=== PATIENT | male | born 1965 | race American Indian/Alaskan Native ===

== ENCOUNTER 2017-03-06 13:00 | Inpatient (IN) | payer MEDICAID ==
[2017-03-06 13:04] VITALS: BMI 25.8
[2017-03-06 14:33] LABS: BASO % 0.3 % (0.0-2.0); EOS # 0.1 K/uL (0.0-0.7); EOS % 1.5 % (0.0-4.0); HEMATOCRIT 37.7 % (35.0-51.0); LYMPH # 2.3 K/uL (1.0-4.3); LYMPH % 27.1 % (20.0-40.0); MEAN CELL VOLUME 84.5 fl (80.0-94.0); MEAN CORPUSCULAR HEMOGLOBIN 27.1 pg (27.0-31.0); MEAN PLATELET VOLUME 8.9 fl (7.2-11.7); MONO # 0.5 K/uL (0.0-0.8); MONO % 5.5 % (0.0-10.0); NEUT # 5.6 K/uL (1.8-7.0); NEUT % 65.6 % (50.0-75.0); RED CELL DISTRIBUTION WIDTH 19.6 % (11.5-14.5); WHITE BLOOD COUNT 8.6 K/uL (4.8-10.8)
[2017-03-06] MEDS ORDERED: levoFLOXacin 500 mg in D5W 500 MG/100 ML BAG IVPB ONE (14:39)
[2017-03-06] MEDS ORDERED: Vancomycin 1 g Inj ONE (14:39)
[2017-03-06 14:40] LABS: VENOUS BLOOD GAS BASE EXCESS 6.8 mmol/L (0.0-2.0); VENOUS BLOOD GAS PCO2 66 mmHg (40-60); VENOUS BLOOD PH 7.33 (7.32-7.43)
[2017-03-06 14:44] LABS: ALB/GLOB RATIO 1.2 (1.0-2.1); ALKALINE PHOSPHATASE 82 U/L (38-126); ALT/SGPT 20 U/L (21-72); AST/SGOT 39 U/L (17-59); BILIRUBIN,TOTAL 0.3 mg/dl (0.2-1.3); BLOOD UREA NITROGEN 15 mg/dl (9-20); CALCIUM 9.7 mg/dL (8.4-10.2); CARBON DIOXIDE 30 mmol/L (22-30); CHLORIDE 100 mmol/L (98-107); GFR AFRICAN-AMERICAN > 60; GLUCOSE,RANDOM 91 mg/dL (75-110); POTASSIUM 4.4 MMOL/L (3.6-5.0); SODIUM 141 mmol/l (132-148); TOTAL PROTEIN 7.5 G/DL (6.3-8.2)
--- NOTE | 2017-03-06 14:53 | ED PDOC ---
HPI: General Adult Time Seen by Provider: 03/06/17 13:42 Chief Complaint (Nursing): Male Genitourinary History Per: Patient Additional Complaint(s): Pt. states for the past month he's had open sores and swelling to his groin and perineal area. Reports that over the past several days he's had discharge. He went to see Dr. Tiwari today who instructed him to come to the ED. Denies fever , penile discharge, dysuria, trauma. Past Medical History Reviewed: Historical Data, Nursing Documentation, Vital Signs Vital Signs: Last Vital Signs Temp 97 F L 03/06/17 13:02 Pulse 77 03/06/17 13:02 Resp BP 116/84 03/06/17 13:02 Pulse Ox 98 03/06/17 17:20 - Medical History PMH: HIV, HTN - Surgical History Surgical History: No Surg Hx - Family History Family History: States: No Known Family Hx - Immunization History Hx Tetanus Toxoid Vaccination: No Hx Influenza Vaccination: No Hx Pneumococcal Vaccination: No - Home Medications Home Medications: Ambulatory Orders Medication Instructions Recorded Albuterol 0.083% [Albuterol 0.083% 3 ml IH Q6H PRN 03/06/17 Inhal Claire (2.5 mg/3 ml) UD] Albuterol HFA [Ventolin HFA 90 2 puff IH Q4H PRN 03/06/17 mcg/actuation (8 g)] Cetirizine HCl [Allergy] 10 mg PO DAILY PRN 03/06/17 Elviteg/Luna/Emtric/Tenofo Dis 1 tab PO DAILY 03/06/17 [Stribild Tablet] Fluticasone/Salmeterol 500/50 1 puff IH Q12H 03/06/17 [Advair Diskus 500/50] Mometasone Furoate [Nasonex] 2 spray ZAYNAB DAILY PRN 03/06/17 Multivitamin [Multi-Vitamin Daily] 1 tab PO DAILY 03/06/17 Sulfamethoxazole/Trimethoprim 1 tab PO DAILY 03/06/17 [Bactrim DS Tab] - Allergies Allergies/Adverse Reactions: Allergies Allergy/AdvReac Type Severity Reaction Status Date / Time Penicillins Allergy RASH Verified 03/06/17 13:04 Review of Systems ROS Statement: Except As Marked, All Systems Reviewed And Found Negative Physical Exam - Reviewed Nursing Documentation Reviewed: Yes Vital Signs Reviewed: Yes - Physical Exam Appears: Positive for: Well, Non-toxic, No Acute Distress Head Exam: Positive for: ATRAUMATIC, NORMAL INSPECTION, NORMOCEPHALIC Skin: Positive for: Normal Color, Warm. Negative for: Rash Eye Exam: Positive for: EOMI, Normal appearance, PERRL ENT: Positive for: Normal ENT Inspection Neck: Positive for: Normal, Painless ROM Cardiovascular/Chest: Positive for: Regular Rate, Rhythm Respiratory: Positive for: CNT, Normal Breath Sounds Gastrointestinal/Abdominal: Positive for: Normal Exam, Bowel Sounds, Soft. Negative for: Tenderness Male Genital Exam: Positive for: other (diffuse maceration with open wounds and heavy yellow discharge noted; no fluctuance noted; scrotal swelling noted) Back: Positive for: Normal Inspection Extremity: Positive for: Normal ROM Neurologic/Psych: Positive for: Alert, Oriented - Laboratory Results Result Diagrams: 03/06/17 14:28 03/06/17 14:27 - ECG O2 Sat by Pulse Oximetry: 98 - Progress ED Course And Treament: Labs ordered. Levaquin 500mg IV, vancomycin IV ordered. US testes, pelvic CT w/ IV contrast ordered. Pelvic CT: There is a small approximately 11.5 mm x 10 mm low-attenuation focus right perianal region with what appears to represent a thin peripheral rim of enhancement suggesting capsule formation. . Findings most consistent with small perianal fluid collection - abscess. [address] Solares, surgery contracting executive. 1712 Case d/w Dr. Solares who agrees with care and requests that surgical aides teacher be contacted Call placed to surgical aides teacher. Call placed to FP resident. 1715 Case d/w Dr. Kaur, surgical aides teacher, and will see patient in ED and then consult Dr. Solares. Case d/w Dr. Alcala, FP resident, and arrangements made for admission. Disposition - Clinical Impression Clinical Impression: Abscess, Cellulitis - Patient ED Disposition Is Patient to be Admitted: Yes - Disposition Disposition Time: 17:20 Condition: STABLE
[2017-03-06] MEDS ORDERED: Iohexol 300 100 ML IJ ONE (15:40)
[2017-03-06] MEDS ORDERED: Sodium Chloride 0.9% 50 ML IV ONE (15:40)
--- NOTE | 2017-03-06 16:57 | CT ---
PROCEDURE: CT pelvis dated 03/06/2017 HISTORY: Perineal swelling with discharge COMPARISON: None. No prior study available for comparison TECHNIQUE: Contiguous axial images of the pelvis with contrast. Coronal and sagittal reformats generated. Contrast dose: 95 cc Omnipaque 300 Radiation dose: Total exam DLP = 325.12 mGy-cm. This CT exam was performed using one or more of the following dose reduction techniques: Automated exposure control, adjustment of the mA and/or kV according to patient size, and/or use of iterative reconstruction technique. FINDINGS: BLADDER: Urinary bladder is physiologically distended. . No evidence of intraluminal urinary bladder calculi. REPRODUCTIVE ORGANS: Large bilateral hydroceles are present. Prostate gland and seminal vesicles appear unremarkable. VISUALIZED BOWEL: Evaluation of the bowel is limited due to the lack of oral contrast material. PERITONEUM: Unremarkable, as visualized. No free fluid. No free air. LYMPH NODES: Unremarkable. No enlarged lymph nodes. VASCULATURE: Unremarkable. BONES: No fracture or focal lesion. OTHER FINDINGS: There is a small approximately 11.5 mm x 10 mm low-attenuation focus right perianal region with what appears to represent a thin peripheral rim of enhancement suggesting capsule formation. . Findings most consistent with small perianal fluid collection - abscess. Metallic surgical clips left inguinal region likely related to prior inguinal hernia repair. Tiny fat containing right inguinal hernia. . IMPRESSION: Findings consistent with a small fluid collection and/or abscess of the right perianal region.
--- NOTE | 2017-03-06 17:00 | US ---
HISTORY: scrotal swelling and pain TECHNIQUE: Realtime sonography through the scrotum with color and doppler flow. COMPARISON: None Available. FINDINGS: RIGHT TESTICLE: Measures 2.4 x 2.4 x 3.6 cm. Normal echotexture and flow. RIGHT EPIDIDYMIS: Epididymal head measures 0.7 x 0.9 x 1.0 cm. Grossly unremarkable appearance with normal flow.Incidental finding(s): Epididymal cyst 3 x 2 mm. LEFT TESTICLE: Measures 2.2 x 2.3 x 3.9 cm. Normal echotexture and flow. LEFT EPIDIDYMIS: Epididymal head measures 0.9 x 0.9 x 1.5 cm. Grossly unremarkable appearance with normal flow. HYDROCELE: Large and symmetrical bilateral hydroceles. VARICOCELE: None. OTHER FINDINGS: None. IMPRESSION: Negative study for epididymitis, orchitis or torsion. Bilateral hydroceles noted.
[2017-03-06 17:48] LABS: RBC URINE 2 /hpf (0-3); URINE BILIRUBIN NEGATIVE (NEGATIVE); URINE BLOOD NEGATIVE (NEGATIVE); URINE COLOR YELLOW (YELLOW); URINE GLUCOSE (UA) NEG (Normal); URINE KETONE NEGATIVE (NEGATIVE); URINE LEUKOCYTE ESTERASE TRACE Leu/uL (Negative); URINE PROTEIN NEGATIVE (NEGATIVE); URINE UROBILINOGEN 0.2-1.0 mg/dL (0.2-1.0); WBC URINE < 1 /hpf (0-5)
--- NOTE | 2017-03-06 18:17 | CP.PCM.CON ---
Addendum entered and electronically signed by Susan Hicks DO 03/07/17 10: 50: Attending: Dr. Flor patient seen and examined. Recommend IV abx Original Note: History of Present Illness - History of Present Illness History of Present Illness: General Surgery Consult Note- Dr. Tijerina 52M pmh of HIV, squamous cell carcinoma of the penis came to [facility] ED for extreme perianal pain that started one month ago. Intially b/l inguinal region was irritated and itchy which developed into pain migrating to the perinium. Pt saw primary care doctor and recommend to come to the hospital for admission. Pt states minimal drainage and blood only on toilet paper. Pt recent viral load of 90,00 and CD4 less than 200. PMH: HIV, scc of penis, HTN PSH: penile surgery, ex-lap colostomy colostomy reversal from [facility]: PCN Socialhx: former smoker quit 2001, former ETOH use, current heroin user- last use 2days ago. denies marjiuana, cocaine, meth or other illicit drug use Review of Systems - Review of Systems All systems: reviewed and no additional remarkable complaints except - Constitutional Constitutional: As Per HPI Past Patient History - Past Social History Smoking Status: 0 - CARDIAC Hx Hypertension: Yes - HEMATOLOGICAL/ONCOLOGICAL Hx Human Immunodeficiency Virus (HIV): Yes - GENITOURINARY/GYNECOLOGICAL Hx Genitourinary Disorders: Yes Hx Prostate Cancer: Yes Other/Comment: penile cancer - PSYCHIATRIC Hx Substance Use: No - SURGICAL HISTORY Hx Surgeries: Yes Other/Comment: colostomy- reversed - ANESTHESIA Hx Anesthesia: Yes Hx Anesthesia Reactions: No Meds Allergies/Adverse Reactions: Allergies Allergy/AdvReac Type Severity Reaction Status Date / Time Penicillins Allergy RASH Verified 03/06/17 13:04 Physical Exam - Constitutional Appears: Non-toxic, No Acute Distress - Head Exam Additional comments: dry skin across face - Eye Exam Eye Exam: EOMI. absent: Scleral icterus - ENT Exam ENT Exam: Mucous Membranes Moist - Respiratory Exam Respiratory Exam: NORMAL BREATHING PATTERN. absent: Accessory Muscle Use, Respiratory Distress - Cardiovascular Exam Cardiovascular Exam: +S1, +S2. absent: Bradycardia, Tachycardia - GI/Abdominal Exam GI & Abdominal Exam: Normal Bowel Sounds, Soft. absent: Distended, Firm, Guarding, Hernia, Rigid, Tenderness - Rectal Exam Additional comments: severe excoriation of skin at the 12 and 6o'clock position. mild purulet drainage. no palpable abscess. dry white irritated skin b/l inguinal region into the scrotum - Extremities Exam Extremities exam: Negative for: calf tenderness - Neurological Exam Neurological exam: Alert, Oriented x3 - Psychiatric Exam Psychiatric exam: Normal Affect - Skin Skin Exam: Dry, Rash Results - Vital Signs Recent Vital Signs: Last Vital Signs Temp 97 F L 03/06/17 13:02 Pulse 77 03/06/17 13:02 Resp BP 116/84 03/06/17 13:02 Pulse Ox 98 03/06/17 17:20 - Labs Result Diagrams: 03/06/17 14:28 03/06/17 14:27 Labs: Laboratory Results - last 24 hr 03/06/17 03/06/17 03/06/17 13:55 14:27 14:28 WBC 8.6 RBC 4.46 Hgb 12.1 Hct 37.7 MCV 84.5 MCH 27.1 MCHC 32.0 L RDW 19.6 H Plt Count 222 MPV 8.9 Neut % (Auto) 65.6 Lymph % (Auto) 27.1 [place] % (Auto) 5.5 Eos % (Auto) 1.5 Baso % (Auto) 0.3 Neut # 5.6 Lymph # 2.3 [place] # 0.5 Eos # 0.1 Baso # 0.0 pO2 15 L VBG pH 7.33 VBG pCO2 66 H* VBG HCO3 28.2 VBG Total CO2 36.8 H VBG O2 Sat (Calc) 18.4 L VBG Base Excess 6.8 H VBG Potassium 4.2 A-a O2 Difference 52.0 Sodium 138.0 141 Chloride 102.0 100 Glucose 90 Lactate 1.1 FiO2 21.0 Crit Value Called To Yolanda mcclellan Crit Value Called By 15 Crit Value Read Back Y Blood Gas Notified Time 1440 Potassium 4.4 Carbon Dioxide 30 Anion Gap 15 BUN 15 Creatinine 1.1 Est GFR ( Amer) > 60 Est GFR (Non-Af Amer) > 60 Random Glucose 91 Calcium 9.7 Total Bilirubin 0.3 AST 39 ALT 20 L Alkaline Phosphatase 82 Total Protein 7.5 Albumin 4.1 Globulin 3.4 Albumin/Globulin Ratio 1.2 Venous Blood Potassium 4.2 Urine Color Urine Clarity Urine pH Ur Specific [place] Urine Protein Urine Glucose (UA) Urine Ketones Urine Blood Urine Nitrate Urine Bilirubin Urine Urobilinogen Ur Leukocyte Esterase Urine RBC (Auto) Urine Microscopic WBC Ur Squamous Epith Cells 03/06/17 17:15 WBC RBC Hgb Hct MCV MCH MCHC RDW Plt Count MPV Neut % (Auto) Lymph % (Auto) [place] % (Auto) Eos % (Auto) Baso % (Auto) Neut # Lymph # [place] # Eos # Baso # pO2 VBG pH VBG pCO2 VBG HCO3 VBG Total CO2 VBG O2 Sat (Calc) VBG Base Excess VBG Potassium A-a O2 Difference Sodium Chloride Glucose Lactate FiO2 Crit Value Called To Crit Value Called By Crit Value Read Back Blood Gas Notified Time Potassium Carbon Dioxide Anion Gap BUN Creatinine Est GFR ( Amer) Est GFR (Non-Af Amer) Random Glucose Calcium Total Bilirubin AST ALT Alkaline Phosphatase Total Protein Albumin Globulin Albumin/Globulin Ratio Venous Blood Potassium Urine Color Yellow Urine Clarity Clear Urine pH 6.0 Ur Specific [place] 1.031 H Urine Protein Negative Urine Glucose (UA) Neg Urine Ketones Negative Urine Blood Negative Urine Nitrate Negative Urine Bilirubin Negative Urine Urobilinogen 0.2-1.0 Ur Leukocyte Esterase Trace Urine RBC (Auto) 2 Urine Microscopic WBC < 1 Ur Squamous Epith Cells < 1 Assessment & Plan - Assessment and Plan (Free Text) Assessment: 52M excoriated perineal region, possible perianal abscess Plan: - recommend local wound care - pain control - recommend ID consult - ABX per primary - Pt denied any surgical intervention - No acute surgical intervention needed at this time discussed plan with Dr. Lilliana Mcwilliams PGY1
[2017-03-06] MEDS ORDERED: Albuterol 0.083% Inhal Sol (2.5 mg/3 mL) UD IH PRN (18:59)
[2017-03-06] MEDS ORDERED: Fluticasone-Salmeterol 500-50mcg Diskus IH SCH (19:00)
--- NOTE | 2017-03-06 20:43 | CP.PCM.HP ---
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 Patient was sent from [facility] by PMD. Patient c/o pain and swelling with painful lesions in his scrotal and rectal area worsening for one month, the area has been very painful and itchy, he is unclear if there has been any discharge, he has not had similar symptoms in the past, currently not sexually active, no activity in over one year, no fevers, he has not taken any medication for the symptoms. Denies fevers, chills, Cp, SOB, cough, abdominal pain, blood in urine or stools. PMD- Dr. 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 denies marjiuana, cocaine, meth or other illicit drug use Present on Admission - Present on Admission Any Indicators Present on Admission: No Review of Systems - Review of Systems All systems: reviewed and no additional remarkable complaints except Review of Systems: Per HPI Past Patient History - Past Social History Smoking Status: 0 - CARDIAC Hx Hypertension: Yes - HEMATOLOGICAL/ONCOLOGICAL Hx Human Immunodeficiency Virus (HIV): Yes - GENITOURINARY/GYNECOLOGICAL Hx Genitourinary Disorders: Yes Hx Prostate Cancer: Yes Other/Comment: penile cancer - PSYCHIATRIC Hx Substance Use: No - SURGICAL HISTORY Hx Surgeries: Yes Other/Comment: colostomy- reversed - ANESTHESIA Hx Anesthesia: Yes Hx Anesthesia Reactions: No Meds Allergies/Adverse Reactions: Allergies Allergy/AdvReac Type Severity Reaction Status Date / Time Penicillins Allergy RASH Verified 03/06/17 13:04 Physical Exam - Constitutional Appears: Non-toxic, No Acute Distress - Eye Exam Eye Exam: Normal appearance - ENT Exam ENT Exam: Mucous Membranes Moist - Respiratory Exam Respiratory Exam: Clear to Auscultation Bilateral, NORMAL BREATHING PATTERN. absent: Wheezes - Cardiovascular Exam Cardiovascular Exam: REGULAR RHYTHM, +S1, +S2 - GI/Abdominal Exam GI & Abdominal Exam: Normal Bowel Sounds, Soft. absent: Tenderness - Rectal Exam Additional comments: diffuse maceration with open wounds and heavy yellow discharge; no fluctuance; scrotal swelling noted - Exam Exam: Scrotal Swelling, Testicular Tenderness External exam: Erythema, Swelling - Extremities Exam Extremities exam: Negative for: calf tenderness, pedal edema - Neurological Exam Neurological exam: Alert, CN II-XII Intact, Oriented x3 Results - Vital Signs Recent Vital Signs: Last Vital Signs Temp 98.6 F 03/06/17 20:01 Pulse 72 03/06/17 20:01 Resp 18 03/06/17 20:01 BP 103/69 03/06/17 20:01 Pulse Ox 95 03/06/17 20:01 - Labs Result Diagrams: 03/06/17 14:28 03/06/17 14:27 Labs: Laboratory Results - last 24 hr 03/06/17 03/06/17 03/06/17 13:55 14:27 14:28 WBC 8.6 RBC 4.46 Hgb 12.1 Hct 37.7 MCV 84.5 MCH 27.1 MCHC 32.0 L RDW 19.6 H Plt Count 222 MPV 8.9 Neut % (Auto) 65.6 Lymph % (Auto) 27.1 [place] % (Auto) 5.5 Eos % (Auto) 1.5 Baso % (Auto) 0.3 Neut # 5.6 Lymph # 2.3 [place] # 0.5 Eos # 0.1 Baso # 0.0 pO2 15 L VBG pH 7.33 VBG pCO2 66 H* VBG HCO3 28.2 VBG Total CO2 36.8 H VBG O2 Sat (Calc) 18.4 L VBG Base Excess 6.8 H VBG Potassium 4.2 A-a O2 Difference 52.0 Sodium 138.0 141 Chloride 102.0 100 Glucose 90 Lactate 1.1 FiO2 21.0 Crit Value Called To Yolanda mcclellan Crit Value Called By 15 Crit Value Read Back Y Blood Gas Notified Time 1440 Potassium 4.4 Carbon Dioxide 30 Anion Gap 15 BUN 15 Creatinine 1.1 Est GFR ( Amer) > 60 Est GFR (Non-Af Amer) > 60 Random Glucose 91 Calcium 9.7 Total Bilirubin 0.3 AST 39 ALT 20 L Alkaline Phosphatase 82 Total Protein 7.5 Albumin 4.1 Globulin 3.4 Albumin/Globulin Ratio 1.2 Venous Blood Potassium 4.2 Urine Color Urine Clarity Urine pH Ur Specific [place] Urine Protein Urine Glucose (UA) Urine Ketones Urine Blood Urine Nitrate Urine Bilirubin Urine Urobilinogen Ur Leukocyte Esterase Urine RBC (Auto) Urine Microscopic WBC Ur Squamous Epith Cells 03/06/17 17:15 WBC RBC Hgb Hct MCV MCH MCHC RDW Plt Count MPV Neut % (Auto) Lymph % (Auto) [place] % (Auto) Eos % (Auto) Baso % (Auto) Neut # Lymph # [place] # Eos # Baso # pO2 VBG pH VBG pCO2 VBG HCO3 VBG Total CO2 VBG O2 Sat (Calc) VBG Base Excess VBG Potassium A-a O2 Difference Sodium Chloride Glucose Lactate FiO2 Crit Value Called To Crit Value Called By Crit Value Read Back Blood Gas Notified Time Potassium Carbon Dioxide Anion Gap BUN Creatinine Est GFR ( Amer) Est GFR (Non-Af Amer) Random Glucose Calcium Total Bilirubin AST ALT Alkaline Phosphatase Total Protein Albumin Globulin Albumin/Globulin Ratio Venous Blood Potassium Urine Color Yellow Urine Clarity Clear Urine pH 6.0 Ur Specific [place] 1.031 H Urine Protein Negative Urine Glucose (UA) Neg Urine Ketones Negative Urine Blood Negative Urine Nitrate Negative Urine Bilirubin Negative Urine Urobilinogen 0.2-1.0 Ur Leukocyte Esterase Trace Urine RBC (Auto) 2 Urine Microscopic WBC < 1 Ur Squamous Epith Cells < 1 Assessment & Plan - Assessment and Plan (Free Text) Assessment: 52 y/o male with PMH rectal cancer, colon cancer, penile cancer, asthma, 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 Bilateral hydroceles -CT of Pelvis w/ IVcontrast- findings consistent with a small fluid collection and/or abscess of the right perianal region -surgery consulted - states no surgical intervention -Consider Urology consult 2. HIV infection 02/07/17 - CD4 230/13.5% / VL 90 Take Bactrim DS 1 po qday until CD4> / = 200 for 6 months to prevent opportunistic infections. Strovite 1 Tablet as directed Orally daily Stribild [phone] MG Tablet 1 tablet Orally Once a day 3.Asthma Advair Diskus 250-50 MCG 1 puff Inhalation Twice a day Ventolin HFA 90 MCG/ACT Aerosol Solution 2 puffs as needed Inhalation every 4 hrs 4.DVT prophylaxis Lovenox 40 mg SC daily 5.Diet- Regular
[2017-03-06] MEDS ORDERED: Fluconazole IV 400mg/200ml NS 200 ML IVPB SCH (21:00)
[2017-03-06] MEDS: Albuterol HFA 90 mcg/actuation (8 g) IH PRN (23:23)
[2017-03-07 06:07] LABS: HEMATOCRIT 34.4 % (35.0-51.0); MEAN CELL VOLUME 84.7 fl (80.0-94.0); MEAN CORPUSCULAR HEMOGLOBIN 26.7 pg (27.0-31.0); MEAN CORPUSCULAR HGB CONC 31.5 g/dL (33.0-37.0); RED CELL DISTRIBUTION WIDTH 19.3 % (11.5-14.5); WHITE BLOOD COUNT 5.9 K/uL (4.8-10.8)
--- NOTE | 2017-03-07 08:19 | CP.PCM.PN ---
Subjective - Date & Time of Evaluation Date of Evaluation: 03/07/17 Time of Evaluation: 08:16 - Subjective Subjective: Surgery Patient complains of burning pain and discomfort to right groin and perineal area. He states pain medication does not help. he denies f/c/n/v. Objective - Vital Signs/Intake and Output Vital Signs (last 24 hours): Temp Pulse Resp BP Pulse Ox 98.5 F 60 20 114/73 98 03/07/17 00:27 03/07/17 00:27 03/07/17 00:27 03/07/17 00:27 03/07/17 00:27 - Medications Medications: Current Medications Albuterol (Ventolin Hfa 90 Mcg/Actuation (8 G)) 2 puff IH Q4H PRN PRN Reason: Shortness of Breath Last Admin: 03/06/17 23:23 Dose: 2 puff Albuterol Sulfate (Albuterol 0.083% Inhal Claire (2.5 Mg/3 Ml) Ud) 2.5 mg IH Q6H PRN PRN Reason: Shortness of Breath Enoxaparin Sodium (Lovenox) 40 mg SC DAILY DIANDRA PRN Reason: Protocol Fluticasone Propionate (Flonase) 2 spr ZAYNAB DAILY PRN PRN Reason: Allergy symptoms Home Med (Elviteg/Luna/Emtric/Tenofo Dis [Stribild Tablet]) 1 tab PO DAILY [facility] Levofloxacin/Dextrose (Levaquin 750mg) 750 mg in 150 mls @ 100 mls/hr IVPB DAILY [facility] Vancomycin HCl 1 gm/ Sodium (Chloride) 250 mls @ 166.667 mls/hr IVPB Q12@0200, 1400 DIANDRA Last Admin: 03/07/17 02:33 Dose: 166.667 mls/hr Fluconazole (Diflucan Iv 400mg/200ml Ns) 200 mls @ 100 mls/hr IVPB HS@2100 [facility] Loratadine (Claritin) 10 mg PO DAILY PRN PRN Reason: Allergy symptoms Morphine Sulfate (Morphine) 2 mg IVP Q6 PRN PRN Reason: Pain, moderate (4-7) Morphine Sulfate (Morphine) 4 mg IVP Q4 PRN PRN Reason: Pain, severe (8-10) Last Admin: 03/07/17 06:46 Dose: 4 mg Multivitamins/Minerals (Therapeutic-M Tab) 1 tab PO DAILY [facility] Fluticasone/Salmeterol (Advair Diskus 500/50) 1 puff IH Q12H [facility] Last Admin: 03/07/17 06:46 Dose: 1 puff Trimethoprim/Sulfamethoxazole (Bactrim Ds Tab) 1 tab PO DAILY DIANDRA - Labs Labs: 03/07/17 04:00 03/06/17 14:27 - Constitutional Appears: Non-toxic, No Acute Distress - Head Exam Head Exam: ATRAUMATIC, NORMOCEPHALIC - Eye Exam Eye Exam: EOMI, Normal appearance - ENT Exam ENT Exam: Mucous Membranes Moist - Cardiovascular Exam Cardiovascular Exam: REGULAR RHYTHM. absent: Tachycardia - Exam Additional comments: right groin excoriated skin w/ seropurulent drainage noted. Tender to palpation. excoriation extends from groin into perineum. no flucutance palpable although exam limited due to patient pain level. Assessment and Plan - Assessment and Plan (Free Text) Assessment: 52 y/o male w/ excoriated right groin and perineum Plan: -actively draining at this time -f/u ID recs -cont IV abx, recommend addition of antifungal -local wound care, warm vs cold compress for patient comfort -further recs per attending AKWhite PGY3
[2017-03-07] MEDS: Enoxaparin 40 mg Syringe SC SCH ×2 (08:34→08:39)
[2017-03-07] MEDS: Tmp-Smz 800 mg-160 mg DS Tab PO SCH (08:34)
[2017-03-07] MEDS: Multivitamin With Minerals Tab PO SCH (08:35)
[2017-03-07] MEDS ORDERED: levoFLOXacin 750 mg in D5W 750 MG/150 ML BAG IVPB SCH (09:00)
--- NOTE | 2017-03-07 09:43 | CP.PCM.CON ---
History of Present Illness - History of Present Illness History of Present Illness: Infectious Disease Consultation Note- asked to see this patient at the request of family practice team for rectal/ genital lesions. HPI- Patient is a 52 year old male with HIV f/u with [facility] , h/ o rectal cancer s/p radiation and chemo 7 years ago along with recent colon cancer completed his last chemo 09/2016 who was admitted with extensive lesions in both inguinal regions and rectal region. Pt. states it started about a month ago and at first it was not as extensive but it continues to get more severe with yellowish discharge from both b/l groin lesions and the rectal region and he states he tried OTC creams but that did not help and he finally saw his PMD and he was instructed to come to hospital for IV abx and further evaluation. Pt. denies any fever or chills. denies any injury to the region and denies being sexual active. denies any STD . He states once before he had groin lesion but it resolved quickly. He denies any dysurea, denies any n/v, denies any diarrhea, denies any abd. pain , denies any AL, denies any cough, denies any sob, denies any chest pain. PMD- Dr. 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 denies marjiuana, cocaine, meth or other illicit drug use V Review of Systems - Review of Systems Review of Systems: as per HPI Past Patient History - Past Medical History & Family History Past Medical History?: Yes - Past Social History Smoking Status: Former Smoker Alcohol: None Drugs: Denies Home Situation {Lives}: Alone - CARDIAC Hx Cardiac Disorders: Yes Hx Hypertension: Yes - PULMONARY Hx Respiratory Disorders: Yes Hx Asthma: Yes - NEUROLOGICAL Hx Neurological Disorder: No - HEENT Hx HEENT Problems: No - RENAL Hx Chronic Kidney Disease: No - ENDOCRINE/METABOLIC Hx Endocrine Disorders: No - HEMATOLOGICAL/ONCOLOGICAL Hx Blood Disorders: Yes Hx Cancer: Yes (rectal, colon and penile) Hx Human Immunodeficiency Virus (HIV): Yes - INTEGUMENTARY Hx Dermatological Problems: Yes Hx Squamous Cell: Yes - MUSCULOSKELETAL/RHEUMATOLOGICAL Hx Musculoskeletal Disorders: No Hx Falls: No - GASTROINTESTINAL Hx Gastrointestinal Disorders: Yes Hx Colostomy: Yes (reversal) - GENITOURINARY/GYNECOLOGICAL Hx Genitourinary Disorders: Yes Hx Prostate Cancer: Yes Other/Comment: penile cancer - PSYCHIATRIC Hx Psychophysiologic Disorder: Yes Hx Depression: Yes Hx Substance Use: Yes (heroin 2 days ago, patient denies upon admission) - SURGICAL HISTORY Hx Surgeries: Yes Other/Comment: colostomy- reversed - ANESTHESIA Hx Anesthesia: Yes Hx Anesthesia Reactions: No Meds Allergies/Adverse Reactions: Allergies Allergy/AdvReac Type Severity Reaction Status Date / Time Penicillins Allergy RASH Verified 03/06/17 13:04 - Medications Medications: Current Medications Albuterol (Ventolin Hfa 90 Mcg/Actuation (8 G)) 2 puff IH Q4H PRN PRN Reason: Shortness of Breath Last Admin: 03/06/17 23:23 Dose: 2 puff Albuterol Sulfate (Albuterol 0.083% Inhal Claire (2.5 Mg/3 Ml) Ud) 2.5 mg IH Q6H PRN PRN Reason: Shortness of Breath Enoxaparin Sodium (Lovenox) 40 mg SC DAILY DIANDRA PRN Reason: Protocol Last Admin: 03/07/17 08:39 Dose: Not Given Fluticasone Propionate (Flonase) 2 spr ZAYNAB DAILY PRN PRN Reason: Allergy symptoms Home Med (Elviteg/Luna/Emtric/Tenofo Dis [Stribild Tablet]) 1 tab PO DAILY [facility] Levofloxacin/Dextrose (Levaquin 750mg) 750 mg in 150 mls @ 100 mls/hr IVPB DAILY [facility] Vancomycin HCl 1 gm/ Sodium (Chloride) 250 mls @ 166.667 mls/hr IVPB Q12@0200, 1400 DIANDRA Last Admin: 03/07/17 02:33 Dose: 166.667 mls/hr Fluconazole (Diflucan Iv 400mg/200ml Ns) 200 mls @ 100 mls/hr IVPB HS@2100 [facility] Loratadine (Claritin) 10 mg PO DAILY PRN PRN Reason: Allergy symptoms Morphine Sulfate (Morphine) 2 mg IVP Q6 PRN PRN Reason: Pain, moderate (4-7) Morphine Sulfate (Morphine) 4 mg IVP Q4 PRN PRN Reason: Pain, severe (8-10) Last Admin: 03/07/17 06:46 Dose: 4 mg Multivitamins/Minerals (Therapeutic-M Tab) 1 tab PO DAILY [facility] Last Admin: 03/07/17 08:35 Dose: 1 tab Fluticasone/Salmeterol (Advair Diskus 500/50) 1 puff IH Q12@0900,2100 [facility] Trimethoprim/Sulfamethoxazole (Bactrim Ds Tab) 1 tab PO DAILY [facility] Last Admin: 03/07/17 08:34 Dose: 1 tab Physical Exam - Constitutional Appears: No Acute Distress - Head Exam Head Exam: ATRAUMATIC - Eye Exam Eye Exam: EOMI, PERRL - ENT Exam ENT Exam: Normal Oropharynx - Neck Exam Neck exam: Positive for: Full Rom - Respiratory Exam Respiratory Exam: Clear to Auscultation Bilateral, NORMAL BREATHING PATTERN - Cardiovascular Exam Cardiovascular Exam: RRR, +S1, +S2 - GI/Abdominal Exam GI & Abdominal Exam: Normal Bowel Sounds, Soft Additional comments: NT, ND - Exam Additional comments: b/l groin region with areas of macerated skin with yellow discharge and inter gluteal/rectal region also with macerated skin with yellow discharge no vesicles - Extremities Exam Extremities exam: Positive for: normal inspection - Neurological Exam Neurological exam: Alert, Oriented x3 Results - Vital Signs Recent Vital Signs: Last Vital Signs Temp 98.4 F 03/07/17 08:19 Pulse 72 03/07/17 08:19 Resp 20 03/07/17 08:19 BP 105/70 03/07/17 08:19 Pulse Ox 95 03/07/17 08:19 - Labs Result Diagrams: 03/07/17 04:00 03/06/17 14:27 Labs: Laboratory Results - last 24 hr 03/06/17 03/06/17 03/06/17 13:55 14:27 14:28 WBC 8.6 RBC 4.46 Hgb 12.1 Hct 37.7 MCV 84.5 MCH 27.1 MCHC 32.0 L RDW 19.6 H Plt Count 222 MPV 8.9 Neut % (Auto) 65.6 Lymph % (Auto) 27.1 Gooding % (Auto) 5.5 Eos % (Auto) 1.5 Baso % (Auto) 0.3 Neut # 5.6 Lymph # 2.3 Gooding # 0.5 Eos # 0.1 Baso # 0.0 pO2 15 L VBG pH 7.33 VBG pCO2 66 H* VBG HCO3 28.2 VBG Total CO2 36.8 H VBG O2 Sat (Calc) 18.4 L VBG Base Excess 6.8 H VBG Potassium 4.2 A-a O2 Difference 52.0 Sodium 138.0 141 Chloride 102.0 100 Glucose 90 Lactate 1.1 FiO2 21.0 Crit Value Called To Yolanda mcclellan Crit Value Called By 15 Crit Value Read Back Y Blood Gas Notified Time 1440 Potassium 4.4 Carbon Dioxide 30 Anion Gap 15 BUN 15 Creatinine 1.1 Est GFR ( Amer) > 60 Est GFR (Non-Af Amer) > 60 Random Glucose 91 Calcium 9.7 Total Bilirubin 0.3 AST 39 ALT 20 L Alkaline Phosphatase 82 Total Protein 7.5 Albumin 4.1 Globulin 3.4 Albumin/Globulin Ratio 1.2 Venous Blood Potassium 4.2 Urine Color Urine Clarity Urine pH Ur Specific [place] Urine Protein Urine Glucose (UA) Urine Ketones Urine Blood Urine Nitrate Urine Bilirubin Urine Urobilinogen Ur Leukocyte Esterase Urine RBC (Auto) Urine Microscopic WBC Ur Squamous Epith Cells 03/06/17 03/07/17 17:15 04:00 WBC 5.9 RBC 4.06 L Hgb 10.8 L Hct 34.4 L MCV 84.7 MCH 26.7 L MCHC 31.5 L RDW 19.3 H Plt Count 189 MPV Neut % (Auto) Lymph % (Auto) Gooding % (Auto) Eos % (Auto) Baso % (Auto) Neut # Lymph # Gooding # Eos # Baso # pO2 VBG pH VBG pCO2 VBG HCO3 VBG Total CO2 VBG O2 Sat (Calc) VBG Base Excess VBG Potassium A-a O2 Difference Sodium Chloride Glucose Lactate FiO2 Crit Value Called To Crit Value Called By Crit Value Read Back Blood Gas Notified Time Potassium Carbon Dioxide Anion Gap BUN Creatinine Est GFR ( Amer) Est GFR (Non-Af Amer) Random Glucose Calcium Total Bilirubin AST ALT Alkaline Phosphatase Total Protein Albumin Globulin Albumin/Globulin Ratio Venous Blood Potassium Urine Color Yellow Urine Clarity Clear Urine pH 6.0 Ur Specific Sy[place]ore 1.031 H Urine Protein Negative Urine Glucose (UA) Neg Urine Ketones Negative Urine Blood Negative Urine Nitrate Negative Urine Bilirubin Negative Urine Urobilinogen 0.2-1.0 Ur Leukocyte Esterase Trace Urine RBC (Auto) 2 Urine Microscopic WBC < 1 Ur Squamous Epith Cells < 1 Accession No. : [id number] Patient Name / ID : JEANNA Beauchamp / [id number] Exam Date : 03/06/2017 15:27:02 ( Approved ) Study Comment : Sex / Age : M / 52Y Creator : Harshil Hillman MD Dictator : Harshil Hillman MD Associate Software Developer : Credit Collection Specialist : Harshil Hillman MD Approver2 : Report Date : 03/06/2017 16:55:54 My Comment : PROCEDURE: CT pelvis dated 03/06/2017 HISTORY: Perineal swelling with discharge COMPARISON: None. No prior study available for comparison TECHNIQUE: Contiguous axial images of the pelvis with contrast. Coronal and sagittal reformats generated. Contrast dose: 95 cc Omnipaque 300 Radiation dose: Total exam DLP = 325.12 mGy-cm. This CT exam was performed using one or more of the following dose reduction techniques: Automated exposure control, adjustment of the mA and/or kV according to patient size, and/or use of iterative reconstruction technique. FINDINGS: BLADDER: Urinary bladder is physiologically distended. . No evidence of intraluminal urinary bladder calculi. REPRODUCTIVE ORGANS: Large bilateral hydroceles are present. Prostate gland and seminal vesicles appear unremarkable. VISUALIZED BOWEL: Evaluation of the bowel is limited due to the lack of oral contrast material. PERITONEUM: Unremarkable, as visualized. No free fluid. No free air. LYMPH NODES: Unremarkable. No enlarged lymph nodes. VASCULATURE: Unremarkable. BONES: No fracture or focal lesion. OTHER FINDINGS: There is a small approximately 11.5 mm x 10 mm low-attenuation focus right perianal region with what appears to represent a thin peripheral rim of enhancement suggesting capsule formation. . Findings most consistent with small perianal fluid collection - abscess. Metallic surgical clips left inguinal region likely related to prior inguinal hernia repair. Tiny fat containing right inguinal hernia. . IMPRESSION: Findings consistent with a small fluid collection and/or abscess of the right perianal region. Accession No. : [id number] Patient Name / ID : JEANNA Beauchamp / [id number] Exam Date : 03/06/2017 14:35:42 ( Approved ) Study Comment : Sex / Age : M / 52Y Creator : Edgar Hoyt MD Dictator : Edgar Hoyt MD Associate Software Developer : Credit Collection Specialist : Edgar Hoyt MD Approver2 : Report Date : 03/06/2017 16:59:01 My Comment : HISTORY: scrotal swelling and pain TECHNIQUE: Realtime sonography through the scrotum with color and doppler flow. COMPARISON: None Available. FINDINGS: RIGHT TESTICLE: Measures 2.4 x 2.4 x 3.6 cm. Normal echotexture and flow. RIGHT EPIDIDYMIS: Epididymal head measures 0.7 x 0.9 x 1.0 cm. Grossly unremarkable appearance with normal flow.Incidental finding(s): Epididymal cyst 3 x 2 mm. LEFT TESTICLE: Measures 2.2 x 2.3 x 3.9 cm. Normal echotexture and flow. LEFT EPIDIDYMIS: Epididymal head measures 0.9 x 0.9 x 1.5 cm. Grossly unremarkable appearance with normal flow. HYDROCELE: Large and symmetrical bilateral hydroceles. VARICOCELE: None. OTHER FINDINGS: None. IMPRESSION: Negative study for epididymitis, orchitis or torsion. Bilateral hydroceles noted. Assessment & Plan (1) Abscess Status: Acute (2) HIV (human immunodeficiency virus infection) Status: Acute - Assessment and Plan (Free Text) Assessment: A/P-52 year old male with HIV, rectal CA and colon CA in remission admitted with b/l groind and intergluteal and rectal macerationa nd discharge. afebrile and has normal wbc but found to have right perianal abscess on CT report. no epididimytis as per US report. pt. s/p radiation for the rectal CA and hence might have some skin changes secondary to the radiation predisposing to ulceration . plan- advise to keep area clean . check culture of the region. in the meantime advise to cover for skin pathogens namely staph and strep and hence to continue with IV vancomycin. check Urine GC/chlmaydia. check RPR. check HIV VL and CD4. continue with current HAART regimen for now. start doxycycline as well . d/c levaquin. Thank you for allowing me to take aprt in the care of this patient.
[2017-03-07] MEDS: Fluticasone-Salmeterol 500-50mcg Diskus IH SCH ×2 (10:02→21:11)
--- NOTE | 2017-03-07 11:52 | CP.PCM.PN ---
Subjective - Date & Time of Evaluation Date of Evaluation: 03/07/17 Time of Evaluation: 08:00 - Subjective Subjective: Patient seen and examined in MedSurg unit. Patient c//o pain in his genital area, radiating to inter gluteal area. Denies chills, Cp, SOB, cough, urinary symptoms, abdominal pain, diarrheas or other complains. Afebrile, VS stable Objective - Vital Signs/Intake and Output Vital Signs (last 24 hours): Temp Pulse Resp BP Pulse Ox 98.4 F 72 20 105/70 95 03/07/17 08:19 03/07/17 08:19 03/07/17 08:19 03/07/17 08:19 03/07/17 08:19 - Medications Medications: Current Medications Albuterol (Ventolin Hfa 90 Mcg/Actuation (8 G)) 2 puff IH Q4H PRN PRN Reason: Shortness of Breath Last Admin: 03/06/17 23:23 Dose: 2 puff Albuterol Sulfate (Albuterol 0.083% Inhal Claire (2.5 Mg/3 Ml) Ud) 2.5 mg IH Q6H PRN PRN Reason: Shortness of Breath Enoxaparin Sodium (Lovenox) 40 mg SC DAILY DIANDRA PRN Reason: Protocol Last Admin: 03/07/17 08:39 Dose: Not Given Fluticasone Propionate (Flonase) 2 spr ZAYNAB DAILY PRN PRN Reason: Allergy symptoms Home Med (Elviteg/Luna/Emtric/Tenofo Dis [Stribild Tablet]) 1 tab PO DAILY [facility] Levofloxacin/Dextrose (Levaquin 750mg) 750 mg in 150 mls @ 100 mls/hr IVPB DAILY [facility] Last Admin: 03/07/17 10:04 Dose: 100 mls/hr Vancomycin HCl 1 gm/ Sodium (Chloride) 250 mls @ 166.667 mls/hr IVPB Q12@0200, 1400 [facility] Last Admin: 03/07/17 02:33 Dose: 166.667 mls/hr Fluconazole (Diflucan Iv 400mg/200ml Ns) 200 mls @ 100 mls/hr IVPB HS@2100 [facility] Loratadine (Claritin) 10 mg PO DAILY PRN PRN Reason: Allergy symptoms Morphine Sulfate (Morphine) 2 mg IVP Q6 PRN PRN Reason: Pain, moderate (4-7) Morphine Sulfate (Morphine) 4 mg IVP Q4 PRN PRN Reason: Pain, severe (8-10) Last Admin: 03/07/17 11:04 Dose: 4 mg Multivitamins/Minerals (Therapeutic-M Tab) 1 tab PO DAILY [facility] Last Admin: 03/07/17 08:35 Dose: 1 tab Fluticasone/Salmeterol (Advair Diskus 500/50) 1 puff IH Q12@0900,2100 [facility] Last Admin: 03/07/17 10:02 Dose: Not Given Trimethoprim/Sulfamethoxazole (Bactrim Ds Tab) 1 tab PO DAILY [facility] Last Admin: 03/07/17 08:34 Dose: 1 tab - Labs Labs: 03/07/17 04:00 03/06/17 14:27 - Constitutional Appears: No Acute Distress - ENT Exam ENT Exam: Mucous Membranes Moist - Respiratory Exam Respiratory Exam: Clear to Ausculation Bilateral, NORMAL BREATHING PATTERN - Cardiovascular Exam Cardiovascular Exam: REGULAR RHYTHM, +S1, +S2 - GI/Abdominal Exam GI & Abdominal Exam: Soft, Normal Bowel Sounds. absent: Distended, Firm, Guarding, Rigid, Tenderness - Extremities Exam Extremities Exam: Normal Inspection. absent: Calf Tenderness, Pedal Edema - Neurological Exam Neurological Exam: Alert, Awake, Oriented x3 - Skin Skin Exam: Dry, Intact, Normal Color Additional comments: diffuse maceration with open wounds without discharge noted over both inguinal, and inter gluteal area ; no fluctuance; scrotal swelling noted Assessment and Plan - Assessment and Plan (Free Text) Assessment: 52 y/o male with PMH rectal cancer, colon cancer, penile cancer, HIV (dx 1992) , Asthma, Depression being admitted for perineal abscess. Plan: Right Perineal abscess -afebrile, no leukocytosis -c/w pain control with Morphine as per pain scale -c/w Vancomycin 1 gm Q12 -c/w levofloxacin 750 mg IV daily -c/w Fluconazole 400 mg IV daily -f/u Blood Cx -f/u Wound Cx -Testes dupplex US- Negative study for epididymitis, orchitis or torsion. Bilateral hydroceles -CT of Pelvis w/ IVcontrast- findings consistent with a small fluid collection and/or abscess of the right perianal region -surgery consulted - states no surgical intervention -ID consult appreciated, f/u recommendations HIV infection symptomatic 02/07/17 - CD4 230/13.5% / VL 90 c/w Bactrim DS 1 po qday until CD4> / = 200 for 6 months to prevent opportunistic infections. c/w Strovite 1 Tablet as directed Orally daily c/w Stribild [phone] MG Tablet 1 tablet Orally Once a day Asthma controlled, asymptomatic at this time Advair Diskus 250-50 MCG 1 puff Inhalation Twice a day Ventolin HFA 90 MCG/ACT Aerosol Solution 2 puffs as needed Inhalation every 4 hrs DVT prophylaxis Lovenox 40 mg SC daily
[2017-03-07] MEDS: Fluconazole IV 400mg/200ml NS 200 ML IVPB SCH (21:05)
[2017-03-07] MEDS: Silver Sulfadiazine 1% CREAM (50 gm) TOP SCH (21:11)
[2017-03-08] MEDS: Albuterol HFA 90 mcg/actuation (8 g) IH PRN (02:29)
[2017-03-08 06:31] LABS: HEMATOCRIT 33.9 % (35.0-51.0); MEAN CELL VOLUME 84.5 fl (80.0-94.0); MEAN CORPUSCULAR HEMOGLOBIN 26.8 pg (27.0-31.0); MEAN CORPUSCULAR HGB CONC 31.7 g/dL (33.0-37.0); RED CELL DISTRIBUTION WIDTH 18.9 % (11.5-14.5); WHITE BLOOD COUNT 6.3 K/uL (4.8-10.8)
[2017-03-08 06:41] LABS: ALB/GLOB RATIO 1.2 (1.0-2.1); ALKALINE PHOSPHATASE 74 U/L (38-126); ALT/SGPT 24 U/L (21-72); AST/SGOT 20 U/L (17-59); BILIRUBIN,TOTAL 0.2 mg/dl (0.2-1.3); BLOOD UREA NITROGEN 17 mg/dl (9-20); CARBON DIOXIDE 28 mmol/L (22-30); CHLORIDE 104 mmol/L (98-107); GFR AFRICAN-AMERICAN > 60; GLUCOSE,RANDOM 119 mg/dL (75-110); POTASSIUM 4.2 MMOL/L (3.6-5.0); SODIUM 144 mmol/l (132-148); TOTAL PROTEIN 6.4 G/DL (6.3-8.2)
--- NOTE | 2017-03-08 08:33 | CP.PCM.PN ---
Subjective - Date & Time of Evaluation Date of Evaluation: 03/08/17 Time of Evaluation: 06:40 - Subjective Subjective: General Surgery Pt S&E at bedside this AM. NAEO. States pain is getting better, however still difficult to walk. tolerating diet. Denies current F/C CP/SOB N/V/D Objective - Vital Signs/Intake and Output Vital Signs (last 24 hours): Temp Pulse Resp BP Pulse Ox 98.4 F 79 18 120/86 97 03/08/17 07:49 03/08/17 07:49 03/08/17 07:49 03/08/17 07:49 03/08/17 07:49 - Medications Medications: Current Medications Albuterol (Ventolin Hfa 90 Mcg/Actuation (8 G)) 2 puff IH Q4H PRN PRN Reason: Shortness of Breath Last Admin: 03/08/17 02:29 Dose: 2 puff Albuterol Sulfate (Albuterol 0.083% Inhal Claire (2.5 Mg/3 Ml) Ud) 2.5 mg IH Q6H PRN PRN Reason: Shortness of Breath Enoxaparin Sodium (Lovenox) 40 mg SC DAILY DIANDRA PRN Reason: Protocol Last Admin: 03/07/17 08:39 Dose: Not Given Fluticasone Propionate (Flonase) 2 spr ZAYNAB DAILY PRN PRN Reason: Allergy symptoms Home Med (Elviteg/Luna/Emtric/Tenofo Dis [Stribild Tablet]) 1 tab PO DAILY [facility] Vancomycin HCl 1 gm/ Sodium (Chloride) 250 mls @ 166.667 mls/hr IVPB Q12@0200, 1400 [facility] Last Admin: 03/08/17 02:27 Dose: 166.667 mls/hr Fluconazole (Diflucan Iv 400mg/200ml Ns) 200 mls @ 100 mls/hr IVPB HS@2100 [facility] Last Admin: 03/07/17 21:05 Dose: 100 mls/hr Doxycycline Hyclate 100 mg/ (Sodium Chloride) 100 mls @ 100 mls/hr IVPB Q12 [facility] Last Admin: 03/07/17 21:00 Dose: 100 mls/hr Loratadine (Claritin) 10 mg PO DAILY PRN PRN Reason: Allergy symptoms Last Admin: 03/07/17 21:45 Dose: 10 mg Morphine Sulfate (Morphine) 2 mg IVP Q6 PRN PRN Reason: Pain, moderate (4-7) Last Admin: 03/07/17 14:07 Dose: 2 mg Morphine Sulfate (Morphine) 4 mg IVP Q4 PRN PRN Reason: Pain, severe (8-10) Last Admin: 03/08/17 06:02 Dose: 4 mg Multivitamins/Minerals (Therapeutic-M Tab) 1 tab PO DAILY [facility] Last Admin: 03/07/17 08:35 Dose: 1 tab Fluticasone/Salmeterol (Advair Diskus 500/50) 1 puff IH Q12@0900,2100 [facility] Last Admin: 03/07/17 21:11 Dose: 1 puff Silver Sulfadiazine (Silvadene 1% 50 Gm) 1 applic TOP BID [facility] Last Admin: 03/07/17 21:11 Dose: 1 applic Trimethoprim/Sulfamethoxazole (Bactrim Ds Tab) 1 tab PO DAILY [facility] Last Admin: 03/07/17 08:34 Dose: 1 tab - Labs Labs: 03/08/17 05:30 03/08/17 05:30 - Constitutional Appears: Non-toxic, No Acute Distress - Head Exam Head Exam: ATRAUMATIC - Eye Exam Eye Exam: EOMI. absent: Scleral icterus - ENT Exam ENT Exam: Mucous Membranes Moist - Respiratory Exam Respiratory Exam: NORMAL BREATHING PATTERN. absent: Accessory Muscle Use, Respiratory Distress - Cardiovascular Exam Cardiovascular Exam: +S1, +S2. absent: Bradycardia, Tachycardia - GI/Abdominal Exam GI & Abdominal Exam: Soft. absent: Distended, Guarding, Rigid, Tenderness - Neurological Exam Neurological Exam: Alert, Awake, Oriented x3 - Skin Skin Exam: Dry, Rash Assessment and Plan - Assessment and Plan (Free Text) Assessment: 52M w/ excoriated right groin and perineum Plan: -Encourage ambulation -actively draining at this time -f/u ID recs -cont IV abx -local wound care, warm vs cold compress for patient comfort -further recs per attending Petar Mcwilliams PGY1
--- NOTE | 2017-03-08 09:09 | CP.PCM.PN ---
Subjective - Date & Time of Evaluation Date of Evaluation: 03/08/17 Time of Evaluation: 09:00 - Subjective Subjective: Patient seen and examined at bedside this AM. Pt reports moderate pain in the perianal area. Pt is on pain medications. Denies fever, chills, nausea, vomiting , chest pain, dyspnea or calf pain. Pt is tolerating PO food and liquid. Has normal BM and urination. Objective - Vital Signs/Intake and Output Vital Signs (last 24 hours): Temp Pulse Resp BP Pulse Ox 98.4 F 79 18 120/86 97 03/08/17 07:49 03/08/17 07:49 03/08/17 07:49 03/08/17 07:49 03/08/17 07:49 - Medications Medications: Current Medications Albuterol (Ventolin Hfa 90 Mcg/Actuation (8 G)) 2 puff IH Q4H PRN PRN Reason: Shortness of Breath Last Admin: 03/08/17 02:29 Dose: 2 puff Albuterol Sulfate (Albuterol 0.083% Inhal Claire (2.5 Mg/3 Ml) Ud) 2.5 mg IH Q6H PRN PRN Reason: Shortness of Breath Enoxaparin Sodium (Lovenox) 40 mg SC DAILY [facility] PRN Reason: Protocol Last Admin: 03/07/17 08:39 Dose: Not Given Fluticasone Propionate (Flonase) 2 spr ZAYNAB DAILY PRN PRN Reason: Allergy symptoms Home Med (Elviteg/Luna/Emtric/Tenofo Dis [Stribild Tablet]) 1 tab PO DAILY [facility] Vancomycin HCl 1 gm/ Sodium (Chloride) 250 mls @ 166.667 mls/hr IVPB Q12@0200, 1400 [facility] Last Admin: 03/08/17 02:27 Dose: 166.667 mls/hr Fluconazole (Diflucan Iv 400mg/200ml Ns) 200 mls @ 100 mls/hr IVPB HS@2100 [facility] Last Admin: 03/07/17 21:05 Dose: 100 mls/hr Doxycycline Hyclate 100 mg/ (Sodium Chloride) 100 mls @ 100 mls/hr IVPB Q12 [facility] Last Admin: 03/07/17 21:00 Dose: 100 mls/hr Loratadine (Claritin) 10 mg PO DAILY PRN PRN Reason: Allergy symptoms Last Admin: 03/07/17 21:45 Dose: 10 mg Morphine Sulfate (Morphine) 2 mg IVP Q6 PRN PRN Reason: Pain, moderate (4-7) Last Admin: 03/07/17 14:07 Dose: 2 mg Morphine Sulfate (Morphine) 4 mg IVP Q4 PRN PRN Reason: Pain, severe (8-10) Last Admin: 03/08/17 06:02 Dose: 4 mg Multivitamins/Minerals (Therapeutic-M Tab) 1 tab PO DAILY [facility] Last Admin: 03/07/17 08:35 Dose: 1 tab Fluticasone/Salmeterol (Advair Diskus 500/50) 1 puff IH Q12@0900,2100 [facility] Last Admin: 03/07/17 21:11 Dose: 1 puff Silver Sulfadiazine (Silvadene 1% 50 Gm) 1 applic TOP BID [facility] Last Admin: 03/07/17 21:11 Dose: 1 applic Trimethoprim/Sulfamethoxazole (Bactrim Ds Tab) 1 tab PO DAILY [facility] Last Admin: 03/07/17 08:34 Dose: 1 tab - Labs Labs: 03/08/17 05:30 03/08/17 05:30 - Constitutional Appears: Non-toxic, No Acute Distress - Head Exam Head Exam: ATRAUMATIC, NORMAL INSPECTION - Eye Exam Eye Exam: Normal appearance - ENT Exam ENT Exam: Mucous Membranes Moist - Neck Exam Neck Exam: Normal Inspection - Respiratory Exam Respiratory Exam: Clear to Ausculation Bilateral - Cardiovascular Exam Cardiovascular Exam: REGULAR RHYTHM, +S1, +S2 - GI/Abdominal Exam GI & Abdominal Exam: Soft, Normal Bowel Sounds. absent: Tenderness - Extremities Exam Extremities Exam: Normal Capillary Refill, Normal Inspection. absent: Calf Tenderness, Pedal Edema - Neurological Exam Neurological Exam: Alert, Awake, Oriented x3 - Psychiatric Exam Psychiatric exam: Normal Affect, Normal Mood Assessment and Plan - Assessment and Plan (Free Text) Assessment: Assessment and plan: 52 year old male with PMH rectal cancer, colon cancer, penile cancer, HIV (dx 1992) , asthma, depression being admitted for perineal abscess. 1. Right Perineal abscess -Afebrile, no leukocytosis, wbc 6.3( 03/08/17) -Continue with pain control with Morphine as per pain scale -Continue with Vancomycin 1 gm Q12 -D/C levofloxacin 750 mg IV -Continue with doxycycline 100 mg BID -Continue with Fluconazole 400 mg IV daily -Blood Cx: no growth after 24 hrs -Wound Cx: Beta hemolytic group B strep, sensitive to Vancomycin, -Testes dupplex US- Negative study for epididymitis, orchitis or torsion. Bilateral hydroceles -CT of Pelvis w/ IVcontrast- findings consistent with a small fluid collection and/or abscess of the right perianal region -surgery consulted - states no surgical intervention -ID consult appreciated, f/u recommendations -Vanco trough 9.0( 03/08/17). 2. HIV infection symptomatic -03/07/17: CD4 278/16% -02/07/17 : CD4 230/13.5% / VL 90 -Continue with Bactrim DS 1 po qday until CD4> / = 200 for 6 months to prevent opportunistic infections. -Continue with Strovite 1 Tablet as directed Orally daily -Continue with Stribild [phone] MG Tablet 1 tablet Orally Once a day 3. Asthma controlled, asymptomatic at this time Advair Diskus 250-50 MCG 1 puff Inhalation Twice a day Ventolin HFA 90 MCG/ACT Aerosol Solution 2 puffs as needed Inhalation every 4 hrs 4. DVT prophylaxis -Lovenox 40 mg SC daily 5. Diet: -regular
[2017-03-08] MEDS: Tmp-Smz 800 mg-160 mg DS Tab PO SCH (09:32)
[2017-03-08] MEDS: Fluticasone-Salmeterol 500-50mcg Diskus IH SCH ×2 (09:32→21:03)
[2017-03-08] MEDS: Enoxaparin 40 mg Syringe SC SCH (09:32)
[2017-03-08] MEDS: Multivitamin With Minerals Tab PO SCH (09:32)
[2017-03-08] MEDS: Silver Sulfadiazine 1% CREAM (50 gm) TOP SCH ×2 (09:33→18:16)
[2017-03-08] MEDS ORDERED: Vitamin A/D oint 60G TP ONE (09:43)
[2017-03-08] MEDS: White Petroleum Jar TP PRN ×2 (09:52→18:19)
[2017-03-08] MEDS: Fluconazole IV 400mg/200ml NS 200 ML IVPB SCH (21:03)
[2017-03-09] MEDS: Albuterol HFA 90 mcg/actuation (8 g) IH PRN (01:19)
[2017-03-09 08:23] LABS: BLOOD UREA NITROGEN 15 mg/dl (9-20); CALCIUM 9.4 mg/dL (8.4-10.2); CHLORIDE 103 mmol/L (98-107); GFR AFRICAN-AMERICAN > 60; SODIUM 144 mmol/l (132-148)
[2017-03-09 08:47] LABS: CARBON DIOXIDE 28 mmol/L (22-30); GLUCOSE,RANDOM 103 mg/dL (75-110); POTASSIUM 4.2 MMOL/L (3.6-5.0)
[2017-03-09] MEDS ORDERED: Albuterol-Ipratrop 3 mg / 0.5 (3 ml) UD INH PRN (09:12)
[2017-03-09] MEDS: Fluticasone-Salmeterol 500-50mcg Diskus IH SCH ×2 (09:22→21:18)
[2017-03-09] MEDS: Tmp-Smz 800 mg-160 mg DS Tab PO SCH (09:22)
[2017-03-09] MEDS: Multivitamin With Minerals Tab PO SCH (09:23)
[2017-03-09] MEDS: Silver Sulfadiazine 1% CREAM (50 gm) TOP SCH ×2 (09:23→16:47)
[2017-03-09] MEDS: Enoxaparin 40 mg Syringe SC SCH (09:23)
--- NOTE | 2017-03-09 10:10 | CP.PCM.PN ---
<Susan Hicks - Last Filed: 03/09/17 10:10> Subjective - Date & Time of Evaluation Date of Evaluation: 03/09/17 Time of Evaluation: 10:08 - Subjective Subjective: Surgery: Dr. Tijerina Patient reports pain decreasing in the groin area. He continues to reports drainage from the groins bilaterally. He denies f/c/n/v. Objective - Vital Signs/Intake and Output Vital Signs (last 24 hours): Temp Pulse Resp BP Pulse Ox 97.8 F 82 20 113/72 97 03/09/17 08:46 03/09/17 08:46 03/09/17 08:46 03/09/17 08:46 03/09/17 08:46 - Medications Medications: Current Medications Albuterol (Ventolin Hfa 90 Mcg/Actuation (8 G)) 2 puff IH Q4H PRN PRN Reason: Shortness of Breath Last Admin: 03/09/17 01:19 Dose: 2 puff Albuterol Sulfate (Albuterol 0.083% Inhal Claire (2.5 Mg/3 Ml) Ud) 2.5 mg IH Q6H PRN PRN Reason: Shortness of Breath Albuterol/Ipratropium (Duoneb 3 Mg/0.5 Mg (3 Ml) Ud) 3 ml INH RQ6 PRN PRN Reason: Shortness of Breath Emollient Ointment (White Petroleum) 1 applic TP Q8 PRN PRN Reason: Other Last Admin: 03/08/17 18:19 Dose: 1 applic Enoxaparin Sodium (Lovenox) 40 mg SC DAILY [facility] PRN Reason: Protocol Last Admin: 03/09/17 09:23 Dose: Not Given Fluticasone Propionate (Flonase) 2 spr ZAYNAB DAILY PRN PRN Reason: Allergy symptoms Home Med (Elviteg/Luna/Emtric/Tenofo Dis [Stribild Tablet]) 1 tab PO DAILY [facility] Vancomycin HCl 1 gm/ Sodium (Chloride) 250 mls @ 166.667 mls/hr IVPB Q12@0200, 1400 [facility] Last Admin: 03/09/17 01:16 Dose: 166.667 mls/hr Fluconazole (Diflucan Iv 400mg/200ml Ns) 200 mls @ 100 mls/hr IVPB HS@2100 [facility] Last Admin: 03/08/17 21:03 Dose: 100 mls/hr Doxycycline Hyclate 100 mg/ (Sodium Chloride) 100 mls @ 100 mls/hr IVPB Q12 [facility] Last Admin: 03/09/17 09:23 Dose: 100 mls/hr Loratadine (Claritin) 10 mg PO DAILY PRN PRN Reason: Allergy symptoms Last Admin: 03/07/17 21:45 Dose: 10 mg Morphine Sulfate (Morphine) 2 mg IVP Q6 PRN PRN Reason: Pain, moderate (4-7) Last Admin: 03/08/17 09:43 Dose: 2 mg Morphine Sulfate (Morphine) 4 mg IVP Q4 PRN PRN Reason: Pain, severe (8-10) Last Admin: 03/09/17 06:58 Dose: 4 mg Multivitamins/Minerals (Therapeutic-M Tab) 1 tab PO DAILY [facility] Last Admin: 03/09/17 09:23 Dose: 1 tab Fluticasone/Salmeterol (Advair Diskus 500/50) 1 puff IH Q12@0900,2099 [facility] Last Admin: 03/09/17 09:22 Dose: 1 puff Silver Sulfadiazine (Silvadene 1% 50 Gm) 1 applic TOP BID [facility] Last Admin: 03/09/17 09:23 Dose: 1 applic Trimethoprim/Sulfamethoxazole (Bactrim Ds Tab) 1 tab PO DAILY [facility] Last Admin: 03/09/17 09:22 Dose: 1 tab - Labs Labs: 03/08/17 05:30 03/09/17 06:30 - Constitutional Appears: Non-toxic, No Acute Distress - Head Exam Head Exam: ATRAUMATIC, NORMOCEPHALIC - Eye Exam Eye Exam: EOMI, Normal appearance - ENT Exam ENT Exam: Mucous Membranes Moist - Respiratory Exam Respiratory Exam: NORMAL BREATHING PATTERN. absent: Respiratory Distress - Cardiovascular Exam Cardiovascular Exam: REGULAR RHYTHM. absent: Tachycardia - Exam Additional comments: bilateral groins w/ excoriated raw skin and multiple sinuses drainage sero- purulent fluid - Neurological Exam Neurological Exam: Alert, Awake - Psychiatric Exam Psychiatric exam: Normal Affect - Skin Skin Exam: Dry, Warm Assessment and Plan - Assessment and Plan (Free Text) Assessment: 52M w/ excoriated bilateral groin and perineum with actively draining sinus tracts Plan: -overall pain imprving with abx -sinuses cont to drain -keep groins dry with gauze prn -encourage OOB -discuss surgical options once acute infection resolves, no surgical intervention required at this time -d/w DR. Lilliana GALLEGOSjorden PGY3 <Armando Tijerina - Last Filed: 03/09/17 13:55> Subjective - Date & Time of Evaluation Time of Evaluation: 13:30 - Subjective Subjective: Patient was seen and examined at the bedside. Agree with resident's note above Objective - Vital Signs/Intake and Output Vital Signs (last 24 hours): Temp Pulse Resp BP Pulse Ox 97.8 F 82 20 113/72 97 03/09/17 08:46 03/09/17 08:46 03/09/17 08:46 03/09/17 08:46 03/09/17 08:46 - Medications Medications: Current Medications Albuterol (Ventolin Hfa 90 Mcg/Actuation (8 G)) 2 puff IH Q4H PRN PRN Reason: Shortness of Breath Last Admin: 03/09/17 01:19 Dose: 2 puff Albuterol Sulfate (Albuterol 0.083% Inhal Claire (2.5 Mg/3 Ml) Ud) 2.5 mg IH Q6H PRN PRN Reason: Shortness of Breath Albuterol/Ipratropium (Duoneb 3 Mg/0.5 Mg (3 Ml) Ud) 3 ml INH RQ6 PRN PRN Reason: Shortness of Breath Emollient Ointment (White Petroleum) 1 applic TP Q8 PRN PRN Reason: Other Last Admin: 03/08/17 18:19 Dose: 1 applic Enoxaparin Sodium (Lovenox) 40 mg SC DAILY [facility] PRN Reason: Protocol Last Admin: 03/09/17 09:23 Dose: Not Given Fluticasone Propionate (Flonase) 2 spr ZAYNAB DAILY PRN PRN Reason: Allergy symptoms Home Med (Elviteg/Luna/Emtric/Tenofo Dis [Stribild Tablet]) 1 tab PO DAILY [facility] Vancomycin HCl 1 gm/ Sodium (Chloride) 250 mls @ 166.667 mls/hr IVPB Q12@0200, 1400 [facility] Last Admin: 03/09/17 01:16 Dose: 166.667 mls/hr Fluconazole (Diflucan Iv 400mg/200ml Ns) 200 mls @ 100 mls/hr IVPB HS@2100 [facility] Last Admin: 03/08/17 21:03 Dose: 100 mls/hr Doxycycline Hyclate 100 mg/ (Sodium Chloride) 100 mls @ 100 mls/hr IVPB Q12 [facility] Last Admin: 03/09/17 09:23 Dose: 100 mls/hr Loratadine (Claritin) 10 mg PO DAILY PRN PRN Reason: Allergy symptoms Last Admin: 03/07/17 21:45 Dose: 10 mg Morphine Sulfate (Morphine) 2 mg IVP Q6 PRN PRN Reason: Pain, moderate (4-7) Last Admin: 03/08/17 09:43 Dose: 2 mg Morphine Sulfate (Morphine) 4 mg IVP Q4 PRN PRN Reason: Pain, severe (8-10) Last Admin: 03/09/17 06:58 Dose: 4 mg Multivitamins/Minerals (Therapeutic-M Tab) 1 tab PO DAILY [facility] Last Admin: 03/09/17 09:23 Dose: 1 tab Fluticasone/Salmeterol (Advair Diskus 500/50) 1 puff IH Q12@0900,2100 [facility] Last Admin: 03/09/17 09:22 Dose: 1 puff Silver Sulfadiazine (Silvadene 1% 50 Gm) 1 applic TOP BID [facility] Last Admin: 03/09/17 09:23 Dose: 1 applic Trimethoprim/Sulfamethoxazole (Bactrim Ds Tab) 1 tab PO DAILY [facility] Last Admin: 03/09/17 09:22 Dose: 1 tab - Labs Labs: 03/08/17 05:30 03/09/17 06:30
--- NOTE | 2017-03-09 11:54 | CP.PCM.DIS ---
Provider - Provider Date of Admission: 03/07/17 15:09 Attending physician: Christine Bettencourt MD Time Spent in preparation of Discharge (in minutes): 30 Hospital Course - Lab Results Lab Results: Micro Results 03/07/17 19:00 Genital - Groin GC Culture - Preliminary No growth. 03/06/17 14:25 Blood-Venous Blood Culture - Preliminary NO GROWTH AFTER 48 HOURS 03/06/17 14:10 Blood-Venous Blood Culture - Preliminary NO GROWTH AFTER 48 HOURS 03/06/17 14:28 Groin Gram Stain - Final 03/06/17 14:28 Groin Wound Culture - Final Beta Hemolytic Strep Group B Most Recent Lab Values WBC 6.3 K/uL (4.8-10.8) 03/08/17 05:30 RBC 4.01 Mil/uL (4.40-5.90) L 03/08/17 05:30 Hgb 10.8 g/dL (12.0-18.0) L 03/08/17 05:30 Hct 33.9 % (35.0-51.0) L 03/08/17 05:30 MCV 84.5 fl (80.0-94.0) 03/08/17 05:30 MCH 26.8 pg (27.0-31.0) L 03/08/17 05:30 MCHC 31.7 g/dL (33.0-37.0) L 03/08/17 05:30 RDW 18.9 % (11.5-14.5) H 03/08/17 05:30 Plt Count 167 K/uL (130-400) 03/08/17 05:30 MPV 8.9 fl (7.2-11.7) 03/06/17 14:28 Neut % (Auto) 65.6 % (50.0-75.0) 03/06/17 14:28 Lymph % (Auto) 27.1 % (20.0-40.0) 03/06/17 14:28 [place] % (Auto) 5.5 % (0.0-10.0) 03/06/17 14:28 Eos % (Auto) 1.5 % (0.0-4.0) 03/06/17 14:28 Baso % (Auto) 0.3 % (0.0-2.0) 03/06/17 14:28 Neut # 5.6 K/uL (1.8-7.0) 03/06/17 14:28 Lymph # 2.3 K/uL (1.0-4.3) 03/06/17 14:28 [place] # 0.5 K/uL (0.0-0.8) 03/06/17 14:28 Eos # 0.1 K/uL (0.0-0.7) 03/06/17 14:28 Baso # 0.0 K/uL (0.0-0.2) 03/06/17 14:28 pO2 15 mm/Hg (30-55) L 03/06/17 13:55 VBG pH 7.33 (7.32-7.43) 03/06/17 13:55 VBG pCO2 66 mmHg (40-60) H* 03/06/17 13:55 VBG HCO3 28.2 mmol/L 03/06/17 13:55 VBG Total CO2 36.8 mmol/L (22-28) H 03/06/17 13:55 VBG O2 Sat (Calc) 18.4 % (40-65) L 03/06/17 13:55 VBG Base Excess 6.8 mmol/L (0.0-2.0) H 03/06/17 13:55 VBG Potassium 4.2 mmol/L (3.6-5.2) 03/06/17 13:55 A-a O2 Difference 52.0 mm/Hg 03/06/17 13:55 Sodium 138.0 mmol/L (132-148) 03/06/17 13:55 Chloride 102.0 mmol/L (98-107) 03/06/17 13:55 Glucose 90 mg/dL (75-110) 03/06/17 13:55 Lactate 1.1 mmol/L (0.7-2.1) 03/06/17 13:55 FiO2 21.0 % 03/06/17 13:55 Crit Value Called To Yolanda [email or web address] 03/06/17 13:55 Crit Value Called By 03/06/17 13:55 Crit Value Read Back Y 03/06/17 13:55 Blood Gas Notified Time 1440 03/06/17 13:55 Sodium 144 mmol/l (132-148) 03/09/17 06:30 Potassium 4.2 MMOL/L (3.6-5.0) 03/09/17 06:30 Chloride 103 mmol/L (98-107) 03/09/17 06:30 Carbon Dioxide 28 mmol/L (22-30) 03/09/17 06:30 Anion Gap 18 (10-20) 03/09/17 06:30 BUN 15 mg/dl (9-20) 03/09/17 06:30 Creatinine 1.1 mg/dL (0.8-1.5) 03/09/17 06:30 Est GFR ( Amer) > 60 03/09/17 06:30 Est GFR (Non-Af Amer) > 60 03/09/17 06:30 Random Glucose 103 mg/dL (75-110) 03/09/17 06:30 Calcium 9.4 mg/dL (8.4-10.2) 03/09/17 06:30 Total Bilirubin 0.2 mg/dl (0.2-1.3) 03/08/17 05:30 AST 20 U/L (17-59) 03/08/17 05:30 ALT 24 U/L (21-72) 03/08/17 05:30 Alkaline Phosphatase 74 U/L (38-126) 03/08/17 05:30 Total Protein 6.4 G/DL (6.3-8.2) 03/08/17 05:30 Albumin 3.4 g/dL (3.5-5.0) L 03/08/17 05:30 Globulin 2.9 gm/dL (2.2-3.9) 03/08/17 05:30 Albumin/Globulin Ratio 1.2 (1.0-2.1) 03/08/17 05:30 Venous Blood Potassium 4.2 mmol/L (3.6-5.2) 03/06/17 13:55 Urine Color Yellow (YELLOW) 03/06/17 17:15 Urine Clarity Clear (Clear) 03/06/17 17:15 Urine pH 6.0 (5.0-8.0) 03/06/17 17:15 Ur Specific [place] 1.031 (1.003-1.030) H 03/06/17 17:15 Urine Protein Negative mg/dL (NEGATIVE) 03/06/17 17:15 Urine Glucose (UA) Neg mg/dL (Normal) 03/06/17 17:15 Urine Ketones Negative mg/dL (NEGATIVE) 03/06/17 17:15 Urine Blood Negative (NEGATIVE) 03/06/17 17:15 Urine Nitrate Negative (NEGATIVE) 03/06/17 17:15 Urine Bilirubin Negative (NEGATIVE) 03/06/17 17:15 Urine Urobilinogen 0.2-1.0 mg/dL (0.2-1.0) 03/06/17 17:15 Ur Leukocyte Esterase Trace Nevaeh/uL (Negative) 03/06/17 17:15 Urine RBC (Auto) 2 /hpf (0-3) 03/06/17 17:15 Urine Microscopic WBC < 1 /hpf (0-5) 03/06/17 17:15 Ur Squamous Epith Cells < 1 /hpf (0-5) 03/06/17 17:15 Vancomycin Trough 9.0 ug/mL (5.0-10.0) 03/08/17 13:15 Absolute Lymphs (Flow) 1786 Cells/mcL (850-3900) 03/07/17 16:45 % CD4 Cells 16 Percent (30-61) L 03/07/17 16:45 Absolute CD4 Count 278 Cells/mcL (490-1740) L 03/07/17 16:45 T-Help/Suppress Ratio 0.19 Ratio (0.86-5.00) L 03/07/17 16:45 % CD8 Cells 83 Percent (12-42) H 03/07/17 16:45 Absolute CD8 Count 1477 Cells/mcL (180-1170) H 03/07/17 16:45 RPR Nonreactive (NONREACTIVE) 03/07/17 16:45 Discharge Exam - Head Exam Head Exam: ATRAUMATIC, NORMOCEPHALIC Discharge Plan - Follow Up Plan Condition: STABLE Disposition: HOME/ ROUTINE Instructions: Cellulitis (DC) Referrals: [facility] [place] [Outside]
--- NOTE | 2017-03-09 12:13 | CP.PCM.PN ---
Subjective - Date & Time of Evaluation Date of Evaluation: 03/09/17 Time of Evaluation: 12:13 - Subjective Subjective: ID Note- Pt. seen and examined today. denies any fever or chills. states he continues to have groin d/c. as per surgical team no surgical intervention for the small perianal abscess at this time. . Objective - Vital Signs/Intake and Output Vital Signs (last 24 hours): Temp Pulse Resp BP Pulse Ox 97.8 F 82 20 113/72 97 03/09/17 08:46 03/09/17 08:46 03/09/17 08:46 03/09/17 08:46 03/09/17 08:46 - Medications Medications: Current Medications Albuterol (Ventolin Hfa 90 Mcg/Actuation (8 G)) 2 puff IH Q4H PRN PRN Reason: Shortness of Breath Last Admin: 03/09/17 01:19 Dose: 2 puff Albuterol Sulfate (Albuterol 0.083% Inhal Claire (2.5 Mg/3 Ml) Ud) 2.5 mg IH Q6H PRN PRN Reason: Shortness of Breath Albuterol/Ipratropium (Duoneb 3 Mg/0.5 Mg (3 Ml) Ud) 3 ml INH RQ6 PRN PRN Reason: Shortness of Breath Emollient Ointment (White Petroleum) 1 applic TP Q8 PRN PRN Reason: Other Last Admin: 03/08/17 18:19 Dose: 1 applic Enoxaparin Sodium (Lovenox) 40 mg SC DAILY DIANDRA PRN Reason: Protocol Last Admin: 03/09/17 09:23 Dose: Not Given Fluticasone Propionate (Flonase) 2 spr ZAYNAB DAILY PRN PRN Reason: Allergy symptoms Home Med (Elviteg/Luna/Emtric/Tenofo Dis [Stribild Tablet]) 1 tab PO DAILY [facility] Vancomycin HCl 1 gm/ Sodium (Chloride) 250 mls @ 166.667 mls/hr IVPB Q12@0200, 1400 [facility] [place] Last Admin: 03/09/17 01:16 Dose: 166.667 mls/hr Fluconazole (Diflucan Iv 400mg/200ml Ns) 200 mls @ 100 mls/hr IVPB HS@2100 [facility] [place] Last Admin: 03/08/17 21:03 Dose: 100 mls/hr Doxycycline Hyclate 100 mg/ (Sodium Chloride) 100 mls @ 100 mls/hr IVPB Q12 [facility] [place] Last Admin: 03/09/17 09:23 Dose: 100 mls/hr Loratadine (Claritin) 10 mg PO DAILY PRN PRN Reason: Allergy symptoms Last Admin: 03/07/17 21:45 Dose: 10 mg Morphine Sulfate (Morphine) 2 mg IVP Q6 PRN PRN Reason: Pain, moderate (4-7) Last Admin: 03/08/17 09:43 Dose: 2 mg Morphine Sulfate (Morphine) 4 mg IVP Q4 PRN PRN Reason: Pain, severe (8-10) Last Admin: 03/09/17 06:58 Dose: 4 mg Multivitamins/Minerals (Therapeutic-M Tab) 1 tab PO DAILY [facility] [place] Last Admin: 03/09/17 09:23 Dose: 1 tab Fluticasone/Salmeterol (Advair Diskus 500/50) 1 puff IH Q12@0900,2100 [facility] [place] Last Admin: 03/09/17 09:22 Dose: 1 puff Silver Sulfadiazine (Silvadene 1% 50 Gm) 1 applic TOP BID [facility] [place] Last Admin: 03/09/17 09:23 Dose: 1 applic Trimethoprim/Sulfamethoxazole (Bactrim Ds Tab) 1 tab PO DAILY [facility] [place] Last Admin: 03/09/17 09:22 Dose: 1 tab - Labs Labs: - Additional Findings Additional findings: - Constitutional Appears: No Acute Distress - Head Exam Head Exam: ATRAUMATIC - Eye Exam Eye Exam: EOMI, PERRL - ENT Exam ENT Exam: Normal Oropharynx - Neck Exam Neck exam: Positive for: Full Rom - Respiratory Exam Respiratory Exam: Clear to Auscultation Bilateral, NORMAL BREATHING PATTERN - Cardiovascular Exam Cardiovascular Exam: RRR, +S1, +S2 - GI/Abdominal Exam GI & Abdominal Exam: Normal Bowel Sounds, Soft Additional comments: NT, ND - Exam Additional comments: b/l groin region with areas of macerated skin with yellow discharge and inter gluteal/rectal region also with macerated skin with yellow discharge no vesicles - Extremities Exam Extremities exam: Positive for: normal inspection - Neurological Exam Neurological exam: Alert, Oriented x 3 Laboratory Results - last 72 hr 03/06/17 03/06/17 03/06/17 13:55 14:27 14:28 WBC 8.6 RBC 4.46 Hgb 12.1 Hct 37.7 MCV 84.5 MCH 27.1 MCHC 32.0 L RDW 19.6 H Plt Count 222 MPV 8.9 Neut % (Auto) 65.6 Lymph % (Auto) 27.1 [place] % (Auto) 5.5 Eos % (Auto) 1.5 Baso % (Auto) 0.3 Neut # 5.6 Lymph # 2.3 [place] # 0.5 Eos # 0.1 Baso # 0.0 pO2 15 L VBG pH 7.33 VBG pCO2 66 H* VBG HCO3 28.2 VBG Total CO2 36.8 H VBG O2 Sat (Calc) 18.4 L VBG Base Excess 6.8 H VBG Potassium 4.2 A-a O2 Difference 52.0 Sodium 138.0 141 Chloride 102.0 100 Glucose 90 Lactate 1.1 FiO2 21.0 Crit Value Called To Yolanda mcclellan Crit Value Called By Ruslan Crit Value Read Back Y Blood Gas Notified Time 1440 Potassium 4.4 Carbon Dioxide 30 Anion Gap 15 BUN 15 Creatinine 1.1 Est GFR ( Amer) > 60 Est GFR (Non-Af Amer) > 60 Random Glucose 91 Calcium 9.7 Total Bilirubin 0.3 AST 39 ALT 20 L Alkaline Phosphatase 82 Total Protein 7.5 Albumin 4.1 Globulin 3.4 Albumin/Globulin Ratio 1.2 Venous Blood Potassium 4.2 Urine Color Urine Clarity Urine pH Ur Specific [place] Urine Protein Urine Glucose (UA) Urine Ketones Urine Blood Urine Nitrate Urine Bilirubin Urine Urobilinogen Ur Leukocyte Esterase Urine RBC (Auto) Urine Microscopic WBC Ur Squamous Epith Cells Vancomycin Trough Absolute Lymphs (Flow) % CD4 Cells Absolute CD4 Count T-Help/Suppress Ratio % CD8 Cells Absolute CD8 Count RPR 03/06/17 03/07/17 03/07/17 17:15 04:00 16:45 WBC 5.9 RBC 4.06 L Hgb 10.8 L Hct 34.4 L MCV 84.7 MCH 26.7 L MCHC 31.5 L RDW 19.3 H Plt Count 189 MPV Neut % (Auto) Lymph % (Auto) [place] % (Auto) Eos % (Auto) Baso % (Auto) Neut # Lymph # [place] # Eos # Baso # pO2 VBG pH VBG pCO2 VBG HCO3 VBG Total CO2 VBG O2 Sat (Calc) VBG Base Excess VBG Potassium A-a O2 Difference Sodium Chloride Glucose Lactate FiO2 Crit Value Called To Crit Value Called By Crit Value Read Back Blood Gas Notified Time Potassium Carbon Dioxide Anion Gap BUN Creatinine Est GFR ( Amer) Est GFR (Non-Af Amer) Random Glucose Calcium Total Bilirubin AST ALT Alkaline Phosphatase Total Protein Albumin Globulin Albumin/Globulin Ratio Venous Blood Potassium Urine Color Yellow Urine Clarity Clear Urine pH 6.0 Ur Specific [place] 1.031 H Urine Protein Negative Urine Glucose (UA) Neg Urine Ketones Negative Urine Blood Negative Urine Nitrate Negative Urine Bilirubin Negative Urine Urobilinogen 0.2-1.0 Ur Leukocyte Esterase Trace Urine RBC (Auto) 2 Urine Microscopic WBC < 1 Ur Squamous Epith Cells < 1 Vancomycin Trough Absolute Lymphs (Flow) % CD4 Cells Absolute CD4 Count T-Help/Suppress Ratio % CD8 Cells Absolute CD8 Count RPR Nonreactive 03/07/17 03/08/17 03/08/17 16:45 05:30 05:30 WBC 6.3 RBC 4.01 L Hgb 10.8 L Hct 33.9 L MCV 84.5 MCH 26.8 L MCHC 31.7 L RDW 18.9 H Plt Count 167 MPV Neut % (Auto) Lymph % (Auto) [place] % (Auto) Eos % (Auto) Baso % (Auto) Neut # Lymph # [place] # Eos # Baso # pO2 VBG pH VBG pCO2 VBG HCO3 VBG Total CO2 VBG O2 Sat (Calc) VBG Base Excess VBG Potassium A-a O2 Difference Sodium 144 Chloride 104 Glucose Lactate FiO2 Crit Value Called To Crit Value Called By Crit Value Read Back Blood Gas Notified Time Potassium 4.2 Carbon Dioxide 28 Anion Gap 15 BUN 17 Creatinine 1.2 Est GFR ( Amer) > 60 Est GFR (Non-Af Amer) > 60 Random Glucose 119 H Calcium 9.0 Total Bilirubin 0.2 AST 20 ALT 24 Alkaline Phosphatase 74 Total Protein 6.4 Albumin 3.4 L Globulin 2.9 Albumin/Globulin Ratio 1.2 Venous Blood Potassium Urine Color Urine Clarity Urine pH Ur Specific [place] Urine Protein Urine Glucose (UA) Urine Ketones Urine Blood Urine Nitrate Urine Bilirubin Urine Urobilinogen Ur Leukocyte Esterase Urine RBC (Auto) Urine Microscopic WBC Ur Squamous Epith Cells Vancomycin Trough Absolute Lymphs (Flow) 1786 % CD4 Cells 16 L Absolute CD4 Count 278 L T-Help/Suppress Ratio 0.19 L % CD8 Cells 83 H Absolute CD8 Count 1477 H RPR 03/08/17 03/09/17 13:15 06:30 WBC RBC Hgb Hct MCV MCH MCHC RDW Plt Count MPV Neut % (Auto) Lymph % (Auto) [place] % (Auto) Eos % (Auto) Baso % (Auto) Neut # Lymph # [place] # Eos # Baso # pO2 VBG pH VBG pCO2 VBG HCO3 VBG Total CO2 VBG O2 Sat (Calc) VBG Base Excess VBG Potassium A-a O2 Difference Sodium 144 Chloride 103 Glucose Lactate FiO2 Crit Value Called To Crit Value Called By Crit Value Read Back Blood Gas Notified Time Potassium 4.2 Carbon Dioxide 28 Anion Gap 18 BUN 15 Creatinine 1.1 Est GFR ( Amer) > 60 Est GFR (Non-Af Amer) > 60 Random Glucose 103 Calcium 9.4 Total Bilirubin AST ALT Alkaline Phosphatase Total Protein Albumin Globulin Albumin/Globulin Ratio Venous Blood Potassium Urine Color Urine Clarity Urine pH Ur Specific [place] Urine Protein Urine Glucose (UA) Urine Ketones Urine Blood Urine Nitrate Urine Bilirubin Urine Urobilinogen Ur Leukocyte Esterase Urine RBC (Auto) Urine Microscopic WBC Ur Squamous Epith Cells Vancomycin Trough 9.0 Absolute Lymphs (Flow) % CD4 Cells Absolute CD4 Count T-Help/Suppress Ratio % CD8 Cells Absolute CD8 Count RPR Microbiology 03/07/17 19:00 Genital - Groin GC Culture - Preliminary No growth. 03/06/17 14:25 Blood-Venous Blood Culture - Preliminary NO GROWTH AFTER 48 HOURS 03/06/17 14:10 Blood-Venous Blood Culture - Preliminary NO GROWTH AFTER 48 HOURS 03/06/17 14:28 Groin Gram Stain - Final 03/06/17 14:28 Groin Wound Culture - Final Beta Hemolytic Strep Group B Assessment and Plan (1) Abscess Status: Acute (2) HIV (human immunodeficiency virus infection) Status: Acute - Assessment and Plan (Free Text) Assessment: A/P-52 year old male with HIV, rectal CA and colon CA in remission admitted with b/l groind and intergluteal and rectal macerationa nd discharge. afebrile and has normal wbc but found to have small right perianal abscess on CT report. no epididimytis as per US report. has remained afebrile blood cx- neg x 2 groin cx- group B strep GC cx- neg RPR-nonreactive CD4-278 plan- advise to continue with IV vancomycin day #3. keep trough <15. advise 2 more days of the IV vanco as pt's groin cx grew group B strep and he is PCN allergic. continue with doxycycline as well. can be given orally. f/u with surgical input . d/w family practice team.
--- NOTE | 2017-03-09 14:39 | CP.PCM.PN ---
Subjective - Date & Time of Evaluation Date of Evaluation: 03/09/17 Time of Evaluation: 08:30 - Subjective Subjective: Patient seen and examined in [facility] this morning. Feeling well this morning, still c/o groin pain, however well controlled with pain meds. Denies Cp, SOB, chills, urinary symptoms or other complains. Afebrile, VS stable WNL Objective - Vital Signs/Intake and Output Vital Signs (last 24 hours): Temp Pulse Resp BP Pulse Ox 97.8 F 82 20 113/72 97 03/09/17 08:46 03/09/17 08:46 03/09/17 08:46 03/09/17 08:46 03/09/17 08:46 - Medications Medications: Current Medications Albuterol (Ventolin Hfa 90 Mcg/Actuation (8 G)) 2 puff IH Q4H PRN PRN Reason: Shortness of Breath Last Admin: 03/09/17 01:19 Dose: 2 puff Albuterol Sulfate (Albuterol 0.083% Inhal Claire (2.5 Mg/3 Ml) Ud) 2.5 mg IH Q6H PRN PRN Reason: Shortness of Breath Albuterol/Ipratropium (Duoneb 3 Mg/0.5 Mg (3 Ml) Ud) 3 ml INH RQ6 PRN PRN Reason: Shortness of Breath Emollient Ointment (White Petroleum) 1 applic TP Q8 PRN PRN Reason: Other Last Admin: 03/08/17 18:19 Dose: 1 applic Enoxaparin Sodium (Lovenox) 40 mg SC DAILY [facility] PRN Reason: Protocol Last Admin: 03/09/17 09:23 Dose: Not Given Fluticasone Propionate (Flonase) 2 spr ZAYNAB DAILY PRN PRN Reason: Allergy symptoms Home Med (Elviteg/Luna/Emtric/Tenofo Dis [Stribild Tablet]) 1 tab PO DAILY [facility] Vancomycin HCl 1 gm/ Sodium (Chloride) 250 mls @ 166.667 mls/hr IVPB Q12@0200, 1400 [facility] Last Admin: 03/09/17 01:16 Dose: 166.667 mls/hr Fluconazole (Diflucan Iv 400mg/200ml Ns) 200 mls @ 100 mls/hr IVPB HS@2100 [facility] Last Admin: 03/08/17 21:03 Dose: 100 mls/hr Doxycycline Hyclate 100 mg/ (Sodium Chloride) 100 mls @ 100 mls/hr IVPB Q12 [facility] Last Admin: 03/09/17 09:23 Dose: 100 mls/hr Loratadine (Claritin) 10 mg PO DAILY PRN PRN Reason: Allergy symptoms Last Admin: 03/07/17 21:45 Dose: 10 mg Morphine Sulfate (Morphine) 2 mg IVP Q6 PRN PRN Reason: Pain, moderate (4-7) Last Admin: 03/08/17 09:43 Dose: 2 mg Morphine Sulfate (Morphine) 4 mg IVP Q4 PRN PRN Reason: Pain, severe (8-10) Last Admin: 03/09/17 06:58 Dose: 4 mg Multivitamins/Minerals (Therapeutic-M Tab) 1 tab PO DAILY [facility] Last Admin: 03/09/17 09:23 Dose: 1 tab Fluticasone/Salmeterol (Advair Diskus 500/50) 1 puff IH Q12@0900,2100 [facility] Last Admin: 03/09/17 09:22 Dose: 1 puff Silver Sulfadiazine (Silvadene 1% 50 Gm) 1 applic TOP BID [facility] Last Admin: 03/09/17 09:23 Dose: 1 applic Trimethoprim/Sulfamethoxazole (Bactrim Ds Tab) 1 tab PO DAILY [facility] Last Admin: 03/09/17 09:22 Dose: 1 tab - Labs Labs: 03/08/17 05:30 03/09/17 06:30 - Additional Findings Additional findings: Constitutional Appears: Non-toxic, No Acute Distress - Head Exam Head Exam: ATRAUMATIC, NORMAL INSPECTION - Eye Exam Eye Exam: Normal appearance - ENT Exam ENT Exam: Mucous Membranes Moist - Neck Exam Neck Exam: Normal Inspection - Respiratory Exam Respiratory Exam: Clear to Ausculation Bilateral - Cardiovascular Exam Cardiovascular Exam: REGULAR RHYTHM, +S1, +S2 - GI/Abdominal Exam GI & Abdominal Exam: Soft, Normal Bowel Sounds. absent: Tenderness - Extremities Exam Extremities Exam: Normal Capillary Refill, Normal Inspection. absent: Calf Tenderness, Pedal Edema - Neurological Exam Neurological Exam: Alert, Awake, Oriented x3 - Psychiatric Exam Psychiatric exam: Normal Affect, Normal Mood Assessment and Plan - Assessment and Plan (Free Text) Assessment: 52 year old male with PMH rectal cancer, colon cancer, penile cancer, HIV (dx 1992) , asthma, depression being admitted for perineal abscess. Plan: Right Perineal abscess -Afebrile, no leukocytosis, wbc 6.3( 03/08/17) -Continue with pain control with Morphine as per pain scale -Continue with Vancomycin 1 gm Q12 for 2 more days , today Day #3 -Continue with doxycycline 100 mg BID -Continue with Fluconazole 400 mg IV daily -Blood Cx: no growth after 24 hrs -keep trough <15 as per ID recommendations -Wound Cx: Beta hemolytic group B strep, sensitive to Vancomycin, -Testes dupplex US- Negative study for epididymitis, orchitis or torsion. Bilateral hydroceles -CT of Pelvis w/ IVcontrast- findings consistent with a small fluid collection and/or abscess of the right perianal region -surgery consulted - states no surgical intervention -ID consult appreciated, f/u recommendations -Vanco trough 9.0( 03/08/17). HIV infection symptomatic -03/07/17: CD4 278/16% -02/07/17 : CD4 230/13.5% / VL 90 -Continue with Bactrim DS 1 po qday until CD4> / = 200 for 6 months to prevent opportunistic infections. -Continue with Strovite 1 Tablet as directed Orally daily -Continue with Stribild [phone] MG Tablet 1 tablet Orally Once a day Asthma controlled, asymptomatic at this time Advair Diskus 250-50 MCG 1 puff Inhalation Twice a day Ventolin HFA 90 MCG/ACT Aerosol Solution 2 puffs as needed Inhalation every 4 hrs DVT prophylaxis -Lovenox 40 mg SC daily Diet: -regular
[2017-03-09] MEDS: Fluconazole IV 400mg/200ml NS 200 ML IVPB SCH (22:25)
[2017-03-10] MEDS: Fluticasone-Salmeterol 500-50mcg Diskus IH SCH ×2 (08:57→21:35)
[2017-03-10] MEDS: Multivitamin With Minerals Tab PO SCH (08:58)
[2017-03-10] MEDS: Silver Sulfadiazine 1% CREAM (50 gm) TOP SCH ×2 (08:58→16:55)
[2017-03-10] MEDS: Enoxaparin 40 mg Syringe SC SCH (08:58)
[2017-03-10] MEDS: Tmp-Smz 800 mg-160 mg DS Tab PO SCH (08:58)
--- NOTE | 2017-03-10 10:02 | CP.PCM.PN ---
Subjective - Date & Time of Evaluation Date of Evaluation: 03/10/17 Time of Evaluation: 09:10 - Subjective Subjective: Patient seen and examined at bedside this morning. Reports feeling well this morning. Still c/o groin pain but controlled with medications. Reports discharge from the groin area. Denies fever, chills, chest pain, dyspnea, nausea , vomiting. Afebrile, VS stable WNL Objective - Vital Signs/Intake and Output Vital Signs (last 24 hours): Temp Pulse Resp BP Pulse Ox 98.1 F 74 20 106/65 96 03/10/17 08:11 03/10/17 08:11 03/10/17 08:11 03/10/17 08:11 03/10/17 08:11 - Medications Medications: Current Medications Albuterol (Ventolin Hfa 90 Mcg/Actuation (8 G)) 2 puff IH Q4H PRN PRN Reason: Shortness of Breath Last Admin: 03/09/17 01:19 Dose: 2 puff Albuterol Sulfate (Albuterol 0.083% Inhal Claire (2.5 Mg/3 Ml) Ud) 2.5 mg IH Q6H PRN PRN Reason: Shortness of Breath Albuterol/Ipratropium (Duoneb 3 Mg/0.5 Mg (3 Ml) Ud) 3 ml INH RQ6 PRN PRN Reason: Shortness of Breath Emollient Ointment (White Petroleum) 1 applic TP Q8 PRN PRN Reason: Other Last Admin: 03/08/17 18:19 Dose: 1 applic Fluticasone Propionate (Flonase) 2 spr ZAYNAB DAILY PRN PRN Reason: Allergy symptoms Home Med (Elviteg/Luna/Emtric/Tenofo Dis [Stribild Tablet]) 1 tab PO DAILY [facility] Vancomycin HCl 1 gm/ Sodium (Chloride) 250 mls @ 166.667 mls/hr IVPB Q12@0200, 1400 [facility] Last Admin: 03/10/17 01:16 Dose: 166.667 mls/hr Fluconazole (Diflucan Iv 400mg/200ml Ns) 200 mls @ 100 mls/hr IVPB HS@2100 [facility] Last Admin: 03/09/17 22:25 Dose: 100 mls/hr Doxycycline Hyclate 100 mg/ (Sodium Chloride) 100 mls @ 100 mls/hr IVPB Q12 [facility] Last Admin: 03/10/17 08:57 Dose: 100 mls/hr Loratadine (Claritin) 10 mg PO DAILY PRN PRN Reason: Allergy symptoms Last Admin: 03/07/17 21:45 Dose: 10 mg Morphine Sulfate (Morphine) 2 mg IVP Q6 PRN PRN Reason: Pain, moderate (4-7) Last Admin: 03/08/17 09:43 Dose: 2 mg Morphine Sulfate (Morphine) 4 mg IVP Q4 PRN PRN Reason: Pain, severe (8-10) Last Admin: 03/10/17 07:33 Dose: 4 mg Multivitamins/Minerals (Therapeutic-M Tab) 1 tab PO DAILY [facility] Last Admin: 03/10/17 08:58 Dose: 1 tab Fluticasone/Salmeterol (Advair Diskus 500/50) 1 puff IH Q12@0900,2100 [facility] Last Admin: 03/10/17 08:57 Dose: 1 puff Silver Sulfadiazine (Silvadene 1% 50 Gm) 1 applic TOP BID [facility] Last Admin: 03/10/17 08:58 Dose: 1 applic Trimethoprim/Sulfamethoxazole (Bactrim Ds Tab) 1 tab PO DAILY [facility] Last Admin: 03/10/17 08:58 Dose: 1 tab - Labs Labs: 03/08/17 05:30 03/09/17 06:30 - Constitutional Appears: Well, No Acute Distress - Head Exam Head Exam: NORMAL INSPECTION - Eye Exam Eye Exam: Normal appearance - ENT Exam ENT Exam: Mucous Membranes Moist - Respiratory Exam Respiratory Exam: Clear to Ausculation Bilateral, Rales, Rhonchi, Wheezes Additional comments: mild wheezing on LUQ. - Exam Additional comments: B/L groin region (R<L) with areas of macerated skin with yellow discharge,no vesicles - Extremities Exam Extremities Exam: Normal Capillary Refill. absent: Calf Tenderness, Pedal Edema - Neurological Exam Neurological Exam: Alert, Awake, Oriented x3 - Psychiatric Exam Psychiatric exam: Normal Affect, Normal Mood Assessment and Plan - Assessment and Plan (Free Text) Assessment: Assessment and plan: 52 year old male with PMH rectal cancer, colon cancer, penile cancer, HIV (dx 1992) , asthma, depression being admitted for perineal abscess. 1. Right Perineal abscess -Afebrile, no leukocytosis, wbc 6.3( 03/08/17) -Continue with pain control with Morphine as per pain scale -Continue with Vancomycin 1 gm Q12 for 2 more days , today Day #3 -Continue with doxycycline 100 mg BID -Continue with Fluconazole 400 mg IV daily -Blood Cx: neg x 2. -keep trough <15 as per ID recommendations -Wound Cx: Beta hemolytic group B strep, sensitive to Vancomycin, -Testes dupplex US- Negative study for epididymitis, orchitis or torsion. Bilateral hydroceles -CT of Pelvis w/ IVcontrast- findings consistent with a small fluid collection and/or abscess of the right perianal region -surgery consulted - states no surgical intervention -ID consult appreciated, f/u recommendations -Vanco trough 9.0( 03/08/17). HIV infection symptomatic -03/07/17: CD4 278/16% -02/07/17 : CD4 230/13.5% / VL 90 -Continue with Bactrim DS 1 po qday until CD4> / = 200 for 6 months to prevent opportunistic infections. -Continue with Strovite 1 Tablet as directed Orally daily -Continue with Stribild [phone] MG Tablet 1 tablet Orally Once a day Asthma controlled, asymptomatic at this time Advair Diskus 250-50 MCG 1 puff Inhalation Twice a day Ventolin HFA 90 MCG/ACT Aerosol Solution 2 puffs as needed Inhalation every 4 hrs DVT prophylaxis -Lovenox 40 mg SC daily Diet: -regular
--- NOTE | 2017-03-10 11:49 | CP.PCM.PN ---
<Astrid Diaz - Last Filed: 03/10/17 11:45> Subjective - Date & Time of Evaluation Date of Evaluation: 03/10/17 Time of Evaluation: 08:00 - Subjective Subjective: GENERAL SURGERY PROGRESS NOTE FOR DR. TIJERINA Patient seen and examined at bedside. He reports that his pain is the same as yesterday but he feels good overall. The area is still draining. Patient refused physical exam stating that it "just looks the same". Objective - Vital Signs/Intake and Output Vital Signs (last 24 hours): Temp Pulse Resp BP Pulse Ox 98.1 F 74 20 106/65 96 03/10/17 08:11 03/10/17 08:11 03/10/17 08:11 03/10/17 08:11 03/10/17 08:11 - Medications Medications: Current Medications Albuterol (Ventolin Hfa 90 Mcg/Actuation (8 G)) 2 puff IH Q4H PRN PRN Reason: Shortness of Breath Last Admin: 03/09/17 01:19 Dose: 2 puff Albuterol Sulfate (Albuterol 0.083% Inhal Claire (2.5 Mg/3 Ml) Ud) 2.5 mg IH Q6H PRN PRN Reason: Shortness of Breath Albuterol/Ipratropium (Duoneb 3 Mg/0.5 Mg (3 Ml) Ud) 3 ml INH RQ6 PRN PRN Reason: Shortness of Breath Emollient Ointment (White Petroleum) 1 applic TP Q8 PRN PRN Reason: Other Last Admin: 03/08/17 18:19 Dose: 1 applic Fluticasone Propionate (Flonase) 2 spr ZAYNAB DAILY PRN PRN Reason: Allergy symptoms Home Med (Elviteg/Luna/Emtric/Tenofo Dis [Stribild Tablet]) 1 tab PO DAILY DIANDRA Vancomycin HCl 1 gm/ Sodium (Chloride) 250 mls @ 166.667 mls/hr IVPB Q12@0200, 1400 [facility] Last Admin: 03/10/17 01:16 Dose: 166.667 mls/hr Fluconazole (Diflucan Iv 400mg/200ml Ns) 200 mls @ 100 mls/hr IVPB HS@2100 [facility] Last Admin: 03/09/17 22:25 Dose: 100 mls/hr Doxycycline Hyclate 100 mg/ (Sodium Chloride) 100 mls @ 100 mls/hr IVPB Q12 [facility] Last Admin: 03/10/17 08:57 Dose: 100 mls/hr Loratadine (Claritin) 10 mg PO DAILY PRN PRN Reason: Allergy symptoms Last Admin: 03/07/17 21:45 Dose: 10 mg Morphine Sulfate (Morphine) 2 mg IVP Q6 PRN PRN Reason: Pain, moderate (4-7) Last Admin: 03/10/17 11:33 Dose: 2 mg Morphine Sulfate (Morphine) 4 mg IVP Q4 PRN PRN Reason: Pain, severe (8-10) Last Admin: 03/10/17 07:33 Dose: 4 mg Multivitamins/Minerals (Therapeutic-M Tab) 1 tab PO DAILY [facility] Last Admin: 03/10/17 08:58 Dose: 1 tab Fluticasone/Salmeterol (Advair Diskus 500/50) 1 puff IH Q12@0900,2100 [facility] Last Admin: 03/10/17 08:57 Dose: 1 puff Silver Sulfadiazine (Silvadene 1% 50 Gm) 1 applic TOP BID [facility] Last Admin: 03/10/17 08:58 Dose: 1 applic Trimethoprim/Sulfamethoxazole (Bactrim Ds Tab) 1 tab PO DAILY [facility] Last Admin: 03/10/17 08:58 Dose: 1 tab - Labs Labs: 03/08/17 05:30 03/09/17 06:30 - Constitutional Appears: Non-toxic, No Acute Distress, Other (pt refused physical exam) Assessment and Plan - Assessment and Plan (Free Text) Assessment: 52yo M with HIV, 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 Lilliana Diaz PGY-3 <Armando Tijerina - Last Filed: 03/10/17 13:58> Subjective - Date & Time of Evaluation Time of Evaluation: 13:20 - Subjective Subjective: Patient was seen and examined at the bedside. Agree with the resident's note above Objective - Vital Signs/Intake and Output Vital Signs (last 24 hours): Temp Pulse Resp BP Pulse Ox 98.1 F 74 20 106/65 96 03/10/17 08:11 03/10/17 08:11 03/10/17 08:11 03/10/17 08:11 03/10/17 08:11 - Medications Medications: Current Medications Albuterol (Ventolin Hfa 90 Mcg/Actuation (8 G)) 2 puff IH Q4H PRN PRN Reason: Shortness of Breath Last Admin: 03/09/17 01:19 Dose: 2 puff Albuterol Sulfate (Albuterol 0.083% Inhal Claire (2.5 Mg/3 Ml) Ud) 2.5 mg IH Q6H PRN PRN Reason: Shortness of Breath Albuterol/Ipratropium (Duoneb 3 Mg/0.5 Mg (3 Ml) Ud) 3 ml INH RQ6 PRN PRN Reason: Shortness of Breath Emollient Ointment (White Petroleum) 1 applic TP Q8 PRN PRN Reason: Other Last Admin: 03/08/17 18:19 Dose: 1 applic Fluticasone Propionate (Flonase) 2 spr ZAYNAB DAILY PRN PRN Reason: Allergy symptoms Home Med (Elviteg/Luna/Emtric/Tenofo Dis [Stribild Tablet]) 1 tab PO DAILY [facility] Vancomycin HCl 1 gm/ Sodium (Chloride) 250 mls @ 166.667 mls/hr IVPB Q12@0200, 1400 [facility] Last Admin: 03/10/17 13:39 Dose: 166.667 mls/hr Fluconazole (Diflucan Iv 400mg/200ml Ns) 200 mls @ 100 mls/hr IVPB HS@2100 [facility] Last Admin: 03/09/17 22:25 Dose: 100 mls/hr Doxycycline Hyclate 100 mg/ (Sodium Chloride) 100 mls @ 100 mls/hr IVPB Q12 [facility] Last Admin: 03/10/17 08:57 Dose: 100 mls/hr Loratadine (Claritin) 10 mg PO DAILY PRN PRN Reason: Allergy symptoms Last Admin: 03/07/17 21:45 Dose: 10 mg Morphine Sulfate (Morphine) 2 mg IVP Q6 PRN PRN Reason: Pain, moderate (4-7) Last Admin: 03/10/17 11:33 Dose: 2 mg Morphine Sulfate (Morphine) 4 mg IVP Q4 PRN PRN Reason: Pain, severe (8-10) Last Admin: 03/10/17 07:33 Dose: 4 mg Multivitamins/Minerals (Therapeutic-M Tab) 1 tab PO DAILY [facility] Last Admin: 03/10/17 08:58 Dose: 1 tab Fluticasone/Salmeterol (Advair Diskus 500/50) 1 puff IH Q12@0900,2100 [facility] Last Admin: 03/10/17 08:57 Dose: 1 puff Silver Sulfadiazine (Silvadene 1% 50 Gm) 1 applic TOP BID [facility] Last Admin: 03/10/17 08:58 Dose: 1 applic Trimethoprim/Sulfamethoxazole (Bactrim Ds Tab) 1 tab PO DAILY [facility] Last Admin: 03/10/17 08:58 Dose: 1 tab - Labs Labs: 03/08/17 05:30 03/09/17 06:30
[2017-03-10] MEDS: Fluconazole IV 400mg/200ml NS 200 ML IVPB SCH (23:18)
[2017-03-10] MEDS ORDERED: Petrolatum UD PAK TOP PRN (23:30)
[2017-03-11 07:02] LABS: BLOOD UREA NITROGEN 13 mg/dl (9-20); CALCIUM 9.3 mg/dL (8.4-10.2); CARBON DIOXIDE 26 mmol/L (22-30); CHLORIDE 104 mmol/L (98-107); GFR AFRICAN-AMERICAN > 60; GLUCOSE,RANDOM 105 mg/dL (75-110); POTASSIUM 4.6 MMOL/L (3.6-5.0); SODIUM 141 mmol/l (132-148)
--- NOTE | 2017-03-11 08:16 | CP.PCM.PN ---
<Deedee Horn - Last Filed: 03/11/17 09:53> Subjective - Date & Time of Evaluation Date of Evaluation: 03/11/17 Time of Evaluation: 06:50 - Subjective Subjective: Patient seen and examined at bedside this AM. NAEO. Patient reports persistent but improved pain, denies fevers, chills, or any other symptoms. States significant drainage has not changed in volume. Patient requested we not examine the area this AM. Objective - Vital Signs/Intake and Output Vital Signs (last 24 hours): Temp Pulse Resp BP Pulse Ox 97.2 F L 88 20 130/87 99 03/11/17 00:15 03/11/17 00:15 03/11/17 00:15 03/11/17 00:15 03/11/17 00:15 - Medications Medications: Current Medications Albuterol (Ventolin Hfa 90 Mcg/Actuation (8 G)) 2 puff IH Q4H PRN PRN Reason: Shortness of Breath Last Admin: 03/09/17 01:19 Dose: 2 puff Albuterol Sulfate (Albuterol 0.083% Inhal Claire (2.5 Mg/3 Ml) Ud) 2.5 mg IH Q6H PRN PRN Reason: Shortness of Breath Albuterol/Ipratropium (Duoneb 3 Mg/0.5 Mg (3 Ml) Ud) 3 ml INH RQ6 PRN PRN Reason: Shortness of Breath Emollient Ointment (Vaseline Oint) 1 pkt TOP Q8 PRN PRN Reason: Other Last Admin: 03/11/17 04:21 Dose: 1 pkt Fluticasone Propionate (Flonase) 2 spr ZAYNAB DAILY PRN PRN Reason: Allergy symptoms Home Med (Elviteg/Luna/Emtric/Tenofo Dis [Stribild Tablet]) 1 tab PO DAILY DIANDRA Vancomycin HCl 1 gm/ Sodium (Chloride) 250 mls @ 166.667 mls/hr IVPB Q12@0200, 1400 [facility] Last Admin: 03/11/17 01:27 Dose: 166.667 mls/hr Fluconazole (Diflucan Iv 400mg/200ml Ns) 200 mls @ 100 mls/hr IVPB HS@2100 [facility] Last Admin: 03/10/17 23:18 Dose: 100 mls/hr Doxycycline Hyclate 100 mg/ (Sodium Chloride) 100 mls @ 100 mls/hr IVPB Q12 [facility] Last Admin: 03/10/17 21:35 Dose: 100 mls/hr Loratadine (Claritin) 10 mg PO DAILY PRN PRN Reason: Allergy symptoms Last Admin: 03/07/17 21:45 Dose: 10 mg Morphine Sulfate (Morphine) 2 mg IVP Q6 PRN PRN Reason: Pain, moderate (4-7) Last Admin: 03/10/17 11:33 Dose: 2 mg Morphine Sulfate (Morphine) 4 mg IVP Q4 PRN PRN Reason: Pain, severe (8-10) Last Admin: 03/11/17 04:17 Dose: 4 mg Multivitamins/Minerals (Therapeutic-M Tab) 1 tab PO DAILY [facility] Last Admin: 03/10/17 08:58 Dose: 1 tab Fluticasone/Salmeterol (Advair Diskus 500/50) 1 puff IH Q12@0900,2100 [facility] Last Admin: 03/10/17 21:35 Dose: 1 puff Silver Sulfadiazine (Silvadene 1% 50 Gm) 1 applic TOP BID [facility] Last Admin: 03/10/17 16:55 Dose: 1 applic Trimethoprim/Sulfamethoxazole (Bactrim Ds Tab) 1 tab PO DAILY [facility] Last Admin: 03/10/17 08:58 Dose: 1 tab - Labs Labs: 03/08/17 05:30 03/11/17 06:10 - Constitutional Appears: Non-toxic, No Acute Distress - Head Exam Head Exam: ATRAUMATIC, NORMOCEPHALIC - Eye Exam Eye Exam: Normal appearance. absent: Conjunctival injection, Scleral icterus - ENT Exam ENT Exam: Mucous Membranes Moist, Normal Oropharynx - Respiratory Exam Respiratory Exam: NORMAL BREATHING PATTERN. 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 Manage acute infection with antibiotics and possible elective operation as outpatient Discussed plan with Dr. Lilliana Horn, PGY2 <Armando Tijerina - Last Filed: 03/11/17 10:32> Subjective - Date & Time of Evaluation Time of Evaluation: 09:40 - Subjective Subjective: Patient was seen and examined at the bedside. Agree with resident's note above. Objective - Vital Signs/Intake and Output Vital Signs (last 24 hours): Temp Pulse Resp BP Pulse Ox 97.6 F 72 18 110/76 96 03/11/17 08:38 03/11/17 08:38 03/11/17 08:38 03/11/17 08:38 03/11/17 08:38 - Medications Medications: Current Medications Acetaminophen (Tylenol 325mg Tab) 650 mg PO Q4 PRN PRN Reason: Pain, Mild (1-3) Albuterol (Ventolin Hfa 90 Mcg/Actuation (8 G)) 2 puff IH Q4H PRN PRN Reason: Shortness of Breath Last Admin: 03/09/17 01:19 Dose: 2 puff Albuterol Sulfate (Albuterol 0.083% Inhal Claire (2.5 Mg/3 Ml) Ud) 2.5 mg IH Q6H PRN PRN Reason: Shortness of Breath Albuterol/Ipratropium (Duoneb 3 Mg/0.5 Mg (3 Ml) Ud) 3 ml INH RQ6 PRN PRN Reason: Shortness of Breath Emollient Ointment (Vaseline Oint) 1 pkt TOP Q8 PRN PRN Reason: Other Last Admin: 03/11/17 04:21 Dose: 1 pkt Enoxaparin Sodium (Lovenox) 40 mg SC DAILY DIANDRA PRN Reason: Protocol Last Admin: 03/11/17 10:16 Dose: Not Given Fluticasone Propionate (Flonase) 2 spr ZAYNAB DAILY PRN PRN Reason: Allergy symptoms Home Med (Elviteg/Luna/Emtric/Tenofo Dis [Stribild Tablet]) 1 tab PO DAILY [facility] Vancomycin HCl 1 gm/ Sodium (Chloride) 250 mls @ 166.667 mls/hr IVPB Q12@0200, 1400 [facility] Last Admin: 03/11/17 01:27 Dose: 166.667 mls/hr Fluconazole (Diflucan Iv 400mg/200ml Ns) 200 mls @ 100 mls/hr IVPB HS@2100 [facility] Last Admin: 03/10/17 23:18 Dose: 100 mls/hr Doxycycline Hyclate 100 mg/ (Sodium Chloride) 100 mls @ 100 mls/hr IVPB Q12 [facility] Last Admin: 03/11/17 08:35 Dose: 100 mls/hr Ketorolac Tromethamine (Toradol) 15 mg IVP Q6 PRN PRN Reason: Pain, moderate (4-7) Ketorolac Tromethamine (Toradol) 30 mg IVP Q6 PRN PRN Reason: Pain, severe (8-10) Loratadine (Claritin) 10 mg PO DAILY PRN PRN Reason: Allergy symptoms Last Admin: 03/07/17 21:45 Dose: 10 mg Multivitamins/Minerals (Therapeutic-M Tab) 1 tab PO DAILY [facility] Last Admin: 03/11/17 08:38 Dose: 1 tab Fluticasone/Salmeterol (Advair Diskus 500/50) 1 puff IH Q12@0900,2100 [facility] Last Admin: 03/11/17 08:37 Dose: 1 puff Silver Sulfadiazine (Silvadene 1% 50 Gm) 1 applic TOP BID [facility] Last Admin: 03/11/17 08:38 Dose: 1 applic Trimethoprim/Sulfamethoxazole (Bactrim Ds Tab) 1 tab PO DAILY [facility] Last Admin: 03/11/17 08:38 Dose: 1 tab - Labs Labs: 03/08/17 05:30 03/11/17 06:10 Assessment and Plan - Assessment and Plan (Free Text) Plan: - Pain control - Continue antibiotics as per medical team - No general surgery intervention at present time - General surgery will sign off - Please re-consult as needed
[2017-03-11] MEDS: Fluticasone-Salmeterol 500-50mcg Diskus IH SCH (08:37)
[2017-03-11 08:38] VITALS: BP 110/76; PULSE 72; RESP 18; TEMP 97.6; O2SAT 96
[2017-03-11] MEDS: Tmp-Smz 800 mg-160 mg DS Tab PO SCH (08:38)
[2017-03-11] MEDS: Silver Sulfadiazine 1% CREAM (50 gm) TOP SCH (08:38)
[2017-03-11] MEDS: Multivitamin With Minerals Tab PO SCH (08:38)
[2017-03-11] MEDS ORDERED: Enoxaparin 40 mg Syringe SC SCH (09:00)
--- NOTE | 2017-03-11 15:04 | CP.PCM.DIS ---
Provider - Provider Date of Admission: 03/07/17 15:09 Attending physician: Christine Bettencourt MD Primary care physician: Dr. Mitali Galeano Consults: ID: Dr. [place] General Surgery: Dr. Tijerina Time Spent in preparation of Discharge (in minutes): 45 Diagnosis - Discharge Diagnosis (1) Abscess of anal or rectal region Status: Acute (2) Cellulitis Status: Acute (3) HIV (human immunodeficiency virus infection) Status: Chronic Hospital Course - Lab Results Lab Results: Micro Results 03/06/17 14:10 Blood-Venous Blood Culture - Final NO GROWTH AFTER 5 DAYS 03/06/17 14:10 Blood-Venous Gram Stain - Final TEST NOT PERFORMED 03/07/17 19:00 Genital - Groin GC Culture - Final NO GC ISOLATED 03/06/17 14:25 Blood-Venous Blood Culture - Preliminary NO GROWTH AFTER 4 DAYS 03/06/17 14:28 Groin Gram Stain - Final 03/06/17 14:28 Groin Wound Culture - Final Beta Hemolytic Strep Group B Most Recent Lab Values WBC 6.3 K/uL (4.8-10.8) 03/08/17 05:30 RBC 4.01 Mil/uL (4.40-5.90) L 03/08/17 05:30 Hgb 10.8 g/dL (12.0-18.0) L 03/08/17 05:30 Hct 33.9 % (35.0-51.0) L 03/08/17 05:30 MCV 84.5 fl (80.0-94.0) 03/08/17 05:30 MCH 26.8 pg (27.0-31.0) L 03/08/17 05:30 MCHC 31.7 g/dL (33.0-37.0) L 03/08/17 05:30 RDW 18.9 % (11.5-14.5) H 03/08/17 05:30 Plt Count 167 K/uL (130-400) 03/08/17 05:30 MPV 8.9 fl (7.2-11.7) 03/06/17 14:28 Neut % (Auto) 65.6 % (50.0-75.0) 03/06/17 14:28 Lymph % (Auto) 27.1 % (20.0-40.0) 03/06/17 14:28 [place] % (Auto) 5.5 % (0.0-10.0) 03/06/17 14:28 Eos % (Auto) 1.5 % (0.0-4.0) 03/06/17 14:28 Baso % (Auto) 0.3 % (0.0-2.0) 03/06/17 14: Neut # 5.6 K/uL (1.8-7.0) 03/06/17 14: Lymph # 2.3 K/uL (1.0-4.3) 03/06/17 14:28 [place] # 0.5 K/uL (0.0-0.8) 03/06/17 14: Eos # 0.1 K/uL (0.0-0.7) 03/06/17 14: Baso # 0.0 K/uL (0.0-0.2) 03/06/17 14:28 pO2 15 mm/Hg (30-55) L 03/06/17 13:55 VBG pH 7.33 (7.32-7.43) 03/06/17 13:55 VBG pCO2 66 mmHg (40-60) H* 03/06/17 13:55 VBG HCO3 28.2 mmol/L 03/06/17 13:55 VBG Total CO2 36.8 mmol/L (22-28) H 03/06/17 13:55 VBG O2 Sat (Calc) 18.4 % (40-65) L 03/06/17 13:55 VBG Base Excess 6.8 mmol/L (0.0-2.0) H 03/06/17 13:55 VBG Potassium 4.2 mmol/L (3.6-5.2) 03/06/17 13:55 A-a O2 Difference 52.0 mm/Hg 03/06/17 13:55 Sodium 138.0 mmol/L (132-148) 03/06/17 13:55 Chloride 102.0 mmol/L (98-107) 03/06/17 13:55 Glucose 90 mg/dL (75-110) 03/06/17 13:55 Lactate 1.1 mmol/L (0.7-2.1) 03/06/17 13:55 FiO2 21.0 % 03/06/17 13:55 Crit Value Called To Yolanda eleuterio 03/06/17 13:55 Crit Value Called By 15 03/06/17 13:55 Crit Value Read Back Y 03/06/17 13:55 Blood Gas Notified Time 1440 03/06/17 13:55 Sodium 141 mmol/l (132-148) 03/11/17 06:10 Potassium 4.6 MMOL/L (3.6-5.0) 03/11/17 06:10 Chloride 104 mmol/L (98-107) 03/11/17 06:10 Carbon Dioxide 26 mmol/L (22-30) 03/11/17 06:10 Anion Gap 16 (10-20) 03/11/17 06:10 BUN 13 mg/dl (9-20) 03/11/17 06:10 Creatinine 1.1 mg/dL (0.8-1.5) 03/11/17 06:10 Est GFR ( Amer) > 60 03/11/17 06:10 Est GFR (Non-Af Amer) > 60 03/11/17 06:10 Random Glucose 105 mg/dL (75-110) 03/11/17 06:10 Calcium 9.3 mg/dL (8.4-10.2) 03/11/17 06:10 Total Bilirubin 0.2 mg/dl (0.2-1.3) 03/08/17 05:30 AST 20 U/L (17-59) 03/08/17 05:30 ALT 24 U/L (21-72) 03/08/17 05:30 Alkaline Phosphatase 74 U/L (38-126) 03/08/17 05:30 Total Protein 6.4 G/DL (6.3-8.2) 03/08/17 05:30 Albumin 3.4 g/dL (3.5-5.0) L 03/08/17 05:30 Globulin 2.9 gm/dL (2.2-3.9) 03/08/17 05:30 Albumin/Globulin Ratio 1.2 (1.0-2.1) 03/08/17 05:30 Venous Blood Potassium 4.2 mmol/L (3.6-5.2) 03/06/17 13:55 Urine Color Yellow (YELLOW) 03/06/17 17:15 Urine Clarity Clear (Clear) 03/06/17 17:15 Urine pH 6.0 (5.0-8.0) 03/06/17 17:15 Ur Specific [place] 1.031 (1.003-1.030) H 03/06/17 17:15 Urine Protein Negative mg/dL (NEGATIVE) 03/06/17 17:15 Urine Glucose (UA) Neg mg/dL (Normal) 03/06/17 17:15 Urine Ketones Negative mg/dL (NEGATIVE) 03/06/17 17:15 Urine Blood Negative (NEGATIVE) 03/06/17 17:15 Urine Nitrate Negative (NEGATIVE) 03/06/17 17:15 Urine Bilirubin Negative (NEGATIVE) 03/06/17 17:15 Urine Urobilinogen 0.2-1.0 mg/dL (0.2-1.0) 03/06/17 17:15 Ur Leukocyte Esterase Trace Nevaeh/uL (Negative) 03/06/17 17:15 Urine RBC (Auto) 2 /hpf (0-3) 03/06/17 17:15 Urine Microscopic WBC < 1 /hpf (0-5) 03/06/17 17:15 Ur Squamous Epith Cells < 1 /hpf (0-5) 03/06/17 17:15 Vancomycin Trough 9.0 ug/mL (5.0-10.0) 03/08/17 13:15 Absolute Lymphs (Flow) 1786 Cells/mcL (850-3900) 03/07/17 16:45 % CD4 Cells 16 Percent (30-61) L 03/07/17 16:45 Absolute CD4 Count 278 Cells/mcL (490-1740) L 03/07/17 16:45 T-Help/Suppress Ratio 0.19 Ratio (0.86-5.00) L 03/07/17 16:45 % CD8 Cells 83 Percent (12-42) H 03/07/17 16:45 Absolute CD8 Count 1477 Cells/mcL (180-1170) H 03/07/17 16:45 RPR Nonreactive (NONREACTIVE) 03/07/17 16:45 C.trachomatis RNA (TMA) Not detected (Not Detected) 03/08/17 08:00 N.gonorrhoeae RNA (TMA) Not detected (Not Detected) 03/08/17 08:00 - Hospital Course Hospital Course: 52 yo male with PMH rectal cancer, colon cancer, penile cancer, asthma, 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 Blood cx and wound cx were sent. Blood cx were negative and wound cx showed beta hemolytic group strep group B. Testes duplex US on 03/06/17 was negative for epididymitis, orchitis or torsion. It showed bilateral hydroceles. CT of Pelvis w/ IVcontrast showed a small fluid collection and/or abscess of the right perianal region. Pt were treated with vancomycin 1 g BID and doxycline 100 mg BID while in the hospital. Pt also received diflucan 400 mg for 4 days. Pt is discharged home, in addition to his regular home medicine, with doxycline 100 mg PO BID x 10 days and percocet 5mg/325 mg PO q6h prn #10. Advised to f/u with Dr. Galeano within a week. Per surgery consult, pt might possibly need surgical resection of abscess if symptoms do not resolve. Pt given Dr. Tijerina's information and will need referral. Discharge Exam - Head Exam Head Exam: ATRAUMATIC, NORMOCEPHALIC - Eye Exam Eye Exam: Normal appearance - ENT Exam ENT Exam: Mucous Membranes Moist - Respiratory Exam Respiratory Exam: Clear to PA & Lateral. absent: Rales, Rhonchi, Wheezes - Cardiovascular Exam Cardiovascular Exam: REGULAR RHYTHM, RRR, +S1, +S2 - GI/Abdominal Exam GI & Abdominal Exam: Normal Bowel Sounds, Soft. absent: Tenderness - Exam Additional comments: B/L groin region (R<L) with areas of macerated skin with mild yellow discharge, no vesicles. - Extremities Exam Extremities exam: normal capillary refill, pedal pulses present - Neurological Exam Neurological exam: Alert, Oriented x3 - Psychiatric Exam Psychiatric exam: Normal Affect, Normal Mood Discharge Plan - Discharge Medications Prescriptions: Doxycycline Monohydrate 100 mg PO BID 10 Days #20 tablet oxyCODONE/Acetaminophen [Percocet 5/325 mg Tab] 1 tab PO Q6 PRN #10 tab PRN Reason: Pain, Moderate (4-7) - Follow Up Plan Condition: STABLE Disposition: HOME/ ROUTINE Instructions: Cellulitis (DC), Abscess (GEN) Referrals: [facility] [place] [Outside] Mitali Galeano MD [Medical Doctor] -
== END 2017-03-11 14:23 | disposition home or self-care (01) | DRG 714 ==
LOC: H.ER 13:00 → H.ERHOLD 17:25 → H.MEDSURG1 22:31 → OBSVTOIN 03-07 15:09
PROVIDERS: ADMIT Family Medicine Geriatric Medicine; ATTEND Family Medicine Geriatric Medicine
DX: L02.215 Cutaneous abscess of perineum (principal); B20 Human immunodeficiency virus [HIV] disease; I10 Essential (primary) hypertension; K61.0 Anal abscess; J45.909 Unspecified asthma, uncomplicated; N43.3 Hydrocele, unspecified; F32.9 Major depressive disorder, single episode, unspecified; N50.89 Other specified disorders of the male genital organs; Z85.048 Personal history of other malignant neoplasm of rectum, rectosigmoid junction, and anus; Z85.46 Personal history of malignant neoplasm of prostate; Z87.891 Personal history of nicotine dependence; Z92.21 Personal history of antineoplastic chemotherapy; Z92.3 Personal history of irradiation; Z88.0 Allergy status to penicillin

== ENCOUNTER 2017-05-14 00:27 | Inpatient (IN) | payer MEDICAID ==
[2017-05-14 00:28] VITALS: BMI 25.8
[2017-05-14] MEDS ORDERED: Albuterol-Ipratrop 3 mg / 0.5 (3 ml) UD INH STA ×2 (00:46)
[2017-05-14] MEDS ORDERED: Sodium Chloride 0.9% 1,000 ML IV STA (00:46)
[2017-05-14] MEDS ORDERED: Albuterol-Ipratrop 3 mg / 0.5 (3 ml) UD ONE (00:58)
--- NOTE | 2017-05-14 01:14 | ED PDOC ---
HPI: SOB/CHF/COPD Time Seen by Provider: 05/14/17 00:30 Chief Complaint (Nursing): Chest Pain Chief Complaint (Provider): Shortness of breath and cough History Per: Patient History/Exam Limitations: no limitations Onset/Duration Of Symptoms: Days (x4) Additional Complaint(s): Andrey Hampton is a 52 year old male with a past medical history of HIV ( noncompliant with HAART), and PCP Pneumonia presenting to the ED for an evaluation of shortness of breath associated with a cough occurring for 4 days prior to arrival. The patient also states he has a history of small cell carcinoma of the skin and believes it is active again because he notes skin breakdown in his groin. The patient denies fever, chills or sweats. PMD: Dong Tiwari Past Medical History Reviewed: Historical Data, Nursing Documentation, Vital Signs Vital Signs: Last Vital Signs Temp 99.6 F 05/14/17 02:26 Pulse 106 H 05/14/17 02:26 Resp 20 05/14/17 02:26 BP 110/66 05/14/17 02:26 Pulse Ox 95 05/14/17 02:26 - Medical History PMH: Asthma, Depression, HIV, HTN, Pneumonia (PCP) Denies: Chronic Kidney Disease - Family History Family History: States: No Known Family Hx - Social History Current smoker - smoking cessation education provided: No Ex-Smoker (has not smoked in the last 12 months): Yes Alcohol: Other (former EtOH use) Drugs: Other (Heroin) - Immunization History Hx Tetanus Toxoid Vaccination: No Hx Influenza Vaccination: No Hx Pneumococcal Vaccination: No - Home Medications Home Medications: Ambulatory Orders Medication Instructions Recorded Albuterol 0.083% [Albuterol 0.083% 3 ml IH Q6H PRN 03/06/17 Inhal Claire (2.5 mg/3 ml) UD] Albuterol HFA [Ventolin HFA 90 2 puff IH Q4H PRN 03/06/17 mcg/actuation (8 g)] Cetirizine HCl [Allergy] 10 mg PO DAILY PRN 03/06/17 Elviteg/Luna/Emtric/Tenofo Dis 1 tab PO DAILY 03/06/17 [Stribild Tablet] Fluticasone/Salmeterol 500/50 1 puff IH Q12H 03/06/17 [Advair Diskus 500/50] Mometasone Furoate [Nasonex] 2 spray ZAYNAB DAILY PRN 03/06/17 Multivitamin [Multi-Vitamin Daily] 1 tab PO DAILY 03/06/17 Sulfamethoxazole/Trimethoprim 1 tab PO DAILY 03/06/17 [Bactrim DS Tab] Doxycycline Monohydrate 100 mg PO BID 10 Days #20 tablet 03/11/17 oxyCODONE/Acetaminophen [Percocet 1 tab PO Q6 PRN #10 tab 03/11/17 5/325 mg Tab] - Allergies Allergies/Adverse Reactions: Allergies Allergy/AdvReac Type Severity Reaction Status Date / Time Penicillins Allergy RASH Verified 05/14/17 00:34 Review of Systems ROS Statement: Except As Marked, All Systems Reviewed And Found Negative Constitutional: Negative for: Fever, Chills, Sweats Respiratory: Positive for: Cough, Shortness of Breath Physical Exam - Reviewed Nursing Documentation Reviewed: Yes Vital Signs Reviewed: Yes - Physical Exam Appears: Positive for: Non-toxic Head Exam: Positive for: ATRAUMATIC, NORMOCEPHALIC Skin: Negative for: Normal Color (groin: breakdown of bilateral groin - periscrotum area with oozing of green/white purulent fluid ) Eye Exam: Positive for: Normal appearance, EOMI ENT: Positive for: Normal ENT Inspection Neck: Positive for: Normal, Painless ROM Cardiovascular/Chest: Positive for: Regular Rate, Rhythm, Chest Non Tender. Negative for: Murmur Respiratory: Positive for: Rhonchi (present: right worse than left ), Wheezing ( bilaterally ), Respiratory Distress (moderate respiratory distress with intercostal retractions and tachypnea ) Gastrointestinal/Abdominal: Positive for: Normal Exam, Soft. Negative for: Tenderness Back: Positive for: Normal Inspection Extremity: Positive for: Normal ROM. Negative for: Deformity Neurologic/Psych: Positive for: Alert, Oriented (x3). Negative for: Motor/ Sensory Deficits - Laboratory Results Result Diagrams: 05/14/17 01:15 05/14/17 02:20 - ECG O2 Sat by Pulse Oximetry: 94 (RA) Pulse Ox Interpretation: Normal Medical Decision Making Medical Decision Making: Time: 00:30 Impression: Pneumonia vs COPD exacerbation vs Asthma exacerbation vs Carcinoma Plan: * VBG * BMP * LDH * CBC (with differential) * Blood Culture * Urine Culture * Urinalysis * Influenza A B * Duoneb 3 mg/0.5 mg (3 ml) UD 3 ml INH * NS 0.9% 1,000 ml IV 1,000 mls/hr * SOLU-Merol 125 mg IVP * [RAD] Chest Two Views (PA/LAT) * Reevaluation 145AM Pt. w/ questionable PCP PNA, will cover with ABx. Dr. Hdez aware. Scribe Attestation: Documented by Janae Bello, acting as a scribe for Dipesh Sosa MD. Provider Scribe Attestation: All medical record entries made by the Scribe were at my direction and personally dictated by me. I have reviewed the chart and agree that the record accurately reflects my personal performance of the history, physical exam, medical decision making, and the department course for this patient. I have also personally directed, reviewed, and agree with the discharge instructions and disposition. Disposition - Clinical Impression Clinical Impression: Pneumonia, Cellulitis - Disposition Disposition Time: 01:45 Condition: STABLE
[2017-05-14] MEDS ORDERED: Tmp-Smz 800 mg-160 mg DS Tab PO STA (01:20)
[2017-05-14] MEDS ORDERED: levoFLOXacin 750 mg in D5W 750 MG/150 ML BAG IVPB STA (01:20)
[2017-05-14] MEDS ORDERED: Aztreonam 2 GM in Sodium Chloride 0.9% 100 ML IVPB STA (01:24)
[2017-05-14 01:35] LABS: VENOUS BLOOD GAS BASE EXCESS 3.7 mmol/L (0.0-2.0); VENOUS BLOOD GAS PCO2 43 mmHg (40-60); VENOUS BLOOD PH 7.43 (7.32-7.43)
[2017-05-14 01:35] LABS: BASO % 0.2 % (0.0-2.0); EOS % 0.9 % (0.0-4.0); HEMATOCRIT 35.9 % (35.0-51.0); LYMPH # 1.4 K/uL (1.0-4.3); LYMPH % 26.1 % (20.0-40.0); MEAN CELL VOLUME 81.4 fl (80.0-94.0); MEAN CORPUSCULAR HEMOGLOBIN 25.8 pg (27.0-31.0); MEAN CORPUSCULAR HGB CONC 31.6 g/dL (33.0-37.0); MEAN PLATELET VOLUME 9.1 fl (7.2-11.7); MONO # 0.4 K/uL (0.0-0.8); MONO % 8.2 % (0.0-10.0); NEUT # 3.4 K/uL (1.8-7.0); NEUT % 64.6 % (50.0-75.0); NRBC % 0.1 % (0.0-0.0); RED CELL DISTRIBUTION WIDTH 15.8 % (11.5-14.5); WHITE BLOOD COUNT 5.3 K/uL (4.8-10.8)
[2017-05-14] MEDS ORDERED: levoFLOXacin 750 mg in D5W 750 MG/150 ML BAG IVPB ONE (01:43)
[2017-05-14] MEDS ORDERED: Tmp-Smz 800 mg-160 mg DS Tab ONE (01:43)
[2017-05-14 02:07] LABS: BLOOD UREA NITROGEN 14 mg/dl (9-20); CALCIUM 8.2 mg/dL (8.4-10.2); CARBON DIOXIDE 25 mmol/L (22-30); CHLORIDE 102 mmol/L (98-107); GFR AFRICAN-AMERICAN > 60; GLUCOSE,RANDOM 118 mg/dL (75-110); POTASSIUM 5.7 MMOL/L (3.6-5.0); SODIUM 136 mmol/l (132-148)
[2017-05-14] MEDS ORDERED: Patient's Own Med (Mometasone Furoate [Nasonex] 2 SPRAY) NAS PRN (02:42)
[2017-05-14] MEDS ORDERED: Fluticasone-Salmeterol 500-50mcg Diskus IH SCH (02:45)
--- NOTE | 2017-05-14 02:59 | CP.PCM.HP ---
History of Present Illness - History of Present Illness History of Present Illness: 52 y/o male with a PMHx of HIV, HTN, rectal/penile cancer, colon cancer, and asthma presented to [facility] ED with a 4 day history of worsening cough and SOB. Pt reports up till he was in his usual state of health but the day of he started to feel "under the weather". He reports a lack of appetite on day that worsened the next day. On Saturday he developed a cough with associated SOB. He reports he felt feverish and ill with weakness and exhaustion. He started taking his Albuterol inhaler w/o improvement. He laid in bed the next two days as the cough and SOB worsened. He reports episodic chest tightness. Cough is associated with clear and episodic yellowish phlegm production as well as several episodes of NBNB post-tussive emetic episodes. He has RICHEY and decreased exertional tolerance. He reports his condition got so bad to the point that he forced himself to go to the hospital today. He also reports that he was in the process of undergoing treatment for his b/l groin abcesses and at his last clinic visit, he lied to his PMD about the improvement. The abbesses are approx 6 months old but have acutely worsened in the past month. Pain is 8/10, localized around his scrotum, with associated yellow discharge and foul smell. No other complaints/concerns. Denies any recent sick contacts, palpitations, diarrhea, constipation, numbness/tingling. ROS: as per HPI PMD: Dr. Galeano, last visit 04/29/2017 PMHx: HIV, essential HTN, penile/rectal cancer, colon cancer, unspecified severity of asthma Meds: as per eCW/med rec, NONCOMPLIANT with any medications ALL: penicillins (angioedema) PsurgHx: colectomy/colostomy reversal in FamilyHx: father decreased 2/2 lung cancer, mother 2/2 CHF. Multiple siblings, alive, one has sickle cell anemia SocialHx: former tobacco abuser. Social ETOH. Heroin abuser, recent usage mid April 2017 -next of kin: daughter Mimi [phone] -FULL CODE ED course: vitals: 99.3 F but spiked to 101.8, HR 104, BP 125/68, RR 18, POX 93% RA Labs: CBC/VBG/Lactate/BMP/repeat K+, influenza Imaging: EKG/CXR Present on Admission - Present on Admission Any Indicators Present on Admission: No History of DVT/PE: No History of Uncontrolled Diabetes: No Past Patient History - Past Medical History & Family History Past Medical History?: Yes - Past Social History Alcohol: Other (former EtOH use) Drugs: Other (Heroin) - CARDIAC Hx Hypertension: Yes - PULMONARY Hx Asthma: Yes Hx Pneumonia: Yes (PCP) - NEUROLOGICAL Hx Neurological Disorder: No - HEENT Hx HEENT Problems: No - RENAL Hx Chronic Kidney Disease: No - ENDOCRINE/METABOLIC Hx Endocrine Disorders: No - HEMATOLOGICAL/ONCOLOGICAL Hx Human Immunodeficiency Virus (HIV): Yes - INTEGUMENTARY Hx Dermatological Problems: Yes Hx Squamous Cell: Yes - MUSCULOSKELETAL/RHEUMATOLOGICAL Hx Musculoskeletal Disorders: No Hx Falls: No - GASTROINTESTINAL Hx Gastrointestinal Disorders: Yes Hx Colostomy: Yes (reversal) - GENITOURINARY/GYNECOLOGICAL Hx Genitourinary Disorders: Yes Hx Prostate Cancer: Yes Other/Comment: penile cancer - PSYCHIATRIC Hx Depression: Yes - SURGICAL HISTORY Hx Surgeries: Yes Other/Comment: colostomy- reversed - ANESTHESIA Hx Anesthesia: Yes Hx Anesthesia Reactions: No Meds Allergies/Adverse Reactions: Allergies Allergy/AdvReac Type Severity Reaction Status Date / Time Penicillins Allergy RASH Verified 05/14/17 00:34 Physical Exam - Constitutional Appears: Non-toxic, No Acute Distress, Chronically Ill - Head Exam Head Exam: ATRAUMATIC, NORMOCEPHALIC - Eye Exam Eye Exam: EOMI. absent: Conjunctival injection, Scleral icterus Pupil Exam: PERRL - ENT Exam ENT Exam: Mucous Membranes Moist Additional comments: no thrush/lesions - Neck Exam Neck exam: Positive for: Full Rom. Negative for: Lymphadenopathy, Meningismus, Tenderness - Respiratory Exam Respiratory Exam: Wheezes (scattered inspiratory/expiratory wheezes globally ), NORMAL BREATHING PATTERN. absent: Accessory Muscle Use, Chest Wall Tenderness, Decreased Breath Sounds, Clear to Auscultation Bilateral, Rales, Rhonchi, Respiratory Distress - Cardiovascular Exam Cardiovascular Exam: REGULAR RHYTHM, RRR, +S1, +S2. absent: Tachycardia, JVD, Rubs, Systolic Murmur - GI/Abdominal Exam GI & Abdominal Exam: Normal Bowel Sounds, Soft. absent: Tenderness - Expanded Exam Expanded Male exam: Positive for: erythema (bilateral draining lesions surrounding scrotum within the groin area, yellow dishcarge. Foul smelling. Extremely tender to touch. Reprucible purulent drainage. ), lesions - Extremities Exam Extremities exam: Positive for: normal capillary refill, normal inspection, pedal pulses present. Negative for: calf tenderness, pedal edema, tenderness - Neurological Exam Neurological exam: Alert, CN II-XII Intact, Oriented x3, Reflexes Normal - Psychiatric Exam Psychiatric exam: Normal Affect, Normal Mood - Skin Skin Exam: Dry, Intact (multiple scars ), Normal Color, Warm Results - Vital Signs Recent Vital Signs: Last Vital Signs Temp 99.6 F 05/14/17 02:26 Pulse 106 H 05/14/17 02:26 Resp 20 05/14/17 02:26 BP 110/66 05/14/17 02:26 Pulse Ox 95 05/14/17 02:26 - Labs Result Diagrams: 05/14/17 01:15 05/14/17 02:20 Labs: Laboratory Results - last 24 hr 05/14/17 05/14/17 05/14/17 00:49 01:15 01:15 WBC 5.3 RBC 4.41 Hgb 11.4 L Hct 35.9 MCV 81.4 D MCH 25.8 L MCHC 31.6 L RDW 15.8 H Plt Count 117 L D MPV 9.1 Neut % (Auto) 64.6 Lymph % (Auto) 26.1 [place] % (Auto) 8.2 Eos % (Auto) 0.9 Baso % (Auto) 0.2 Neut # 3.4 Lymph # 1.4 Ceiba # 0.4 Eos # 0.0 Baso # 0.0 pO2 55 VBG pH 7.43 VBG pCO2 43 VBG HCO3 27.7 VBG Total CO2 29.8 H VBG O2 Sat (Calc) 94.3 H VBG Base Excess 3.7 H VBG Potassium 6.2 H* Sodium 133.0 136 Chloride 101.0 102 Glucose 119 H Lactate 0.9 FiO2 21.0 Crit Value Called To Dr rochelle rodriguez Crit Value Called By Armando Crit Value Read Back Y Blood Gas Notified Time 135 Potassium 5.7 H Carbon Dioxide 25 Anion Gap 15 BUN 14 Creatinine 0.9 Est GFR ( Amer) > 60 Est GFR (Non-Af Amer) > 60 Random Glucose 118 H Calcium 8.2 L Lactate Dehydrogenase 962 H Venous Blood Potassium 6.2 H* Influenza Typ A,B (EIA) 05/14/17 05/14/17 01:15 02:20 WBC RBC Hgb Hct MCV MCH MCHC RDW Plt Count MPV Neut % (Auto) Lymph % (Auto) [place] % (Auto) Eos % (Auto) Baso % (Auto) Neut # Lymph # [place] # Eos # Baso # pO2 VBG pH VBG pCO2 VBG HCO3 VBG Total CO2 VBG O2 Sat (Calc) VBG Base Excess VBG Potassium Sodium Chloride Glucose Lactate FiO2 Crit Value Called To Crit Value Called By Crit Value Read Back Blood Gas Notified Time Potassium 3.9 Carbon Dioxide Anion Gap BUN Creatinine Est GFR ( Amer) Est GFR (Non-Af Amer) Random Glucose Calcium Lactate Dehydrogenase Venous Blood Potassium Influenza Typ A,B (EIA) Negative for flu a/b Assessment & Plan - Assessment and Plan (Free Text) Assessment: 52 y/o male with an extensive PMHx admitted for suspected PCP and worsening b/l groin abscesses. Plan 1) PCP vs Asthma Exacerbation vs CAP -as per most recent clinic note, pt was prescribed ppx but has not started it as he is medicine non-complaint -s/p Bactrim DS 2 tabs in ED -s/p methylprednisolone 125mg in ED -started on Bactrim DS PO BID -started on Prednisone 40mg BID x 5days -Duo-nebs RTC -Duo-nebs PRN -Tylenol 650mg PO PRN fever -zofran 4mg IVP PRN nausea -monitor vitals -blood/urine/sputum cultures: pending -ID consult, will follow up recommendations 2) Bilateral draining groin abcesses -as per prior clinic notes pt was on vancomycin and levaquin and doxy and diflucan- wound culture beta hemolytic staph group B. D/c'd on bid doxy and percocet #10. Testes US showed only bilateral hydrocele 02/2017. CT of pelivis with IV contrast showed small fluid collection and / or abscess of the right perianal region. Pt given Dr. Tijerina's information as per surgery consult pt might need surgical resection of abscess if sx do not resolve. -CT abd/pelvis with IV contrast ordered -General surgery consult, will follow up recommendations -ID consult, follow up recommendations -s/p IV Aztreonam 2gm in ED 3) HIV Infection -noncompliant with HAART -resume home meds -last CD4 count in 02/2017: 273 -repeat CD4 count and viral load ordered 4) Diet -Regular 5) Hx of Penile cancer -rule out cause of b/l draining abscesses 6) Essential HTN -stable -not currently on medications -monitor BPs 7) DVT prophylaxis -platelet count: 117 -CrCl: 95mL/min -SCDs PRN -Lovenox 40mg SC QD
[2017-05-14] MEDS ORDERED: Sodium Chloride 3% for Inhalation 4 ML VIAL.NEB IH PRN ×2 (03:05→12:08)
[2017-05-14] MEDS: Sodium Chloride 0.9% 1,000 ML IV SCH ×3 (05:17→22:21)
[2017-05-14] MEDS ORDERED: Pneumococcal 23-Valent Vaccine IM ONE (07:10)
[2017-05-14] MEDS: Albuterol-Ipratrop 3 mg / 0.5 (3 ml) UD INH SCH ×4 (07:44→19:23)
--- NOTE | 2017-05-14 08:32 | CP.PCM.CON ---
History of Present Illness - History of Present Illness History of Present Illness: General Surgery- Dr. Cervantes 52M pmhx of HIV, penile & rectal Ca, colon ca, presented to [facility] w/ cough and shortness of breath that started 5 days ago. Surgery was consulted for bilateral inguinal wounds and possible abscess. bilateral abscesses have been attempted to be treated w/ local wound care over jonathan last 6mo. Pain is present and radiated to the scrotum, w/ associated foul smelling discharge. pt reports being non-compliant w/ medications Denies: Chills, nausea, vomiting, diarrhea, changes in vision, numbness/ tingling in extremities PMH: HTN, Asthma, HIV penile/rectal ca, colon ca PSH: colectomy/colostomy reversal in ALL: PCN SocialHx: former tobacco, Social ETOH, Heroin use, last does this month April 2017 Review of Systems - Review of Systems All systems: reviewed and no additional remarkable complaints except - Constitutional Constitutional: As Per HPI Past Patient History - Past Medical History & Family History Past Medical History?: Yes - Past Social History Smoking Status: Former Smoker - CARDIAC Hx Hypertension: Yes - PULMONARY Hx Asthma: Yes Hx Pneumonia: Yes (PCP) - NEUROLOGICAL Hx Neurological Disorder: No - HEENT Hx HEENT Problems: No - RENAL Hx Chronic Kidney Disease: No - ENDOCRINE/METABOLIC Hx Endocrine Disorders: No - HEMATOLOGICAL/ONCOLOGICAL Hx Human Immunodeficiency Virus (HIV): Yes - INTEGUMENTARY Hx Dermatological Problems: Yes Hx Squamous Cell: Yes - MUSCULOSKELETAL/RHEUMATOLOGICAL Hx Musculoskeletal Disorders: No Hx Falls: No - GASTROINTESTINAL Hx Gastrointestinal Disorders: Yes Hx Colostomy: Yes (reversal) - GENITOURINARY/GYNECOLOGICAL Hx Genitourinary Disorders: Yes Hx Prostate Cancer: Yes Other/Comment: penile cancer - PSYCHIATRIC Hx Depression: Yes Hx Substance Use: No - SURGICAL HISTORY Hx Surgeries: Yes Other/Comment: colostomy- reversed - ANESTHESIA Hx Anesthesia: Yes Hx Anesthesia Reactions: No Meds Allergies/Adverse Reactions: Allergies Allergy/AdvReac Type Severity Reaction Status Date / Time Penicillins Allergy RASH Verified 05/14/17 00:34 - Medications Medications: Current Medications Acetaminophen (Tylenol 325mg Tab) 650 mg PO Q6 PRN PRN Reason: Fever >100.4 F Albuterol/Ipratropium (Duoneb 3 Mg/0.5 Mg (3 Ml) Ud) 3 ml INH RQID DIANDRA Last Admin: 05/14/17 07:44 Dose: 3 ml Enoxaparin Sodium (Lovenox) 40 mg SC DAILY DIANDRA PRN Reason: Protocol Home Med (Elviteg/Luna/Emtric/Tenofo Dis [Stribild Tablet]) 1 tab PO DAILY [facility] Hydromorphone HCl (Dilaudid) 0.5 mg IVP Q6 PRN PRN Reason: Pain, severe (8-10) Last Admin: 05/14/17 05:23 Dose: 0.5 mg Sodium Chloride (Sodium Chloride 0.9%) 1,000 mls @ 1,000 mls/hr IV .Q1H [facility] Stop: 05/15/17 00:54 Last Admin: 05/14/17 05:17 Dose: 1,000 mls/hr Metronidazole (Flagyl 500mg/100ml Ns) 100 mls @ 100 mls/hr IVPB Q8 DIANDRA PRN Reason: Protocol Vancomycin HCl 1 gm/ Sodium (Chloride) 250 mls @ 166.667 mls/hr IVPB DAILY DIANDRA PRN Reason: Protocol Ketorolac Tromethamine (Toradol) 30 mg IVP Q6 PRN PRN Reason: Pain, moderate (4-7) Multivitamins/Minerals (Therapeutic-M Tab) 1 tab PO DAILY [facility] Ondansetron HCl (Zofran Inj) 4 mg IVP Q6 PRN PRN Reason: Nausea/Vomiting Prednisone (Prednisone Tab) 40 mg PO BID [facility] Stop: 05/18/17 17:01 Trimethoprim/Sulfamethoxazole (Bactrim Ds Tab) 2 tab PO Q12 DIANDRA PRN Reason: Protocol Physical Exam - Constitutional Appears: Non-toxic, No Acute Distress - Head Exam Head Exam: ATRAUMATIC - Eye Exam Eye Exam: EOMI. absent: Scleral icterus - ENT Exam ENT Exam: Mucous Membranes Moist - Respiratory Exam Respiratory Exam: absent: Accessory Muscle Use, Chest Wall Tenderness, Respiratory Distress - Cardiovascular Exam Cardiovascular Exam: +S1, +S2. absent: Bradycardia, Tachycardia - GI/Abdominal Exam GI & Abdominal Exam: Soft. absent: Bruit, Diminished Bowel Sounds, Distended, Firm - Exam Additional comments: bilateral inguinal skin excoriation w/ purulent drainage. no areas of fluctuance - Extremities Exam Extremities exam: Positive for: normal inspection. Negative for: calf tenderness - Neurological Exam Neurological exam: Alert, Oriented x3 - Psychiatric Exam Psychiatric exam: Normal Affect - Skin Skin Exam: Mottled, Rash, Warm Results - Vital Signs Recent Vital Signs: Last Vital Signs Temp 97.6 F 05/14/17 08:20 Pulse 78 05/14/17 08:20 Resp 18 05/14/17 08:20 BP 109/71 05/14/17 08:20 Pulse Ox 100 05/14/17 08:20 - Labs Result Diagrams: 05/14/17 01:15 05/14/17 02:20 Labs: Laboratory Results - last 24 hr 05/14/17 05/14/17 05/14/17 00:49 01:15 01:15 WBC 5.3 RBC 4.41 Hgb 11.4 L Hct 35.9 MCV 81.4 D MCH 25.8 L MCHC 31.6 L RDW 15.8 H Plt Count 117 L D MPV 9.1 Neut % (Auto) 64.6 Lymph % (Auto) 26.1 [place] % (Auto) 8.2 Eos % (Auto) 0.9 Baso % (Auto) 0.2 Neut # 3.4 Lymph # 1.4 [place] # 0.4 Eos # 0.0 Baso # 0.0 pO2 55 VBG pH 7.43 VBG pCO2 43 VBG HCO3 27.7 VBG Total CO2 29.8 H VBG O2 Sat (Calc) 94.3 H VBG Base Excess 3.7 H VBG Potassium 6.2 H* Sodium 133.0 136 Chloride 101.0 102 Glucose 119 H Lactate 0.9 FiO2 21.0 Crit Value Called To Dr rochelle rodriguez Crit Value Called By Armando Crit Value Read Back Y Blood Gas Notified Time 135 Potassium 5.7 H Carbon Dioxide 25 Anion Gap 15 BUN 14 Creatinine 0.9 Est GFR ( Amer) > 60 Est GFR (Non-Af Amer) > 60 Random Glucose 118 H Calcium 8.2 L Lactate Dehydrogenase 962 H Venous Blood Potassium 6.2 H* Influenza Typ A,B (EIA) 05/14/17 05/14/17 01:15 02:20 WBC RBC Hgb Hct MCV MCH MCHC RDW Plt Count MPV Neut % (Auto) Lymph % (Auto) [place] % (Auto) Eos % (Auto) Baso % (Auto) Neut # Lymph # [place] # Eos # Baso # pO2 VBG pH VBG pCO2 VBG HCO3 VBG Total CO2 VBG O2 Sat (Calc) VBG Base Excess VBG Potassium Sodium Chloride Glucose Lactate FiO2 Crit Value Called To Crit Value Called By Crit Value Read Back Blood Gas Notified Time Potassium 3.9 Carbon Dioxide Anion Gap BUN Creatinine Est GFR ( Amer) Est GFR (Non-Af Amer) Random Glucose Calcium Lactate Dehydrogenase Venous Blood Potassium Influenza Typ A,B (EIA) Negative for flu a/b Assessment & Plan - Assessment and Plan (Free Text) Assessment: 52M hx of HIV and Ca, w/ bilateral inguinal abscesses Plan: - CT scan to determine if there is underlying or deeper abscess - local wound care w/ alginate - IV abx - medial management - further recs per Dr. Billy Mcwilliams PGY1
[2017-05-14 08:54] LABS: RBC URINE 2 /hpf (0-3); URINE BACTERIA RARE (<OCC); URINE BILIRUBIN NEGATIVE (NEGATIVE); URINE BLOOD NEGATIVE (NEGATIVE); URINE COLOR YELLOW (YELLOW); URINE GLUCOSE (UA) NEG (Normal); URINE KETONE TRACE mg/dL (NEGATIVE); URINE LEUKOCYTE ESTERASE SMALL Leu/uL (Negative); URINE PROTEIN 30 mg/dL (NEGATIVE); WBC URINE 9 /hpf (0-5)
[2017-05-14] MEDS ORDERED: metroNIDAZOLE 500mg/100ml NS 100 ML IVPB SCH (09:00)
[2017-05-14] MEDS ORDERED: Patient's Own Med (Multivitamin [Multi-Vitamin Daily] 1 TAB) PO SCH (09:00)
[2017-05-14] MEDS: Tmp-Smz 800 mg-160 mg DS Tab PO SCH ×2 (09:45→22:20)
[2017-05-14] MEDS: Elviteg/Cobi/Emtric/Tenofo Dis [Stribild Tablet] PO SCH (09:46)
[2017-05-14] MEDS: Enoxaparin 40 mg Syringe SC SCH (09:46)
[2017-05-14] MEDS: Multivitamin With Minerals Tab PO SCH (09:47)
--- NOTE | 2017-05-14 09:58 | RAD ---
HISTORY: HIV/AIDS, fever, cough COMPARISON: Chest radiographs 12/04/2016. TECHNIQUE: Chest PA and lateral FINDINGS: LUNGS: No definite acute pulmonary disease. However, reticular markings are increased in the periphery once again which may indicate chronic underlying interstitial pulmonary disease particularly at the mid to inferior right lung zone. PLEURA: No significant pleural effusion identified. No pneumothorax apparent. CARDIOVASCULAR: Normal. OSSEOUS STRUCTURES: No significant abnormalities. VISUALIZED UPPER ABDOMEN: Normal. OTHER FINDINGS: None. IMPRESSION: Questionable chronic underlying interstitial pulmonary disease bilaterally. No acute infiltrate pleural effusion or pneumothorax bilaterally. If clinically warranted, CT the chest may be utilized for additional detailed evaluation.
--- NOTE | 2017-05-14 10:37 | CP.PCM.CON ---
History of Present Illness - History of Present Illness History of Present Illness: Infectious Disease Consultation Note- asked to see this patient at the request of Family practice team for groin ? abscess. HPI- Patietn known to me from his last hospitalization here in 02/2017 for b/l groin ? ? abscess. Patient is a 52 year old male with HIV psoitive f/u at [facility] and apparently not very compliant with his meds and his care, rectal/penile cancer, colon cancer s/p colectomy with colostomy reversal in who was admitted with c /o sob and cough with yellow phlegm for past week. he denies any hemoptysis and denies any night sweats. He states his last VL was 90 and Cd4 was 215. He also mentions that he has had b/l groin abscess since past 6 months and it got better few months ago when he was inpatient here and was on IV antibiotics but again about a month ago it started to get inflamed and has had some discahrge from aorund the site. He denies any penile discharge. Denies any dysurea ROS: as per HPI PMD: Dr. Galeano, last visit 04/29/2017 PMHx: HIV, essential HTN, penile/rectal cancer, colon cancer, unspecified severity of asthma Meds: as per eCW/med rec, NONCOMPLIANT with any medications ALL: penicillins (angioedema) PsurgHx: colectomy/colostomy reversal in FamilyHx: father decreased 2/2 lung cancer, mother 2/2 CHF. Multiple siblings, alive, one has sickle cell anemia SocialHx: former tobacco abuser. Social ETOH. Heroin abuser, recent usage mid April 2017 -next of kin: daughter Mimi [phone] -FULL CODE Review of Systems - Review of Systems Review of Systems: as per HPI Past Patient History - Past Medical History & Family History Past Medical History?: Yes - Past Social History Smoking Status: Former Smoker Home Situation {Lives}: Homeless - CARDIAC Hx Hypertension: Yes - PULMONARY Hx Asthma: Yes Hx Pneumonia: Yes (PCP) - NEUROLOGICAL Hx Neurological Disorder: No - HEENT Hx HEENT Problems: No - RENAL Hx Chronic Kidney Disease: No - ENDOCRINE/METABOLIC Hx Endocrine Disorders: No - HEMATOLOGICAL/ONCOLOGICAL Hx Human Immunodeficiency Virus (HIV): Yes - INTEGUMENTARY Hx Dermatological Problems: Yes Hx Squamous Cell: Yes - MUSCULOSKELETAL/RHEUMATOLOGICAL Hx Musculoskeletal Disorders: No Hx Falls: No - GASTROINTESTINAL Hx Gastrointestinal Disorders: Yes Hx Colostomy: Yes (reversal) - GENITOURINARY/GYNECOLOGICAL Hx Genitourinary Disorders: Yes Hx Prostate Cancer: Yes Other/Comment: penile cancer - PSYCHIATRIC Hx Depression: Yes Hx Substance Use: No - SURGICAL HISTORY Hx Surgeries: Yes Other/Comment: colostomy- reversed - ANESTHESIA Hx Anesthesia: Yes Hx Anesthesia Reactions: No Meds Allergies/Adverse Reactions: Allergies Allergy/AdvReac Type Severity Reaction Status Date / Time Penicillins Allergy RASH Verified 05/14/17 00:34 - Medications Medications: Current Medications Acetaminophen (Tylenol 325mg Tab) 650 mg PO Q6 PRN PRN Reason: Fever >100.4 F Albuterol/Ipratropium (Duoneb 3 Mg/0.5 Mg (3 Ml) Ud) 3 ml INH RQID [facility] Last Admin: 05/14/17 07:44 Dose: 3 ml Enoxaparin Sodium (Lovenox) 40 mg SC DAILY [facility] PRN Reason: Protocol Last Admin: 05/14/17 09:46 Dose: 40 mg Home Med (Elviteg/Luna/Emtric/Tenofo Dis [Stribild Tablet]) 1 tab PO DAILY [facility] Last Admin: 05/14/17 09:46 Dose: 1 tab Hydromorphone HCl (Dilaudid) 1 mg IVP Q6 PRN PRN Reason: Pain, severe (8-10) Last Admin: 05/14/17 09:37 Dose: 1 mg Sodium Chloride (Sodium Chloride 0.9%) 1,000 mls @ 1,000 mls/hr IV .Q1H DIANDRA Stop: 05/15/17 00:54 Last Admin: 05/14/17 09:06 Dose: 1,000 mls/hr Metronidazole (Flagyl 500mg/100ml Ns) 100 mls @ 100 mls/hr IVPB Q8 DIANDRA PRN Reason: Protocol Vancomycin HCl 1 gm/ Sodium (Chloride) 250 mls @ 166.667 mls/hr IVPB DAILY DIANDR[facility] PRN Reason: Protocol Ketorolac Tromethamine (Toradol) 30 mg IVP Q6 PRN PRN Reason: Pain, moderate (4-7) Multivitamins/Minerals (Therapeutic-M Tab) 1 tab PO DAILY [facility] Last Admin: 05/14/17 09:47 Dose: 1 tab Ondansetron HCl (Zofran Inj) 4 mg IVP Q6 PRN PRN Reason: Nausea/Vomiting Prednisone (Prednisone Tab) 40 mg PO BID [facility] Stop: 05/18/17 17:01 Last Admin: 05/14/17 09:47 Dose: 40 mg Trimethoprim/Sulfamethoxazole (Bactrim Ds Tab) 2 tab PO Q12 DIANDRA PRN Reason: Protocol Last Admin: 05/14/17 09:45 Dose: 2 tab Physical Exam - Constitutional Appears: No Acute Distress - Head Exam Head Exam: ATRAUMATIC - Eye Exam Eye Exam: EOMI - ENT Exam ENT Exam: Normal Oropharynx - Neck Exam Neck exam: Positive for: Full Rom - Respiratory Exam Respiratory Exam: NORMAL BREATHING PATTERN Additional comments: no wheezing slightly decreased breath sounds at bases - Cardiovascular Exam Cardiovascular Exam: RRR, +S1, +S2 - GI/Abdominal Exam GI & Abdominal Exam: Normal Bowel Sounds, Soft Additional comments: NT, ND - Exam Additional comments: b/l groin region with escoriated /sloughed off dskin with exposed underlying tissue, no active discharge seen no pus seen no lesions seen tinea like skin changes in the surroundng b/l groin 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) - Extremities Exam Extremities exam: Positive for: normal inspection - Neurological Exam Neurological exam: Alert, Oriented x3 Results - Vital Signs Recent Vital Signs: Last Vital Signs Temp 97.6 F 05/14/17 08:20 Pulse 78 05/14/17 08:20 Resp 18 05/14/17 08:20 BP 109/71 05/14/17 08:20 Pulse Ox 100 05/14/17 08:20 - Labs Result Diagrams: 05/14/17 01:15 05/14/17 02:20 Labs: Laboratory Results - last 24 hr 05/14/17 05/14/17 05/14/17 00:49 01:15 01:15 WBC 5.3 RBC 4.41 Hgb 11.4 L Hct 35.9 MCV 81.4 D MCH 25.8 L MCHC 31.6 L RDW 15.8 H Plt Count 117 L D MPV 9.1 Neut % (Auto) 64.6 Lymph % (Auto) 26.1 [place] % (Auto) 8.2 Eos % (Auto) 0.9 Baso % (Auto) 0.2 Neut # 3.4 Lymph # 1.4 [place] # 0.4 Eos # 0.0 Baso # 0.0 pO2 55 VBG pH 7.43 VBG pCO2 43 VBG HCO3 27.7 VBG Total CO2 29.8 H VBG O2 Sat (Calc) 94.3 H VBG Base Excess 3.7 H VBG Potassium 6.2 H* Sodium 133.0 136 Chloride 101.0 102 Glucose 119 H Lactate 0.9 FiO2 21.0 Crit Value Called To Dr rochelle rodriguez Crit Value Called By Armando Crit Value Read Back Y Blood Gas Notified Time 135 Potassium 5.7 H Carbon Dioxide 25 Anion Gap 15 BUN 14 Creatinine 0.9 Est GFR ( Amer) > 60 Est GFR (Non-Af Amer) > 60 Random Glucose 118 H Calcium 8.2 L Lactate Dehydrogenase 962 H Venous Blood Potassium 6.2 H* Urine Color Urine Clarity Urine pH Ur Specific [place] Urine Protein Urine Glucose (UA) Urine Ketones Urine Blood Urine Nitrate Urine Bilirubin Urine Urobilinogen Ur Leukocyte Esterase Urine RBC (Auto) Urine Microscopic WBC Urine Bacteria Urine Opiates Screen Urine Methadone Screen Ur Barbiturates Screen Ur Phencyclidine Scrn Ur Amphetamines Screen U Benzodiazepines Scrn U Oth Cocaine Metabols U Cannabinoids Screen Influenza Typ A,B (EIA) 05/14/17 05/14/17 05/14/17 01:15 02:20 05:00 WBC RBC Hgb Hct MCV MCH MCHC RDW Plt Count MPV Neut % (Auto) Lymph % (Auto) [place] % (Auto) Eos % (Auto) Baso % (Auto) Neut # Lymph # [place] # Eos # Baso # pO2 VBG pH VBG pCO2 VBG HCO3 VBG Total CO2 VBG O2 Sat (Calc) VBG Base Excess VBG Potassium Sodium Chloride Glucose Lactate FiO2 Crit Value Called To Crit Value Called By Crit Value Read Back Blood Gas Notified Time Potassium 3.9 Carbon Dioxide Anion Gap BUN Creatinine Est GFR ( Amer) Est GFR (Non-Af Amer) Random Glucose Calcium Lactate Dehydrogenase Venous Blood Potassium Urine Color Urine Clarity Urine pH Ur Specific [place] Urine Protein Urine Glucose (UA) Urine Ketones Urine Blood Urine Nitrate Urine Bilirubin Urine Urobilinogen Ur Leukocyte Esterase Urine RBC (Auto) Urine Microscopic WBC Urine Bacteria Urine Opiates Screen Positive H Urine Methadone Screen Negative Ur Barbiturates Screen Negative Ur Phencyclidine Scrn Negative Ur Amphetamines Screen Negative U Benzodiazepines Scrn Negative U Oth Cocaine Metabols Negative U Cannabinoids Screen Negative Influenza Typ A,B (EIA) Negative for flu a/b 05/14/17 05:00 WBC RBC Hgb Hct MCV MCH MCHC RDW Plt Count MPV Neut % (Auto) Lymph % (Auto) [place] % (Auto) Eos % (Auto) Baso % (Auto) Neut # Lymph # [place] # Eos # Baso # pO2 VBG pH VBG pCO2 VBG HCO3 VBG Total CO2 VBG O2 Sat (Calc) VBG Base Excess VBG Potassium Sodium Chloride Glucose Lactate FiO2 Crit Value Called To Crit Value Called By Crit Value Read Back Blood Gas Notified Time Potassium Carbon Dioxide Anion Gap BUN Creatinine Est GFR ( Amer) Est GFR (Non-Af Amer) Random Glucose Calcium Lactate Dehydrogenase Venous Blood Potassium Urine Color Yellow Urine Clarity Clear Urine pH 6.0 Ur Specific [place] 1.015 Urine Protein 30 Urine Glucose (UA) Neg Urine Ketones Trace Urine Blood Negative Urine Nitrate Negative Urine Bilirubin Negative Urine Urobilinogen 2.0 Ur Leukocyte Esterase Small Urine RBC (Auto) 2 Urine Microscopic WBC 9 H Urine Bacteria Rare Urine Opiates Screen Urine Methadone Screen Ur Barbiturates Screen Ur Phencyclidine Scrn Ur Amphetamines Screen U Benzodiazepines Scrn U Oth Cocaine Metabols U Cannabinoids Screen Influenza Typ A,B (EIA) Laboratory Results - last 72 hr 05/14/17 05/14/17 05/14/17 00:49 01:15 01:15 WBC 5.3 RBC 4.41 Hgb 11.4 L Hct 35.9 MCV 81.4 D MCH 25.8 L MCHC 31.6 L RDW 15.8 H Plt Count 117 L D MPV 9.1 Neut % (Auto) 64.6 Lymph % (Auto) 26.1 [place] % (Auto) 8.2 Eos % (Auto) 0.9 Baso % (Auto) 0.2 Neut # 3.4 Lymph # 1.4 [place] # 0.4 Eos # 0.0 Baso # 0.0 pCO2 pO2 55 HCO3 ABG pH ABG Total CO2 ABG O2 Saturation ABG O2 Content ABG Base Excess ABG Hemoglobin ABG Carboxyhemoglobin POC ABG HHb (Measured) ABG Methemoglobin ABG O2 Capacity [place] Test VBG pH 7.43 VBG pCO2 43 VBG HCO3 27.7 VBG Total CO2 29.8 H VBG O2 Sat (Calc) 94.3 H VBG Base Excess 3.7 H VBG Potassium 6.2 H* A-a O2 Difference Hgb O2 Saturation Sodium 133.0 136 Chloride 101.0 102 Glucose 119 H Lactate 0.9 FiO2 21.0 Crit Value Called To Dr rochelle rodriguez Crit Value Called By Armando Crit Value Read Back Y Blood Gas Notified Time 135 Potassium 5.7 H Carbon Dioxide 25 Anion Gap 15 BUN 14 Creatinine 0.9 Est GFR ( Amer) > 60 Est GFR (Non-Af Amer) > 60 Random Glucose 118 H Calcium 8.2 L Lactate Dehydrogenase 962 H Venous Blood Potassium 6.2 H* Urine Color Urine Clarity Urine pH Ur Specific [place] Urine Protein Urine Glucose (UA) Urine Ketones Urine Blood Urine Nitrate Urine Bilirubin Urine Urobilinogen Ur Leukocyte Esterase Urine RBC (Auto) Urine Microscopic WBC Urine Bacteria Urine Opiates Screen Urine Methadone Screen Ur Barbiturates Screen Ur Phencyclidine Scrn Ur Amphetamines Screen U Benzodiazepines Scrn U Oth Cocaine Metabols U Cannabinoids Screen Influenza Typ A,B (EIA) 05/14/17 05/14/17 05/14/17 01:15 02:20 05:00 WBC RBC Hgb Hct MCV MCH MCHC RDW Plt Count MPV Neut % (Auto) Lymph % (Auto) [place] % (Auto) Eos % (Auto) Baso % (Auto) Neut # Lymph # [place] # Eos # Baso # pCO2 pO2 HCO3 ABG pH ABG Total CO2 ABG O2 Saturation ABG O2 Content ABG Base Excess ABG Hemoglobin ABG Carboxyhemoglobin POC ABG HHb (Measured) ABG Methemoglobin ABG O2 Capacity [place] Test VBG pH VBG pCO2 VBG HCO3 VBG Total CO2 VBG O2 Sat (Calc) VBG Base Excess VBG Potassium A-a O2 Difference Hgb O2 Saturation Sodium Chloride Glucose Lactate FiO2 Crit Value Called To Crit Value Called By Crit Value Read Back Blood Gas Notified Time Potassium 3.9 Carbon Dioxide Anion Gap BUN Creatinine Est GFR ( Amer) Est GFR (Non-Af Amer) Random Glucose Calcium Lactate Dehydrogenase Venous Blood Potassium Urine Color Urine Clarity Urine pH Ur Specific [place] Urine Protein Urine Glucose (UA) Urine Ketones Urine Blood Urine Nitrate Urine Bilirubin Urine Urobilinogen Ur Leukocyte Esterase Urine RBC (Auto) Urine Microscopic WBC Urine Bacteria Urine Opiates Screen Positive H Urine Methadone Screen Negative Ur Barbiturates Screen Negative Ur Phencyclidine Scrn Negative Ur Amphetamines Screen Negative U Benzodiazepines Scrn Negative U Oth Cocaine Metabols Negative U Cannabinoids Screen Negative Influenza Typ A,B (EIA) Negative for flu a/b 05/14/17 05/14/17 05:00 13:00 WBC RBC Hgb Hct MCV MCH MCHC RDW Plt Count MPV Neut % (Auto) Lymph % (Auto) [place] % (Auto) Eos % (Auto) Baso % (Auto) Neut # Lymph # [place] # Eos # Baso # pCO2 42 pO2 54 L HCO3 26.0 ABG pH 7.41 ABG Total CO2 27.9 ABG O2 Saturation 89.8 L ABG O2 Content 13.8 L ABG Base Excess 1.7 ABG Hemoglobin 11.3 L ABG Carboxyhemoglobin 2.0 H POC ABG HHb (Measured) 9.9 H ABG Methemoglobin 1.0 ABG O2 Capacity 15.4 L [place] Test Yes VBG pH VBG pCO2 VBG HCO3 VBG Total CO2 VBG O2 Sat (Calc) VBG Base Excess VBG Potassium A-a O2 Difference 43.0 Hgb O2 Saturation 87.0 L Sodium Chloride Glucose Lactate FiO2 21.0 Crit Value Called To Crit Value Called By Crit Value Read Back Blood Gas Notified Time Potassium Carbon Dioxide Anion Gap BUN Creatinine Est GFR ( Amer) Est GFR (Non-Af Amer) Random Glucose Calcium Lactate Dehydrogenase Venous Blood Potassium Urine Color Yellow Urine Clarity Clear Urine pH 6.0 Ur Specific [place] 1.015 Urine Protein 30 Urine Glucose (UA) Neg Urine Ketones Trace Urine Blood Negative Urine Nitrate Negative Urine Bilirubin Negative Urine Urobilinogen 2.0 Ur Leukocyte Esterase Small Urine RBC (Auto) 2 Urine Microscopic WBC 9 H Urine Bacteria Rare Urine Opiates Screen Urine Methadone Screen Ur Barbiturates Screen Ur Phencyclidine Scrn Ur Amphetamines Screen U Benzodiazepines Scrn U Oth Cocaine Metabols U Cannabinoids Screen Influenza Typ A,B (EIA) Microbiology 03/07/17 19:00 Genital - Groin GC Culture - Final NO GC ISOLATED 03/06/17 14:28 Groin Gram Stain - Final 03/06/17 14:28 Groin Wound Culture - Final Beta Hemolytic Strep Group B 03/06/17 14:25 Blood-Venous Blood Culture - Final 03/06/17 14:25 Blood-Venous Gram Stain - Final NO GROWTH AFTER 5 DAYS TEST NOT PERFORMED 03/06/17 14:10 Blood-Venous Blood Culture - Final 03/06/17 14:10 Blood-Venous Gram Stain - Final NO GROWTH AFTER 5 DAYS TEST NOT PERFORMED Accession No. : [id number] Patient Name / ID : JEANNA MACKEY / [id number] Exam Date : 05/14/2017 00:55:23 ( Approved ) Study Comment : Sex / Age : M / 52Y Creator : Ravi Moise MD Dictator : Ravi Moise MD Quantitative Researcher : Bagger Meat : Ravi Moise MD Approver2 : Report Date : 05/14/2017 09:56:42 My Comment : HISTORY: HIV/AIDS, fever, cough COMPARISON: Chest radiographs 12/04/2016. TECHNIQUE: Chest PA and lateral FINDINGS: LUNGS: No definite acute pulmonary disease. However, reticular markings are increased in the periphery once again which may indicate chronic underlying interstitial pulmonary disease particularly at the mid to inferior right lung zone. PLEURA: No significant pleural effusion identified. No pneumothorax apparent. CARDIOVASCULAR: Normal. OSSEOUS STRUCTURES: No significant abnormalities. VISUALIZED UPPER ABDOMEN: Normal. OTHER FINDINGS: None. IMPRESSION: Questionable chronic underlying interstitial pulmonary disease bilaterally. No acute infiltrate pleural effusion or pneumothorax bilaterally. If clinically warranted, CT the chest may be utilized for additional detailed evaluation. Assessment & Plan (1) HIV (human immunodeficiency virus infection) Status: Chronic (2) Bronchitis Status: Acute (3) Abscess Status: Acute - Assessment and Plan (Free Text) Assessment: A/p- 52 year old amle with multiple medical conditions including HIV , colon cancer s /p colectomy and reversal of colostomy, rectal/penile ca s/p radiation and chemo admitted with sob and cough and recurrent chronic B/L groin ?? abscess. pt. is not septic. afebrile and has normal wbc count. based on cx from last admission groin cx grew group B streo and pt. received both IV vancomycin and doxycycline. Urine GC/chlmydia was negative last admission (02/2017). based on clinical exam the b/l groin area seems to be more dermatologic issue ratger than abscess however no objection to continuing with IV vancomycin to cover for skin hannah. f/u with wound nurse and sugical team recommendations. await pelvic Ct to rule out deeper lesion. perhaps may need Bx of the skin of the groin region to r/o any type of malignancy especially since pt. has had radiation in past and h/o multiple cancers in past. HIV meds as per his outpatient HIV doc. can continue with oral bactrim ( that as per pt. he takes daily) for PCP prophyalxis. would advise to also check check chest Ct for better evaluation. advise either zithromax or levaquin to cover for CAP vs bronchitis in immune suppressed pt. All above d/w patient and also with Dr.Pierre Pantoja at length. Thank you for allowing me to take part in the care of this patient.
--- NOTE | 2017-05-14 10:57 | CARD ---
APPROVED REPORT EKG Measurement Heart [id number] <Conclusion> Normal sinus rhythm Normal ECG
[2017-05-14] MEDS ORDERED: Iohexol 300 100 ML IJ ONE (12:56)
[2017-05-14] MEDS ORDERED: Sodium Chloride 0.9% 50 ML IV ONE (12:57)
[2017-05-14 13:06] LABS: ABG ALLEN TEST YES; ARTERIAL BLOOD GAS O2 CAPACITY 15.4 mL/dL (16-24); ARTERIAL BLOOD GAS O2 CONTENT 13.8 ML/dL (15-23); ARTERIAL BLOOD GAS PH 7.41 (7.35-7.45); ARTERIAL BLOOD GAS PO2 54 mm/Hg (80-100); HHB 9.9 % (0.0-5.0)
--- NOTE | 2017-05-14 14:08 | CP.PCM.PCO ---
Additional Comments - Additional Comments Additional Comments: Patient revaluated this morning with morning team. Patient becomes SOB with min exertion and desats to low 90s without O2. ABG ordered. Pulm consulted. Possible PCP since patient stopped HAART. Will F/U CT pelvic for better eval of groin/suprapubic infection. Will start Vanco and Flagyl for Gram+, anaerobic coverage pending ID eval. Patient received already Dose of Aztreonam and Levaquin at ED. C/W Bactrim for PCP. Last Wound Cx previous admission + for GBS. Will continue monitor. 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
--- NOTE | 2017-05-14 16:06 | CT ---
PROCEDURE: CT Abdomen and Pelvis with contrast HISTORY: bilateral draining groin abcesses x6 months COMPARISON: CT pelvis 03/06/2017 TECHNIQUE: Contrast dose: 95 mL Omnipaque 300 Radiation dose: Total exam DLP = 389.53 mGy-cm. This CT exam was performed using one or more of the following dose reduction techniques: Automated exposure control, adjustment of the mA and/or kV according to patient size, and/or use of iterative reconstruction technique. FINDINGS: LOWER THORAX: Very small nodular opacities posterior right and left lower lobes, right greater than left. Likely infectious/inflammatory. Evaluation of lung bases is limited by respiratory motion artifact. There is a 5 mm pleural-based nodule along the major fissure in the posterior right middle lobe. There is a 4 mm subpleural nodule in the lateral right middle lobe. LIVER: Unremarkable. No gross lesion or ductal dilatation. GALLBLADDER AND BILE DUCTS: Unremarkable. PANCREAS: Unremarkable. No gross lesion or ductal dilatation. SPLEEN: Unremarkable. ADRENALS: Unremarkable. No mass. KIDNEYS AND URETERS: Unremarkable. No hydronephrosis. No solid mass. VASCULATURE: Unremarkable. No aortic aneurysm. BOWEL: Unremarkable. No obstruction. No gross mural thickening. APPENDIX: Not identified. No secondary findings to suggest acute appendicitis. PERITONEUM: Unremarkable. No free fluid. No free air. LYMPH NODES: Unremarkable. No enlarged lymph nodes. BLADDER: Unremarkable. REPRODUCTIVE: Unremarkable prostate. Small bilateral hydroceles. BONES: No acute fracture. OTHER FINDINGS: No definable perianal collection. Previously identified small perianal collection on examination of 03/06/2017 is no longer evident. Surgical clips noted left inguinal region. IMPRESSION: No perianal collection identifiable. Small bilateral hydroceles.
[2017-05-14] MEDS: levoFLOXacin 500 mg in D5W 500 MG/100 ML BAG IVPB SCH (16:28)
--- NOTE | 2017-05-14 17:06 | CT ---
PROCEDURE: CT Chest without contrast HISTORY: pneumonia COMPARISON: None. TECHNIQUE: Contiguous axial images were obtained through the chest without intravenous contrast enhancement. Sagittal and coronal reconstructions were performed. Radiation dose (DLP): mGy-cm. This CT exam was performed using one or more of the following dose reduction techniques: Automated exposure control, adjustment of the mA and/or kV according to patient size, and/or use of iterative reconstruction technique. FINDINGS: LUNGS: Interstitial pneumonitis is appreciated minute intermixed with mild alveolitis in the left upper lobe with bronchial thickening appreciated. Sorry motion artifacts degrade the majority of the bases including the lingula. Added involvement is not suspected but is not excluded either. The central airways appear clear. A small bulla is seen in the right upper lobe medially and minimal involvement is appreciated in alveolitis/ interstitial changes at the right upper lobe medially as well. No pneumothorax. MEDIASTINUM: Unremarkable thoracic aorta. No aneurysm. Normal sized heart. Main pulmonary artery unremarkable. No vascular congestion. No gross lymphadenopathy. PLEURA: No pleural fluid. No pneumothorax. BONES: No fracture. No destructive lesion. UPPER ABDOMEN: Incidental note is made of cholelithiasis within a partially contracted gallbladder. OTHER FINDINGS: None. 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 No additional potential acute findings in the chest.
[2017-05-15 05:57] LABS: BASO % 0.2 % (0.0-2.0); HEMATOCRIT 34.2 % (35.0-51.0); LYMPH # 0.9 K/uL (1.0-4.3); MEAN CORPUSCULAR HEMOGLOBIN 25.4 pg (27.0-31.0); MEAN PLATELET VOLUME 8.5 fl (7.2-11.7); MONO # 0.2 K/uL (0.0-0.8); MONO % 4.3 % (0.0-10.0); NEUT # 4.6 K/uL (1.8-7.0); NEUT % 80.5 % (50.0-75.0); NRBC % 0.1 % (0.0-0.0); RED CELL DISTRIBUTION WIDTH 15.7 % (11.5-14.5); WHITE BLOOD COUNT 5.7 K/uL (4.8-10.8)
--- NOTE | 2017-05-15 06:50 | CP.PCM.PN ---
Subjective - Date & Time of Evaluation Date of Evaluation: 05/15/17 Time of Evaluation: 08:00 - Subjective Subjective: Patient seen at bedside this morning. Tolerating flat decubitus. Feels "better" . Still c/o wet cough, afebrile, SOB has improved but still present with min exertion. Denies CP, palpitations, diarrhea, vomiting. Pain in groin area has also improved since Yesterday. Objective - Vital Signs/Intake and Output Vital Signs (last 24 hours): Temp Pulse Resp BP Pulse Ox 97.3 F L 65 18 118/69 94 L 05/15/17 05:02 05/15/17 05:02 05/15/17 05:02 05/15/17 05:02 05/15/17 05:02 Intake and Output: 05/14/17 05/15/17 18:59 06:59 Intake Total 2200 Output Total 900 Balance 1300 - Medications Medications: Current Medications Acetaminophen (Tylenol 325mg Tab) 650 mg PO Q6 PRN PRN Reason: Fever >100.4 F Albuterol/Ipratropium (Duoneb 3 Mg/0.5 Mg (3 Ml) Ud) 3 ml INH RQID [facility] Last Admin: 05/14/17 19:23 Dose: 3 ml Enoxaparin Sodium (Lovenox) 40 mg SC DAILY [facility] PRN Reason: Protocol Last Admin: 05/14/17 09:46 Dose: 40 mg Home Med (Elviteg/Luna/Emtric/Tenofo Dis [Stribild Tablet]) 1 tab PO DAILY [facility] Last Admin: 05/14/17 09:46 Dose: 1 tab Hydromorphone HCl (Dilaudid) 1 mg IVP Q6 PRN PRN Reason: Pain, severe (8-10) Last Admin: 05/15/17 04:18 Dose: 1 mg Vancomycin HCl 1 gm/ Sodium (Chloride) 250 mls @ 166.667 mls/hr IVPB DAILY [facility] PRN Reason: Protocol Last Admin: 05/14/17 12:27 Dose: 166.667 mls/hr Levofloxacin/Dextrose (Levaquin 500mg) 500 mg in 100 mls @ 100 mls/hr IVPB DAILY [facility] PRN Reason: Protocol Last Admin: 05/14/17 16:28 Dose: 100 mls/hr Ketorolac Tromethamine (Toradol) 30 mg IVP Q6 PRN PRN Reason: Pain, moderate (4-7) Multivitamins/Minerals (Therapeutic-M Tab) 1 tab PO DAILY [facility] Last Admin: 05/14/17 09:47 Dose: 1 tab Ondansetron HCl (Zofran Inj) 4 mg IVP Q6 PRN PRN Reason: Nausea/Vomiting Prednisone (Prednisone Tab) 40 mg PO BID [facility] Stop: 05/18/17 17:01 Last Admin: 05/14/17 16:27 Dose: 40 mg Trimethoprim/Sulfamethoxazole (Bactrim Ds Tab) 2 tab PO Q12 [facility] PRN Reason: Protocol Last Admin: 05/14/17 22:20 Dose: 2 tab - Labs Labs: 05/14/17 01:15 05/14/17 02:20 - Constitutional Appears: Non-toxic, Chronically Ill - Eye Exam Eye Exam: EOMI, PERRL - ENT Exam ENT Exam: Mucous Membranes Moist - Respiratory Exam Respiratory Exam: Rales, Rhonchi, Wheezes. absent: Prolonged Expiratory Phase - Cardiovascular Exam Cardiovascular Exam: REGULAR RHYTHM, +S1, +S2. absent: Gallop - GI/Abdominal Exam GI & Abdominal Exam: Soft. absent: Distended, Tenderness, Rebound - Exam Exam: Scrotal Swelling (mild), Testicular Tenderness (mild) External exam: Lesions (B/L groin area redness, fistula, no discharge today on PE. ) - Extremities Exam Extremities Exam: Normal Capillary Refill. absent: Calf Tenderness, Joint Swelling, Pedal Edema, Tenderness - Neurological Exam Neurological Exam: Alert, Awake, Oriented x3 - Psychiatric Exam Psychiatric exam: Normal Affect, Normal Mood - Skin Skin Exam: Warm Assessment and Plan - Assessment and Plan (Free Text) Assessment: 52 y/o male with an extensive PMHx admitted for suspected PCP and worsening b/l groin skin infection Worsening SOB possible PCP vs CAP -SOB, Elevated LDH, HIV(Noncompliant) -ABG Low PO2 -Chest CT: Interstitial pneumonitis(See full report) -C/W Bactrim BID PO -C/W Prednisone 40mg BID x 5days(day 2) -C/W Levaquin 750 mg daily -C/W Duonebs for SOB -blood/urine/sputum cultures: pending -ID and Pulmonology consult appreciated -Monitor Bilateral groin complicated skin infection -CT of the abd and pelvis w/o contrast no evident fluid collection identified( please see full report) -General surgery consult appreciated -ID consult appreciated -C/W Vanco 1g daily -C/W local wound care with calcium alginate as per Sx team HIV Infection likely with AIDS -noncompliant with HAART. Last CD4 count in 02/2017: 273 -F/U repeat CD4 count and viral load ordered Hx of Penile/Rectal cancer -S/P radiation and chemotherapy -rule out cause of b/l chronic skin lesion Prophylaxis -SCDs PRN -Lovenox 40mg SC QD -No probiotics prescribed because of immunosupression
--- NOTE | 2017-05-15 06:51 | PQF GENQUE ---
This form is a permanent part of the medical record 05/14/17 Dr. Elver Pantoja, After workup please clarify the diagnosis of HIV utilizing the following coding terminology :"Asymptomatic HIV Infection /HIV positive only" : used when no HIV infection symptoms or conditions are present..... versus "Symptomatic HIV Disease /AIDS": this code is used for pts. who have had a prior diagnosis of an HIV- related illness or CD4 count <200 in the past; HAART. Awaiting CD4 count and viral load. ER: History of HIV noncompliant with HAART and PCP Pneumonia. H&P: History of HIV. Under the [facility] template : HX Pneumonia : Yes (PCP) , HIV Infection, last CD4 count 02/2017: 273 and repeat ordered with viral load. Clarification of your documentation is requested to better reflect the severity of illness and intensity of treatment of your patient. Indicators present [] Specify: [] [] Specify: [] [] Specify: [] [] Specify: [] Location in the medical record that reflects the above clinical findings: [] Treatment Provided: [] PHYSICIAN'S RESPONSE asymptomativ hiv Based on your medical judgment of the clinical indicators outlined above please clarify the following: [] Practitioner response [] If unable to determine, please check the box, sign and date. Present On Admission (POA) Indicator: [] Present at the time of admission [] Not present at the time of admission [] Clinically Undetermined In responding to this query, please exercise your independent professional judgment. The fact that a question is asked does not imply that any particular answer is desired or expected. Thank you for your clarification on this documentation. If you have any questions please call:extension [phone] * Thank you, Abida Keane RN CDMP MTDD
[2017-05-15 06:56] LABS: BLOOD UREA NITROGEN 19 mg/dl (9-20); CALCIUM 8.6 mg/dL (8.4-10.2); CARBON DIOXIDE 28 mmol/L (22-30); CHLORIDE 108 mmol/L (98-107); GFR AFRICAN-AMERICAN > 60; GLUCOSE,RANDOM 135 mg/dL (75-110); POTASSIUM 4.8 MMOL/L (3.6-5.0); SODIUM 143 mmol/l (132-148)
[2017-05-15] MEDS: Albuterol-Ipratrop 3 mg / 0.5 (3 ml) UD INH SCH ×4 (07:54→19:25)
[2017-05-15] MEDS: levoFLOXacin 500 mg in D5W 500 MG/100 ML BAG IVPB SCH (08:39)
[2017-05-15] MEDS: Elviteg/Cobi/Emtric/Tenofo Dis [Stribild Tablet] PO SCH (08:40)
[2017-05-15] MEDS: Enoxaparin 40 mg Syringe SC SCH ×2 (08:41→08:49)
[2017-05-15] MEDS: Tmp-Smz 800 mg-160 mg DS Tab PO SCH ×2 (08:41→21:30)
[2017-05-15] MEDS: Multivitamin With Minerals Tab PO SCH (08:41)
[2017-05-15] MEDS ORDERED: Oxycodone/Acetaminophen 5/325 mg Tab PO PRN ×2 (09:50→09:51)
--- NOTE | 2017-05-15 14:34 | CP.PCM.PN ---
Subjective - Date & Time of Evaluation Date of Evaluation: 05/15/17 Time of Evaluation: 10:00 - Subjective Subjective: General Surgery- Dr. Cervantes Pt S&E at bedside this AM. No acute events overnight. Tolerating regular diet. Having non-productive cough. continued bilateral inguinal pain. Actively draining Denies fevers, chills, nausea, vomiting, diarrhea. Objective - Vital Signs/Intake and Output Vital Signs (last 24 hours): Temp Pulse Resp BP Pulse Ox 97.6 F 91 H 18 116/73 96 05/15/17 11:57 05/15/17 11:57 05/15/17 11:57 05/15/17 11:57 05/15/17 11:57 - Medications Medications: Current Medications Acetaminophen (Tylenol 325mg Tab) 650 mg PO Q6 PRN PRN Reason: Fever >100.4 F Albuterol/Ipratropium (Duoneb 3 Mg/0.5 Mg (3 Ml) Ud) 3 ml INH RQID [facility] Last Admin: 05/15/17 11:08 Dose: 3 ml Enoxaparin Sodium (Lovenox) 40 mg SC DAILY [facility] PRN Reason: Protocol Last Admin: 05/15/17 08:49 Dose: Not Given Home Med (Elviteg/Luna/Emtric/Tenofo Dis [Stribild Tablet]) 1 tab PO DAILY [facility] Last Admin: 05/15/17 08:40 Dose: 1 tab Vancomycin HCl 1 gm/ Sodium (Chloride) 250 mls @ 166.667 mls/hr IVPB DAILY [facility] PRN Reason: Protocol Last Admin: 05/15/17 10:31 Dose: 166.667 mls/hr Levofloxacin/Dextrose (Levaquin 500mg) 500 mg in 100 mls @ 100 mls/hr IVPB DAILY [facility] PRN Reason: Protocol Last Admin: 05/15/17 08:39 Dose: 100 mls/hr Ketorolac Tromethamine (Toradol) 30 mg IVP Q6 PRN PRN Reason: Pain, severe (8-10) Multivitamins/Minerals (Therapeutic-M Tab) 1 tab PO DAILY [facility] Last Admin: 05/15/17 08:41 Dose: 1 tab Ondansetron HCl (Zofran Inj) 4 mg IVP Q6 PRN PRN Reason: Nausea/Vomiting Oxycodone/Acetaminophen (Percocet 5/325 Mg Tab) 1 tab PO Q6 PRN PRN Reason: Pain, moderate (4-7) Stop: 05/18/17 09:51 Oxycodone/Acetaminophen (Percocet 5/325 Mg Tab) 2 tab PO Q6 PRN PRN Reason: Pain, severe (8-10) Stop: 05/18/17 09:52 Last Admin: 05/15/17 10:28 Dose: 2 tab Prednisone (Prednisone Tab) 40 mg PO BID [facility] Stop: 05/18/17 17:01 Last Admin: 05/15/17 08:40 Dose: 40 mg Trimethoprim/Sulfamethoxazole (Bactrim Ds Tab) 2 tab PO Q12 [facility] PRN Reason: Protocol Last Admin: 05/15/17 08:41 Dose: 2 tab - Labs Labs: 05/15/17 05:05 05/15/17 05:05 - Constitutional Appears: Non-toxic, No Acute Distress - Head Exam Head Exam: ATRAUMATIC - Eye Exam Eye Exam: EOMI. absent: Scleral icterus - Respiratory Exam Respiratory Exam: absent: Accessory Muscle Use, Respiratory Distress - Cardiovascular Exam Cardiovascular Exam: +S1, +S2. absent: Bradycardia, Tachycardia - GI/Abdominal Exam GI & Abdominal Exam: Soft, Normal Bowel Sounds. absent: Firm, Guarding, Rigid, Tenderness, Rebound - Extremities Exam Extremities Exam: Calf Tenderness Additional comments: Bilateral inguinal wound actively draining. no areas of fluctuance. local wound care with alginate applied - Neurological Exam Neurological Exam: Alert, Awake, Oriented x3 - Skin Skin Exam: Mottled, Rash Assessment and Plan - Assessment and Plan (Free Text) Assessment: 52M hx HIV w/ bilateral inguinal wounds Plan: - local wound care w/ alginate - no areas of fluctuance or abscess, no I&D at this time - c/w abx - further recs per Dr. Billy Mcwilliams PGY1
--- NOTE | 2017-05-15 21:36 | CP.PCM.CON ---
History of Present Illness - History of Present Illness History of Present Illness: Patient seen, chart and films reviewed, full consult to follow. Cont Abx as per ID, If no improvement, gregory do bronch for dx. will see again. Past Patient History - Past Medical History & Family History Past Medical History?: Yes - Past Social History Smoking Status: Former Smoker Home Situation {Lives}: Homeless - CARDIAC Hx Hypertension: Yes - PULMONARY Hx Asthma: Yes Hx Pneumonia: Yes (PCP) - NEUROLOGICAL Hx Neurological Disorder: No - HEENT Hx HEENT Problems: No - RENAL Hx Chronic Kidney Disease: No - ENDOCRINE/METABOLIC Hx Endocrine Disorders: No - HEMATOLOGICAL/ONCOLOGICAL Hx Human Immunodeficiency Virus (HIV): Yes - INTEGUMENTARY Hx Dermatological Problems: Yes Hx Squamous Cell: Yes - MUSCULOSKELETAL/RHEUMATOLOGICAL Hx Musculoskeletal Disorders: No Hx Falls: No - GASTROINTESTINAL Hx Gastrointestinal Disorders: Yes Hx Colostomy: Yes (reversal) - GENITOURINARY/GYNECOLOGICAL Hx Genitourinary Disorders: Yes Hx Prostate Cancer: Yes Other/Comment: penile cancer - PSYCHIATRIC Hx Depression: Yes Hx Substance Use: No - SURGICAL HISTORY Hx Surgeries: Yes Other/Comment: colostomy- reversed - ANESTHESIA Hx Anesthesia: Yes Hx Anesthesia Reactions: No Meds Allergies/Adverse Reactions: Allergies Allergy/AdvReac Type Severity Reaction Status Date / Time Penicillins Allergy RASH Verified 05/14/17 00:34 - Medications Medications: Current Medications Acetaminophen (Tylenol 325mg Tab) 650 mg PO Q6 PRN PRN Reason: Fever >100.4 F Albuterol/Ipratropium (Duoneb 3 Mg/0.5 Mg (3 Ml) Ud) 3 ml INH RQID [facility] Last Admin: 05/15/17 19:25 Dose: 3 ml Enoxaparin Sodium (Lovenox) 40 mg SC DAILY [facility] PRN Reason: Protocol Last Admin: 05/15/17 08:49 Dose: Not Given Home Med (Elviteg/Luna/Emtric/Tenofo Dis [Stribild Tablet]) 1 tab PO DAILY [facility] Last Admin: 05/15/17 08:40 Dose: 1 tab Vancomycin HCl 1 gm/ Sodium (Chloride) 250 mls @ 166.667 mls/hr IVPB DAILY [facility] PRN Reason: Protocol Last Admin: 05/15/17 10:31 Dose: 166.667 mls/hr Levofloxacin/Dextrose (Levaquin 500mg) 500 mg in 100 mls @ 100 mls/hr IVPB DAILY [facility] PRN Reason: Protocol Last Admin: 05/15/17 08:39 Dose: 100 mls/hr Ketorolac Tromethamine (Toradol) 30 mg IVP Q6 PRN PRN Reason: Pain, severe (8-10) Last Admin: 05/15/17 16:51 Dose: 30 mg Multivitamins/Minerals (Therapeutic-M Tab) 1 tab PO DAILY [facility] Last Admin: 05/15/17 08:41 Dose: 1 tab Ondansetron HCl (Zofran Inj) 4 mg IVP Q6 PRN PRN Reason: Nausea/Vomiting Oxycodone/Acetaminophen (Percocet 5/325 Mg Tab) 1 tab PO Q6 PRN PRN Reason: Pain, moderate (4-7) Stop: 05/18/17 09:51 Oxycodone/Acetaminophen (Percocet 5/325 Mg Tab) 2 tab PO Q6 PRN PRN Reason: Pain, severe (8-10) Stop: 05/18/17 09:52 Last Admin: 05/15/17 10:28 Dose: 2 tab Prednisone (Prednisone Tab) 40 mg PO BID [facility] Stop: 05/18/17 17:01 Last Admin: 05/15/17 16:56 Dose: 40 mg Trimethoprim/Sulfamethoxazole (Bactrim Ds Tab) 2 tab PO Q12 [facility] PRN Reason: Protocol Last Admin: 05/15/17 08:41 Dose: 2 tab Results - Vital Signs Recent Vital Signs: Last Vital Signs Temp 98.1 F 05/15/17 20:13 Pulse 85 05/15/17 20:13 Resp 16 05/15/17 20:13 BP 111/59 L 05/15/17 20:13 Pulse Ox 95 05/15/17 20:13 - Labs Result Diagrams: 05/15/17 05:05 05/15/17 05:05 Labs: Laboratory Results - last 24 hr 05/15/17 05/15/17 05:05 05:05 WBC 5.7 RBC 4.17 L Hgb 10.6 L Hct 34.2 L MCV 82.0 MCH 25.4 L MCHC 31.0 L RDW 15.7 H Plt Count 105 L MPV 8.5 Neut % (Auto) 80.5 H Lymph % (Auto) 15.0 L Bea[place] % (Auto) 4.3 Eos % (Auto) 0.0 Baso % (Auto) 0.2 Neut # 4.6 Lymph # 0.9 L [place] # 0.2 Eos # 0.0 Baso # 0.0 Sodium 143 Potassium 4.8 Chloride 108 H Carbon Dioxide 28 Anion Gap 12 BUN 19 Creatinine 0.9 Est GFR ( Amer) > 60 Est GFR (Non-Af Amer) > 60 Random Glucose 135 H Calcium 8.6
[2017-05-16 06:31] LABS: BASO % 0.3 % (0.0-2.0); EOS % 0.1 % (0.0-4.0); HEMATOCRIT 34.2 % (35.0-51.0); MEAN CELL VOLUME 81.7 fl (80.0-94.0); MEAN CORPUSCULAR HEMOGLOBIN 26.7 pg (27.0-31.0); MEAN CORPUSCULAR HGB CONC 32.7 g/dL (33.0-37.0); MONO # 0.1 K/uL (0.0-0.8); MONO % 1.1 % (0.0-10.0); NEUT # 11.1 K/uL (1.8-7.0); NEUT % 90.5 % (50.0-75.0); NRBC % 0.1 % (0.0-0.0); PLATELET COUNT 125 K/uL (130-400); RED CELL DISTRIBUTION WIDTH 15.4 % (11.5-14.5); WHITE BLOOD COUNT 12.3 K/uL (4.8-10.8)
[2017-05-16 06:32] LABS: BLOOD UREA NITROGEN 22 mg/dl (9-20); CALCIUM 8.5 mg/dL (8.4-10.2); CARBON DIOXIDE 21 mmol/L (22-30); CHLORIDE 108 mmol/L (98-107); GFR AFRICAN-AMERICAN > 60; GLUCOSE,RANDOM 144 mg/dL (75-110); POTASSIUM 4.9 MMOL/L (3.6-5.0); SODIUM 140 mmol/l (132-148)
[2017-05-16] MEDS: Albuterol-Ipratrop 3 mg / 0.5 (3 ml) UD INH SCH ×3 (07:38→15:34)
[2017-05-16 09:21] LABS: NEUTROPHIL 86 % (42-75); TOTAL CELLS COUNTED 100
--- NOTE | 2017-05-16 09:24 | CP.PCM.PN ---
Subjective - Date & Time of Evaluation Date of Evaluation: 05/16/17 Time of Evaluation: 07:20 - Subjective Subjective: 52 y/o M seen at bedside. He feels "better". Still c/o SOB with min exertion. Cough has improved. B/L groin pain also slightly improved as well as foul smell. Denies CP, palpitations, dizziness. Afebrile. No changes in urination or stools. Objective - Vital Signs/Intake and Output Vital Signs (last 24 hours): Temp Pulse Resp BP Pulse Ox 97.3 F L 66 20 127/73 100 05/16/17 08:00 05/16/17 08:00 05/16/17 08:00 05/16/17 08:00 05/16/17 08:00 - Medications Medications: Current Medications Acetaminophen (Tylenol 325mg Tab) 650 mg PO Q6 PRN PRN Reason: Fever >100.4 F Albuterol/Ipratropium (Duoneb 3 Mg/0.5 Mg (3 Ml) Ud) 3 ml INH RQID [facility] Last Admin: 05/16/17 07:38 Dose: 3 ml Enoxaparin Sodium (Lovenox) 40 mg SC DAILY [facility] PRN Reason: Protocol Last Admin: 05/15/17 08:49 Dose: Not Given Home Med (Elviteg/Luna/Emtric/Tenofo Dis [Stribild Tablet]) 1 tab PO DAILY [facility] Last Admin: 05/15/17 08:40 Dose: 1 tab Vancomycin HCl 1 gm/ Sodium (Chloride) 250 mls @ 166.667 mls/hr IVPB DAILY [facility] PRN Reason: Protocol Last Admin: 05/15/17 10:31 Dose: 166.667 mls/hr Levofloxacin/Dextrose (Levaquin 500mg) 500 mg in 100 mls @ 100 mls/hr IVPB DAILY [facility] PRN Reason: Protocol Last Admin: 05/15/17 08:39 Dose: 100 mls/hr Ketorolac Tromethamine (Toradol) 30 mg IVP Q6 PRN PRN Reason: Pain, severe (8-10) Last Admin: 05/16/17 06:37 Dose: 30 mg Multivitamins/Minerals (Therapeutic-M Tab) 1 tab PO DAILY [facility] Last Admin: 05/15/17 08:41 Dose: 1 tab Ondansetron HCl (Zofran Inj) 4 mg IVP Q6 PRN PRN Reason: Nausea/Vomiting Oxycodone/Acetaminophen (Percocet 5/325 Mg Tab) 1 tab PO Q6 PRN PRN Reason: Pain, moderate (4-7) Stop: 05/18/17 09:51 Oxycodone/Acetaminophen (Percocet 5/325 Mg Tab) 2 tab PO Q6 PRN PRN Reason: Pain, severe (8-10) Stop: 05/18/17 09:52 Last Admin: 05/15/17 10:28 Dose: 2 tab Prednisone (Prednisone Tab) 40 mg PO BID [facility] Stop: 05/18/17 17:01 Last Admin: 05/15/17 16:56 Dose: 40 mg Trimethoprim/Sulfamethoxazole (Bactrim Ds Tab) 2 tab PO Q12 [facility] PRN Reason: Protocol Last Admin: 05/15/17 21:30 Dose: 2 tab - Labs Labs: 05/16/17 05:00 05/16/17 05:00 - Constitutional Appears: Non-toxic, Chronically Ill - Eye Exam Eye Exam: EOMI - ENT Exam ENT Exam: Mucous Membranes Moist - Respiratory Exam Respiratory Exam: Rales (BB), Rhonchi, Wheezes (scattered), NORMAL BREATHING PATTERN - Cardiovascular Exam Cardiovascular Exam: REGULAR RHYTHM, +S1. absent: Gallop - GI/Abdominal Exam GI & Abdominal Exam: Soft, Normal Bowel Sounds. absent: Distended, Tenderness, Rebound - Extremities Exam Extremities Exam: Normal Capillary Refill. absent: Calf Tenderness, Joint Swelling, Tenderness - Neurological Exam Neurological Exam: Alert, Awake, Oriented x3 - Psychiatric Exam Psychiatric exam: Normal Affect, Normal Mood - Skin Skin Exam: Normal Color, Warm Assessment and Plan - Assessment and Plan (Free Text) Assessment: 52 y/o male with an extensive PMHx admitted for suspected PCP and worsening b/l groin skin infection Pneumonitis possible due to PCP vs CAP -Slighty improved -Elevated LDH, HIV(Noncompliant) -Chest CT: Interstitial pneumonitis(See full report) -C/W Bactrim BID PO -C/W Prednisone 40mg BID x 5days(day 3) -C/W Levaquin 750 mg daily(day 3) -C/W Duonebs for SOB -blood/urine/sputum culture: No growth -ID and Pulmonology consult appreciated -WBC increased today: Likely due to Steroids. VS stable, Afbrile -Safe to be transferred out of Telemetry unit Bilateral groin complicated skin infection -CT of the abd and pelvis w/o contrast no evident fluid collection identified( please see full report) -General surgery consult appreciated -ID consult appreciated -C/W Vanco 1g daily(day 3). -F/U Vanco through 05/17/17 AM -C/W local wound care with calcium alginate as per Sx team HIV Infection likely with AIDS -noncompliant with HAART. Last CD4 count in 02/2017: 273 -Possible PCP -F/U repeat CD4 count and viral load Hx of Penile/Rectal cancer -S/P radiation and chemotherapy -rule out cause of b/l chronic skin lesion. Consider work up as outpatient/ Dermatology referral Prophylaxis -SCDs PRN -Lovenox 40mg SC QD
[2017-05-16] MEDS: Tmp-Smz 800 mg-160 mg DS Tab PO SCH ×2 (09:58→20:59)
[2017-05-16] MEDS: Elviteg/Cobi/Emtric/Tenofo Dis [Stribild Tablet] PO SCH (10:00)
[2017-05-16] MEDS: levoFLOXacin 500 mg in D5W 500 MG/100 ML BAG IVPB SCH (10:01)
[2017-05-16] MEDS: Enoxaparin 40 mg Syringe SC SCH (10:02)
[2017-05-16] MEDS: Multivitamin With Minerals Tab PO SCH (10:03)
[2017-05-17] MEDS: Albuterol-Ipratrop 3 mg / 0.5 (3 ml) UD INH SCH ×4 (07:34→19:52)
[2017-05-17 08:45] LABS: HEMATOCRIT 35.1 % (35.0-51.0); MEAN CELL VOLUME 81.9 fl (80.0-94.0); MEAN CORPUSCULAR HEMOGLOBIN 26.2 pg (27.0-31.0); RED CELL DISTRIBUTION WIDTH 15.9 % (11.5-14.5); WHITE BLOOD COUNT 8.6 K/uL (4.8-10.8)
[2017-05-17] MEDS: Tmp-Smz 800 mg-160 mg DS Tab PO SCH ×2 (08:51→21:26)
[2017-05-17] MEDS: levoFLOXacin 500 mg in D5W 500 MG/100 ML BAG IVPB SCH (08:52)
[2017-05-17] MEDS: Multivitamin With Minerals Tab PO SCH (08:54)
[2017-05-17] MEDS: Enoxaparin 40 mg Syringe SC SCH (09:46)
--- NOTE | 2017-05-17 09:52 | CP.PCM.PN ---
Subjective - Date & Time of Evaluation Date of Evaluation: 05/17/17 Time of Evaluation: 09:35 - Subjective Subjective: 52 YO M seen resting comfortably in bed. Denies any nausea, vomiting, diarrea. Patient denies any overnight events, however he does admit to not having a bowl movement in the last week. States he is usually regular when he is home. Denies CP, palpitations, dizziness. Afebrile. - Patient has been refusing lovenox, even after being explained the importance of it. Patient has agreed to using the SCD. Objective - Vital Signs/Intake and Output Vital Signs (last 24 hours): Temp Pulse Resp BP Pulse Ox 97.5 F L 83 19 119/69 94 L 05/17/17 08:50 05/17/17 08:50 05/17/17 08:50 05/17/17 08:50 05/17/17 08:50 - Medications Medications: Current Medications Acetaminophen (Tylenol 325mg Tab) 650 mg PO Q6 PRN PRN Reason: Fever >100.4 F Albuterol/Ipratropium (Duoneb 3 Mg/0.5 Mg (3 Ml) Ud) 3 ml INH RQID [facility] Last Admin: 05/17/17 07:34 Dose: 3 ml Enoxaparin Sodium (Lovenox) 40 mg SC DAILY [facility] PRN Reason: Protocol Last Admin: 05/16/17 10:02 Dose: Not Given Home Med (Elviteg/Luna/Emtric/Tenofo Dis [Stribild Tablet]) 1 tab PO DAILY [facility] Last Admin: 05/16/17 10:00 Dose: 1 tab Levofloxacin/Dextrose (Levaquin 500mg) 500 mg in 100 mls @ 100 mls/hr IVPB DAILY [facility] PRN Reason: Protocol Last Admin: 05/17/17 08:52 Dose: 100 mls/hr Vancomycin HCl 1 gm/ Sodium (Chloride) 250 mls @ 166.667 mls/hr IVPB BID [facility] PRN Reason: Protocol Ketorolac Tromethamine (Toradol) 30 mg IVP Q6 PRN PRN Reason: Pain, severe (8-10) Last Admin: 05/17/17 03:16 Dose: 30 mg Multivitamins/Minerals (Therapeutic-M Tab) 1 tab PO DAILY [facility] Last Admin: 05/17/17 08:54 Dose: 1 tab Ondansetron HCl (Zofran Inj) 4 mg IVP Q6 PRN PRN Reason: Nausea/Vomiting Oxycodone/Acetaminophen (Percocet 5/325 Mg Tab) 1 tab PO Q6 PRN PRN Reason: Pain, moderate (4-7) Stop: 05/18/17 09:51 Oxycodone/Acetaminophen (Percocet 5/325 Mg Tab) 2 tab PO Q6 PRN PRN Reason: Pain, severe (8-10) Stop: 05/18/17 09:52 Last Admin: 05/15/17 10:28 Dose: 2 tab Prednisone (Prednisone Tab) 40 mg PO BID [facility] Stop: 05/18/17 17:01 Last Admin: 05/17/17 08:54 Dose: 40 mg Trimethoprim/Sulfamethoxazole (Bactrim Ds Tab) 2 tab PO Q12 [facility] PRN Reason: Protocol Last Admin: 05/17/17 08:51 Dose: 2 tab - Labs Labs: 05/17/17 06:56 05/16/17 05:00 - Constitutional Appears: No Acute Distress - Head Exam Head Exam: NORMAL INSPECTION - Eye Exam Eye Exam: Normal appearance - Neck Exam Neck Exam: Full ROM, Normal Inspection - Respiratory Exam Respiratory Exam: Rhonchi (Right sided rhonchi), Wheezes (Right sided wheeze), NORMAL BREATHING PATTERN - Cardiovascular Exam Cardiovascular Exam: REGULAR RHYTHM, +S1, +S2 - GI/Abdominal Exam GI & Abdominal Exam: Soft, Normal Bowel Sounds. absent: Tenderness - Exam Additional comments: - - Extremities Exam Extremities Exam: Normal Inspection - Neurological Exam Neurological Exam: Alert, Awake, CN II-XII Intact, Oriented x3 - Skin Additional comments: B/L inguinal wound : Seems to be healing well. Dressing remains C/D/I. - No discharge noted. Assessment and Plan - Assessment and Plan (Free Text) Assessment: 52 y/o male with an extensive PMHx admitted for suspected PCP and worsening b/l groin skin infection Pneumonitis possible due to PCP vs CAP -Slighty improved -Elevated LDH, HIV(Noncompliant) -Chest CT: Interstitial pneumonitis(See full report) -C/W Bactrim BID PO -C/W Prednisone 40mg BID x 5days(day 4) -C/W Levaquin 750 mg daily(day 4) -C/W Duonebs for SOB -blood/urine/sputum culture: No growth -ID and Pulmonology consult appreciated -WBC trending down - ID consulted - 6 min walk test ordered Bilateral groin complicated skin infection -CT of the abd and pelvis w/o contrast no evident fluid collection identified( please see full report) -General surgery consult appreciated -ID consult appreciated -C/W Vanco 1g (day 4). Vanco through< 5, will increase vanco to 1 gram BID. Repeat Vanco trough tomorrow before evening dose -C/W local wound care with calcium alginate as per Sx team HIV Infection likely with AIDS -noncompliant with HAART. Last CD4 count in 02/2017: 273 -Possible PCP -CD4: 40 (05/14/17). HIV PCR Viral load: [id number] - TB: Quantiferon: result indeterminate possibly secondary to to immunocompramised state. - Spoke w/ Dr. Galeano: Patients PCP: PAtient had Genosure done on 12/04/16, and was advised importance of compliance with medication. - Azithromycin 1200mg Q weekly: Next donse on 05/22/17 - Hold HIV meds ( Prevent immune reconstitution inflammatory syndrome). Patient has been non compliant with home meds. Hx of Penile/Rectal cancer -S/P radiation and chemotherapy -rule out cause of b/l chronic skin lesion. Consider work up as outpatient/ Dermatology referral Prophylaxis -SCDs -Lovenox 40mg SC QD ( Refusing)
[2017-05-17] MEDS ORDERED: Oxycodone/Acetaminophen 5/325 mg Tab PO PRN (13:15)
[2017-05-17] MEDS ORDERED: Magnesium Hydroxide Susp 30 ml UD PO STA (15:30)
[2017-05-17 18:40] LABS: (1-3)-B-D GLUCAN 75 pg/mL
[2017-05-17] MEDS: Docusate-Senna 50 mg-8.6 mg Tab PO SCH (21:27)
[2017-05-18] MEDS: Oxycodone/Acetaminophen 5/325 mg Tab PO PRN ×2 (03:42→13:09)
[2017-05-18 07:15] LABS: BASO % 0.2 % (0.0-2.0); HEMATOCRIT 34.6 % (35.0-51.0); LYMPH # 0.7 K/uL (1.0-4.3); LYMPH % 11.1 % (20.0-40.0); MEAN CELL VOLUME 83.3 fl (80.0-94.0); MEAN CORPUSCULAR HEMOGLOBIN 26.8 pg (27.0-31.0); MEAN CORPUSCULAR HGB CONC 32.2 g/dL (33.0-37.0); MEAN PLATELET VOLUME 8.7 fl (7.2-11.7); MONO # 0.2 K/uL (0.0-0.8); MONO % 3.6 % (0.0-10.0); NEUT # 5.5 K/uL (1.8-7.0); NEUT % 85.1 % (50.0-75.0); NRBC % 0.1 % (0.0-0.0); RED CELL DISTRIBUTION WIDTH 15.9 % (11.5-14.5); WHITE BLOOD COUNT 6.5 K/uL (4.8-10.8)
[2017-05-18] MEDS: Albuterol-Ipratrop 3 mg / 0.5 (3 ml) UD INH SCH ×4 (07:32→19:01)
--- NOTE | 2017-05-18 07:40 | CP.PCM.PN ---
Subjective - Date & Time of Evaluation Date of Evaluation: 05/18/17 Time of Evaluation: 07:40 - Subjective Subjective: 52 YO M was seen resting comfortably in bed. He had just finished eating his breakfast. Patient states his appetite has much improved since his admission. States his breathing is better. He had some irritation in the groin region, where the b/l lesions are. Denies any chest pain, SOB, nausea, vomiting. - Had the 6 min walk test done yesterday. States he tolerated it well, but was slightly lightheaded by the end of it, which resolved after sitting down. - Patient had a bowl movement yesterday after receiving Lactulose. - Patient has improved appetite since admission. States he is hungry and has been eating. - Has been refusing Lovenox, pt was seen at bedside with attending, and has now agreed to receiving the Lovenox. Objective - Vital Signs/Intake and Output Vital Signs (last 24 hours): Temp Pulse Resp BP Pulse Ox 97.2 F L 70 18 105/72 95 05/18/17 00:21 05/18/17 00:21 05/18/17 00:21 05/18/17 00:21 05/18/17 00:21 - Medications Medications: Current Medications Acetaminophen (Tylenol 325mg Tab) 650 mg PO Q6 PRN PRN Reason: Fever >100.4 F Albuterol/Ipratropium (Duoneb 3 Mg/0.5 Mg (3 Ml) Ud) 3 ml INH RQID [facility] Last Admin: 05/18/17 07:32 Dose: 3 ml Azithromycin (Zithromax) 1,200 mg PO QWK [facility] PRN Reason: Protocol Docusate Sodium (Colace) 100 mg PO BID [facility] Last Admin: 05/17/17 16:34 Dose: 100 mg Enoxaparin Sodium (Lovenox) 40 mg SC DAILY [facility] PRN Reason: Protocol Last Admin: 05/17/17 09:46 Dose: Not Given Home Med (Elviteg/Luna/Emtric/Tenofo Dis [Stribild Tablet]) 1 tab PO DAILY [facility] Last Admin: 05/16/17 10:00 Dose: 1 tab Levofloxacin/Dextrose (Levaquin 500mg) 500 mg in 100 mls @ 100 mls/hr IVPB DAILY [facility] PRN Reason: Protocol Last Admin: 05/17/17 08:52 Dose: 100 mls/hr Vancomycin HCl 1 gm/ Sodium (Chloride) 250 mls @ 166.667 mls/hr IVPB BID [facility] PRN Reason: Protocol Last Admin: 05/17/17 16:34 Dose: 166.667 mls/hr Ketorolac Tromethamine (Toradol) 30 mg IVP Q6 PRN PRN Reason: Pain, severe (8-10) Last Admin: 05/17/17 22:10 Dose: 30 mg Multivitamins/Minerals (Therapeutic-M Tab) 1 tab PO DAILY [facility] Last Admin: 05/17/17 08:54 Dose: 1 tab Ondansetron HCl (Zofran Inj) 4 mg IVP Q6 PRN PRN Reason: Nausea/Vomiting Oxycodone/Acetaminophen (Percocet 5/325 Mg Tab) 1 tab PO Q6 PRN PRN Reason: Pain, moderate (4-7) Stop: 05/20/17 13:16 Oxycodone/Acetaminophen (Percocet 5/325 Mg Tab) 2 tab PO Q6 PRN PRN Reason: Pain, severe (8-10) Stop: 05/20/17 13:18 Last Admin: 05/18/17 03:42 Dose: 2 tab Prednisone (Prednisone Tab) 40 mg PO BID [facility] Stop: 05/18/17 17:01 Last Admin: 05/17/17 16:34 Dose: 40 mg Senna/Docusate Sodium (Senokot S 50 Mg-8.6 Mg) 1 tab PO HS [facility] Last Admin: 05/17/17 21:27 Dose: 1 tab Trimethoprim/Sulfamethoxazole (Bactrim Ds Tab) 2 tab PO Q12 [facility] PRN Reason: Protocol Last Admin: 05/17/17 21:26 Dose: 2 tab - Labs Labs: 05/18/17 05:25 05/16/17 05:00 - Constitutional Appears: No Acute Distress - Head Exam Head Exam: NORMAL INSPECTION - Respiratory Exam Respiratory Exam: Rhonchi (Slight rhonci heard on right side), Wheezes ( Scattered wheezes heard), NORMAL BREATHING PATTERN - Cardiovascular Exam Cardiovascular Exam: REGULAR RHYTHM, +S1, +S2 - GI/Abdominal Exam GI & Abdominal Exam: Soft, Normal Bowel Sounds. absent: Tenderness - Exam Exam: Circumcision (truncated penis s/p surgery), Scrotal Swelling - Neurological Exam Neurological Exam: Alert, Awake, Oriented x3 - Skin Additional comments: B/L inguinal skin lesions/ Slight white discharge noted. Erythematous base. Assessment and Plan - Assessment and Plan (Free Text) Assessment: 52 y/o male with an extensive PMHx admitted for suspected PCP and worsening b/l groin skin infection Pneumonitis possible due to PCP vs CAP -Slighty improved -Elevated LDH, HIV(Noncompliant) -Chest CT: Interstitial pneumonitis(See full report) -C/W Bactrim BID PO -C/W Prednisone 40mg BID (day 5). -C/W Levaquin 750 mg daily(day 4) -C/W Duonebs for SOB -blood/urine/sputum culture: No growth -ID and Pulmonology consult appreciated -WBC trending down - ID consulted - 6 min walk test showed 96% saturation pre walk, 88% during walking and 96% post walk. Tolerated procedure well. - Repeat chest X ray was read by me: appears similar to previous x ray, F/U with official report. Bilateral groin complicated skin infection -CT of the abd and pelvis w/o contrast no evident fluid collection identified( please see full report) -General surgery consult appreciated -ID consult appreciated -Patient recieved 3 days of Vanco 1g OD - Vanco dose was increased to 1gm BID since Vanco through< 5 on 05/17/17. - Repeat Vanco trough today before evening dose -C/W local wound care with calcium alginate as per Sx team AIDS -noncompliant with HAART. Last CD4 count in 02/2017: 273 -Possible PCP -CD4: 40 (05/14/17). HIV PCR Viral load: [id number] - TB: Quantiferon: result indeterminate possibly secondary to to immunocompramised state. - Spoke w/ Dr. Galeano: Patients PCP: Patient had Genosure done on 12/04/16, and was advised importance of compliance with medication. - Azithromycin 1200mg Q weekly: Next dose on 05/22/17 - Hold HIV meds ( Prevent immune reconstitution inflammatory syndrome). Patient has been non compliant with home meds. Hx of Penile/Rectal cancer -S/P radiation and chemotherapy -rule out cause of b/l chronic skin lesion. Consider work up as outpatient/ Dermatology referral Prophylaxis -SCDs -Lovenox 40mg SC QD ( Refusing)
[2017-05-18] MEDS: Tmp-Smz 800 mg-160 mg DS Tab PO SCH ×2 (09:38→21:27)
[2017-05-18] MEDS: levoFLOXacin 500 mg in D5W 500 MG/100 ML BAG IVPB SCH (09:39)
[2017-05-18] MEDS: Enoxaparin 40 mg Syringe SC SCH ×2 (09:39→13:01)
[2017-05-18] MEDS: Multivitamin With Minerals Tab PO SCH (09:40)
--- NOTE | 2017-05-18 15:25 | RAD ---
PROCEDURE: CHEST RADIOGRAPH, 1 VIEW HISTORY: Pneumonia. COMPARISON: Comparison chest radiograph and CT scan chest both dated 05/14/2017. FINDINGS: LUNGS: Current study re- demonstrates hazy opacity throughout the left upper lobe consistent with interstitial and alveolar pneumonitis better appreciated on prior high-resolution CT scan. . PLEURA: No pneumothorax or pleural fluid seen. CARDIOVASCULAR: Normal. OSSEOUS STRUCTURES: No significant abnormalities. VISUALIZED UPPER ABDOMEN: Normal. OTHER FINDINGS: None. IMPRESSION: Interstitial and alveolar infiltrates again seen scattered throughout the left upper lobe.
[2017-05-18] MEDS: Vancomycin 1 GM in Dextrose 5% In Water 250 ML IVPB SCH (17:26)
[2017-05-18] MEDS: Docusate-Senna 50 mg-8.6 mg Tab PO SCH (21:27)
[2017-05-19] MEDS: Albuterol-Ipratrop 3 mg / 0.5 (3 ml) UD INH SCH ×4 (07:16→19:09)
[2017-05-19] MEDS: Tmp-Smz 800 mg-160 mg DS Tab PO SCH ×2 (09:25→21:06)
[2017-05-19] MEDS: Multivitamin With Minerals Tab PO SCH (09:26)
[2017-05-19] MEDS: Enoxaparin 40 mg Syringe SC SCH (09:26)
[2017-05-19] MEDS: Vancomycin 1 GM in Dextrose 5% In Water 250 ML IVPB SCH ×2 (09:27→16:57)
--- NOTE | 2017-05-19 10:45 | CP.PCM.PN ---
Subjective - Date & Time of Evaluation Date of Evaluation: 05/19/17 Time of Evaluation: 09:43 - Subjective Subjective: 52 yo M was seen resting comfortably in bed. No acute events overnight. States his breathing is the same from yesterday. Denies any chest pain, nausea, vomiting, abdominal pain. Normal BMs. Objective - Vital Signs/Intake and Output Vital Signs (last 24 hours): Temp Pulse Resp BP Pulse Ox 97.3 F L 81 20 124/74 94 L 05/19/17 08:28 05/19/17 08:28 05/19/17 08:28 05/19/17 08:28 05/19/17 08:28 - Medications Medications: Current Medications Acetaminophen (Tylenol 325mg Tab) 650 mg PO Q6 PRN PRN Reason: Fever >100.4 F Albuterol/Ipratropium (Duoneb 3 Mg/0.5 Mg (3 Ml) Ud) 3 ml INH RQID [facility] Last Admin: 05/19/17 07:16 Dose: 3 ml Azithromycin (Zithromax) 1,200 mg PO QWK [facility] PRN Reason: Protocol Docusate Sodium (Colace) 100 mg PO BID [facility] Last Admin: 05/19/17 09:26 Dose: 100 mg Enoxaparin Sodium (Lovenox) 40 mg SC DAILY [facility] PRN Reason: Protocol Last Admin: 05/19/17 09:26 Dose: 40 mg Home Med (Elviteg/Luna/Emtric/Tenofo Dis [Stribild Tablet]) 1 tab PO DAILY [facility] Last Admin: 05/16/17 10:00 Dose: 1 tab Vancomycin HCl 1 gm/ Dextrose 250 mls @ 166.667 mls/hr IVPB BID [facility] PRN Reason: Protocol Last Admin: 05/19/17 09:27 Dose: 166.667 mls/hr Ketorolac Tromethamine (Toradol) 30 mg IVP Q6 PRN PRN Reason: Pain, severe (8-10) Last Admin: 05/19/17 01:54 Dose: 30 mg Multivitamins/Minerals (Therapeutic-M Tab) 1 tab PO DAILY [facility] Last Admin: 05/19/17 09:26 Dose: 1 tab Ondansetron HCl (Zofran Inj) 4 mg IVP Q6 PRN PRN Reason: Nausea/Vomiting Oxycodone/Acetaminophen (Percocet 5/325 Mg Tab) 1 tab PO Q6 PRN PRN Reason: Pain, moderate (4-7) Stop: 05/20/17 13:16 Oxycodone/Acetaminophen (Percocet 5/325 Mg Tab) 2 tab PO Q6 PRN PRN Reason: Pain, severe (8-10) Stop: 05/20/17 13:18 Last Admin: 05/18/17 13:09 Dose: 2 tab Prednisone (Prednisone Tab) 40 mg PO BID [facility] Last Admin: 05/19/17 09:26 Dose: 40 mg Senna/Docusate Sodium (Senokot S 50 Mg-8.6 Mg) 1 tab PO HS [facility] Last Admin: 05/18/17 21:27 Dose: 1 tab Trimethoprim/Sulfamethoxazole (Bactrim Ds Tab) 2 tab PO Q12 [facility] PRN Reason: Protocol Last Admin: 05/19/17 09:25 Dose: 2 tab - Labs Labs: 05/18/17 05:25 05/16/17 05:00 - Constitutional Appears: Well, Non-toxic, No Acute Distress - Head Exam Head Exam: ATRAUMATIC, NORMAL INSPECTION, NORMOCEPHALIC - Eye Exam Eye Exam: Normal appearance - Respiratory Exam Respiratory Exam: Wheezes (end expiratory bilaterally), NORMAL BREATHING PATTERN - Cardiovascular Exam Cardiovascular Exam: REGULAR RHYTHM, +S1, +S2. absent: Murmur - GI/Abdominal Exam GI & Abdominal Exam: Soft, Normal Bowel Sounds. absent: Tenderness - Extremities Exam Extremities Exam: Normal Inspection - Back Exam Back Exam: NORMAL INSPECTION - Neurological Exam Neurological Exam: Alert, Awake, Oriented x3 - Psychiatric Exam Psychiatric exam: Normal Affect, Normal Mood - Skin Skin Exam: Dry, Intact, Normal Color, Warm Assessment and Plan - Assessment and Plan (Free Text) Assessment: 52 y/o male with an extensive PMHx admitted for suspected PCP and worsening b/l groin skin infection Pneumonitis possible due to PCP vs CAP -Slighty improved -Elevated LDH, HIV(Noncompliant) -Chest CT: Interstitial pneumonitis(See full report) -C/W Bactrim BID PO -C/W Prednisone 40mg BID (day 6). -C/W Levaquin 750 mg daily(day 5) -C/W Duonebs for SOB -blood/urine/sputum culture: No growth -ID and Pulmonology consult appreciated -WBC normal, afebrile -6 min walk test showed 96% saturation pre walk, 88% during walking and 96% post walk. Tolerated well. -Repeat chest X ray read was reviewed Bilateral groin complicated skin infection -CT of the abd and pelvis w/o contrast no evident fluid collection identified( please see full report) -General surgery consult appreciated -ID consult appreciated -Patient recieved 4 days of Vanco, initially adjusted due to low trough, trough normal now, c/w current dosage 1g BID -C/W local wound care with calcium alginate as per Sx team AIDS -noncompliant with HAART. Last CD4: 40 (05/14/17). HIV PCR Viral load: 06807 -Possible PCP -TB: Quantiferon: result indeterminate possibly secondary to to immunocompramised state. -Spoke w/ Dr. Galeano: Patients PCP: Patient had Genosure done on 12/04/16, and was advised importance of compliance with medication. -Azithromycin 1200mg Q weekly: Next dose on 05/22/17 -Hold HIV meds ( Prevent immune reconstitution inflammatory syndrome). Patient has been non compliant with home meds. Hx of Penile/Rectal cancer -S/P radiation and chemotherapy -rule out cause of b/l chronic skin lesion. Consider work up as outpatient/ Dermatology referral Prophylaxis -Lovenox 40mg SC QD
[2017-05-19] MEDS: Docusate-Senna 50 mg-8.6 mg Tab PO SCH (21:06)
[2017-05-19] MEDS: Fluticasone-Salmeterol 250-50mcg Diskus IH SCH (21:07)
[2017-05-20] MEDS: Albuterol-Ipratrop 3 mg / 0.5 (3 ml) UD INH SCH ×4 (07:31→19:46)
--- NOTE | 2017-05-20 09:19 | CP.PCM.PN ---
Subjective - Date & Time of Evaluation Date of Evaluation: 05/20/17 Time of Evaluation: 08:00 - Subjective Subjective: 52 YO M was seen at bedside this morning. He slept better then his baseline last night. He has a good appetite and is feeling well. - 6 min walk test was repeated today, his O2 dropped to 88% while walking and was 88% post walking. he becomes light headed while walking. Will require O2 at home. - Denies chest pain, SOB, nausea, vomiting diarrhea. Objective - Vital Signs/Intake and Output Vital Signs (last 24 hours): Temp Pulse Resp BP Pulse Ox 98.1 F 66 20 132/77 96 05/20/17 08:19 05/20/17 08:19 05/20/17 08:19 05/20/17 08:19 05/20/17 08:19 - Medications Medications: Current Medications Acetaminophen (Tylenol 325mg Tab) 650 mg PO Q6 PRN PRN Reason: Fever >100.4 F Albuterol/Ipratropium (Duoneb 3 Mg/0.5 Mg (3 Ml) Ud) 3 ml INH RQID [facility] Last Admin: 05/20/17 07:31 Dose: 3 ml Azithromycin (Zithromax) 1,200 mg PO QWK [facility] PRN Reason: Protocol Docusate Sodium (Colace) 100 mg PO BID [facility] Last Admin: 05/19/17 16:59 Dose: 100 mg Enoxaparin Sodium (Lovenox) 40 mg SC DAILY [facility] PRN Reason: Protocol Last Admin: 05/19/17 09:26 Dose: 40 mg Home Med (Elviteg/Luna/Emtric/Tenofo Dis [Stribild Tablet]) 1 tab PO DAILY [facility] Last Admin: 05/16/17 10:00 Dose: 1 tab Vancomycin HCl 1 gm/ Dextrose 250 mls @ 166.667 mls/hr IVPB BID [facility] PRN Reason: Protocol Last Admin: 05/19/17 16:57 Dose: 166.667 mls/hr Ketorolac Tromethamine (Toradol) 30 mg IVP Q6 PRN PRN Reason: Pain, severe (8-10) Last Admin: 05/20/17 06:25 Dose: 30 mg Multivitamins/Minerals (Therapeutic-M Tab) 1 tab PO DAILY [facility] Last Admin: 05/19/17 09:26 Dose: 1 tab Ondansetron HCl (Zofran Inj) 4 mg IVP Q6 PRN PRN Reason: Nausea/Vomiting Oxycodone/Acetaminophen (Percocet 5/325 Mg Tab) 1 tab PO Q6 PRN PRN Reason: Pain, moderate (4-7) Stop: 05/20/17 13:16 Oxycodone/Acetaminophen (Percocet 5/325 Mg Tab) 2 tab PO Q6 PRN PRN Reason: Pain, severe (8-10) Stop: 05/20/17 13:18 Last Admin: 05/18/17 13:09 Dose: 2 tab Prednisone (Prednisone Tab) 40 mg PO BID [facility] Last Admin: 05/19/17 16:58 Dose: 40 mg Fluticasone/Salmeterol (Advair Diskus 250/50) 1 puff IH Q12 [facility] Last Admin: 05/19/17 21:07 Dose: 1 puff Senna/Docusate Sodium (Senokot S 50 Mg-8.6 Mg) 1 tab PO HS [facility] Last Admin: 05/19/17 21:06 Dose: 1 tab Trimethoprim/Sulfamethoxazole (Bactrim Ds Tab) 2 tab PO Q12 [facility] PRN Reason: Protocol Last Admin: 05/19/17 21:06 Dose: 2 tab - Labs Labs: 05/18/17 05:25 05/16/17 05:00 - Constitutional Appears: No Acute Distress - Head Exam Head Exam: NORMAL INSPECTION - Eye Exam Eye Exam: Normal appearance - Respiratory Exam Respiratory Exam: Clear to Ausculation Bilateral - Cardiovascular Exam Cardiovascular Exam: REGULAR RHYTHM, +S1, +S2 - GI/Abdominal Exam GI & Abdominal Exam: Soft, Normal Bowel Sounds. absent: Tenderness - Extremities Exam Extremities Exam: Normal Inspection. absent: Calf Tenderness - Neurological Exam Neurological Exam: Alert, Awake, CN II-XII Intact, Oriented x3 - Skin Skin Exam: Normal Color, Warm Assessment and Plan - Assessment and Plan (Free Text) Assessment: Assessment: 52 y/o male with an extensive PMHx admitted for suspected PCP and worsening b/l groin skin infection Pneumonitis possible due to PCP vs CAP -Slighty improved -Elevated LDH, HIV(Noncompliant) -Chest CT: Interstitial pneumonitis(See full report) -C/W Bactrim BID PO (Day 7) - Prednisone 40mg BIDx 6 days. Today Prednisone 40 mg x 1 day -C/W Duonebs for SOB -blood/urine/sputum culture: No growth -ID and Pulmonology consult appreciated -WBC normal, afebrile - Repeat 6 min walk test showed 95% saturation pre walk, 88% during walking and 88% post walk. Patient becomes slightly lightheaded, was put on nasal canula and symptoms resolved. Will require O2 when he goes home -Repeat chest X ray read was reviewed Bilateral groin complicated skin infection -CT of the abd and pelvis w/o contrast no evident fluid collection identified( please see full report) -General surgery consult appreciated -ID consult appreciated -Patient received 7 days of Vanco, will d/c today as per ID -C/W local wound care with calcium alginate as per Sx team AIDS -noncompliant with HAART. Last CD4: 40 (05/14/17). HIV PCR Viral load: [id number] -Possible PCP -TB: Quantiferon: result indeterminate possibly secondary to to immunocompramised state. -Spoke w/ Dr. Galeano: Patients PCP: Patient had Genosure done on 12/04/16, and was advised importance of compliance with medication. -Azithromycin 1200mg Q weekly: Next dose on 05/22/17 -Hold HIV meds ( Prevent immune reconstitution inflammatory syndrome). Patient has been non compliant with home meds. Hx of Penile/Rectal cancer -S/P radiation and chemotherapy -rule out cause of b/l chronic skin lesion. Consider work up as outpatient/ Dermatology referral Prophylaxis -Lovenox 40mg SC QD
[2017-05-20] MEDS: Vancomycin 1 GM in Dextrose 5% In Water 250 ML IVPB SCH ×2 (09:55→16:23)
[2017-05-20] MEDS: Tmp-Smz 800 mg-160 mg DS Tab PO SCH ×2 (09:58→22:08)
[2017-05-20] MEDS: Enoxaparin 40 mg Syringe SC SCH (09:59)
[2017-05-20] MEDS: Fluticasone-Salmeterol 250-50mcg Diskus IH SCH ×2 (10:11→22:01)
[2017-05-20] MEDS: Multivitamin With Minerals Tab PO SCH (10:12)
[2017-05-20 15:07] LABS: ABG ALLEN TEST YES; ARTERIAL BLOOD GAS O2 CAPACITY 15.8 mL/dL (16-24); ARTERIAL BLOOD GAS O2 CONTENT 14.4 ML/dL (15-23); ARTERIAL BLOOD GAS PH 7.39 (7.35-7.45); ARTERIAL BLOOD GAS PO2 54 mm/Hg (80-100); ARTERIAL BLOOD HGB O2 SAT 88.2 % (95.0-98.0); CARBOXYHEMOGLOBIN 1.5 % (0.5-1.5); HHB 8.7 % (0.0-5.0); METHEMOGLOBIN 1.6 % (0.0-3.0)
[2017-05-20] MEDS: Docusate-Senna 50 mg-8.6 mg Tab PO SCH (22:01)
[2017-05-21 01:33] VITALS: TEMP 97.8
[2017-05-21] MEDS: Albuterol-Ipratrop 3 mg / 0.5 (3 ml) UD INH SCH ×2 (08:05→11:21)
[2017-05-21 08:18] VITALS: BP 111/75; PULSE 64; RESP 19; O2SAT 96
[2017-05-21] MEDS: Fluticasone-Salmeterol 250-50mcg Diskus IH SCH (09:20)
[2017-05-21] MEDS: Tmp-Smz 800 mg-160 mg DS Tab PO SCH (09:20)
[2017-05-21] MEDS: Enoxaparin 40 mg Syringe SC SCH ×2 (09:21→09:26)
[2017-05-21] MEDS: Multivitamin With Minerals Tab PO SCH (09:22)
[2017-05-21] MEDS ORDERED: Povidone Iodine Topical 10% Sol ONE (12:05)
[2017-05-21] MEDS ORDERED: Povidone Iodine Topical 10% Sol TOP ONE (12:24)
--- NOTE | 2017-05-21 13:06 | CP.PCM.DIS ---
Provider - Provider Date of Admission: 05/14/17 01:43 Attending physician: Christine Bettencourt MD Primary care physician: Dr. Galeano Time Spent in preparation of Discharge (in minutes): 30 Diagnosis - Discharge Diagnosis (1) PCP (pneumocystis carinii pneumonia) Status: Acute (2) Skin lesions Status: Acute Hospital Course - Lab Results Lab Results: Micro Results 05/14/17 01:15 Blood-Venous Blood Culture - Final NO GROWTH AFTER 5 DAYS 05/14/17 01:15 Blood-Venous Gram Stain - Final TEST NOT PERFORMED 05/15/17 11:24 Groin Gram Stain - Final 05/15/17 11:24 Groin Wound Culture - Final Escherichia Coli Beta Hemolytic Strep Group B 05/15/17 11:24 Sputum Gram Stain - Final 05/15/17 11:24 Sputum Sputum Culture - Final NORMAL ORAL ASHISH 05/14/17 05:00 Urine,Clean Catch Urine Culture - Final No Growth (<1,000 CFU/ML) Most Recent Lab Values WBC 6.5 K/uL (4.8-10.8) 05/18/17 05:25 RBC 4.16 Mil/uL (4.40-5.90) L 05/18/17 05:25 Hgb 11.1 g/dL (12.0-18.0) L 05/18/17 05:25 Hct 34.6 % (35.0-51.0) L 05/18/17 05:25 MCV 83.3 fl (80.0-94.0) 05/18/17 05:25 MCH 26.8 pg (27.0-31.0) L 05/18/17 05:25 MCHC 32.2 g/dL (33.0-37.0) L 05/18/17 05:25 RDW 15.9 % (11.5-14.5) H 05/18/17 05:25 Plt Count 132 K/uL (130-400) 05/18/17 05:25 MPV 8.7 fl (7.2-11.7) 05/18/17 05:25 Neut % (Auto) 85.1 % (50.0-75.0) H 05/18/17 05:25 Lymph % (Auto) 11.1 % (20.0-40.0) L 05/18/17 05:25 [place] % (Auto) 3.6 % (0.0-10.0) 05/18/17 05:25 Eos % (Auto) 0.0 % (0.0-4.0) 05/18/17 05:25 Baso % (Auto) 0.2 % (0.0-2.0) 05/18/17 05:25 Neut # 5.5 K/uL (1.8-7.0) 05/18/17 05:25 Lymph # 0.7 K/uL (1.0-4.3) L 05/18/17 05:25 [place] # 0.2 K/uL (0.0-0.8) 05/18/17 05:25 Eos # 0.0 K/uL (0.0-0.7) 05/18/17 05:25 Baso # 0.0 K/uL (0.0-0.2) 05/18/17 05:25 Neutrophils % (Manual) 86 % (42-75) H 05/16/17 05:00 Band Neutrophils % 1 % (0-2) 05/16/17 05:00 Lymphocytes % (Manual) 12 % (20-50) L 05/16/17 05:00 Monocytes % (Manual) 1 % (0-10) 05/16/17 05:00 Toxic Granulation Present 05/16/17 05:00 Platelet Estimate Slightly decreased (NORMAL) L 05/16/17 05:00 Hypochromasia (manual) Slight 05/16/17 05:00 Anisocytosis (manual) Slight 05/16/17 05:00 [place] Cells Slight 05/16/17 05:00 pCO2 42 mm/Hg (35-45) 05/20/17 13:58 pO2 54 mm/Hg (80-100) L 05/20/17 13:58 HCO3 25.0 mmol/L (21-28) 05/20/17 13:58 ABG pH 7.39 (7.35-7.45) 05/20/17 13:58 ABG Total CO2 26.7 mmol/L (22-28) 05/20/17 13:58 ABG O2 Saturation 91.0 % (95-98) L 05/20/17 13:58 ABG O2 Content 14.4 ML/dL (15-23) L 05/20/17 13:58 ABG Base Excess 0.3 mmol/L (-2.0-3.0) 05/20/17 13:58 ABG Hemoglobin 11.6 g/dL (11.7-17.4) L 05/20/17 13:58 ABG Carboxyhemoglobin 1.5 % (0.5-1.5) 05/20/17 13:58 POC ABG HHb (Measured) 8.7 % (0.0-5.0) H 05/20/17 13:58 ABG Methemoglobin 1.6 % (0.0-3.0) 05/20/17 13:58 ABG O2 Capacity 15.8 mL/dL (16-24) L 05/20/17 13:58 Dale Test Yes 05/20/17 13:58 VBG pH 7.43 (7.32-7.43) 05/14/17 00:49 VBG pCO2 43 mmHg (40-60) 05/14/17 00:49 VBG HCO3 27.7 mmol/L 05/14/17 00:49 VBG Total CO2 29.8 mmol/L (22-28) H 05/14/17 00:49 VBG O2 Sat (Calc) 94.3 % (40-65) H 05/14/17 00:49 VBG Base Excess 3.7 mmol/L (0.0-2.0) H 05/14/17 00:49 VBG Potassium 6.2 mmol/L (3.6-5.2) H* 05/14/17 00:49 A-a O2 Difference 43.0 mm/Hg 05/20/17 13:58 Hgb O2 Saturation 88.2 % (95.0-98.0) L 05/20/17 13:58 Sodium 133.0 mmol/L (132-148) 05/14/17 00:49 Chloride 101.0 mmol/L (98-107) 05/14/17 00:49 Glucose 119 mg/dL (75-110) H 05/14/17 00:49 Lactate 0.9 mmol/L (0.7-2.1) 05/14/17 00:49 FiO2 21.0 % 05/20/17 13:58 Crit Value Called To Dr rochelle rodriguez 05/14/17 00:49 Crit Value Called By Armando 05/14/17 00:49 Crit Value Read Back Y 05/14/17 00:49 Blood Gas Notified Time 135 05/14/17 00:49 Sodium 140 mmol/l (132-148) 05/16/17 05:00 Potassium 4.9 MMOL/L (3.6-5.0) 05/16/17 05:00 Chloride 108 mmol/L (98-107) H 05/16/17 05:00 Carbon Dioxide 21 mmol/L (22-30) L 05/16/17 05:00 Anion Gap 16 (10-20) 05/16/17 05:00 BUN 22 mg/dl (9-20) H 05/16/17 05:00 Creatinine 1.0 mg/dl (0.8-1.5) 05/16/17 05:00 Est GFR ( Amer) > 60 05/16/17 05:00 Est GFR (Non-Af Amer) > 60 05/16/17 05:00 Random Glucose 144 mg/dL (75-110) H 05/16/17 05:00 Calcium 8.5 mg/dL (8.4-10.2) 05/16/17 05:00 Lactate Dehydrogenase 962 U/L (313-618) H 05/14/17 01:15 Venous Blood Potassium 6.2 mmol/L (3.6-5.2) H* 05/14/17 00:49 Urine Color Yellow (YELLOW) 05/14/17 05:00 Urine Clarity Clear (Clear) 05/14/17 05:00 Urine pH 6.0 (5.0-8.0) 05/14/17 05:00 Ur Specific [place] 1.015 (1.003-1.030) 05/14/17 05:00 Urine Protein 30 mg/dL (NEGATIVE) 05/14/17 05:00 Urine Glucose (UA) Neg mg/dL (Normal) 05/14/17 05:00 Urine Ketones Trace mg/dL (NEGATIVE) 05/14/17 05:00 Urine Blood Negative (NEGATIVE) 05/14/17 05:00 Urine Nitrate Negative (NEGATIVE) 05/14/17 05:00 Urine Bilirubin Negative (NEGATIVE) 05/14/17 05:00 Urine Urobilinogen 2.0 mg/dL (0.2-1.0) 05/14/17 05:00 Ur Leukocyte Esterase Small Nevaeh/uL (Negative) 05/14/17 05:00 Urine RBC (Auto) 2 /hpf (0-3) 05/14/17 05:00 Urine Microscopic WBC 9 /hpf (0-5) H 05/14/17 05:00 Urine Bacteria Rare (<OCC) 05/14/17 05:00 Vancomycin Trough 13.6 ug/mL (5.0-10.0) H 05/18/17 16:30 Urine Opiates Screen Positive (NEGATIVE) H 05/14/17 05:00 Urine Methadone Screen Negative (NEGATIVE) 05/14/17 05:00 Ur Barbiturates Screen Negative (NEGATIVE) 05/14/17 05:00 Ur Phencyclidine Scrn Negative (NEGATIVE) 05/14/17 05:00 Ur Amphetamines Screen Negative (NEGATIVE) 05/14/17 05:00 U Benzodiazepines Scrn Negative (NEGATIVE) 05/14/17 05:00 U Oth Cocaine Metabols Negative (NEGATIVE) 05/14/17 05:00 U Cannabinoids Screen Negative (NEGATIVE) 05/14/17 05:00 Absolute Lymphs (Flow) 539 Cells/mcL (850-3900) L 05/14/17 13:03 % CD4 Cells 7 Percent (30-61) L 05/14/17 13:03 Absolute CD4 Count 40 Cells/mcL (490-1740) L 05/14/17 13:03 T-Help/Suppress Ratio 0.08 Ratio (0.86-5.00) L 05/14/17 13:03 % CD8 Cells 90 Percent (12-42) H 05/14/17 13:03 Absolute CD8 Count 486 Cells/mcL (180-1170) 05/14/17 13:03 T-Lymph Analys Comment See note 05/14/17 13:03 HIV-1 RNA Qnt (RT-PCR) 4.85 (<1.30) H 05/14/17 13:03 Influenza Typ A,B (EIA) Negative for flu a/b (NEGATIVE) 05/14/17 01:15 TB Test (QFT) Nil 0.08 IU/mL 05/15/17 11:46 TB Test Mitogen - Nil 0.22 IU/mL 05/15/17 11:46 TB Test TB - Nil <0.00 IU/mL 05/15/17 11:46 TB Test (QFT) Indeterminate (Negative) H 05/15/17 11:46 Beta-(1,3)-D-Glucan 75 pg/mL H 05/14/17 13:03 B-(1,3)-D-Glucan Intrp See note 05/14/17 13:03 - Hospital Course Hospital Course: 52 YO M w/ a PMH of HIV, HTN, rectal/penile cancer, colon cancer and asthma was admitted to [facility] for cough and SOB. She was found to have interstitial pneumonitis on chest CT, Elevated LDH, has been recieving Duonebs. Blood/urine/ culture showed no growth. WBC is normal and patient has remained afebrile. - Walk test showed 95% saturation pre walk, 88% during walking and 88% post walk. Patient becomes slightly lightheaded, was put on nasal canula and symptoms resolved. Will require O2 when he goes home. - PAtient has been noncompliant with HAART. Last CD4: 40 (05/14/17). HIV PCR Viral load: 51633. Currently medication is being held since patient is being treated for PCP to prevent (IRIS). PAtients Quantiferon test was indeterminent. However patient is not having any symptoms of TB, chest X ray or CT did not show cavitary lesions. - Patient was also noted to have B/L groin lesion, showed some growth of gram positive and gram negative bacteria, was treated with IV antibiotics. Was seen by wound care and was given calcium alginate. Was seen by surgery and ID. Patient is advised to follow up with dermatology for possible biopsy and further evaluation. Follow up with Dr. Galeano on May 27 @ 1 PM Follow up with Dermatology: Call for appointment. ER precausions have been given Discharge medication: - Bactrim DS take 2 tabs PO Q12 x 13 days - Prednisone 40mg PO x 4 days, followed by 20mg Prednisone x 5 days - Take 1200mg of Azithromycin weekly - Tramadol 50 mg Q6 PRN for pain. Discharge Exam - Head Exam Head Exam: NORMAL INSPECTION - Eye Exam Eye Exam: Normal appearance - Respiratory Exam Respiratory Exam: Clear to PA & Lateral, NORMAL BREATHING PATTERN. absent: Rales - Cardiovascular Exam Cardiovascular Exam: REGULAR RHYTHM, +S1, +S2 - GI/Abdominal Exam GI & Abdominal Exam: Normal Bowel Sounds, Soft. absent: Tenderness - Exam Additional comments: Truncated penis - Erythematous B/L groin lesions - Neurological Exam Neurological exam: Alert, CN II-XII Intact, Oriented x3 - Skin Skin Exam: Normal Color, Warm Discharge Plan - Discharge Medications Prescriptions: Azithromycin [Zithromax] 1,200 mg PO QWK #4 tab predniSONE [predniSONE Tab] 40 mg PO DAILY 4 Days tab predniSONE [Prednisone] 20 mg PO DAILY 5 Days tab Sulfamethoxazole/Trimethoprim [Bactrim DS Tab] 2 tab PO Q12 13 Days #52 tab traMADol [Ultram] 50 mg PO Q6 PRN #20 tab PRN Reason: Pain, Moderate (4-7) - Follow Up Plan Condition: STABLE Disposition: HOME/ ROUTINE Instructions: Using Oxygen at Home (DC), Pneumocystis Jiroveci Pneumonia (DC) Additional Instructions: follow up appointment with Dr. Galeano [phone] saturday05/27/17 at 1:00pm - Patient has been explained the risks of having flames around his oxygen tank. Have discussed with the patient, details of how to take the medication. - Hold HIV medication untill patient sees Dr. Galeano, since patient is currently being treated for PCP pneumonia. - If symptoms worsen please return to the ER. - Referred to CARLEN[facility] Puente. Referrals: Dong Tiwari MD [Family Provider] - Mitali Galeano MD [Medical Doctor] - Jose Florez MD [Staff Provider] -
== END 2017-05-21 14:47 | disposition home health service (06) | DRG 710 ==
LOC: H.ER 00:27 → H.ERHOLD 01:43 → H.TEL 04:20 → H.MEDSURG1 05-16 18:30
PROVIDERS: ADMIT Family Medicine Geriatric Medicine; ATTEND Family Medicine Geriatric Medicine
DX: B59 Pneumocystosis (principal); B20 Human immunodeficiency virus [HIV] disease; L02.214 Cutaneous abscess of groin; L03.90 Cellulitis, unspecified; F11.10 Opioid abuse, uncomplicated; J44.9 Chronic obstructive pulmonary disease, unspecified; I10 Essential (primary) hypertension; Z85.49 Personal history of malignant neoplasm of other male genital organs; T38.0X5A Adverse effect of glucocorticoids and synthetic analogues, initial encounter; Z80.1 Family history of malignant neoplasm of trachea, bronchus and lung; Z82.49 Family history of ischemic heart disease and other diseases of the circulatory system; Z85.048 Personal history of other malignant neoplasm of rectum, rectosigmoid junction, and anus; Z85.46 Personal history of malignant neoplasm of prostate; Z87.01 Personal history of pneumonia (recurrent); Z87.891 Personal history of nicotine dependence; Z91.14 Patient's other noncompliance with medication regimen; Z91.19 Patient's noncompliance with other medical treatment and regimen; Z92.21 Personal history of antineoplastic chemotherapy; Z92.3 Personal history of irradiation; Z93.3 Colostomy status; F32.9 Major depressive disorder, single episode, unspecified; Z59.0 Homelessness; R07.89 Other chest pain; R10.30 Lower abdominal pain, unspecified; R42 Dizziness and giddiness; R74.0 Nonspecific elevation of levels of transaminase and lactic acid dehydrogenase [LDH]

== ENCOUNTER 2017-10-21 09:43 | Inpatient (IN) | payer MEDICAID ==
[2017-10-21 09:45] VITALS: BMI 21.7
[2017-10-21] MEDS ORDERED: Albuterol-Ipratrop 3 mg / 0.5 (3 ml) UD INH STA (10:37)
[2017-10-21] MEDS ORDERED: Sodium Chloride 0.9% 1,000 ML IV STA (10:38)
[2017-10-21] MEDS ORDERED: Sodium Chloride 3% for Inhalation 4 ML VIAL.NEB IH PRN (10:38)
[2017-10-21 10:48] LABS: VENOUS BLOOD GAS PCO2 61 mmHg (40-60); VENOUS BLOOD GAS PO2 17 mm/Hg (30-55); VENOUS BLOOD PH 7.36 (7.32-7.43)
--- NOTE | 2017-10-21 10:48 | ED PDOC ---
HPI: SOB/CHF/COPD Time Seen by Provider: 10/21/17 10:20 Chief Complaint (Nursing): Shortness Of Breath Chief Complaint (Provider): Shortness of breath History Per: Patient History/Exam Limitations: no limitations Onset/Duration Of Symptoms: Days (x1 week ) Current Symptoms Are (Timing): Still Present Exacerbating Factor(s): Exertion, Laying Flat Associated Symptoms: Chest Pain (with coughs), Productive Cough (yellow sputum) . denies: Fever, Chills Additional Complaint(s): Andrey Hampton is a 52 year old male, with a past medical history of asthma and HIV, who presents to the emergency department via EMS complaining of difficulty breathing, and productive cough onset for x1 week. Patient reports a significant amount of yellow sputum, shortness of breath at rest and at exertion , and also a chest pain with coughs. Patient states he has been compliant with HIV medications and has been using his nebulizer for the asthma. Patient also reports a low CD4 count but is unsure of the exact number. He denies any fever, chills, headache, vomiting or diarrhea. No further medical complaints. PMD: [facility] Past Medical History Reviewed: Historical Data, Nursing Documentation, Vital Signs Vital Signs: Last Vital Signs Temp 98.2 F 10/21/17 15:45 Pulse 112 H 10/21/17 15:50 Resp 22 10/21/17 15:52 BP 94/56 L 10/21/17 15:45 Pulse Ox 98 10/21/17 15:45 - Medical History PMH: Asthma, Depression, HIV, HTN, Pneumonia (PCP) Denies: Chronic Kidney Disease - Surgical History Surgical History: No Surg Hx - Family History Family History: States: No Known Family Hx - Social History Ex-Smoker (has not smoked in the last 12 months): Yes Alcohol: None Drugs: Other (heroin) - Immunization History Hx Tetanus Toxoid Vaccination: No Hx Influenza Vaccination: No Hx Pneumococcal Vaccination: No - Home Medications Home Medications: Ambulatory Orders Medication Instructions Recorded Albuterol Sulfate [Ventolin Hfa] 2 puff IH Q4 PRN 10/21/17 Elviteg/Luna/Emtric/Tenofo Dis 1 tab PO DAILY 10/21/17 [Stribild Tablet] Fluticasone/Salmeterol 500/50 1 puff IH BID 10/21/17 [Advair Diskus 500/50] Methadone [Methadone] 80 mg PO DAILY 10/21/17 Mv,Min10/Folic Acid/D3/Ala/Lut 1 tab PO DAILY 10/21/17 [Strovite One Caplet] Sulfamethoxazole/Trimethoprim 1 tab PO DAILY 10/21/17 [Bactrim DS Tab] - Allergies Allergies/Adverse Reactions: Allergies Allergy/AdvReac Type Severity Reaction Status Date / Time Penicillins Allergy Intermediate ANGIOEDEMA Verified 10/21/17 14:59 Review of Systems ROS Statement: Except As Marked, All Systems Reviewed And Found Negative Constitutional: Negative for: Fever, Chills Cardiovascular: Positive for: Chest Pain (w/ coughs) Respiratory: Positive for: Cough (productive), Shortness of Breath, Sputum ( yellow) Gastrointestinal: Negative for: Vomiting, Diarrhea Neurological: Negative for: Headache Physical Exam - Reviewed Nursing Documentation Reviewed: Yes Vital Signs Reviewed: Yes - Physical Exam Appears: Positive for: No Acute Distress. Negative for: Well (frail, cachectic) Head Exam: Positive for: ATRAUMATIC, NORMOCEPHALIC Skin: Positive for: Normal Color, Warm, Dry Eye Exam: Positive for: Normal appearance, EOMI, PERRL ENT: Positive for: Normal ENT Inspection Neck: Positive for: Painless ROM, Supple Cardiovascular/Chest: Positive for: Tachycardia. Negative for: Edema Respiratory: Positive for: Rales (coarse breath sounds), Wheezing (occasional b/ l ), Other (tachypnea noticed). Negative for: Accessory Muscle Use, Respiratory Distress Gastrointestinal/Abdominal: Positive for: Normal Exam, Soft. Negative for: Tenderness Back: Positive for: Normal Inspection. Negative for: L CVA Tenderness, R CVA Tenderness, Vertebral Tenderness Extremity: Positive for: Normal ROM (upper and lower extremities). Negative for : Deformity, Swelling Neurologic/Psych: Positive for: Alert, Oriented. Negative for: Motor/Sensory Deficits - Laboratory Results Result Diagrams: 10/21/17 10:37 10/21/17 10:37 - ECG O2 Sat by Pulse Oximetry: 95 (RA) Pulse Ox Interpretation: Normal - Critical Care Total Time (In Min): 60 Documented Critical Care: Time excludes all time spent performint seperately billable procedures Medical Decision Making Medical Decision Making: Initial Impression: shortness of breath and cough. Differential includes: PNA, pneumocystis pneumonia(PCP). Rule out sepsis. Compounded with asthma Initial Plan: --ABG --VBG --EKG --B-Type Natriuretic Peptide --CMP --Troponin I --CBC w/ differential --Chest one view [RAD] --Duoneb 3 ml INH --Sodium Chloride 1,000 ml IV 1,000 mls/hr --SOLU-medrol 125 mg IVP --Sodium Chloride 3% for Inhalation 4 ml IH --Blood culture --Sputum culture --Reevaluation --Albuterol 0.083% Inhal Claire 2.5 mg INH --Zithromax 500 mg NS 250 ml IVPB --Dextrose 50% Inj --HumuLIN R 4 units IV --Rocephin 1gm IV --Sodium Chloride 3% for inhalation 4 ml IH --Bactrim DS tab 2 tab PO Q12 11:20 CXR FINDINGS: LUNGS: Interval infiltrate identified in the right base with none on the left chest. PLEURA: [id number] right pleural effusion is not completely excluded. None is seen the left. No pneumothorax bilaterally. CARDIOVASCULAR: Normal. OSSEOUS STRUCTURES: No significant abnormalities. VISUALIZED UPPER ABDOMEN: Normal. OTHER FINDINGS: None. IMPRESSION: Interval right basilar infiltrate affecting the right lower lobe with none otherwise evident. Right pleural effusion not excluded. None at the left. -Reviewed CXR, ordered CT chest. -During reassessment patient reports not much improvement. Added antibiotics and albuterol. -Labs reviewed showed hyperkalemia. Will admit patient to [facility]. 12:10 -Patient will be admitted to [facility]. 14:[address] FINDINGS: LUNGS: New, extensive multi segment infiltrate right lower lobe. Alveolar consolidative changes primarily affecting the lateral segment of the right middle lobe. Resolution of previously identified left upper lobe infiltrate. Tree-in-bud opacities identified in the lingula and left lower lobe. To a lesser extent these are seen in the upper lobes. Findings likely represent mucous impaction with adjacent peribronchial inflammation. MEDIASTINUM: Unremarkable thoracic aorta. No aneurysm. Normal sized heart. Main pulmonary artery unremarkable. No vascular congestion. No lymphadenopathy. PLEURA: New large right pleural effusion. Hounsfield unit values approaching 40 suggest a complicated right pleural effusion. There flocculus of air air within the pleural space as well. BONES: No fracture. No destructive lesion. UPPER ABDOMEN: Grossly unremarkable. OTHER FINDINGS: None. IMPRESSION: New Extensive infiltrate, multiple segments right lower lobe. Right middle lobe infiltrate. New Large complex right pleural effusion suggesting debris. Tiny loculations air identified as well. Underlying lower airway disease described in greater detail above. 13:51 -On reassessment patient remains unchanged. Patient was placed on BiPAP. 14:11 -Spoke with Dr. Mendez, [employer], who will remain as consult. Agrees with plan and requests thoracentesis if possible and IR 14:20 -Spoke with Dr. Rutledge, interventional radiologists, who will perform the US and decide per US if thoracentesis will be performed. 15:00 -Patient is being transported upstairs to IR. 15:32 -Spoke with Dr. Stone who states there is no pleural effusion in US. Scribe Attestation: Documented by Hung Buenrostro, acting as a scribe for Vidya Washington MD Provider Scribe Attestation: All medical record entries made by the Scribe were at my direction and personally dictated by me. I have reviewed the chart and agree that the record accurately reflects my personal performance of the history, physical exam, medical decision making, and the department course for this patient. I have also personally directed, reviewed, and agree with the discharge instructions and disposition. Disposition - Clinical Impression Clinical Impression: Pneumonia, Pleural effusion, Sepsis - Patient ED Disposition Is Patient to be Admitted: Yes Discussed With DrSummer: Christine Bettencourt Counseled Patient/Family Regarding: Studies Performed, Diagnosis - Disposition Disposition Time: 12:10 Condition: FAIR - Pt Status Changed To: Hospital Disposition Of: Inpatient - Admit Certification Admit to Inpatient:: After my assessment, the patient will require hospitalization for at least two midnights. This is because of the severity of symptoms shown, intensity of services needed, and/or the medical risk in this patient being treated as an outpatient. - POA Present On Arrival: None Core Measure Indicators: Pneumonia
[2017-10-21] MEDS ORDERED: Azithromycin 500 MG in Sodium Chloride 0.9% 250 ML IVPB STA (10:50)
[2017-10-21 10:58] LABS: ABG ALLEN TEST YES; ARTERIAL BLOOD GAS HEMOGLOBIN 10.8 g/dL (11.7-17.4); ARTERIAL BLOOD GAS O2 CAPACITY 14.5 mL/dL (16-24); ARTERIAL BLOOD GAS O2 SAT 96.3 % (95-98); ARTERIAL BLOOD GAS PCO2 45 mm/Hg (35-45); ARTERIAL BLOOD GAS PH 7.42 (7.35-7.45); ARTERIAL BLOOD GAS PO2 72 mm/Hg (80-100); ARTERIAL BLOOD GAS TCO2 30.6 mmol/L (22-28)
[2017-10-21 11:13] LABS: BASO % 0.1 % (0.0-2.0); HEMOGLOBIN 10.8 g/dL (12.0-18.0); LYMPH # 0.2 K/uL (1.0-4.3); LYMPH % 2.4 % (20.0-40.0); MEAN CELL VOLUME 83.8 fl (80.0-94.0); MEAN CORPUSCULAR HEMOGLOBIN 26.7 pg (27.0-31.0); MEAN CORPUSCULAR HGB CONC 31.8 g/dL (33.0-37.0); MEAN PLATELET VOLUME 9.8 fl (7.2-11.7); MONO # 0.1 K/uL (0.0-0.8); MONO % 0.5 % (0.0-10.0); NEUT # 9.7 K/uL (1.8-7.0); PLATELET COUNT 145 K/uL (130-400); RBC 4.06 Mil/uL (4.40-5.90); RED CELL DISTRIBUTION WIDTH 16.4 % (11.5-14.5)
[2017-10-21] MEDS ORDERED: Albuterol-Ipratrop 3 mg / 0.5 (3 ml) UD ONE (11:21)
--- NOTE | 2017-10-21 11:22 | RAD ---
PROCEDURE: CHEST RADIOGRAPH, 1 VIEW HISTORY: dyspnea COMPARISON: Portable chest 05/18/2017. FINDINGS: LUNGS: Interval infiltrate identified in the right base with none on the left chest. PLEURA: [id number] right pleural effusion is not completely excluded. None is seen the left. No pneumothorax bilaterally. CARDIOVASCULAR: Normal. OSSEOUS STRUCTURES: No significant abnormalities. VISUALIZED UPPER ABDOMEN: Normal. OTHER FINDINGS: None. IMPRESSION: Interval right basilar infiltrate affecting the right lower lobe with none otherwise evident. Right pleural effusion not excluded. None at the left.
[2017-10-21 11:23] LABS: ALB/GLOB RATIO 0.9 (1.0-2.1); ALBUMIN 3.4 g/dL (3.5-5.0); ALT/SGPT 41 U/L (21-72); AST/SGOT 80 U/L (17-59); BLOOD UREA NITROGEN 71 mg/dl (9-20); CALCIUM 9.2 mg/dL (8.4-10.2); GFR AFRICAN-AMERICAN 45; GFR NON-AFRICAN AMERICAN 37
[2017-10-21] MEDS ORDERED: cefTRIAXone (Rocephin) 1 gm Inj ONE (11:32)
[2017-10-21 11:34] LABS: B-TYPE NATRIURETIC PEPTIDE 492 pg/ml (0-900)
[2017-10-21] MEDS ORDERED: Albuterol 0.083% Inhal Sol (2.5 mg/3 mL) UD INH STA (11:49)
[2017-10-21] MEDS ORDERED: Insulin Regular 100 units/ml IV STA (11:50)
[2017-10-21] MEDS ORDERED: Dextrose 50% SYRINGE Inj (50 ml) IVP ONE (11:51)
[2017-10-21] MEDS ORDERED: Tmp-Smz 800 mg-160 mg DS Tab PO SCH (12:00)
[2017-10-21] MEDS ORDERED: Tmp-Smz 800 mg-160 mg DS Tab ONE (12:05)
[2017-10-21] MEDS ORDERED: Dextrose 50% SYRINGE Inj (50 ml) ONE (12:06)
[2017-10-21] MEDS ORDERED: Insulin Regular 100 units/ml ONE (12:06)
[2017-10-21] MEDS ORDERED: Albuterol 0.083% Inhal Sol (2.5 mg/3 mL) UD ONE (12:06)
[2017-10-21 12:51] LABS: ANISOCYTOSIS SLIGHT; BANDS 2 % (0-2); LYMPHOCYTE 3 % (20-50); MONOCYTE 3 % (0-10); NEUTROPHIL 92 % (42-75); PLATELET ESTIMATE NORMAL (NORMAL); TOTAL CELLS COUNTED 100
[2017-10-21 12:52] LABS: HYPOCHROMIC SLIGHT; LARGE PLATELETS PRESENT
[2017-10-21] MEDS ORDERED: Albuterol-Ipratrop 3 mg / 0.5 (3 ml) UD INH PRN (13:01)
[2017-10-21] MEDS ORDERED: Sod Polystyrene Sulf 15 gm/60 ml Susp PO ONE (13:04)
[2017-10-21] MEDS ORDERED: Sod Polystyrene Sulf 15 gm/60 ml Susp ONE (13:12)
--- NOTE | 2017-10-21 14:02 | CT ---
PROCEDURE: CT Chest without contrast HISTORY: left sided infiltrate effusion SOB COMPARISON: 05/14/2017 CT thorax. 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 Sagittal and coronal reconstructions were performed. Radiation dose (DLP): 174.89 mGy-cm. This CT exam was performed using one or more of the following dose reduction techniques: Automated exposure control, adjustment of the mA and/or kV according to patient size, and/or use of iterative reconstruction technique. FINDINGS: LUNGS: New, extensive multi segment infiltrate right lower lobe. Alveolar consolidative changes primarily affecting the lateral segment of the right middle lobe. Resolution of previously identified left upper lobe infiltrate. Tree-in-bud opacities identified in the lingula and left lower lobe. To a lesser extent these are seen in the upper lobes. Findings likely represent mucous impaction with adjacent peribronchial inflammation. MEDIASTINUM: Unremarkable thoracic aorta. No aneurysm. Normal sized heart. Main pulmonary artery unremarkable. No vascular congestion. No lymphadenopathy. PLEURA: New large right pleural effusion. Hounsfield unit values approaching 40 suggest a complicated right pleural effusion. There flocculus of air air within the pleural space as well. BONES: No fracture. No destructive lesion. UPPER ABDOMEN: Grossly unremarkable. OTHER FINDINGS: None. IMPRESSION: New Extensive infiltrate, multiple segments right lower lobe. Right middle lobe infiltrate. New Large complex right pleural effusion suggesting debris. Tiny loculations air identified as well. Underlying lower airway disease described in greater detail above.
[2017-10-21 14:42] LABS: VENOUS BLOOD GAS BASE EXCESS 1.9 mmol/L (0.0-2.0); VENOUS BLOOD GAS PCO2 50 mmHg (40-60); VENOUS BLOOD GAS PO2 44 mm/Hg (30-55); VENOUS BLOOD PH 7.36 (7.32-7.43)
--- NOTE | 2017-10-21 14:44 | CP.PCM.CON ---
History of Present Illness - History of Present Illness History of Present Illness: Infectious Disease Consultation Note- [facility] and [facility] in AIDS senait. HPI- Senait known to me from his last hospitalization here in 04/2017 for b/l groin ?? abscess Patient is a 52 year old male with HIV psoitive f/u at [facility] and apparently not very compliant with his meds and his care, rectal/penile cancer, colon cancer s/p colectomy with colostomy reversal in who was admitted with c /o sob and cough with yellow phlegm for past week. he denies any hemoptysis and denies any night sweats. pt. satets he has been loking for apt and had over exerted himself for the past week adn developed worsening sob and cough and weakness. He also states in his lst residence he was around other people that were sick and coughing a lot. his only recent travel is to [place]. He states he saw his HIV doc on 10/14/2017 adn he was told his CD4 is low but he does not know the exact number. He states he has been taking his HAARt meds for the past month . last CD4 from 04/2017 in [facility] pt. denies any GI or symptoms except sattes he has been urinating more frequently, denies any fever or night sweats. denies any abd. pain or diarrhea, no n/v. states he does take bactrim for PCP prophylaxis. ROS: as per HPI PMD: Dr. Galeano, last visit 04/29/2017 PMHx: HIV, essential HTN, penile/rectal cancer, colon cancer, unspecified severity of asthma Meds: as per eCW/med rec, NONCOMPLIANT with any medications ALL: penicillins (angioedema) PsurgHx: colectomy/colostomy reversal in FamilyHx: father decreased 2/2 lung cancer, mother 2/2 CHF. Multiple siblings, alive, one has sickle cell anemia SocialHx: former tobacco abuser. Social ETOH. Heroin abuser, recent usage mid April 2017 -next of kin: daughter Mimi [phone] -FULL CODE Past Patient History - Past Medical History & Family History Past Medical History?: Yes - Past Social History Alcohol: None Drugs: Other (heroin) - CARDIAC Hx Hypertension: Yes - PULMONARY Hx Asthma: Yes Hx Pneumonia: Yes (PCP) - NEUROLOGICAL Hx Neurological Disorder: No - HEENT Hx HEENT Problems: No - RENAL Hx Chronic Kidney Disease: No - ENDOCRINE/METABOLIC Hx Endocrine Disorders: No - HEMATOLOGICAL/ONCOLOGICAL Hx AIDS: Yes Hx Human Immunodeficiency Virus (HIV): Yes - INTEGUMENTARY Hx Dermatological Problems: Yes Hx Squamous Cell: Yes - MUSCULOSKELETAL/RHEUMATOLOGICAL Hx Musculoskeletal Disorders: No Hx Falls: No - GASTROINTESTINAL Hx Gastrointestinal Disorders: Yes Hx Colostomy: Yes (reversal) - GENITOURINARY/GYNECOLOGICAL Hx Genitourinary Disorders: Yes Hx Prostate Cancer: Yes Other/Comment: penile cancer - PSYCHIATRIC Hx Depression: Yes - SURGICAL HISTORY Hx Surgeries: Yes Other/Comment: colostomy- reversed - ANESTHESIA Hx Anesthesia: Yes Hx Anesthesia Reactions: No Meds Allergies/Adverse Reactions: Allergies Allergy/AdvReac Type Severity Reaction Status Date / Time Penicillins Allergy Intermediate ANGIOEDEMA Verified 10/21/17 14:59 - Medications Medications: Current Medications Albuterol/Ipratropium (Duoneb 3 Mg/0.5 Mg (3 Ml) Ud) 3 ml INH RTID DIANDRA Albuterol/Ipratropium (Duoneb 3 Mg/0.5 Mg (3 Ml) Ud) 3 ml INH RQ4 PRN PRN Reason: Shortness of Breath Home Med (Elviteg/Luna/Emtric/Tenofo Dis [Stribild Tablet]) 1 tab PO DAILY DIANDRA Azithromycin 500 mg/ Sodium (Chloride) 250 mls @ 250 mls/hr IVPB DAILY DIANDRA PRN Reason: Protocol Ciprofloxacin (Cipro 200mg/100ml D5w) 100 mls @ 100 mls/hr IVPB Q12 DIANDRA PRN Reason: Protocol Multivitamins/Minerals (Therapeutic-M Tab) 1 tab PO DAILY DIANDRA Fluticasone/Salmeterol (Advair Diskus 500/50) 1 puff IH Q12 DIANDRA Trimethoprim/Sulfamethoxazole (Bactrim Ds Tab) 2 tab PO Q12 DIANDRA PRN Reason: Protocol Last Admin: 10/21/17 12:07 Dose: 2 tab Physical Exam - Constitutional Appears: No Acute Distress, Cachectic, Chronically Ill - Head Exam Head Exam: ATRAUMATIC - Eye Exam Eye Exam: EOMI, PERRL - ENT Exam Additional comments: dry oropharynx - Neck Exam Neck exam: Positive for: Full Rom - Respiratory Exam Additional comments: somewhat tachypneic has rhonchi in right lower lung field no wheezing - Cardiovascular Exam Cardiovascular Exam: RRR, +S1, +S2 - GI/Abdominal Exam GI & Abdominal Exam: Normal Bowel Sounds, Soft Additional comments: NT, ND - Extremities Exam Extremities exam: Positive for: normal inspection - Neurological Exam Neurological exam: Alert, Oriented x3 Results - Vital Signs Recent Vital Signs: Last Vital Signs Temp 97.7 F 10/21/17 09:45 Pulse 112 H 10/21/17 14:18 Resp 22 10/21/17 13:13 BP 104/67 10/21/17 13:13 Pulse Ox 95 10/21/17 14:36 - Labs Result Diagrams: 10/21/17 10:37 10/21/17 10:37 Labs: Laboratory Results - last 24 hr 10/21/17 10/21/17 10/21/17 10:37 10:37 10:41 WBC 10.0 D RBC 4.06 L Hgb 10.8 L Hct 34.0 L MCV 83.8 MCH 26.7 L MCHC 31.8 L RDW 16.4 H Plt Count 145 MPV 9.8 Neut % (Auto) 97.0 H Lymph % (Auto) 2.4 L [place] % (Auto) 0.5 Eos % (Auto) 0.0 Baso % (Auto) 0.1 Neut # (Auto) 9.7 H Lymph # (Auto) 0.2 L [place] # (Auto) 0.1 Eos # (Auto) 0.0 Baso # (Auto) 0.0 Neutrophils % (Manual) 92 H Band Neutrophils % 2 Lymphocytes % (Manual) 3 L Monocytes % (Manual) 3 Platelet Estimate Normal Large Platelets Present Hypochromasia (manual) Slight Anisocytosis (manual) Slight pCO2 pO2 17 L HCO3 ABG pH ABG Total CO2 ABG O2 Saturation ABG O2 Content ABG Base Excess ABG Hemoglobin ABG Carboxyhemoglobin POC ABG HHb (Measured) ABG Methemoglobin ABG O2 Capacity Dale Test VBG pH 7.36 VBG pCO2 61 H VBG HCO3 28.3 VBG Total CO2 36.4 H VBG O2 Sat (Calc) 16.6 L VBG Base Excess 7.0 H VBG Potassium 5.5 H A-a O2 Difference Hgb O2 Saturation Glucose 133 H Lactate 2.3 H FiO2 28.0 Blood Gas Comments Lac=2.3 Crit Value Called To mayi Toth Crit Value Called By 22 Crit Value Read Back Y Blood Gas Notified Time 1047 Sodium 137 133.0 Potassium 5.9 H Chloride 93 L 98.0 Carbon Dioxide 28 Anion Gap 22 H BUN 71 H Creatinine 1.9 H Est GFR ( Amer) 45 Est GFR (Non-Af Amer) 37 Random Glucose 127 H Calcium 9.2 Total Bilirubin 1.6 H AST 80 H D ALT 41 Alkaline Phosphatase 106 Troponin I < 0.0120 NT-Pro-B Natriuret Pep 492 Total Protein 7.3 Albumin 3.4 L Globulin 3.9 Albumin/Globulin Ratio 0.9 L Venous Blood Potassium 5.5 H 10/21/17 10/21/17 10:42 14:35 WBC RBC Hgb Hct MCV MCH MCHC RDW Plt Count MPV Neut % (Auto) Lymph % (Auto) [place] % (Auto) Eos % (Auto) Baso % (Auto) Neut # (Auto) Lymph # (Auto) [place] # (Auto) Eos # (Auto) Baso # (Auto) Neutrophils % (Manual) Band Neutrophils % Lymphocytes % (Manual) Monocytes % (Manual) Platelet Estimate Large Platelets Hypochromasia (manual) Anisocytosis (manual) pCO2 45 pO2 72 L 44 HCO3 28.0 ABG pH 7.42 ABG Total CO2 30.6 H ABG O2 Saturation 96.3 ABG O2 Content 14.0 L ABG Base Excess 4.1 H ABG Hemoglobin 10.8 L ABG Carboxyhemoglobin 2.7 H POC ABG HHb (Measured) 3.5 ABG Methemoglobin 2.4 ABG O2 Capacity 14.5 L Dale Test Yes VBG pH 7.36 VBG pCO2 50 VBG HCO3 25.9 VBG Total CO2 29.7 H VBG O2 Sat (Calc) 75.9 H VBG Base Excess 1.9 VBG Potassium 4.1 A-a O2 Difference 71.0 Hgb O2 Saturation 91.5 L Glucose 180 H Lactate 2.3 H FiO2 28.0 40.0 Blood Gas Comments Lac=2.3 Crit Value Called To mayi Toth Crit Value Called By 22 Crit Value Read Back Y Blood Gas Notified Time 1441 Sodium 134.0 Potassium Chloride 100.0 Carbon Dioxide Anion Gap BUN Creatinine Est GFR ( Amer) Est GFR (Non-Af Amer) Random Glucose Calcium Total Bilirubin AST ALT Alkaline Phosphatase Troponin I NT-Pro-B Natriuret Pep Total Protein Albumin Globulin Albumin/Globulin Ratio Venous Blood Potassium 4.1 Laboratory Results - last 72 hr 10/21/17 10/21/17 10/21/17 10:37 10:37 10:41 WBC 10.0 D RBC 4.06 L Hgb 10.8 L Hct 34.0 L MCV 83.8 MCH 26.7 L MCHC 31.8 L RDW 16.4 H Plt Count 145 MPV 9.8 Neut % (Auto) 97.0 H Lymph % (Auto) 2.4 L [place] % (Auto) 0.5 Eos % (Auto) 0.0 Baso % (Auto) 0.1 Neut # (Auto) 9.7 H Lymph # (Auto) 0.2 L [place] # (Auto) 0.1 Eos # (Auto) 0.0 Baso # (Auto) 0.0 Neutrophils % (Manual) 92 H Band Neutrophils % 2 Lymphocytes % (Manual) 3 L Monocytes % (Manual) 3 Platelet Estimate Normal Large Platelets Present Hypochromasia (manual) Slight Anisocytosis (manual) Slight PT INR APTT pCO2 pO2 17 L HCO3 ABG pH ABG Total CO2 ABG O2 Saturation ABG O2 Content ABG Base Excess ABG Hemoglobin ABG Carboxyhemoglobin POC ABG HHb (Measured) ABG Methemoglobin ABG O2 Capacity Dale Test VBG pH 7.36 VBG pCO2 61 H VBG HCO3 28.3 VBG Total CO2 36.4 H VBG O2 Sat (Calc) 16.6 L VBG Base Excess 7.0 H VBG Potassium 5.5 H A-a O2 Difference Hgb O2 Saturation Glucose 133 H Lactate 2.3 H FiO2 28.0 Blood Gas Comments Lac=2.3 Crit Value Called To mayi Toth Crit Value Called By 22 Crit Value Read Back Y Blood Gas Notified Time 1047 Sodium 137 133.0 Potassium 5.9 H Chloride 93 L 98.0 Carbon Dioxide 28 Anion Gap 22 H BUN 71 H Creatinine 1.9 H Est GFR ( Amer) 45 Est GFR (Non-Af Amer) 37 Random Glucose 127 H Calcium 9.2 Total Bilirubin 1.6 H AST 80 H D ALT 41 Alkaline Phosphatase 106 Troponin I < 0.0120 NT-Pro-B Natriuret Pep 492 Total Protein 7.3 Albumin 3.4 L Globulin 3.9 Albumin/Globulin Ratio 0.9 L Venous Blood Potassium 5.5 H 10/21/17 10/21/17 10/21/17 10:42 13:54 14:34 WBC RBC Hgb Hct MCV MCH MCHC RDW Plt Count MPV Neut % (Auto) Lymph % (Auto) [place] % (Auto) Eos % (Auto) Baso % (Auto) Neut # (Auto) Lymph # (Auto) [place] # (Auto) Eos # (Auto) Baso # (Auto) Neutrophils % (Manual) Band Neutrophils % Lymphocytes % (Manual) Monocytes % (Manual) Platelet Estimate Large Platelets Hypochromasia (manual) Anisocytosis (manual) PT 15.8 H INR 1.4 H APTT 39.1 H pCO2 45 45 pO2 72 L 67 L HCO3 28.0 26.9 ABG pH 7.42 7.40 ABG Total CO2 30.6 H 29.3 H ABG O2 Saturation 96.3 96.3 ABG O2 Content 14.0 L 12.9 L ABG Base Excess 4.1 H 2.7 ABG Hemoglobin 10.8 L 10.0 L ABG Carboxyhemoglobin 2.7 H 2.7 H POC ABG HHb (Measured) 3.5 3.5 ABG Methemoglobin 2.4 2.3 ABG O2 Capacity 14.5 L 13.4 L Dale Test Yes Yes VBG pH VBG pCO2 VBG HCO3 VBG Total CO2 VBG O2 Sat (Calc) VBG Base Excess VBG Potassium A-a O2 Difference 71.0 105.0 Hgb O2 Saturation 91.5 L 91.5 L Glucose Lactate FiO2 28.0 32.0 Blood Gas Comments Crit Value Called To Crit Value Called By Crit Value Read Back Blood Gas Notified Time Sodium Potassium Chloride Carbon Dioxide Anion Gap BUN Creatinine Est GFR ( Amer) Est GFR (Non-Af Amer) Random Glucose Calcium Total Bilirubin AST ALT Alkaline Phosphatase Troponin I NT-Pro-B Natriuret Pep Total Protein Albumin Globulin Albumin/Globulin Ratio Venous Blood Potassium 10/21/17 14:35 WBC RBC Hgb Hct MCV MCH MCHC RDW Plt Count MPV Neut % (Auto) Lymph % (Auto) [place] % (Auto) Eos % (Auto) Baso % (Auto) Neut # (Auto) Lymph # (Auto) [place] # (Auto) Eos # (Auto) Baso # (Auto) Neutrophils % (Manual) Band Neutrophils % Lymphocytes % (Manual) Monocytes % (Manual) Platelet Estimate Large Platelets Hypochromasia (manual) Anisocytosis (manual) PT INR APTT pCO2 pO2 44 HCO3 ABG pH ABG Total CO2 ABG O2 Saturation ABG O2 Content ABG Base Excess ABG Hemoglobin ABG Carboxyhemoglobin POC ABG HHb (Measured) ABG Methemoglobin ABG O2 Capacity Dale Test VBG pH 7.36 VBG pCO2 50 VBG HCO3 25.9 VBG Total CO2 29.7 H VBG O2 Sat (Calc) 75.9 H VBG Base Excess 1.9 VBG Potassium 4.1 A-a O2 Difference Hgb O2 Saturation Glucose 180 H Lactate 2.3 H FiO2 40.0 Blood Gas Comments Lac=2.3 Crit Value Called To mayi Toth Crit Value Called By 22 Crit Value Read Back Y Blood Gas Notified Time 1441 Sodium 134.0 Potassium Chloride 100.0 Carbon Dioxide Anion Gap BUN Creatinine Est GFR ( Amer) Est GFR (Non-Af Amer) Random Glucose Calcium Total Bilirubin AST ALT Alkaline Phosphatase Troponin I NT-Pro-B Natriuret Pep Total Protein Albumin Globulin Albumin/Globulin Ratio Venous Blood Potassium 4.1 Accession No. : [id number] Patient Name / ID : JEANNA Beauchamp / [id number] Exam Date : 10/21/2017 12:58:19 ( Approved ) Study Comment : Sex / Age : M / 52Y Creator : Edgar Gregorio MD Dictator : Edgar Gregorio MD National Account Executive : Apron Trimmer : Edgar Gregorio MD Approver2 : Report Date : 10/21/2017 14:00:42 My Comment : PROCEDURE: CT Chest without contrast HISTORY: left sided infiltrate effusion SOB COMPARISON: 05/14/2017 CT thorax. 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 Sagittal and coronal reconstructions were performed. Radiation dose (DLP): 174.89 mGy-cm. This CT exam was performed using one or more of the following dose reduction techniques: Automated exposure control, adjustment of the mA and/or kV according to patient size, and/or use of iterative reconstruction technique. FINDINGS: LUNGS: New, extensive multi segment infiltrate right lower lobe. Alveolar consolidative changes primarily affecting the lateral segment of the right middle lobe. Resolution of previously identified left upper lobe infiltrate. Tree-in-bud opacities identified in the lingula and left lower lobe. To a lesser extent these are seen in the upper lobes. Findings likely represent mucous impaction with adjacent peribronchial inflammation. MEDIASTINUM: Unremarkable thoracic aorta. No aneurysm. Normal sized heart. Main pulmonary artery unremarkable. No vascular congestion. No lymphadenopathy. PLEURA: New large right pleural effusion. Hounsfield unit values approaching 40 suggest a complicated right pleural effusion. There flocculus of air air within the pleural space as well. BONES: No fracture. No destructive lesion. UPPER ABDOMEN: Grossly unremarkable. OTHER FINDINGS: None. IMPRESSION: New Extensive infiltrate, multiple segments right lower lobe. Right middle lobe infiltrate. New Large complex right pleural effusion suggesting debris. Tiny loculations air identified as well. Underlying lower airway disease described in greater detail above. Assessment & Plan (1) Pneumonia Status: Acute (2) Pleural effusion Status: Acute (3) AIDS (acquired immunodeficiency syndrome), CD4 <=200/<=14% Status: Acute - Assessment and Plan (Free Text) Assessment: A/P- 52 year old amle with AIDS 9 last Cd4 -40), penile . rectal ca s/p radiation admitted with cough, phlegm sob and found to have large right midlle and lower lobe pneumonia and right pleural effusion. hypoxic on ABG. hypoxia in setting of AIDS patietn with pneumonia should be rpresumed PCP pneumonia pending further results. also in light of the fact that pt. has been exposed to other sick contacts adn has low immune status should be ruled out for TB . also in light of the h/o previous recent hospitalizations should be covered for nosocomial pathogens. plan- check CD4 and VL now. check sputum cx. check sputum AFBx 3. place on AIrborne isolation. check blood cx and UA and urine cx . start pt. on IV bactrim for presumed PCP treatment . in light of his PCN allergy advise to start him on IV vancomycin and start meropnem ( low risk of cross reactivity with PCN) . advised to watch for any allergic signs while giving meropnem. (pt already received ceftriaxone in ED w/o any problems). would also advise to start pt. on IV prednisone since his O2 sat is <70 on ABG for pcp treatment. keep vanco trough <15. may need thoracenthesis both therapeutica and diagnostic. send pleural fluid for cell count, gram stain and cx, AFB, fungal cx, send sputum PCP PCR and beta D-Glucan. zithormax 1200 mg once a week for MAC prophylaxis since CD4 was 40. all above d/w patient at length and he verbalizes full understanding of all above and agrees with above plan of care. All above also d/w family practice team. Thank you for allowing me to take part in the care of this patient.
[2017-10-21 14:50] LABS: ABG ALLEN TEST YES; ARTERIAL BLOOD GAS HCO3 26.9 mmol/L (21-28); ARTERIAL BLOOD GAS O2 CAPACITY 13.4 mL/dL (16-24); ARTERIAL BLOOD GAS O2 CONTENT 12.9 ML/dL (15-23); ARTERIAL BLOOD GAS O2 SAT 96.3 % (95-98); ARTERIAL BLOOD GAS PCO2 45 mm/Hg (35-45); ARTERIAL BLOOD GAS PO2 67 mm/Hg (80-100); ARTERIAL BLOOD GAS TCO2 29.3 mmol/L (22-28)
[2017-10-21 15:07] LABS: INR 1.4 (0.9-1.2); PARTIAL THROMBOPLASTIN TIME 39.1 Seconds (25.6-37.1); PROTHROMBIN TIME 15.8 Seconds (9.8-13.1)
--- NOTE | 2017-10-21 15:34 | PCM.IRP ---
Chief Complaint: IR consulted for right thoracentesis. CT reviewed, no fluid seen; extensive right lower lobe consolidation. Due to ambiguous imaging appearance, patient brought to IR. Focused ultrasound of right hemithorax confirmed RLL consolidation without evidence of pleural fluid. Findings conveyed to Dr. Padilla in the ER. Objective - Vital Signs/Intake and Output Vital Signs (last 24 hours): Vital Signs - 24 hr 10/21/17 10/21/17 10/21/17 09:45 11:00 12:19 Temperature 97.7 F Pulse Rate 113 H 109 H Respiratory 20 20 22 Rate Blood Pressure 98/70 L 108/61 O2 Sat by Pulse 95 94 L 97 Oximetry 10/21/17 10/21/17 10/21/17 13:13 14:18 15:05 Temperature Pulse Rate 112 H 112 H Respiratory 22 Rate Blood Pressure 104/67 O2 Sat by Pulse 95 95 Oximetry Intake and Output (last 12 hours): Intake & Output 10/20/17 10/21/17 10/21/17 18:59 06:59 18:59 Weight 135 lb - Medications Medications: Current Medications Albuterol/Ipratropium (Duoneb 3 Mg/0.5 Mg (3 Ml) Ud) 3 ml INH RTID DIANDRA Albuterol/Ipratropium (Duoneb 3 Mg/0.5 Mg (3 Ml) Ud) 3 ml INH RQ4 PRN PRN Reason: Shortness of Breath Home Med (Elviteg/Luna/Emtric/Tenofo Dis [Stribild Tablet]) 1 tab PO DAILY DIANDRA Azithromycin 500 mg/ Sodium (Chloride) 250 mls @ 250 mls/hr IVPB DAILY DIANDRA PRN Reason: Protocol Ciprofloxacin (Cipro 200mg/100ml D5w) 100 mls @ 100 mls/hr IVPB Q12 DIANDRA PRN Reason: Protocol Multivitamins/Minerals (Therapeutic-M Tab) 1 tab PO DAILY DIANDRA Fluticasone/Salmeterol (Advair Diskus 500/50) 1 puff IH Q12 DIANDRA Trimethoprim/Sulfamethoxazole (Bactrim Ds Tab) 2 tab PO Q12 DIANDRA PRN Reason: Protocol Last Admin: 10/21/17 12:07 Dose: 2 tab - Labs Labs (last 24 hours): Laboratory Results - last 24 hr 10/21/17 10/21/17 10/21/17 10:37 10:37 10:41 WBC 10.0 D RBC 4.06 L Hgb 10.8 L Hct 34.0 L MCV 83.8 MCH 26.7 L MCHC 31.8 L RDW 16.4 H Plt Count 145 MPV 9.8 Neut % (Auto) 97.0 H Lymph % (Auto) 2.4 L [place] % (Auto) 0.5 Eos % (Auto) 0.0 Baso % (Auto) 0.1 Neut # (Auto) 9.7 H Lymph # (Auto) 0.2 L [place] # (Auto) 0.1 Eos # (Auto) 0.0 Baso # (Auto) 0.0 Neutrophils % (Manual) 92 H Band Neutrophils % 2 Lymphocytes % (Manual) 3 L Monocytes % (Manual) 3 Platelet Estimate Normal Large Platelets Present Hypochromasia (manual) Slight Anisocytosis (manual) Slight PT INR APTT pCO2 pO2 17 L HCO3 ABG pH ABG Total CO2 ABG O2 Saturation ABG O2 Content ABG Base Excess ABG Hemoglobin ABG Carboxyhemoglobin POC ABG HHb (Measured) ABG Methemoglobin ABG O2 Capacity Dale Test VBG pH 7.36 VBG pCO2 61 H VBG HCO3 28.3 VBG Total CO2 36.4 H VBG O2 Sat (Calc) 16.6 L VBG Base Excess 7.0 H VBG Potassium 5.5 H A-a O2 Difference Hgb O2 Saturation Glucose 133 H Lactate 2.3 H FiO2 28.0 Blood Gas Comments Lac=2.3 Crit Value Called To mayi Toth Crit Value Called By 22 Crit Value Read Back Y Blood Gas Notified Time 1047 Sodium 137 133.0 Potassium 5.9 H Chloride 93 L 98.0 Carbon Dioxide 28 Anion Gap 22 H BUN 71 H Creatinine 1.9 H Est GFR ( Amer) 45 Est GFR (Non-Af Amer) 37 Random Glucose 127 H Calcium 9.2 Total Bilirubin 1.6 H AST 80 H D ALT 41 Alkaline Phosphatase 106 Troponin I < 0.0120 NT-Pro-B Natriuret Pep 492 Total Protein 7.3 Albumin 3.4 L Globulin 3.9 Albumin/Globulin Ratio 0.9 L Venous Blood Potassium 5.5 H 10/21/17 10/21/17 10/21/17 10:42 13:54 14:34 WBC RBC Hgb Hct MCV MCH MCHC RDW Plt Count MPV Neut % (Auto) Lymph % (Auto) [place] % (Auto) Eos % (Auto) Baso % (Auto) Neut # (Auto) Lymph # (Auto) [place] # (Auto) Eos # (Auto) Baso # (Auto) Neutrophils % (Manual) Band Neutrophils % Lymphocytes % (Manual) Monocytes % (Manual) Platelet Estimate Large Platelets Hypochromasia (manual) Anisocytosis (manual) PT 15.8 H INR 1.4 H APTT 39.1 H pCO2 45 45 pO2 72 L 67 L HCO3 28.0 26.9 ABG pH 7.42 7.40 ABG Total CO2 30.6 H 29.3 H ABG O2 Saturation 96.3 96.3 ABG O2 Content 14.0 L 12.9 L ABG Base Excess 4.1 H 2.7 ABG Hemoglobin 10.8 L 10.0 L ABG Carboxyhemoglobin 2.7 H 2.7 H POC ABG HHb (Measured) 3.5 3.5 ABG Methemoglobin 2.4 2.3 ABG O2 Capacity 14.5 L 13.4 L Dael Test Yes Yes VBG pH VBG pCO2 VBG HCO3 VBG Total CO2 VBG O2 Sat (Calc) VBG Base Excess VBG Potassium A-a O2 Difference 71.0 105.0 Hgb O2 Saturation 91.5 L 91.5 L Glucose Lactate FiO2 28.0 32.0 Blood Gas Comments Crit Value Called To Crit Value Called By Crit Value Read Back Blood Gas Notified Time Sodium Potassium Chloride Carbon Dioxide Anion Gap BUN Creatinine Est GFR ( Amer) Est GFR (Non-Af Amer) Random Glucose Calcium Total Bilirubin AST ALT Alkaline Phosphatase Troponin I NT-Pro-B Natriuret Pep Total Protein Albumin Globulin Albumin/Globulin Ratio Venous Blood Potassium 10/21/17 14:35 WBC RBC Hgb Hct MCV MCH MCHC RDW Plt Count MPV Neut % (Auto) Lymph % (Auto) [place] % (Auto) Eos % (Auto) Baso % (Auto) Neut # (Auto) Lymph # (Auto) [place] # (Auto) Eos # (Auto) Baso # (Auto) Neutrophils % (Manual) Band Neutrophils % Lymphocytes % (Manual) Monocytes % (Manual) Platelet Estimate Large Platelets Hypochromasia (manual) Anisocytosis (manual) PT INR APTT pCO2 pO2 44 HCO3 ABG pH ABG Total CO2 ABG O2 Saturation ABG O2 Content ABG Base Excess ABG Hemoglobin ABG Carboxyhemoglobin POC ABG HHb (Measured) ABG Methemoglobin ABG O2 Capacity Dale Test VBG pH 7.36 VBG pCO2 50 VBG HCO3 25.9 VBG Total CO2 29.7 H VBG O2 Sat (Calc) 75.9 H VBG Base Excess 1.9 VBG Potassium 4.1 A-a O2 Difference Hgb O2 Saturation Glucose 180 H Lactate 2.3 H FiO2 40.0 Blood Gas Comments Lac=2.3 Crit Value Called To mayi Toth Crit Value Called By 22 Crit Value Read Back Y Blood Gas Notified Time 1441 Sodium 134.0 Potassium Chloride 100.0 Carbon Dioxide Anion Gap BUN Creatinine Est GFR ( Amer) Est GFR (Non-Af Amer) Random Glucose Calcium Total Bilirubin AST ALT Alkaline Phosphatase Troponin I NT-Pro-B Natriuret Pep Total Protein Albumin Globulin Albumin/Globulin Ratio Venous Blood Potassium 4.1
--- NOTE | 2017-10-21 16:01 | CP.PCM.HP ---
History of Present Illness - History of Present Illness History of Present Illness: 52 y/o male with a PMHx of HIV (CD4 is 120 on 10/01/17), HTN, rectal/penile cancer, colon cancer, and asthma presented to [facility] ED with 1 week hx of productive cough producing yellow sputum, worsening dyspnea, dyspnea on exertion for 1 week associated with pleuritc chest pain for 2 days. Pt reports he has been looking for an apartment for the past week and exerted himself too much. Reports sick contact with cough recently. Denies any travel out of the country. Pt was seen by his PMD Dr. Galeano on 10/07/17 , ordered CXR , CT of chest and CT abd and pelvis for worsening cough and dyspnea. Pt missed the appointment for all 3 radiographic test on 10/16/17. Pt had quantiferon TB gold on 05/15/17. Pt reports urinary frequency for few months but denies hematuria or dysuria. Pt has not been taking his HIV medications regularly and misses 5 out 7 days in a week. Denies fever, chills, headache, dizziness, blurry vision, abdominal pain, nausea, vomiting, melena or hematochezia. ROS: as per HPI PMD: Dr. Galeano, last visit 10/07/17 PMHx: HIV, essential HTN, penile/rectal cancer, colon cancer, unspecified severity of asthma Meds: as per eCW/med rec, NONCOMPLIANT with many medications ALL: penicillins (angioedema) PsurgHx: colectomy/colostomy reversal in FamilyHx: father decreased 2/2 lung cancer, mother decreased 2/2 CHF. Multiple siblings, alive, one has sickle cell anemia SocialHx: former tobacco abuser. Social ETOH. Heroin abuser, recent usage mid April 2017 -next of kin: daughter Mimi [phone] -FULL CODE ED course: vitals: BP 104/67, HR 112, RR 22, Temp 97.7 F, pulse ox 95% Labs: CBC/VBG/Lactate/CMP/PT/INR/blood cx/sputum cx/proBNP/ EKG: sinus tachycardia @110 Imaging: CXR: Interval right basilar infiltrate affection the right lower lobe with none otherwise evident. Right plural effusion not excluded. None at the left. Chest CT: Pending Medications: received 1 L NS bolus, duoneb, solumedrol 125 mg ivp, zithromax 500 mg, humulin 4 units, rocephin 1 mg iv and bactrim DS po one dose. Present on Admission - Present on Admission Any Indicators Present on Admission: Yes Review of Systems - Constitutional Constitutional: absent: Chills, Fever - EENT Eyes: absent: Blurred Vision Ears: absent: Ear Pain - Cardiovascular Cardiovascular: Dyspnea, Dyspnea on Exertion. absent: Diaphoresis, Lightheadedness - Respiratory Respiratory: Cough, Dyspnea. absent: Hemoptysis - Gastrointestinal Gastrointestinal: absent: Abdominal Pain, Nausea, Vomiting - Genitourinary Genitourinary: Urinary Frequency. absent: Dysuria, Hematuria - Integumentary Integumentary: absent: Rash - Neurological Neurological: absent: Dizziness, Headaches - Hematologic/Lymphatic Hematologic: absent: Easy Bruising Past Patient History - Past Medical History & Family History Past Medical History?: Yes - Past Social History Alcohol: None Drugs: Other (heroin) - CARDIAC Hx Hypertension: Yes - PULMONARY Hx Asthma: Yes Hx Pneumonia: Yes (PCP) - NEUROLOGICAL Hx Neurological Disorder: No - HEENT Hx HEENT Problems: No - RENAL Hx Chronic Kidney Disease: No - ENDOCRINE/METABOLIC Hx Endocrine Disorders: No - HEMATOLOGICAL/ONCOLOGICAL Hx Blood Disorders: Yes (HIV) - INTEGUMENTARY Hx Dermatological Problems: Yes - MUSCULOSKELETAL/RHEUMATOLOGICAL Hx Musculoskeletal Disorders: No - GASTROINTESTINAL Hx Gastrointestinal Disorders: Yes Hx Colostomy: Yes (reversal) - GENITOURINARY/GYNECOLOGICAL Hx Genitourinary Disorders: Yes - PSYCHIATRIC Hx Depression: Yes - SURGICAL HISTORY Hx Surgeries: Yes Other/Comment: colostomy- reversed - ANESTHESIA Hx Anesthesia: Yes Hx Anesthesia Reactions: No Meds Allergies/Adverse Reactions: Allergies Allergy/AdvReac Type Severity Reaction Status Date / Time Penicillins Allergy Intermediate ANGIOEDEMA Verified 10/21/17 14:59 Physical Exam - Constitutional Appears: In Acute Distress (tachypnea and use of accessory muscles), Cachectic, Chronically Ill - Head Exam Additional comments: temporal muscle wasting - Eye Exam Eye Exam: EOMI, Normal appearance. absent: Scleral icterus - ENT Exam ENT Exam: Mucous Membranes Dry - Neck Exam Neck exam: Positive for: Normal Inspection. Negative for: Meningismus - Respiratory Exam Respiratory Exam: Accessory Muscle Use (scalene muscle usage) Additional comments: crackles B/L lower lung field ( R>L) - Cardiovascular Exam Cardiovascular Exam: Tachycardia, +S1, +S2 - GI/Abdominal Exam GI & Abdominal Exam: Normal Bowel Sounds, Soft. absent: Rebound, Rigid, Tenderness - Extremities Exam Extremities exam: Positive for: normal inspection. Negative for: calf tenderness, pedal edema - Neurological Exam Neurological exam: Alert, Oriented x3 - Psychiatric Exam Psychiatric exam: Anxious - Skin Skin Exam: Normal Color, Warm Results - Vital Signs Recent Vital Signs: Last Vital Signs Temp 98.2 F 10/21/17 15:45 Pulse 112 H 10/21/17 15:50 Resp 22 10/21/17 15:52 BP 94/56 L 10/21/17 15:45 Pulse Ox 98 10/21/17 15:45 - Labs Result Diagrams: 10/21/17 10:37 10/21/17 10:37 Labs: Laboratory Results - last 24 hr 10/21/17 10/21/17 10/21/17 10:37 10:37 10:41 WBC 10.0 D RBC 4.06 L Hgb 10.8 L Hct 34.0 L MCV 83.8 MCH 26.7 L MCHC 31.8 L RDW 16.4 H Plt Count 145 MPV 9.8 Neut % (Auto) 97.0 H Lymph % (Auto) 2.4 L [place] % (Auto) 0.5 Eos % (Auto) 0.0 Baso % (Auto) 0.1 Neut # (Auto) 9.7 H Lymph # (Auto) 0.2 L [place] # (Auto) 0.1 Eos # (Auto) 0.0 Baso # (Auto) 0.0 Neutrophils % (Manual) 92 H Band Neutrophils % 2 Lymphocytes % (Manual) 3 L Monocytes % (Manual) 3 Platelet Estimate Normal Large Platelets Present Hypochromasia (manual) Slight Anisocytosis (manual) Slight PT INR APTT pCO2 pO2 17 L HCO3 ABG pH ABG Total CO2 ABG O2 Saturation ABG O2 Content ABG Base Excess ABG Hemoglobin ABG Carboxyhemoglobin POC ABG HHb (Measured) ABG Methemoglobin ABG O2 Capacity Dale Test VBG pH 7.36 VBG pCO2 61 H VBG HCO3 28.3 VBG Total CO2 36.4 H VBG O2 Sat (Calc) 16.6 L VBG Base Excess 7.0 H VBG Potassium 5.5 H A-a O2 Difference Hgb O2 Saturation Glucose 133 H Lactate 2.3 H FiO2 28.0 Blood Gas Comments Lac=2.3 Crit Value Called To mayi Toth Crit Value Called By 22 Crit Value Read Back Y Blood Gas Notified Time 1047 Sodium 137 133.0 Potassium 5.9 H Chloride 93 L 98.0 Carbon Dioxide 28 Anion Gap 22 H BUN 71 H Creatinine 1.9 H Est GFR ( Amer) 45 Est GFR (Non-Af Amer) 37 Random Glucose 127 H Calcium 9.2 Total Bilirubin 1.6 H AST 80 H D ALT 41 Alkaline Phosphatase 106 Troponin I < 0.0120 NT-Pro-B Natriuret Pep 492 Total Protein 7.3 Albumin 3.4 L Globulin 3.9 Albumin/Globulin Ratio 0.9 L Venous Blood Potassium 5.5 H 10/21/17 10/21/17 10/21/17 10:42 13:54 14:34 WBC RBC Hgb Hct MCV MCH MCHC RDW Plt Count MPV Neut % (Auto) Lymph % (Auto) [place] % (Auto) Eos % (Auto) Baso % (Auto) Neut # (Auto) Lymph # (Auto) [place] # (Auto) Eos # (Auto) Baso # (Auto) Neutrophils % (Manual) Band Neutrophils % Lymphocytes % (Manual) Monocytes % (Manual) Platelet Estimate Large Platelets Hypochromasia (manual) Anisocytosis (manual) PT 15.8 H INR 1.4 H APTT 39.1 H pCO2 45 45 pO2 72 L 67 L HCO3 28.0 26.9 ABG pH 7.42 7.40 ABG Total CO2 30.6 H 29.3 H ABG O2 Saturation 96.3 96.3 ABG O2 Content 14.0 L 12.9 L ABG Base Excess 4.1 H 2.7 ABG Hemoglobin 10.8 L 10.0 L ABG Carboxyhemoglobin 2.7 H 2.7 H POC ABG HHb (Measured) 3.5 3.5 ABG Methemoglobin 2.4 2.3 ABG O2 Capacity 14.5 L 13.4 L Dale Test Yes Yes VBG pH VBG pCO2 VBG HCO3 VBG Total CO2 VBG O2 Sat (Calc) VBG Base Excess VBG Potassium A-a O2 Difference 71.0 105.0 Hgb O2 Saturation 91.5 L 91.5 L Glucose Lactate FiO2 28.0 32.0 Blood Gas Comments Crit Value Called To Crit Value Called By Crit Value Read Back Blood Gas Notified Time Sodium Potassium Chloride Carbon Dioxide Anion Gap BUN Creatinine Est GFR ( Amer) Est GFR (Non-Af Amer) Random Glucose Calcium Total Bilirubin AST ALT Alkaline Phosphatase Troponin I NT-Pro-B Natriuret Pep Total Protein Albumin Globulin Albumin/Globulin Ratio Venous Blood Potassium 10/21/17 14:35 WBC RBC Hgb Hct MCV MCH MCHC RDW Plt Count MPV Neut % (Auto) Lymph % (Auto) [place] % (Auto) Eos % (Auto) Baso % (Auto) Neut # (Auto) Lymph # (Auto) [place] # (Auto) Eos # (Auto) Baso # (Auto) Neutrophils % (Manual) Band Neutrophils % Lymphocytes % (Manual) Monocytes % (Manual) Platelet Estimate Large Platelets Hypochromasia (manual) Anisocytosis (manual) PT INR APTT pCO2 pO2 44 HCO3 ABG pH ABG Total CO2 ABG O2 Saturation ABG O2 Content ABG Base Excess ABG Hemoglobin ABG Carboxyhemoglobin POC ABG HHb (Measured) ABG Methemoglobin ABG O2 Capacity Dale Test VBG pH 7.36 VBG pCO2 50 VBG HCO3 25.9 VBG Total CO2 29.7 H VBG O2 Sat (Calc) 75.9 H VBG Base Excess 1.9 VBG Potassium 4.1 A-a O2 Difference Hgb O2 Saturation Glucose 180 H Lactate 2.3 H FiO2 40.0 Blood Gas Comments Lac=2.3 Crit Value Called To mayi Toth Crit Value Called By 22 Crit Value Read Back Y Blood Gas Notified Time 1441 Sodium 134.0 Potassium Chloride 100.0 Carbon Dioxide Anion Gap BUN Creatinine Est GFR ( Amer) Est GFR (Non-Af Amer) Random Glucose Calcium Total Bilirubin AST ALT Alkaline Phosphatase Troponin I NT-Pro-B Natriuret Pep Total Protein Albumin Globulin Albumin/Globulin Ratio Venous Blood Potassium 4.1 Assessment & Plan - Assessment and Plan (Free Text) Assessment: Assessment: 52 y/o male with a PMHx of HIV (CD4 is 120 on 10/01/17), HTN, rectal/penile cancer, colon cancer, and asthma admitted for pneumonia with hypoxia. Plan: Pneumonia WITH hypoxia ( PCP vs. CAP) -ID consult appreciated -Start Meropenem 500 mg IVP q8 -Start Vancomycin 750 mg ivp daily (received 1 gm ceftriaxone in ED) -start on Bactrim IV 5mg/kg TID , s/p Bactrim DS 2 tabs in ED -start on methylprednisone 30 mg IVP daily, s/p methylprednisolone 125mg in ED -Start azithromycin 500 mg ivpb daily (received azithromycin 500 mg ivpb in ED) -CXR: Interval right basilar infiltrate affection the right lower lobe with none otherwise evident. Right plural effusion not exclusded. None at the left -CHEST CT: IMPRESSION: New extensive infiltrate, multiple segments right lower lobe. Right middle lobe infiltrate. New large complex right pleural effusion suggesting debris. Tiny loculations air identified as well. -IR consult appreciated: "IR consulted for right thoracentesis. CT reviewed, no fluid seen; extensive right lower lobe consolidation. Due to ambiguous imaging appearance, patient brought to IR. Focused ultrasound of right hemithorax confirmed RLL consolidation without evidence of pleural fluid". -Duo-nebs PRN -on BIPAP for hypoxia -monitor vitals -Lactate 2.3 on VBG -PO2: 72 and 67 in VBG -blood/sputum cultures/Procalcitonin: pending Hypotension: -Received 1 L NS in ED -Start NS@ 126 cc/hr -monitor BPs -Will consider transfer to ICU for close monitoring Hyperkalemia: -K+: 5.9 -s/p multiple dose of duoneb and one dose of Keyexalate 15 mg PO -repeat BMP in PM HIV Infection -Noncompliant with HAART -Resume home meds -Last CD4 count in 10/01/17 is 120 Asthma, unspecified severity -c/w DuoNeb prn -c/w home medications Heroin use disorder: -Pt takes 80 mg methadone daily -c/w current medication DVT prophylaxis -platelet count: 145 -eGFR: 45 -SCDs PRN -Lovenox 40mg SC QD Diet -Regular - Date & Time Date: 10/21/17 Time: 13:02
[2017-10-21] MEDS ORDERED: Sodium Chloride 0.9% 1,000 ML IV SCH (16:45)
[2017-10-21] MEDS: Meropenem 500 MG in Sodium Chloride 0.9% 100 ML IVPB SCH (17:46)
[2017-10-21] MEDS: TRIMETHOPRIM IVPB SCH (17:51)
[2017-10-21] MEDS: SULFAMETHOXAZOLE IVPB SCH (17:51)
[2017-10-21] MEDS: WATER IVPB SCH (17:51)
[2017-10-21] MEDS: DEXTROSE 5% IVPB SCH (17:51)
[2017-10-21] MEDS: Albuterol-Ipratrop 3 mg / 0.5 (3 ml) UD INH SCH (19:00)
[2017-10-21 20:57] LABS: ABG ALLEN TEST YES; ARTERIAL BLOOD GAS HCO3 26.2 mmol/L (21-28); ARTERIAL BLOOD GAS HEMOGLOBIN 9.3 g/dL (11.7-17.4); ARTERIAL BLOOD GAS O2 CAPACITY 12.9 mL/dL (16-24); ARTERIAL BLOOD GAS O2 CONTENT 12.4 ML/dL (15-23); ARTERIAL BLOOD GAS O2 SAT 96.4 % (95-98); ARTERIAL BLOOD GAS PCO2 46 mm/Hg (35-45); ARTERIAL BLOOD GAS PH 7.38 (7.35-7.45); ARTERIAL BLOOD GAS PO2 76 mm/Hg (80-100); ARTERIAL BLOOD GAS TCO2 28.6 mmol/L (22-28)
[2017-10-21] MEDS ORDERED: Ciprofloxacin 200mg/100ml D5W 100 ML IVPB SCH (21:00)
[2017-10-21] MEDS: Fluticasone-Salmeterol 500-50mcg Diskus IH SCH (22:35)
[2017-10-21] MEDS: Enoxaparin 40 mg Syringe SC SCH (22:36)
[2017-10-22] MEDS: Meropenem 500 MG in Sodium Chloride 0.9% 100 ML IVPB SCH ×3 (00:29→17:14)
[2017-10-22] MEDS: TRIMETHOPRIM IVPB SCH ×3 (00:51→17:14)
[2017-10-22] MEDS: SULFAMETHOXAZOLE IVPB SCH ×3 (00:51→17:14)
[2017-10-22] MEDS: DEXTROSE 5% IVPB SCH ×3 (00:51→17:14)
[2017-10-22] MEDS: WATER IVPB SCH ×3 (00:51→17:14)
[2017-10-22 05:05] LABS: HEMOGLOBIN 8.6 g/dL (12.0-18.0); MEAN CELL VOLUME 80.8 fl (80.0-94.0); MEAN CORPUSCULAR HEMOGLOBIN 25.7 pg (27.0-31.0); MEAN CORPUSCULAR HGB CONC 31.9 g/dL (33.0-37.0); RBC 3.32 Mil/uL (4.40-5.90); RED CELL DISTRIBUTION WIDTH 16.3 % (11.5-14.5); WHITE BLOOD COUNT 11.9 K/uL (4.8-10.8)
[2017-10-22 05:22] LABS: ALB/GLOB RATIO 0.9 (1.0-2.1); ALBUMIN 2.7 g/dL (3.5-5.0); ALT/SGPT 48 U/L (21-72); AST/SGOT 125 U/L (17-59); BLOOD UREA NITROGEN 50 mg/dl (9-20); CALCIUM 8.7 mg/dL (8.4-10.2); GFR AFRICAN-AMERICAN > 60; GFR NON-AFRICAN AMERICAN > 60
[2017-10-22] MEDS: Albuterol-Ipratrop 3 mg / 0.5 (3 ml) UD INH SCH ×3 (07:39→19:14)
--- NOTE | 2017-10-22 08:10 | CP.PCM.PN ---
Subjective - Date & Time of Evaluation Date of Evaluation: 10/22/17 Time of Evaluation: 07:45 - Subjective Subjective: Patient seen and examined at bedside this morning. Pt is on continue high flow oxygen, not in acute distress. Reports feeling significantly better than yesterday. Still has productive cough and states feels shortness of breath with talking. Denies any fever, chills or night sweats. Pt is tolerating PO. Has regular BM and voiding w/o difficulty. Objective - Vital Signs/Intake and Output Vital Signs (last 24 hours): Temp Pulse Resp BP Pulse Ox 97.4 F L 73 18 109/70 98 10/22/17 07:59 10/22/17 07:59 10/22/17 07:59 10/22/17 07:59 10/22/17 07:59 - Medications Medications: Current Medications Albuterol/Ipratropium (Duoneb 3 Mg/0.5 Mg (3 Ml) Ud) 3 ml INH RTID DIANDRA Last Admin: 10/22/17 07:39 Dose: 3 ml Albuterol/Ipratropium (Duoneb 3 Mg/0.5 Mg (3 Ml) Ud) 3 ml INH RQ4 PRN PRN Reason: Shortness of Breath Enoxaparin Sodium (Lovenox) 40 mg SC HS DIANDRA PRN Reason: Protocol Last Admin: 10/21/17 22:36 Dose: 40 mg Home Med (Elviteg/Luna/Emtric/Tenofo Dis [Stribild Tablet]) 1 tab PO DAILY DIANDRA Azithromycin 500 mg/ Sodium (Chloride) 250 mls @ 250 mls/hr IVPB DAILY DIANDRA PRN Reason: Protocol Meropenem 500 mg/ Sodium (Chloride) 100 mls @ 100 mls/hr IVPB Q8 DIANDRA PRN Reason: Protocol Last Admin: 10/22/17 00:29 Dose: 100 mls/hr Vancomycin HCl 750 mg/ Sodium (Chloride) 250 mls @ 166.667 mls/hr IVPB DAILY DIANDRA PRN Reason: Protocol Last Admin: 10/21/17 17:50 Dose: 166.667 mls/hr Trimethoprim/Sulfamethoxazole (306 mg/ Dextrose) 500 mls @ 333.333 mls/hr IVPB Q8 DIANDRA PRN Reason: Protocol Last Admin: 10/22/17 00:51 Dose: 333.333 mls/hr Methadone HCl (Methadone) 80 mg PO DAILY [facility] Last Admin: 10/21/17 17:43 Dose: 80 mg Methylprednisolone (Solu-Medrol) 30 mg IVP BID [facility] Multivitamins/Minerals (Therapeutic-M Tab) 1 tab PO DAILY [facility] Fluticasone/Salmeterol (Advair Diskus 500/50) 1 puff IH Q12 [facility] Last Admin: 10/21/17 22:35 Dose: 1 puff - Labs Labs: 10/22/17 04:15 10/22/17 04:15 PT 15.8 Seconds (9.8-13.1) H 10/21/17 13:54 INR 1.4 (0.9-1.2) H 10/21/17 13:54 APTT 39.1 Seconds (25.6-37.1) H 10/21/17 13:54 - Additional Findings Additional findings: - Constitutional Appears: Not in acute distress Cachectic, Chronically Ill, on high flow O2 - Head Exam Additional comments: temporal muscle wasting - Eye Exam Eye Exam: EOMI, Normal appearance. absent: Scleral icterus - ENT Exam ENT Exam: Mucous Membranes Dry - Neck Exam Neck exam: Positive for: Normal Inspection. Negative for: Meningismus - Respiratory Exam Respiratory Exam: NORMAL BREATHING PATTERN. absent: wheezing. No accessory muscle usage. Additional comments: crackles B/L lower lung field ( R>L) - Cardiovascular Exam Cardiovascular Exam: Tachycardia, +S1, +S2 - GI/Abdominal Exam GI & Abdominal Exam: Normal Bowel Sounds, Soft. absent: Rebound, Rigid, Tenderness; mild erythematous lesion on right inguinal area. No edema, discharge or oozing. Likely chronic lesion. - Extremities Exam Extremities exam: Positive for: normal inspection. Negative for: calf tenderness, pedal edema - Neurological Exam Neurological exam: Alert, Oriented x3 - Psychiatric Exam Psychiatric exam: Anxious - Skin Skin Exam: Normal Color, Warm Assessment and Plan - Assessment and Plan (Free Text) Assessment: 52 y/o male with a PMHx of HIV (CD4 is 120 on 10/01/17), HTN, rectal/penile cancer, colon cancer, and asthma admitted for sepsis and pneumonia with hypoxia. Plan: Bacteremia: -ID on board -Continue Meropenem 500 mg IVP q8 (day 2) -Continue Vancomycin 750 mg ivp daily (day 2) (received 1 gm ceftriaxone in ED) -Lactate 2.3 on VBG on 10/21/17 -wbc 11.9 ( trending up 10.0 yesterday) -F/U ECHO Pneumonia WITH hypoxia ( PCP vs. CAP) -Continue on Bactrim IV 400 mg Q8 (day 2), s/p Bactrim DS 2 tabs in ED -Continue on methylprednisone 30 mg IVP daily (day 1), s/p methylprednisolone 125mg in ED -Continue azithromycin 500 mg ivpb daily (day 2) -CXR: Interval right basilar infiltrate affection the right lower lobe with none otherwise evident. Right plural effusion not exclusded. None at the left -CHEST CT: IMPRESSION: New extensive infiltrate, multiple segments right lower lobe. Right middle lobe infiltrate. New large complex right pleural effusion suggesting debris. Tiny loculations air identified as well. -IR consult appreciated: "IR consulted for right thoracentesis. CT reviewed, no fluid seen; extensive right lower lobe consolidation. Due to ambiguous imaging appearance, patient brought to IR. Focused ultrasound of right hemithorax confirmed RLL consolidation without evidence of pleural fluid". -Duo-nebs PRN -on-high flow oxygen. -PO2: 72 and 67 in VBG yesterday.. -Blood cx: gram positive cocci in chains -Sputum cx: gram negative concepcion -f/u pulmonary consult Hypotension: -Received 1 L NS in ED -Continue NS@ 126 cc/hr -monitor BPs Acute kidney injury:( resolving) -BUN/Cr: 50/1.2 (trending down from BUN/Cr 71/1.9 yesterday) -Continue NS@126 CC/hr Hyperkalemia resolved -K+: 4.1 s/p multiple dose of duoneb and one dose of Keyexalate 15 mg PO yesterday. -repeat BMP in AM HIV Infection -Noncompliant with HAART -Resume home meds -Last CD4 count in 10/01/17 is 120 Asthma, unspecified severity -c/w DuoNeb prn -c/w home medications Heroin use disorder: -Pt takes 80 mg methadone daily -c/w current medication Right groin lesion: -Apply bacitracin TOP bid -Monitor DVT prophylaxis -platelet count: 103 -eGFR>60 -SCDs PRN -Lovenox 40mg SC QD Diet -Heart Healthy diet
[2017-10-22] MEDS ORDERED: Patient's Own Med (Mv,Min10/Folic Acid/D3/Ala/Lut [Strovite One Caplet] 1 TAB) PO SCH (09:00)
[2017-10-22] MEDS ORDERED: STRIBILD PO SCH (09:00)
[2017-10-22] MEDS: Azithromycin 500 MG in Sodium Chloride 0.9% 250 ML IVPB SCH (10:13)
[2017-10-22] MEDS: Multivitamin With Minerals Tab PO SCH (10:44)
[2017-10-22] MEDS: Fluticasone-Salmeterol 500-50mcg Diskus IH SCH ×2 (10:44→20:54)
[2017-10-22] MEDS: MethylPREDNISolone 40 mg Vial IVP SCH ×2 (10:48→17:16)
[2017-10-22] MEDS: Sodium Chloride 0.9% 1,000 ML IV SCH ×2 (12:15→21:55)
--- NOTE | 2017-10-22 13:54 | CP.PCM.CON ---
History of Present Illness - History of Present Illness History of Present Illness: Pulmonary consult. 52 y/o M, Hx HIV (CD4 in 120 on 10/01/17), Hx Asthma, brought via EMS to ER [facility] on 10/21/17 to be evaluated for SOB, onset one week [employer], Pt using Ventolin, Advair at home with no relief. Pt was c/o of difficulty breathing from one week prior to admission while he was looking for a new apartment to move on and he felt over exerted, Pt developed SOB that gradually increased from mild to moderate severity on DOA, associated to wheezing, intermittent productive thick cough with scant yellowish sputum, weakness. Worsening symptoms: RICHEY, Pleuritic chest pain with coughing x 2 days [employer]. Sick contact with sick people that has been coughing a lot. Aggravated factor: Not in compliance with medications HIV meds. Pt had quantiferon TB gold on 05/15/17. Pt denied: Fever, chills, CP, palpitations, dizziness, hemoptysis, headache, n/ v/d, abdominal pain, dysuria, hematuria, recent travel out of [facility]. Also, Pt has PMHx of Rectal/Penile and colon Ca. S/P Colectomy with reversal of colostomy. Chest CT showed: Extensive multi segment infiltrate RLL, RML infiltrate, large R pleural effusion. On 10/21/17, Pt went to IR for thoracentesis of R pleural effusion, but procedure wasn't completed by IR , US extensive PNA , no Pleural effusion. Review of Systems - Constitutional Constitutional: Weakness - EENT Eyes: Other (negative) Ears: Other (negative) Nose/Mouth/Throat: Other (negative) - Cardiovascular Cardiovascular: Other (negative) - Respiratory Respiratory: Cough, Dyspnea, Dyspnea on Exertion, Wheezing, Chest Congestion, Excessive Mucous Production, Change in Mucous Color, Pain with Coughing - Gastrointestinal Gastrointestinal: Other (negative) - Genitourinary Genitourinary: Urinary Frequency - Musculoskeletal Musculoskeletal: Other (negative) - Integumentary Integumentary: Other (negative) - Neurological Neurological: Other (negative) - Psychiatric Psychiatric: Other (negative) - Endocrine Endocrine: Other (negative) - Hematologic/Lymphatic Hematologic: Other (negative) Past Patient History - Past Medical History & Family History Past Medical History?: Yes Pertinent Family History: Unknown - Past Social History Smoking Status: Former Smoker (tabacco abuser.) Alcohol: Social Drugs: Other (Heroin abuser, last one on Apr 2017.) Home Situation {Lives}: Alone - CARDIAC Hx Cardiac Disorders: Yes Hx Hypertension: Yes - PULMONARY Hx Respiratory Disorders: Yes Hx Asthma: Yes Hx Pneumonia: Yes (PCP) - NEUROLOGICAL Hx Neurological Disorder: No - HEENT Hx HEENT Problems: No - RENAL Hx Chronic Kidney Disease: No - ENDOCRINE/METABOLIC Hx Endocrine Disorders: No - HEMATOLOGICAL/ONCOLOGICAL Hx Blood Disorders: Yes (HIV) Hx AIDS: Yes - INTEGUMENTARY Hx Dermatological Problems: Yes - MUSCULOSKELETAL/RHEUMATOLOGICAL Hx Musculoskeletal Disorders: Yes Hx Back Pain: Yes (chronic back pain) Hx Falls: No - GASTROINTESTINAL Hx Gastrointestinal Disorders: Yes Hx Colostomy: Yes (reversal) - GENITOURINARY/GYNECOLOGICAL Hx Genitourinary Disorders: Yes Other/Comment: Penile CA - PSYCHIATRIC Hx Psychophysiologic Disorder: Yes Hx Depression: Yes Hx Substance Use: Yes - SURGICAL HISTORY Hx Surgeries: Yes Other/Comment: colostomy- reversed - ANESTHESIA Hx Anesthesia: Yes Hx Anesthesia Reactions: No Meds Allergies/Adverse Reactions: Allergies Allergy/AdvReac Type Severity Reaction Status Date / Time Penicillins Allergy Intermediate ANGIOEDEMA Verified 10/21/17 14:59 - Medications Medications: Current Medications Albuterol/Ipratropium (Duoneb 3 Mg/0.5 Mg (3 Ml) Ud) 3 ml INH RTID [facility] Last Admin: 10/22/17 13:40 Dose: 3 ml Albuterol/Ipratropium (Duoneb 3 Mg/0.5 Mg (3 Ml) Ud) 3 ml INH RQ4 PRN PRN Reason: Shortness of Breath Bacitracin (Bacitracin Oint) 1 applic TOP TID DIANDRA Enoxaparin Sodium (Lovenox) 40 mg SC HS DIANDRA PRN Reason: Protocol Last Admin: 10/21/17 22:36 Dose: 40 mg Home Med (Elviteg/Luna/Emtric/Tenofo Dis [Stribild Tablet]) 1 tab PO DAILY DIANDRA Azithromycin 500 mg/ Sodium (Chloride) 250 mls @ 250 mls/hr IVPB DAILY DIANDRA PRN Reason: Protocol Meropenem 500 mg/ Sodium (Chloride) 100 mls @ 100 mls/hr IVPB Q8 DIANDRA PRN Reason: Protocol Last Admin: 10/22/17 10:49 Dose: 100 mls/hr Vancomycin HCl 750 mg/ Sodium (Chloride) 250 mls @ 166.667 mls/hr IVPB DAILY DIANDRA PRN Reason: Protocol Last Admin: 10/22/17 10:43 Dose: 166.667 mls/hr Trimethoprim/Sulfamethoxazole (400 mg/ Dextrose) 500 mls @ 333.333 mls/hr IVPB Q8 DIANDRA PRN Reason: Protocol Sodium Chloride (Sodium Chloride 0.9%) 1,000 mls @ 126 mls/hr IV .Q7H57M [facility] Stop: 10/23/17 12:11 Methadone HCl (Methadone) 80 mg PO DAILY [facility] Last Admin: 10/22/17 10:49 Dose: 80 mg Methylprednisolone (Solu-Medrol) 30 mg IVP BID [facility] Last Admin: 10/22/17 10:48 Dose: 30 mg Multivitamins/Minerals (Therapeutic-M Tab) 1 tab PO DAILY [facility] Last Admin: 10/22/17 10:44 Dose: 1 tab Fluticasone/Salmeterol (Advair Diskus 500/50) 1 puff IH Q12 [facility] Last Admin: 10/22/17 10:44 Dose: 1 puff Physical Exam - Constitutional Appears: No Acute Distress, Chronically Ill, Other (Cachetic) - Head Exam Head Exam: NORMAL INSPECTION - Eye Exam Eye Exam: PERRL - ENT Exam ENT Exam: Normal Exam - Neck Exam Neck exam: Positive for: Normal Inspection - Respiratory Exam Respiratory Exam: Decreased Breath Sounds (b/l, R>L), Wheezes (some on oscultation) Additional comments: Crackles b/l lower lung field - Cardiovascular Exam Cardiovascular Exam: REGULAR RHYTHM - GI/Abdominal Exam GI & Abdominal Exam: Normal Bowel Sounds, Soft - Extremities Exam Extremities exam: Positive for: normal inspection - Back Exam Back exam: NORMAL INSPECTION - Neurological Exam Neurological exam: Alert, Oriented x3 Additional comments: no focal motor/sensory deficit - Psychiatric Exam Psychiatric exam: Anxious - Skin Skin Exam: Normal Color, Warm Results - Vital Signs Recent Vital Signs: Last Vital Signs Temp 97.2 F L 10/22/17 12:00 Pulse 72 10/22/17 12:00 Resp 18 10/22/17 12:00 BP 91/59 L 10/22/17 12:00 Pulse Ox 100 10/22/17 12:00 reviewed J.P. - Labs Result Diagrams: 10/23/17 04:30 10/23/17 04:30 Labs: Laboratory Results - last 24 hr 10/21/17 10/21/17 10/21/17 13:54 14:34 14:35 WBC RBC Hgb Hct MCV MCH MCHC RDW Plt Count PT 15.8 H INR 1.4 H APTT 39.1 H pCO2 45 pO2 67 L 44 HCO3 26.9 ABG pH 7.40 ABG Total CO2 29.3 H ABG O2 Saturation 96.3 ABG O2 Content 12.9 L ABG Base Excess 2.7 ABG Hemoglobin 10.0 L ABG Carboxyhemoglobin 2.7 H POC ABG HHb (Measured) 3.5 ABG Methemoglobin 2.3 ABG O2 Capacity 13.4 L Dale Test Yes VBG pH 7.36 VBG pCO2 50 VBG HCO3 25.9 VBG Total CO2 29.7 H VBG O2 Sat (Calc) 75.9 H VBG Base Excess 1.9 VBG Potassium 4.1 A-a O2 Difference 105.0 Hgb O2 Saturation 91.5 L Sodium 134.0 Chloride 100.0 Glucose 180 H Lactate 2.3 H Liter Flow Vent Mode FiO2 32.0 40.0 Blood Gas Comments Lac=2.3 Crit Value Called To mayi Toth Crit Value Called By 22 Crit Value Read Back Y Blood Gas Notified Time 1441 Potassium Carbon Dioxide Anion Gap BUN Creatinine Est GFR ( Amer) Est GFR (Non-Af Amer) Random Glucose Calcium Total Bilirubin AST ALT Alkaline Phosphatase Total Protein Albumin Globulin Albumin/Globulin Ratio Venous Blood Potassium 4.1 10/21/17 10/21/17 10/22/17 18:00 18:09 04:15 WBC 11.9 H RBC 3.32 L Hgb 8.6 L D Hct 26.8 L MCV 80.8 D MCH 25.7 L MCHC 31.9 L RDW 16.3 H Plt Count 103 L D PT INR APTT pCO2 46 H pO2 76 L HCO3 26.2 ABG pH 7.38 ABG Total CO2 28.6 H ABG O2 Saturation 96.4 ABG O2 Content 12.4 L ABG Base Excess 1.7 ABG Hemoglobin 9.3 L ABG Carboxyhemoglobin 1.3 POC ABG HHb (Measured) 3.5 ABG Methemoglobin 1.1 ABG O2 Capacity 12.9 L Dale Test Yes VBG pH VBG pCO2 VBG HCO3 VBG Total CO2 VBG O2 Sat (Calc) VBG Base Excess VBG Potassium A-a O2 Difference 294.0 Hgb O2 Saturation 94.1 L Sodium Chloride Glucose Lactate Liter Flow 15 Vent Mode High flow lpm FiO2 60.0 Blood Gas Comments Crit Value Called To Crit Value Called By Crit Value Read Back Blood Gas Notified Time Potassium 4.2 Carbon Dioxide Anion Gap BUN Creatinine Est GFR ( Amer) Est GFR (Non-Af Amer) Random Glucose Calcium Total Bilirubin AST ALT Alkaline Phosphatase Total Protein Albumin Globulin Albumin/Globulin Ratio Venous Blood Potassium 10/22/17 04:15 WBC RBC Hgb Hct MCV MCH MCHC RDW Plt Count PT INR APTT pCO2 pO2 HCO3 ABG pH ABG Total CO2 ABG O2 Saturation ABG O2 Content ABG Base Excess ABG Hemoglobin ABG Carboxyhemoglobin POC ABG HHb (Measured) ABG Methemoglobin ABG O2 Capacity Dale Test VBG pH VBG pCO2 VBG HCO3 VBG Total CO2 VBG O2 Sat (Calc) VBG Base Excess VBG Potassium A-a O2 Difference Hgb O2 Saturation Sodium 135 Chloride 94 L Glucose Lactate Liter Flow Vent Mode FiO2 Blood Gas Comments Crit Value Called To Crit Value Called By Crit Value Read Back Blood Gas Notified Time Potassium 4.1 Carbon Dioxide 30 Anion Gap 15 BUN 50 H Creatinine 1.2 Est GFR ( Amer) > 60 Est GFR (Non-Af Amer) > 60 Random Glucose 133 H Calcium 8.7 Total Bilirubin 0.8 AST 125 H D ALT 48 Alkaline Phosphatase 99 Total Protein 5.8 L Albumin 2.7 L D Globulin 3.1 Albumin/Globulin Ratio 0.9 L Venous Blood Potassium reviewed J.P. - Imaging and Cardiology Chest x-ray Status: Report reviewed by me (ZacP.) CT scan - chest Status: Report reviewed by me (ZacPSummer) Assessment & Plan (1) Pneumonia Status: Acute Priority: High (2) History of asthma Status: Chronic Priority: High (3) AIDS (acquired immunodeficiency syndrome), CD4 <=200/<=14% Status: Chronic Priority: High - Assessment and Plan (Free Text) Plan: Continue high flow O2, FIO2 60%, continue Zithromax IV, Vanco IV, Merrem IV, Bactrim IV , Duoneb, Solu-Medrol and rest of Tx , Respiratory Isolation, f/u sputum AFB - Date & Time Date: 10/22/17 Time: 12:00
--- NOTE | 2017-10-22 14:03 | CP.PCM.PN ---
Subjective - Date & Time of Evaluation Date of Evaluation: 10/22/17 Time of Evaluation: 14:03 - Subjective Subjective: ID note- patient seen and examined today. states his sob is somewhat better. denies any fever. still weak. Objective - Vital Signs/Intake and Output Vital Signs (last 24 hours): Temp Pulse Resp BP Pulse Ox 97.2 F L 72 18 91/59 L 100 10/22/17 12:00 10/22/17 12:00 10/22/17 12:00 10/22/17 12:00 10/22/17 12:00 - Medications Medications: Current Medications Albuterol/Ipratropium (Duoneb 3 Mg/0.5 Mg (3 Ml) Ud) 3 ml INH RTID [facility] Last Admin: 10/22/17 13:40 Dose: 3 ml Albuterol/Ipratropium (Duoneb 3 Mg/0.5 Mg (3 Ml) Ud) 3 ml INH RQ4 PRN PRN Reason: Shortness of Breath Bacitracin (Bacitracin Oint) 1 applic TOP TID [facility] Enoxaparin Sodium (Lovenox) 40 mg SC HS DIANDRA PRN Reason: Protocol Last Admin: 10/21/17 22:36 Dose: 40 mg Home Med (Elviteg/Luna/Emtric/Tenofo Dis [Stribild Tablet]) 1 tab PO DAILY [facility] Azithromycin 500 mg/ Sodium (Chloride) 250 mls @ 250 mls/hr IVPB DAILY DIANDRA PRN Reason: Protocol Meropenem 500 mg/ Sodium (Chloride) 100 mls @ 100 mls/hr IVPB Q8 DIANDRA PRN Reason: Protocol Last Admin: 10/22/17 10:49 Dose: 100 mls/hr Vancomycin HCl 750 mg/ Sodium (Chloride) 250 mls @ 166.667 mls/hr IVPB DAILY DIANDRA PRN Reason: Protocol Last Admin: 10/22/17 10:43 Dose: 166.667 mls/hr Trimethoprim/Sulfamethoxazole (400 mg/ Dextrose) 500 mls @ 333.333 mls/hr IVPB Q8 DIANDRA PRN Reason: Protocol Sodium Chloride (Sodium Chloride 0.9%) 1,000 mls @ 126 mls/hr IV .Q7H57M [facility] Stop: 10/23/17 12:11 Methadone HCl (Methadone) 80 mg PO DAILY [facility] Last Admin: 10/22/17 10:49 Dose: 80 mg Methylprednisolone (Solu-Medrol) 30 mg IVP BID [facility] Last Admin: 10/22/17 10:48 Dose: 30 mg Multivitamins/Minerals (Therapeutic-M Tab) 1 tab PO DAILY [facility] Last Admin: 10/22/17 10:44 Dose: 1 tab Fluticasone/Salmeterol (Advair Diskus 500/50) 1 puff IH Q12 [facility] Last Admin: 10/22/17 10:44 Dose: 1 puff - Labs Labs: 10/22/17 04:15 10/22/17 04:15 PT 15.8 Seconds (9.8-13.1) H 10/21/17 13:54 INR 1.4 (0.9-1.2) H 10/21/17 13:54 APTT 39.1 Seconds (25.6-37.1) H 10/21/17 13:54 - Additional Findings Additional findings: - Constitutional Appears: No Acute Distress, Cachectic, Chronically Ill - Head Exam Head Exam: ATRAUMATIC - Eye Exam Eye Exam: EOMI, PERRL - ENT Exam Additional comments: dry oropharynx - Neck Exam Neck exam: Positive for: Full Rom - Respiratory Exam Additional comments: less tachypneic has rhonchi in right lower lung field but less than before no wheezing - Cardiovascular Exam Cardiovascular Exam: RRR, +S1, +S2 - GI/Abdominal Exam GI & Abdominal Exam: Normal Bowel Sounds, Soft Additional comments: NT, ND - Extremities Exam Extremities exam: Positive for: normal inspection - Neurological Exam Neurological exam: Alert, Oriented x 3 Microbiology 10/22/17 14:00 Sputum Gram Stain - Final 10/22/17 14:00 Sputum Sputum Culture - Preliminary NORMAL ORAL ASHISH 10/21/17 11:23 Blood-Venous Blood Culture - Preliminary Gram Pos Cocci In Chains 10/21/17 11:23 Blood-Venous Gram Stain - Final 10/21/17 11:30 Blood-Venous S.aureus & Coag-Neg Staph PNA FISH - Final 10/21/17 11:30 Blood-Venous Blood Culture - Preliminary Gram Pos Cocci In Chains 10/21/17 11:30 Blood-Venous Gram Stain - Final 10/21/17 11:50 Sputum Gram Stain - Final 10/21/17 11:50 Sputum Sputum Culture - Final Pseudomonas Aeruginosa Assessment and Plan (1) Pneumonia Status: Acute (2) Pleural effusion Status: Deleted (3) AIDS (acquired immunodeficiency syndrome), CD4 <=200/<=14% Status: Chronic - Assessment and Plan (Free Text) Assessment: A/P- 52 year old amle with AIDS 9 last Cd4 -40), penile . rectal ca s/p radiation admitted with cough, phlegm sob and found to have large right midlle and lower lobe pneumonia and right pleural effusion. hypoxic on ABG. afebrile minimal leukocytosis most likely secondary to steroids. blood cx- GPC in chains x 2 prelim sputum cx- pseudomonas sens to meropenem plan- continue with airborne isolation pending sputum AFB x 3. await ID and sensitivity of the GPC in chains in blood cx. continue with IV vancomucon. keep trough <20. check TTE r/o vegetations. continue with IV bactrim for presumed PCP treatment .day #2. continie with IV meropenem for pneumonia and pseudomonas pna. day #2 senait costa tolerated meropenem well so far w/o any complaints. zithormax 1200 mg once a week for MAC prophylaxis since CD4 was 40. check cd4 and VL.
--- NOTE | 2017-10-22 14:17 | PQF GENQUE ---
Dr. Bettencourt, ER documented the following information with no mention of this diagnosis in your documentation. Please indicate in your next progress note your agreement with car sales consultant or provide clarification that this diagnosis is ruled out Diagnosis: Sepsis Documented by: ER ABG lactate: 2.3->2.3 ER: Clinical Impression: Pneumonia, Pleural effusion, Sepsis H and P: H and P: PE: Cardiovascular exam:-- tachycardia PMHx of HIV (CD4 is 120 on 10/01/17), HTN, rectal/penile cancer, colon cancer, and asthma has not been taking his HIV medications regularly and misses 5 out 7 days in a week-- admitted for pneumonia with hypoxia. Plan: -- Pneumonia WITH hypoxia ( PCP vs. CAP) --Hypotension ---HIV Infection --Asthma Unspecified severity: -c/w DuoNeb prn -c/w home meds --Heroin use disorder: -Pt takes 80 mg methadone daily ID progress note: dxs. include AIDS: hypoxia in setting of AIDS patient with pneumonia --should be presumed PCP pneumonia also in light of the fact that pt. has been exposed to other sick contacts and has low immune status should be ruled out for TB - This form is a permanent part of the medical record Clarification of your documentation is requested to better reflect the severity of illness and intensity of treatment of your patient. Indicators present [] Specify: [] [] Specify: [] [] Specify: [] [] Specify: [] Location in the medical record that reflects the above clinical findings: [] Treatment Provided: [] PHYSICIAN'S RESPONSE Based on your medical judgment of the clinical indicators outlined above please clarify the following: [] Practitioner response [] If unable to determine, please check the box, sign and date. Present On Admission (POA) Indicator: [] Present at the time of admission [] Not present at the time of admission [] Clinically Undetermined In responding to this query, please exercise your independent professional judgment. The fact that a question is asked does not imply that any particular answer is desired or expected. Thank you for your clarification on this documentation. If you have any questions please call. * Thank you, Jane Downs RN ext. #[phone] MTDD
[2017-10-22] MEDS: Bacitracin OINT 15GM TOP SCH ×2 (15:15→17:17)
[2017-10-22] MEDS: Enoxaparin 40 mg Syringe SC SCH (21:55)
[2017-10-23] MEDS: Meropenem 500 MG in Sodium Chloride 0.9% 100 ML IVPB SCH ×3 (00:40→18:27)
[2017-10-23] MEDS: DEXTROSE 5% IVPB SCH ×3 (01:42→18:27)
[2017-10-23] MEDS: SULFAMETHOXAZOLE IVPB SCH ×3 (01:42→18:27)
[2017-10-23] MEDS: TRIMETHOPRIM IVPB SCH ×3 (01:42→18:27)
[2017-10-23] MEDS: WATER IVPB SCH ×3 (01:42→18:27)
[2017-10-23] MEDS: Sodium Chloride 0.9% 1,000 ML IV SCH ×2 (04:10→14:45)
[2017-10-23 05:43] LABS: HEMOGLOBIN 8.5 g/dL (12.0-18.0); MEAN CELL VOLUME 81.5 fl (80.0-94.0); MEAN CORPUSCULAR HEMOGLOBIN 25.7 pg (27.0-31.0); MEAN CORPUSCULAR HGB CONC 31.5 g/dL (33.0-37.0); RBC 3.33 Mil/uL (4.40-5.90); RED CELL DISTRIBUTION WIDTH 16.8 % (11.5-14.5); WHITE BLOOD COUNT 14.9 K/uL (4.8-10.8)
[2017-10-23 06:07] LABS: ALB/GLOB RATIO 0.9 (1.0-2.1); ALBUMIN 2.7 g/dL (3.5-5.0); ALT/SGPT 48 U/L (21-72); AST/SGOT 86 U/L (17-59); BLOOD UREA NITROGEN 52 mg/dl (9-20); CALCIUM 8.8 mg/dL (8.4-10.2); GFR AFRICAN-AMERICAN > 60; GFR NON-AFRICAN AMERICAN > 60
--- NOTE | 2017-10-23 06:49 | CP.PCM.PN ---
Subjective - Date & Time of Evaluation Date of Evaluation: 10/23/17 Time of Evaluation: 08:10 - Subjective Subjective: Patient seen and examined this morning. Pt is on continue high flow oxygen, not in acute distress. Reports feeling significantly better since admission. Still has productive cough. State still has shortness of breath with talking. Denies any fever, chills or night sweats. Pt is tolerating PO. Has regular BM and voiding w/o difficulty. Objective - Vital Signs/Intake and Output Vital Signs (last 24 hours): Temp Pulse Resp BP Pulse Ox 97.2 F L 71 18 96/55 L 97 10/23/17 05:09 10/23/17 05:09 10/23/17 05:09 10/23/17 05:09 10/23/17 05:09 - Medications Medications: Current Medications Albuterol/Ipratropium (Duoneb 3 Mg/0.5 Mg (3 Ml) Ud) 3 ml INH RTID [facility] Last Admin: 10/22/17 19:14 Dose: 3 ml Albuterol/Ipratropium (Duoneb 3 Mg/0.5 Mg (3 Ml) Ud) 3 ml INH RQ4 PRN PRN Reason: Shortness of Breath Bacitracin (Bacitracin Oint) 1 applic TOP TID [facility] Last Admin: 10/22/17 17:17 Dose: 1 applic Enoxaparin Sodium (Lovenox) 40 mg SC HS DIANDRA PRN Reason: Protocol Last Admin: 10/22/17 21:55 Dose: 40 mg Home Med (Elviteg/Luna/Emtric/Tenofo Dis [Stribild Tablet]) 1 tab PO DAILY [facility] Azithromycin 500 mg/ Sodium (Chloride) 250 mls @ 250 mls/hr IVPB DAILY DIANDRA PRN Reason: Protocol Last Admin: 10/22/17 10:13 Dose: 250 mls/hr Meropenem 500 mg/ Sodium (Chloride) 100 mls @ 100 mls/hr IVPB Q8 DIANDRA PRN Reason: Protocol Last Admin: 10/23/17 00:40 Dose: 100 mls/hr Vancomycin HCl 750 mg/ Sodium (Chloride) 250 mls @ 166.667 mls/hr IVPB DAILY DIANDRA PRN Reason: Protocol Last Admin: 10/22/17 10:43 Dose: 166.667 mls/hr Trimethoprim/Sulfamethoxazole (400 mg/ Dextrose) 500 mls @ 333.333 mls/hr IVPB Q8 [facility] PRN Reason: Protocol Last Admin: 10/23/17 01:42 Dose: 333.333 mls/hr Sodium Chloride (Sodium Chloride 0.9%) 1,000 mls @ 126 mls/hr IV .Q7H57M [facility] Stop: 10/23/17 12:11 Last Admin: 10/23/17 04:10 Dose: 126 mls/hr Methadone HCl (Methadone) 80 mg PO DAILY [facility] Last Admin: 10/22/17 10:49 Dose: 80 mg Methylprednisolone (Solu-Medrol) 30 mg IVP BID [facility] Last Admin: 10/22/17 17:16 Dose: 30 mg Multivitamins/Minerals (Therapeutic-M Tab) 1 tab PO DAILY [facility] Last Admin: 10/22/17 10:44 Dose: 1 tab Fluticasone/Salmeterol (Advair Diskus 500/50) 1 puff IH Q12 [facility] Last Admin: 10/22/17 20:54 Dose: 1 puff - Labs Labs: 10/23/17 04:30 10/23/17 04:30 PT 15.8 Seconds (9.8-13.1) H 10/21/17 13:54 INR 1.4 (0.9-1.2) H 10/21/17 13:54 APTT 39.1 Seconds (25.6-37.1) H 10/21/17 13:54 - Additional Findings Additional findings: - Constitutional Appears: Not in acute distress Cachectic, Chronically Ill, on high flow O2 - Head Exam Additional comments: temporal muscle wasting - Eye Exam Eye Exam: EOMI, Normal appearance. absent: Scleral icterus - ENT Exam ENT Exam: Mucous Membranes Dry - Neck Exam Neck exam: Positive for: Normal Inspection. Negative for: Meningismus - Respiratory Exam Respiratory Exam: NORMAL BREATHING PATTERN. absent: wheezing. No accessory muscle usage. Additional comments: crackles B/L lower lung field ( R>L) - Cardiovascular Exam Cardiovascular Exam: Tachycardia, +S1, +S2 - GI/Abdominal Exam GI & Abdominal Exam: Normal Bowel Sounds, Soft. absent: Rebound, Rigid, Tenderness; mild erythematous lesion on right inguinal area. No edema, discharge or oozing. - Extremities Exam Extremities exam: Positive for: normal inspection. Negative for: calf tenderness, pedal edema - Neurological Exam Neurological exam: Alert, Oriented x3 - Psychiatric Exam Psychiatric exam: Anxious - Skin Skin Exam: Normal Color, Warm Assessment and Plan - Assessment and Plan (Free Text) Assessment: Assessment: 52 y/o male with a PMHx of HIV (CD4 is 120 on 10/01/17), HTN, rectal/penile cancer, colon cancer, and asthma admitted for gram+ cocci bacteremia and pseudomonas pneumonia with hypoxia. Plan: Gram Positive Cocci Bacteremia: -ID on board -Continue Meropenem 500 mg IVP q8 (day 3) -Continue Vancomycin 750 mg ivp daily (day 3) (received 1 gm ceftriaxone in ED) -Lactate 2.3 on VBG on 10/21/17 -wbc 14.9 (trending up, likely due to steroids) -F/U ECHO -will repeat blood cx Pseudomonas Pneumonia WITH hypoxia -Continue Meropenem 500 mg IVP q8 (day 3); pseudomonas is sensitive to Meropenem. -Continue on Bactrim IV 400 mg Q8 (day 3), s/p Bactrim DS 2 tabs in ED -Continue on methylprednisone 30 mg IVP daily (day 2), s/p methylprednisolone 125mg in ED -Continue azithromycin 500 mg ivpb daily (day 3) -CXR: Interval right basilar infiltrate affection the right lower lobe with none otherwise evident. Right plural effusion not excluded. None at the left -CHEST CT: IMPRESSION: New extensive infiltrate, multiple segments right lower lobe. Right middle lobe infiltrate. New large complex right pleural effusion suggesting debris. Tiny loculations air identified as well. -IR consult appreciated: "IR consulted for right thoracentesis. CT reviewed, no fluid seen; extensive right lower lobe consolidation. Due to ambiguous imaging appearance, patient brought to IR. Focused ultrasound of right hemithorax confirmed RLL consolidation without evidence of pleural fluid". -Duo-nebs PRN -On-high flow oxygen. -PO2: 72 and 67 in VBG yesterday.. -Sputum cx: Pseudomonas aeruginosa -Pulmonary consult appreciated. Hypotension: -Improving -Received 1 L NS in ED -Continue NS@ 126 cc/hr -monitor BPs AIDS: -Last CD4 count in 10/01/17 is 120 -Noncompliant with HAART -Resume home meds Asthma, unspecified type -c/w DuoNeb TID -c/w DuoNeb q4h prn -c/w home medications Heroin use disorder: -Pt takes 80 mg methadone daily -c/w current medication Right groin lesion: -Apply mupirocin TOP BID -Monitor DVT prophylaxis -platelet count: 114 -eGFR>60 -SCDs PRN -Lovenox 40mg SC QD Diet -Heart Healthy diet
[2017-10-23] MEDS: Albuterol-Ipratrop 3 mg / 0.5 (3 ml) UD INH SCH ×3 (08:01→19:11)
[2017-10-23] MEDS: Multivitamin With Minerals Tab PO SCH (09:32)
[2017-10-23] MEDS: Bacitracin OINT 15GM TOP SCH (09:32)
[2017-10-23] MEDS: Azithromycin 500 MG in Sodium Chloride 0.9% 250 ML IVPB SCH (09:34)
[2017-10-23] MEDS: Fluticasone-Salmeterol 500-50mcg Diskus IH SCH ×2 (09:34→21:36)
[2017-10-23] MEDS: MethylPREDNISolone 40 mg Vial IVP SCH ×2 (09:38→18:27)
--- NOTE | 2017-10-23 12:15 | CP.PCM.PN ---
Subjective - Date & Time of Evaluation Date of Evaluation: 10/23/17 Time of Evaluation: 12:40 - Subjective Subjective: F/u PNA Breathing better , no SOB with High Flow O2 , less cough Objective - Vital Signs/Intake and Output Vital Signs (last 24 hours): Temp Pulse Resp BP Pulse Ox 97.4 F L 79 18 108/68 99 10/23/17 12:08 10/23/17 12:08 10/23/17 12:08 10/23/17 12:08 10/23/17 12:08 - Medications Medications: Current Medications Albuterol/Ipratropium (Duoneb 3 Mg/0.5 Mg (3 Ml) Ud) 3 ml INH RTID DIANDRA Last Admin: 10/23/17 08:01 Dose: 3 ml Albuterol/Ipratropium (Duoneb 3 Mg/0.5 Mg (3 Ml) Ud) 3 ml INH RQ4 PRN PRN Reason: Shortness of Breath Enoxaparin Sodium (Lovenox) 40 mg SC HS DIANDRA PRN Reason: Protocol Last Admin: 10/22/17 21:55 Dose: 40 mg Home Med (Elviteg/Luna/Emtric/Tenofo Dis [Stribild Tablet]) 1 tab PO DAILY [facility] Azithromycin 500 mg/ Sodium (Chloride) 250 mls @ 250 mls/hr IVPB DAILY DIANDRA PRN Reason: Protocol Last Admin: 10/23/17 09:34 Dose: 250 mls/hr Meropenem 500 mg/ Sodium (Chloride) 100 mls @ 100 mls/hr IVPB Q8 DIANDRA PRN Reason: Protocol Last Admin: 10/23/17 09:32 Dose: 100 mls/hr Vancomycin HCl 750 mg/ Sodium (Chloride) 250 mls @ 166.667 mls/hr IVPB DAILY DIANDRA PRN Reason: Protocol Last Admin: 10/23/17 09:35 Dose: 166.667 mls/hr Trimethoprim/Sulfamethoxazole (400 mg/ Dextrose) 500 mls @ 333.333 mls/hr IVPB Q8 DIANDRA PRN Reason: Protocol Last Admin: 10/23/17 09:34 Dose: 333.333 mls/hr Sodium Chloride (Sodium Chloride 0.9%) 1,000 mls @ 126 mls/hr IV .Q7H57M [facility] Stop: 10/23/17 12:11 Last Admin: 10/23/17 04:10 Dose: 126 mls/hr Methadone HCl (Methadone) 80 mg PO DAILY [facility] Last Admin: 10/23/17 09:39 Dose: 80 mg Methylprednisolone (Solu-Medrol) 30 mg IVP BID [facility] Last Admin: 10/23/17 09:38 Dose: 30 mg Multivitamins/Minerals (Therapeutic-M Tab) 1 tab PO DAILY [facility] Last Admin: 10/23/17 09:32 Dose: 1 tab Mupirocin (Bactroban Cream) 1 applic TOP BID [facility] Fluticasone/Salmeterol (Advair Diskus 500/50) 1 puff IH Q12 [facility] Last Admin: 10/23/17 09:34 Dose: 1 puff - Labs Labs: 10/23/17 04:30 10/23/17 04:30 PT 15.8 Seconds (9.8-13.1) H 10/21/17 13:54 INR 1.4 (0.9-1.2) H 10/21/17 13:54 APTT 39.1 Seconds (25.6-37.1) H 10/21/17 13:54 - Constitutional Appears: Chronically Ill - Head Exam Head Exam: NORMAL INSPECTION - Eye Exam Eye Exam: PERRL - ENT Exam ENT Exam: Normal Exam - Neck Exam Neck Exam: Normal Inspection - Respiratory Exam Respiratory Exam: Decreased Breath Sounds (R> L base) - Cardiovascular Exam Cardiovascular Exam: REGULAR RHYTHM - GI/Abdominal Exam GI & Abdominal Exam: Soft, Normal Bowel Sounds - Extremities Exam Extremities Exam: Normal Inspection - Back Exam Back Exam: NORMAL INSPECTION - Neurological Exam Neurological Exam: Alert, Oriented x3 Additional comments: no focal motor/sensory deficit - Psychiatric Exam Psychiatric exam: Anxious - Skin Skin Exam: Warm Assessment and Plan (1) Pneumonia Status: Acute (2) History of asthma Status: Chronic (3) AIDS (acquired immunodeficiency syndrome), CD4 <=200/<=14% Status: Chronic - Assessment and Plan (Free Text) Plan: continue High Flow O2, DuoNeb , Solu Medrol , Merren , Bactrim , Vanco , Zitromax , Methadone , f/u sputum C-S.
--- NOTE | 2017-10-23 14:48 | CP.PCM.PN ---
Subjective - Date & Time of Evaluation Date of Evaluation: 10/23/17 Time of Evaluation: 14:46 - Subjective Subjective: ID note- Patient seen and examined today. states he feels better. less sob and less cough. eating lunch now. Objective - Vital Signs/Intake and Output Vital Signs (last 24 hours): Temp Pulse Resp BP Pulse Ox 97.4 F L 79 18 108/68 99 10/23/17 12:08 10/23/17 12:08 10/23/17 12:08 10/23/17 12:08 10/23/17 12:08 - Medications Medications: Current Medications Albuterol/Ipratropium (Duoneb 3 Mg/0.5 Mg (3 Ml) Ud) 3 ml INH RTID [facility] Last Admin: 10/23/17 08:01 Dose: 3 ml Albuterol/Ipratropium (Duoneb 3 Mg/0.5 Mg (3 Ml) Ud) 3 ml INH RQ4 PRN PRN Reason: Shortness of Breath Enoxaparin Sodium (Lovenox) 40 mg SC DIANDRA PRN Reason: Protocol Last Admin: 10/22/17 21:55 Dose: 40 mg Home Med (Elviteg/Luna/Emtric/Tenofo Dis [Stribild Tablet]) 1 tab PO DAILY [facility] Azithromycin 500 mg/ Sodium (Chloride) 250 mls @ 250 mls/hr IVPB DAILY DIANDRA PRN Reason: Protocol Last Admin: 10/23/17 09:34 Dose: 250 mls/hr Meropenem 500 mg/ Sodium (Chloride) 100 mls @ 100 mls/hr IVPB Q8 DIANDRA PRN Reason: Protocol Last Admin: 10/23/17 09:32 Dose: 100 mls/hr Vancomycin HCl 750 mg/ Sodium (Chloride) 250 mls @ 166.667 mls/hr IVPB DAILY DIANDRA PRN Reason: Protocol Last Admin: 10/23/17 09:35 Dose: 166.667 mls/hr Trimethoprim/Sulfamethoxazole (400 mg/ Dextrose) 500 mls @ 333.333 mls/hr IVPB Q8 DIANDRA PRN Reason: Protocol Last Admin: 10/23/17 09:34 Dose: 333.333 mls/hr Methadone HCl (Methadone) 80 mg PO DAILY [facility] Last Admin: 10/23/17 09:39 Dose: 80 mg Methylprednisolone (Solu-Medrol) 30 mg IVP BID [facility] Last Admin: 10/23/17 09:38 Dose: 30 mg Multivitamins/Minerals (Therapeutic-M Tab) 1 tab PO DAILY [facility] Last Admin: 10/23/17 09:32 Dose: 1 tab Mupirocin (Bactroban Cream) 1 applic TOP BID [facility] Fluticasone/Salmeterol (Advair Diskus 500/50) 1 puff IH Q12 [facility] Last Admin: 10/23/17 09:34 Dose: 1 puff - Labs Labs: - Additional Findings Additional findings: - Constitutional Appears: No Acute Distress - Head Exam Head Exam: ATRAUMATIC - Eye Exam Eye Exam: EOMI, PERRL - ENT Exam Additional comments: dry oropharynx - Neck Exam Neck exam: Positive for: Full Rom - Respiratory Exam Additional comments: no wheezing decreased breath sound at right base - Cardiovascular Exam Cardiovascular Exam: RRR, +S1, +S2 - GI/Abdominal Exam GI & Abdominal Exam: Normal Bowel Sounds, Soft Additional comments: NT, ND - Extremities Exam Extremities exam: Positive for: normal inspection - Neurological Exam Neurological exam: Alert, Oriented x 3 Laboratory Results - last 72 hr 10/21/17 10/21/17 10/21/17 10:37 10:37 10:41 WBC 10.0 D RBC 4.06 L Hgb 10.8 L Hct 34.0 L MCV 83.8 MCH 26.7 L MCHC 31.8 L RDW 16.4 H Plt Count 145 MPV 9.8 Neut % (Auto) 97.0 H Lymph % (Auto) 2.4 L [place] % (Auto) 0.5 Eos % (Auto) 0.0 Baso % (Auto) 0.1 Neut # (Auto) 9.7 H Lymph # (Auto) 0.2 L [place] # (Auto) 0.1 Eos # (Auto) 0.0 Baso # (Auto) 0.0 Neutrophils % (Manual) 92 H Band Neutrophils % 2 Lymphocytes % (Manual) 3 L Monocytes % (Manual) 3 Platelet Estimate Normal Large Platelets Present Hypochromasia (manual) Slight Anisocytosis (manual) Slight PT INR APTT pCO2 pO2 17 L HCO3 ABG pH ABG Total CO2 ABG O2 Saturation ABG O2 Content ABG Base Excess ABG Hemoglobin ABG Carboxyhemoglobin POC ABG HHb (Measured) ABG Methemoglobin ABG O2 Capacity Dale Test VBG pH 7.36 VBG pCO2 61 H VBG HCO3 28.3 VBG Total CO2 36.4 H VBG O2 Sat (Calc) 16.6 L VBG Base Excess 7.0 H VBG Potassium 5.5 H A-a O2 Difference Hgb O2 Saturation Glucose 133 H Lactate 2.3 H Liter Flow Vent Mode FiO2 28.0 Blood Gas Comments Lac=2.3 Crit Value Called To mayi Toth Crit Value Called By 22 Crit Value Read Back Y Blood Gas Notified Time 1047 Sodium 137 133.0 Potassium 5.9 H Chloride 93 L 98.0 Carbon Dioxide 28 Anion Gap 22 H BUN 71 H Creatinine 1.9 H Est GFR ( Amer) 45 Est GFR (Non-Af Amer) 37 Random Glucose 127 H Calcium 9.2 Total Bilirubin 1.6 H AST 80 H D ALT 41 Alkaline Phosphatase 106 Troponin I < 0.0120 NT-Pro-B Natriuret Pep 492 Total Protein 7.3 Albumin 3.4 L Globulin 3.9 Albumin/Globulin Ratio 0.9 L Venous Blood Potassium 5.5 H 10/21/17 10/21/17 10/21/17 10:42 13:54 14:34 WBC RBC Hgb Hct MCV MCH MCHC RDW Plt Count MPV Neut % (Auto) Lymph % (Auto) [place] % (Auto) Eos % (Auto) Baso % (Auto) Neut # (Auto) Lymph # (Auto) [place] # (Auto) Eos # (Auto) Baso # (Auto) Neutrophils % (Manual) Band Neutrophils % Lymphocytes % (Manual) Monocytes % (Manual) Platelet Estimate Large Platelets Hypochromasia (manual) Anisocytosis (manual) PT 15.8 H INR 1.4 H APTT 39.1 H pCO2 45 45 pO2 72 L 67 L HCO3 28.0 26.9 ABG pH 7.42 7.40 ABG Total CO2 30.6 H 29.3 H ABG O2 Saturation 96.3 96.3 ABG O2 Content 14.0 L 12.9 L ABG Base Excess 4.1 H 2.7 ABG Hemoglobin 10.8 L 10.0 L ABG Carboxyhemoglobin 2.7 H 2.7 H POC ABG HHb (Measured) 3.5 3.5 ABG Methemoglobin 2.4 2.3 ABG O2 Capacity 14.5 L 13.4 L Dale Test Yes Yes VBG pH VBG pCO2 VBG HCO3 VBG Total CO2 VBG O2 Sat (Calc) VBG Base Excess VBG Potassium A-a O2 Difference 71.0 105.0 Hgb O2 Saturation 91.5 L 91.5 L Glucose Lactate Liter Flow Vent Mode FiO2 28.0 32.0 Blood Gas Comments Crit Value Called To Crit Value Called By Crit Value Read Back Blood Gas Notified Time Sodium Potassium Chloride Carbon Dioxide Anion Gap BUN Creatinine Est GFR ( Amer) Est GFR (Non-Af Amer) Random Glucose Calcium Total Bilirubin AST ALT Alkaline Phosphatase Troponin I NT-Pro-B Natriuret Pep Total Protein Albumin Globulin Albumin/Globulin Ratio Venous Blood Potassium 10/21/17 10/21/17 10/21/17 14:35 18:00 18:09 WBC RBC Hgb Hct MCV MCH MCHC RDW Plt Count MPV Neut % (Auto) Lymph % (Auto) [place] % (Auto) Eos % (Auto) Baso % (Auto) Neut # (Auto) Lymph # (Auto) [place] # (Auto) Eos # (Auto) Baso # (Auto) Neutrophils % (Manual) Band Neutrophils % Lymphocytes % (Manual) Monocytes % (Manual) Platelet Estimate Large Platelets Hypochromasia (manual) Anisocytosis (manual) PT INR APTT pCO2 46 H pO2 44 76 L HCO3 26.2 ABG pH 7.38 ABG Total CO2 28.6 H ABG O2 Saturation 96.4 ABG O2 Content 12.4 L ABG Base Excess 1.7 ABG Hemoglobin 9.3 L ABG Carboxyhemoglobin 1.3 POC ABG HHb (Measured) 3.5 ABG Methemoglobin 1.1 ABG O2 Capacity 12.9 L Dale Test Yes VBG pH 7.36 VBG pCO2 50 VBG HCO3 25.9 VBG Total CO2 29.7 H VBG O2 Sat (Calc) 75.9 H VBG Base Excess 1.9 VBG Potassium 4.1 A-a O2 Difference 294.0 Hgb O2 Saturation 94.1 L Glucose 180 H Lactate 2.3 H Liter Flow 15 Vent Mode High flow lpm FiO2 40.0 60.0 Blood Gas Comments Lac=2.3 Crit Value Called To mayi Toth Crit Value Called By 22 Crit Value Read Back Y Blood Gas Notified Time 1441 Sodium 134.0 Potassium 4.2 Chloride 100.0 Carbon Dioxide Anion Gap BUN Creatinine Est GFR ( Amer) Est GFR (Non-Af Amer) Random Glucose Calcium Total Bilirubin AST ALT Alkaline Phosphatase Troponin I NT-Pro-B Natriuret Pep Total Protein Albumin Globulin Albumin/Globulin Ratio Venous Blood Potassium 4.1 10/22/17 10/22/17 10/23/17 04:15 04:15 04:30 WBC 11.9 H 14.9 H RBC 3.32 L 3.33 L Hgb 8.6 L D 8.5 L Hct 26.8 L 27.1 L MCV 80.8 D 81.5 MCH 25.7 L 25.7 L MCHC 31.9 L 31.5 L RDW 16.3 H 16.8 H Plt Count 103 L D 114 L MPV Neut % (Auto) Lymph % (Auto) [place] % (Auto) Eos % (Auto) Baso % (Auto) Neut # (Auto) Lymph # (Auto) [place] # (Auto) Eos # (Auto) Baso # (Auto) Neutrophils % (Manual) Band Neutrophils % Lymphocytes % (Manual) Monocytes % (Manual) Platelet Estimate Large Platelets Hypochromasia (manual) Anisocytosis (manual) PT INR APTT pCO2 pO2 HCO3 ABG pH ABG Total CO2 ABG O2 Saturation ABG O2 Content ABG Base Excess ABG Hemoglobin ABG Carboxyhemoglobin POC ABG HHb (Measured) ABG Methemoglobin ABG O2 Capacity Dale Test VBG pH VBG pCO2 VBG HCO3 VBG Total CO2 VBG O2 Sat (Calc) VBG Base Excess VBG Potassium A-a O2 Difference Hgb O2 Saturation Glucose Lactate Liter Flow Vent Mode FiO2 Blood Gas Comments Crit Value Called To Crit Value Called By Crit Value Read Back Blood Gas Notified Time Sodium 135 Potassium 4.1 Chloride 94 L Carbon Dioxide 30 Anion Gap 15 BUN 50 H Creatinine 1.2 Est GFR ( Amer) > 60 Est GFR (Non-Af Amer) > 60 Random Glucose 133 H Calcium 8.7 Total Bilirubin 0.8 AST 125 H D ALT 48 Alkaline Phosphatase 99 Troponin I NT-Pro-B Natriuret Pep Total Protein 5.8 L Albumin 2.7 L D Globulin 3.1 Albumin/Globulin Ratio 0.9 L Venous Blood Potassium 10/23/17 04:30 WBC RBC Hgb Hct MCV MCH MCHC RDW Plt Count MPV Neut % (Auto) Lymph % (Auto) [place] % (Auto) Eos % (Auto) Baso % (Auto) Neut # (Auto) Lymph # (Auto) [place] # (Auto) Eos # (Auto) Baso # (Auto) Neutrophils % (Manual) Band Neutrophils % Lymphocytes % (Manual) Monocytes % (Manual) Platelet Estimate Large Platelets Hypochromasia (manual) Anisocytosis (manual) PT INR APTT pCO2 pO2 HCO3 ABG pH ABG Total CO2 ABG O2 Saturation ABG O2 Content ABG Base Excess ABG Hemoglobin ABG Carboxyhemoglobin POC ABG HHb (Measured) ABG Methemoglobin ABG O2 Capacity Dale Test VBG pH VBG pCO2 VBG HCO3 VBG Total CO2 VBG O2 Sat (Calc) VBG Base Excess VBG Potassium A-a O2 Difference Hgb O2 Saturation Glucose Lactate Liter Flow Vent Mode FiO2 Blood Gas Comments Crit Value Called To Crit Value Called By Crit Value Read Back Blood Gas Notified Time Sodium 137 Potassium 4.2 Chloride 96 L Carbon Dioxide 29 Anion Gap 16 BUN 52 H Creatinine 1.2 Est GFR ( Amer) > 60 Est GFR (Non-Af Amer) > 60 Random Glucose 138 H Calcium 8.8 Total Bilirubin 0.2 AST 86 H D ALT 48 Alkaline Phosphatase 117 Troponin I NT-Pro-B Natriuret Pep Total Protein 5.8 L Albumin 2.7 L Globulin 3.1 Albumin/Globulin Ratio 0.9 L Venous Blood Potassium Microbiology 10/22/17 14:00 Sputum Gram Stain - Final 10/22/17 14:00 Sputum Sputum Culture - Preliminary NORMAL ORAL ASHISH 10/21/17 11:23 Blood-Venous Blood Culture - Preliminary Gram Pos Cocci In Chains 10/21/17 11:23 Blood-Venous Gram Stain - Final 10/21/17 11:30 Blood-Venous S.aureus & Coag-Neg Staph PNA FISH - Final 10/21/17 11:30 Blood-Venous Blood Culture - Preliminary Gram Pos Cocci In Chains 10/21/17 11:30 Blood-Venous Gram Stain - Final 10/21/17 11:50 Sputum Gram Stain - Final 10/21/17 11:50 Sputum Sputum Culture - Final Pseudomonas Aeruginosa Assessment and Plan (1) Pneumonia Status: Acute (2) Pleural effusion Status: Deleted (3) AIDS (acquired immunodeficiency syndrome), CD4 <=200/<=14% Status: Chronic - Assessment and Plan (Free Text) Assessment: A/P- 52 year old amle with AIDS 9 last Cd4 -40), penile . rectal ca s/p radiation admitted with cough, phlegm sob and found to have large right midlle and lower lobe pneumonia and right pleural effusion. hypoxic on ABG. afebrile minimal leukocytosis most likely secondary to steroids. blood cx- GPC in chains x 2 prelim sputum cx- pseudomonas sens to meropenem plan- continue with airborne isolation pending sputum AFB x 3. await ID and sensitivity of the GPC in chains in blood cx. continue with IV vancomycin day #3. keep trough <20. check TTE r/o vegetations. continue with IV bactrim for presumed PCP treatment .day #3 continie with IV meropenem for pneumonia and pseudomonas pna. day #3. patient has tolerated meropenem well so far w/o any complaints. zithormax 1200 mg once a week for MAC prophylaxis since CD4 was 40. check cd4 and VL.
[2017-10-23] MEDS: Mupirocin 2% Cream TOP SCH (18:28)
[2017-10-23] MEDS: Enoxaparin 40 mg Syringe SC SCH (21:36)
[2017-10-23 23:21] LABS: URINE BILIRUBIN NEGATIVE (NEGATIVE); URINE BLOOD NEGATIVE (NEGATIVE); URINE CLARITY CLEAR (Clear); URINE COLOR YELLOW (YELLOW); URINE GLUCOSE (UA) NEG (Normal); URINE LEUKOCYTE ESTERASE NEG Leu/uL (Negative); URINE PROTEIN NEGATIVE (NEGATIVE); URINE UROBILINOGEN 0.2-1.0 mg/dL (0.2-1.0)
[2017-10-24] MEDS: DEXTROSE 5% IVPB SCH ×3 (00:17→17:24)
[2017-10-24] MEDS: TRIMETHOPRIM IVPB SCH ×3 (00:17→17:24)
[2017-10-24] MEDS: WATER IVPB SCH ×3 (00:17→17:24)
[2017-10-24] MEDS: SULFAMETHOXAZOLE IVPB SCH ×3 (00:17→17:24)
[2017-10-24] MEDS: Meropenem 500 MG in Sodium Chloride 0.9% 100 ML IVPB SCH ×3 (00:18→17:26)
[2017-10-24] MEDS: Albuterol-Ipratrop 3 mg / 0.5 (3 ml) UD INH SCH ×3 (07:53→19:21)
--- NOTE | 2017-10-24 07:59 | CP.PCM.PN ---
Subjective - Date & Time of Evaluation Date of Evaluation: 10/24/17 Time of Evaluation: 08:10 - Subjective Subjective: Patient seen and examined at bedside this morning. Pt is on continue high flow oxygen and not in acute distress. Pt reports he is feeling better and cough has improved a lot. Denies any chest pain with deep breathing. Denies any fever, chills or night sweats. Pt is tolerating PO. Has regular BM and voiding w/o difficulty. Denies any other complaints. Objective - Vital Signs/Intake and Output Vital Signs (last 24 hours): Temp Pulse Resp BP Pulse Ox 97.6 F 79 18 112/59 L 99 10/24/17 05:18 10/24/17 05:18 10/24/17 07:54 10/24/17 05:18 10/24/17 05:18 - Medications Medications: Current Medications Albuterol/Ipratropium (Duoneb 3 Mg/0.5 Mg (3 Ml) Ud) 3 ml INH RTID [facility] Last Admin: 10/24/17 07:53 Dose: 3 ml Albuterol/Ipratropium (Duoneb 3 Mg/0.5 Mg (3 Ml) Ud) 3 ml INH RQ4 PRN PRN Reason: Shortness of Breath Azithromycin (Zithromax) 1,200 mg PO QWK DIANDRA PRN Reason: Protocol Enoxaparin Sodium (Lovenox) 40 mg SC HS DIANDRA PRN Reason: Protocol Last Admin: 10/23/17 21:36 Dose: 40 mg Home Med (Elviteg/Luna/Emtric/Tenofo Dis [Stribild Tablet]) 1 tab PO DAILY [facility] Last Admin: 10/23/17 15:25 Dose: 1 tab Meropenem 500 mg/ Sodium (Chloride) 100 mls @ 100 mls/hr IVPB Q8 DIANRDA PRN Reason: Protocol Last Admin: 10/24/17 00:18 Dose: 100 mls/hr Vancomycin HCl 750 mg/ Sodium (Chloride) 250 mls @ 166.667 mls/hr IVPB DAILY DIANDRA PRN Reason: Protocol Last Admin: 10/23/17 09:35 Dose: 166.667 mls/hr Trimethoprim/Sulfamethoxazole (400 mg/ Dextrose) 500 mls @ 333.333 mls/hr IVPB Q8 DIANDRA PRN Reason: Protocol Last Admin: 10/24/17 00:17 Dose: 333.333 mls/hr Methadone HCl (Methadone) 80 mg PO DAILY [facility] Last Admin: 10/23/17 09:39 Dose: 80 mg Methylprednisolone (Solu-Medrol) 30 mg IVP BID [facility] Last Admin: 10/23/17 18:27 Dose: 30 mg Multivitamins/Minerals (Therapeutic-M Tab) 1 tab PO DAILY [facility] Last Admin: 10/23/17 09:32 Dose: 1 tab Mupirocin (Bactroban Cream) 1 applic TOP BID [facility] Last Admin: 10/23/17 18:28 Dose: 1 appl Fluticasone/Salmeterol (Advair Diskus 500/50) 1 puff IH Q12 [facility] Last Admin: 10/23/17 21:36 Dose: 1 puff - Labs Labs: 10/23/17 04:30 10/23/17 04:30 PT 15.8 Seconds (9.8-13.1) H 10/21/17 13:54 INR 1.4 (0.9-1.2) H 10/21/17 13:54 APTT 39.1 Seconds (25.6-37.1) H 10/21/17 13:54 - Constitutional Appears: Non-toxic, No Acute Distress, Cachectic, Chronically Ill, Other (on high flow O2) - Eye Exam Eye Exam: Normal appearance. absent: Scleral icterus - ENT Exam ENT Exam: Mucous Membranes Moist - Neck Exam Neck Exam: absent: Lymphadenopathy, Meningismus - Respiratory Exam Respiratory Exam: absent: Wheezes, Respiratory Distress Additional comments: Improved rhonci in B/L lower lung narayan, no wheezing. - Cardiovascular Exam Cardiovascular Exam: REGULAR RHYTHM, RRR, +S1, +S2 - GI/Abdominal Exam GI & Abdominal Exam: Soft, Normal Bowel Sounds. absent: Tenderness Additional comments: Mild erythematous lesion on right inguinal area. No edema, discharge or oozing. - Extremities Exam Extremities Exam: Normal Capillary Refill, Normal Inspection. absent: Calf Tenderness, Pedal Edema - Neurological Exam Neurological Exam: Alert, Awake, Oriented x3 - Psychiatric Exam Psychiatric exam: Normal Affect, Normal Mood Assessment and Plan - Assessment and Plan (Free Text) Assessment: 52 y/o male with a PMHx of HIV (CD4 is 120 on 10/01/17), HTN, rectal/penile cancer, colon cancer, and asthma admitted for bacteremia and pseudomonas pneumonia with hypoxia. Plan: Streptococcus gallolyticus Bacteremia: -ID on board -Continue Meropenem 500 mg IVP q8 (day 4) -Continue Vancomycin 750 mg ivp daily (day 4) -Vanco level: <5 this morning -Lactate 2.3 on VBG on 10/21/17 -F/U ECHO report -f/u repeat blood cx -CBC tomorrow Pseudomonas Pneumonia WITH hypoxia -Continue Meropenem 500 mg IVP q8 (day 4); pseudomonas is sensitive to Meropenem. -Continue on Bactrim IV 400 mg Q8 (day 4) for PCP prophylaxis, s/p Bactrim DS 2 tabs in ED -Continue on methylprednisone 30 mg IVP daily (day 3) for PCP prophylaxis, s/p methylprednisolone 125mg in ED -azithromycin 1200 mg po qweekly for MAC prophylaxis -CXR: Interval right basilar infiltrate affection the right lower lobe with none otherwise evident. Right plural effusion not excluded. None at the left -CHEST CT: IMPRESSION: New extensive infiltrate, multiple segments right lower lobe. Right middle lobe infiltrate. New large complex right pleural effusion suggesting debris. Tiny loculations air identified as well. -IR consult appreciated: "IR consulted for right thoracentesis. CT reviewed, no fluid seen; extensive right lower lobe consolidation. Due to ambiguous imaging appearance, patient brought to IR. Focused ultrasound of right hemithorax confirmed RLL consolidation without evidence of pleural fluid". -Duo-nebs PRN -On-high flow oxygen. -PO2: 72 and 67 in VBG yesterday.. -Sputum cx: Pseudomonas aeruginosa -Pulmonary consult appreciated. AIDS: -Last CD4 count in 10/01/17 is 120 -Noncompliant with HAART -Resume home meds Asthma, unspecified type -c/w DuoNeb TID -c/w DuoNeb q4h prn -c/w home medications Heroin use disorder: -Pt takes 80 mg methadone daily -c/w current medication Right groin lesion: -Apply mupirocin TOP BID -Monitor DVT prophylaxis -platelet count: 114 -eGFR>60 -SCDs PRN -Lovenox 40mg SC QD Diet -Heart Healthy diet
[2017-10-24] MEDS: Fluticasone-Salmeterol 500-50mcg Diskus IH SCH ×2 (09:02→21:12)
[2017-10-24] MEDS: Mupirocin 2% Cream TOP SCH ×2 (09:06→17:25)
[2017-10-24] MEDS: MethylPREDNISolone 40 mg Vial IVP SCH ×2 (09:10→17:26)
[2017-10-24] MEDS: Multivitamin With Minerals Tab PO SCH (09:10)
--- NOTE | 2017-10-24 11:54 | CARD ---
APPROVED REPORT EXAM: Two-dimensional and M-mode echocardiogram with Doppler and color Doppler. Other Information Quality : FairRhythm : NSR INDICATION HX OF AIDS,PEUMONIA,SEPSIS 2D DIMENSIONS IVSd1.08 (0.7-1.1cm)LVDd4.43 (3.9-5.9cm) LVOT Diameter2.32 (1.8-2.4cm)PWd0.98 (0.7-1.1cm) IVSs1.30 (0.8-1.2cm)LVDs3.87 (2.5-4.0cm) FS (%) 12.7 %PWs1.36 (0.8-1.2cm) M-Mode DIMENSIONS Left Atrium (MM)4.35 (2.5-4.0cm)IVSd1.35 (0.7-1.1cm) Aortic Root3.38 (2.2-3.7cm)LVDd4.25 (4.0-5.6cm) Aortic Cusp Exc.2.18 (1.5-2.0cm)PWd0.80 (0.7-1.1cm) IVSs1.85 cmFS (%) 45 % LVDs2.34 (2.0-3.8cm)PWs1.88 cm Mitral Valve MV E Eigdqjyf42.6cm/sMV DECEL [id number] A Aqpptgih55.0cm/s MV [id number]/A ratio1.5MVA (PHT)4.11cm2 TDI Lateral E' Peak V14.50cm/sMedial E' Peak V9.94cm/sE/Lateral E'5.7 E/Medial E'8.3 Pulmonary Valve PV Peak Ubbtpwyi46.7cm/s Tricuspid Valve TR Peak [id number]/sRAP [id number] Peak Gr.19mmHg [id number] LEFT VENTRICLE The left ventricle is normal size. There is normal left ventricular wall thickness. The left ventricular function is normal. The left ventricular ejection fraction is 55% There is normal LV segmental wall motion. Transmitral Doppler flow pattern is Grade II-pseudonormal filling dynamics. No left ventricle thrombus noted on this study. There is no ventricular septal defect visualized. There is no left ventricular aneurysm. There is no mass noted in the left ventricle. RIGHT VENTRICLE The right ventricle is normal size. There is normal right ventricular wall thickness. The right ventricular systolic function is normal. ATRIA The left atrium size is normal. The right atrium size is normal. The interatrial septum is intact with no evidence for an atrial septal defect. AORTIC VALVE The aortic valve is normal in structure. No aortic regurgitation is present. There is no aortic valvular stenosis. There is no aortic valvular vegetation. MITRAL VALVE The mitral valve is normal in structure. There is no evidence of mitral valve prolapse. There is no mitral valve stenosis. There is no mitral valve regurgitation noted. TRICUSPID VALVE The tricuspid valve is normal in structure. There is no tricuspid valve regurgitation noted. There is no tricuspid valve prolapse or vegetation. There is no tricuspid valve stenosis. PULMONIC VALVE The pulmonary valve is normal in structure. There is no pulmonic valvular regurgitation. There is no pulmonic valvular stenosis. GREAT VESSELS The aortic root is normal in size. The ascending aorta is normal in size. The IVC is normal in size and collapses >50% with inspiration. PERICARDIAL EFFUSION The pericardium appears normal. There is no pleural effusion. <Conclusion> Essentially Normal Echocardiogram
--- NOTE | 2017-10-24 12:13 | CP.PCM.PN ---
Subjective - Date & Time of Evaluation Date of Evaluation: 10/24/17 Time of Evaluation: 12:30 - Subjective Subjective: F/U PNA no SOB in high flow O2 , no C/P , no Chest congestion , occasional cough with scanty clear yellowish flegm Objective - Vital Signs/Intake and Output Vital Signs (last 24 hours): Temp Pulse Resp BP Pulse Ox 97.5 F L 73 20 115/68 100 10/24/17 08:06 10/24/17 08:55 10/24/17 08:06 10/24/17 08:06 10/24/17 08:06 Intake and Output: 10/24/17 10/24/17 06:59 18:59 Intake Total 850 Output Total 400 Balance 450 - Medications Medications: Current Medications Albuterol/Ipratropium (Duoneb 3 Mg/0.5 Mg (3 Ml) Ud) 3 ml INH RTID DIANDRA Last Admin: 10/24/17 07:53 Dose: 3 ml Albuterol/Ipratropium (Duoneb 3 Mg/0.5 Mg (3 Ml) Ud) 3 ml INH RQ4 PRN PRN Reason: Shortness of Breath Azithromycin (Zithromax) 1,200 mg PO QWK DIANDRA PRN Reason: Protocol Enoxaparin Sodium (Lovenox) 40 mg SC HS DIANDRA PRN Reason: Protocol Last Admin: 10/23/17 21:36 Dose: 40 mg Home Med (Elviteg/Luna/Emtric/Tenofo Dis [Stribild Tablet]) 1 tab PO DAILY [facility]AN[facility] Last Admin: 10/24/17 09:07 Dose: 1 tab Meropenem 500 mg/ Sodium (Chloride) 100 mls @ 100 mls/hr IVPB Q8 DIANDRA PRN Reason: Protocol Last Admin: 10/24/17 09:08 Dose: 100 mls/hr Vancomycin HCl 750 mg/ Sodium (Chloride) 250 mls @ 166.667 mls/hr IVPB DAILY DIANDRA PRN Reason: Protocol Last Admin: 10/24/17 09:11 Dose: 166.667 mls/hr Trimethoprim/Sulfamethoxazole (400 mg/ Dextrose) 500 mls @ 333.333 mls/hr IVPB Q8 DIAN[facility]A PRN Reason: Protocol Last Admin: 10/24/17 10:39 Dose: 333.333 mls/hr Methadone HCl (Methadone) 80 mg PO DAILY [facility] Last Admin: 10/24/17 10:40 Dose: 80 mg Methylprednisolone (Solu-Medrol) 30 mg IVP BID [facility] Last Admin: 10/24/17 09:10 Dose: 30 mg Multivitamins/Minerals (Therapeutic-M Tab) 1 tab PO DAILY [facility] Last Admin: 10/24/17 09:10 Dose: 1 tab Mupirocin (Bactroban Cream) 1 applic TOP BID [facility] Last Admin: 10/24/17 09:06 Dose: 1 appl Fluticasone/Salmeterol (Advair Diskus 500/50) 1 puff IH Q12 [facility] Last Admin: 10/24/17 09:02 Dose: 1 puff - Labs Labs: 10/23/17 04:30 10/23/17 04:30 PT 15.8 Seconds (9.8-13.1) H 10/21/17 13:54 INR 1.4 (0.9-1.2) H 10/21/17 13:54 APTT 39.1 Seconds (25.6-37.1) H 10/21/17 13:54 - Constitutional Appears: No Acute Distress, Chronically Ill - Head Exam Head Exam: NORMAL INSPECTION - Eye Exam Eye Exam: PERRL - ENT Exam ENT Exam: Normal Exam - Neck Exam Neck Exam: Normal Inspection - Respiratory Exam Respiratory Exam: Decreased Breath Sounds (at bases R>L ), Rhonchi (few at bases) - Cardiovascular Exam Cardiovascular Exam: REGULAR RHYTHM - GI/Abdominal Exam GI & Abdominal Exam: Soft, Normal Bowel Sounds - Extremities Exam Extremities Exam: Normal Inspection - Back Exam Back Exam: NORMAL INSPECTION - Neurological Exam Neurological Exam: Alert, Oriented x3 Additional comments: No focal motor sensory deficit. - Psychiatric Exam Psychiatric exam: Anxious - Skin Skin Exam: Warm Assessment and Plan (1) Pneumonia Status: Acute (2) History of asthma Status: Chronic (3) AIDS (acquired immunodeficiency syndrome), CD4 <=200/<=14% Status: Chronic - Assessment and Plan (Free Text) Plan: continue current treatment, trial of O2 NC in am
[2017-10-24 18:46] LABS: ABG ALLEN TEST YES; ARTERIAL BLOOD GAS HCO3 25.1 mmol/L (21-28); ARTERIAL BLOOD GAS HEMOGLOBIN 9.1 g/dL (11.7-17.4); ARTERIAL BLOOD GAS O2 CAPACITY 12.5 mL/dL (16-24); ARTERIAL BLOOD GAS O2 CONTENT 11.1 ML/dL (15-23); ARTERIAL BLOOD GAS O2 SAT 88.5 % (95-98); ARTERIAL BLOOD GAS PCO2 45 mm/Hg (35-45); ARTERIAL BLOOD GAS PH 7.37 (7.35-7.45); ARTERIAL BLOOD GAS PO2 54 mm/Hg (80-100); ARTERIAL BLOOD GAS TCO2 27.4 mmol/L (22-28)
[2017-10-24] MEDS: Enoxaparin 40 mg Syringe SC SCH (21:12)
[2017-10-25] MEDS: Meropenem 500 MG in Sodium Chloride 0.9% 100 ML IVPB SCH ×3 (00:01→17:51)
[2017-10-25 06:45] LABS: HEMOGLOBIN 9.4 g/dL (12.0-18.0); MEAN CELL VOLUME 81.2 fl (80.0-94.0); MEAN CORPUSCULAR HEMOGLOBIN 26.2 pg (27.0-31.0); MEAN CORPUSCULAR HGB CONC 32.3 g/dL (33.0-37.0); RBC 3.6 Mil/uL (4.40-5.90); RED CELL DISTRIBUTION WIDTH 16.7 % (11.5-14.5); WHITE BLOOD COUNT 9.4 K/uL (4.8-10.8)
[2017-10-25 06:55] LABS: ALB/GLOB RATIO 0.8 (1.0-2.1); ALBUMIN 2.6 g/dL (3.5-5.0); ALT/SGPT 41 U/L (21-72); AST/SGOT 46 U/L (17-59); BLOOD UREA NITROGEN 44 mg/dl (9-20); CALCIUM 9.2 mg/dL (8.4-10.2); GFR AFRICAN-AMERICAN > 60; GFR NON-AFRICAN AMERICAN > 60
[2017-10-25] MEDS ORDERED: Sod Polystyrene Sulf 15 gm/60 ml Susp PO ONE (07:33)
[2017-10-25] MEDS: Albuterol-Ipratrop 3 mg / 0.5 (3 ml) UD INH SCH ×3 (07:39→19:59)
--- NOTE | 2017-10-25 08:13 | CP.PCM.PN ---
Subjective - Date & Time of Evaluation Date of Evaluation: 10/25/17 Time of Evaluation: 07:45 - Subjective Subjective: Patient seen and examined this morning. Pt was changed to a 5L NC oxygen last night from high flow oxygen and saturating above 90%. States productive cough and dyspnea with talking remain the same. Denies any chest pain with deep breathing. Denies any fever, chills or night sweats. Pt is tolerating PO. Has regular BM and voiding w/o difficulty. Denies any other complaints. Objective - Vital Signs/Intake and Output Vital Signs (last 24 hours): Temp Pulse Resp BP Pulse Ox 97.6 F 79 18 120/70 91 L 10/25/17 08:07 10/25/17 08:07 10/25/17 08:07 10/25/17 08:07 10/25/17 08:07 - Medications Medications: Current Medications Albuterol/Ipratropium (Duoneb 3 Mg/0.5 Mg (3 Ml) Ud) 3 ml INH RTID [facility] Last Admin: 10/25/17 07:39 Dose: 3 ml Albuterol/Ipratropium (Duoneb 3 Mg/0.5 Mg (3 Ml) Ud) 3 ml INH RQ4 PRN PRN Reason: Shortness of Breath Azithromycin (Zithromax) 1,200 mg PO QWK DIANDRA PRN Reason: Protocol Enoxaparin Sodium (Lovenox) 40 mg SC HS DIANDRA PRN Reason: Protocol Last Admin: 10/24/17 21:12 Dose: 40 mg Home Med (Elviteg/Luna/Emtric/Tenofo Dis [Stribild Tablet]) 1 tab PO DAILY [facility] Last Admin: 10/24/17 09:07 Dose: 1 tab Meropenem 500 mg/ Sodium (Chloride) 100 mls @ 100 mls/hr IVPB Q8 DIAN[facility] PRN Reason: Protocol Last Admin: 10/25/17 00:01 Dose: 100 mls/hr Trimethoprim/Sulfamethoxazole (400 mg/ Dextrose) 500 mls @ 333.333 mls/hr IVPB Q8 DIAN[facility] PRN Reason: Protocol Last Admin: 10/25/17 00:00 Dose: 333.333 mls/hr Vancomycin HCl 1 gm/ Sodium (Chloride) 250 mls @ 166.667 mls/hr IVPB DAILY [facility] PRN Reason: Protocol Methadone HCl (Methadone) 80 mg PO DAILY [facility] Last Admin: 10/24/17 10:40 Dose: 80 mg Methylprednisolone (Solu-Medrol) 30 mg IVP BID [facility] Last Admin: 10/24/17 17:26 Dose: 30 mg Multivitamins/Minerals (Therapeutic-M Tab) 1 tab PO DAILY [facility] Last Admin: 10/24/17 09:10 Dose: 1 tab Mupirocin (Bactroban Cream) 1 applic TOP BID [facility] Last Admin: 10/24/17 17:25 Dose: 1 appl Fluticasone/Salmeterol (Advair Diskus 500/50) 1 puff IH Q12 [facility] Last Admin: 10/24/17 21:12 Dose: 1 puff - Labs Labs: 10/25/17 05:30 10/25/17 05:30 PT 15.8 Seconds (9.8-13.1) H 10/21/17 13:54 INR 1.4 (0.9-1.2) H 10/21/17 13:54 APTT 39.1 Seconds (25.6-37.1) H 10/21/17 13:54 - Additional Findings Additional findings: - Constitutional Appears: Non-toxic, No Acute Distress, Cachectic, Chronically Ill, Other (on high flow O2) - Eye Exam Eye Exam: Normal appearance. absent: Scleral icterus - ENT Exam ENT Exam: Mucous Membranes Moist - Neck Exam Neck Exam: absent: Lymphadenopathy, Meningismus - Respiratory Exam Respiratory Exam: absent: Wheezes, Respiratory Distress Additional comments: Improved rhonci in B/L lower lung narayan, no wheezing. - Cardiovascular Exam Cardiovascular Exam: REGULAR RHYTHM, RRR, +S1, +S2 - GI/Abdominal Exam GI & Abdominal Exam: Soft, Normal Bowel Sounds. absent: Tenderness Additional comments: Mild erythematous lesion on right inguinal area. No edema, discharge or oozing. - Extremities Exam Extremities Exam: Normal Capillary Refill, Normal Inspection. absent: Calf Tenderness, Pedal Edema - Neurological Exam Neurological Exam: Alert, Awake, Oriented x3 - Psychiatric Exam Psychiatric exam: Normal Affect, Normal Mood Assessment and Plan - Assessment and Plan (Free Text) Assessment: 52 y/o male with a PMHx of HIV (CD4 is 120 on 10/01/17), HTN, rectal/penile cancer, colon cancer, and asthma admitted for bacteremia and pseudomonas pneumonia with hypoxia. Plan: 1. Streptococcus gallolyticus Bacteremia: -ID on board -Continue Meropenem 500 mg IVP q8 (day 5) -Start Vancomycin 1000 mg ivp daily from today (pt recevied vancomycin 750 mg for 4 days) -Vanco level: <5 yesterday -Lactate 2.3 on VBG on 10/21/17 -ECHO: normal echo -Repeat blood cx on 10/23/17: no growth after 24 hrs -WBC trending down this morning (9.4 from 14.9 on 10/23/17) 2. Pseudomonas Pneumonia WITH hypoxia -Continue Meropenem 500 mg IVP q8 (day 5); pseudomonas is sensitive to Meropenem. -Continue on Bactrim IV 400 mg Q8 (day 5) for possible PCP , s/p Bactrim DS 2 tabs in ED -Start prednisone 40 mg po bid ( received methylprednisone 30 mg IVP BID for 3 days) for possible PCP. -CXR: Interval right basilar infiltrate affection the right lower lobe with none otherwise evident. Right plural effusion not excluded. None at the left -CHEST CT: IMPRESSION: New extensive infiltrate, multiple segments right lower lobe. Right middle lobe infiltrate. New large complex right pleural effusion suggesting debris. Tiny loculations air identified as well. -IR consult appreciated: "IR consulted for right thoracentesis. CT reviewed, no fluid seen; extensive right lower lobe consolidation. Due to ambiguous imaging appearance, patient brought to IR. Focused ultrasound of right hemithorax confirmed RLL consolidation without evidence of pleural fluid". -Duo-nebs PRN -NC 5L Oxygen, saturating >90% -Sputum cx: Pseudomonas aeruginosa -Pulmonary consult appreciated. 3. Hyperkalemia -K 5.7 this morning -On duoneb TID -Kayexalate 30 gm po once given -f/u BMP 4. AIDS: -Last CD4 count in 10/01/17 is 120 -azithromycin 1200 mg po qweekly for MAC prophylaxis -Noncompliant with HAART -Resume home meds 5. Asthma, unspecified type -c/w DuoNeb TID -c/w DuoNeb q4h prn -c/w home medications 6. Heroin use disorder: -Pt takes 80 mg methadone daily -c/w current medication 7. Right groin lesion: -Apply mupirocin TOP BID -Monitor 8. DVT prophylaxis -platelet count: 114 -eGFR>60 -SCDs PRN -Lovenox 40mg SC QD 9. Diet -Heart Healthy diet 10. Code status -Full code
[2017-10-25] MEDS: Fluticasone-Salmeterol 500-50mcg Diskus IH SCH ×2 (08:46→22:47)
[2017-10-25] MEDS: Multivitamin With Minerals Tab PO SCH (08:47)
[2017-10-25] MEDS: MethylPREDNISolone 40 mg Vial IVP SCH (08:47)
[2017-10-25] MEDS: Mupirocin 2% Cream TOP SCH ×2 (09:02→17:52)
[2017-10-25] MEDS: Nystatin 100,000 Units/ml Oral Susp 5 ml UD PO SCH ×4 (11:30→22:48)
--- NOTE | 2017-10-25 12:29 | CARD ---
APPROVED REPORT EKG Measurement Heart [id number] [place] [id number] <Conclusion> Sinus tachycardia Possible Acute pericarditis Abnormal ECG
[2017-10-25] MEDS: SULFAMETHOXAZOLE IVPB SCH ×3 (13:04→17:52)
[2017-10-25] MEDS: TRIMETHOPRIM IVPB SCH ×3 (13:04→17:52)
[2017-10-25] MEDS: WATER IVPB SCH ×3 (13:04→17:52)
[2017-10-25] MEDS: DEXTROSE 5% IVPB SCH ×3 (13:04→17:52)
[2017-10-25] MEDS: Enoxaparin 40 mg Syringe SC SCH (22:47)
[2017-10-26] MEDS: Meropenem 500 MG in Sodium Chloride 0.9% 100 ML IVPB SCH ×4 (02:04→17:42)
[2017-10-26] MEDS: DEXTROSE 5% IVPB SCH ×3 (02:05→17:42)
[2017-10-26] MEDS: SULFAMETHOXAZOLE IVPB SCH ×3 (02:05→17:42)
[2017-10-26] MEDS: TRIMETHOPRIM IVPB SCH ×3 (02:05→17:42)
[2017-10-26] MEDS: WATER IVPB SCH ×3 (02:05→17:42)
--- NOTE | 2017-10-26 06:18 | CP.PCM.PN ---
<Sultan Amaya - Last Filed: 10/26/17 11:38> Subjective - Date & Time of Evaluation Date of Evaluation: 10/26/17 Time of Evaluation: 07:25 - Subjective Subjective: Patient seen and examined at bedside this morning. Breathing comfortably on 3 L NC oxygen and not in acute distress. Reports productive cough and dyspnea have improved. States he had several episodes of watery diarrhea last night and reports decreased appetite. Denies any blood or mucus in stool. Denies any foul smells. Denies abdominal pain, nausea, vomiting or dizziness. Denies any chest pain with deep breathing. Denies any fever, chills or night sweats. Denies any other complaints. Objective - Vital Signs/Intake and Output Vital Signs (last 24 hours): Temp Pulse Resp BP Pulse Ox 97.6 F 80 18 122/70 98 10/26/17 05:26 10/26/17 05:26 10/26/17 05:26 10/26/17 05:26 10/26/17 05:26 Intake and Output: 10/25/17 10/26/17 18:59 06:59 Intake Total 2350 Output Total 1200 Balance 1150 - Medications Medications: Current Medications Albuterol/Ipratropium (Duoneb 3 Mg/0.5 Mg (3 Ml) Ud) 3 ml INH RTID [facility] Last Admin: 10/25/17 19:59 Dose: 3 ml Albuterol/Ipratropium (Duoneb 3 Mg/0.5 Mg (3 Ml) Ud) 3 ml INH RQ4 PRN PRN Reason: Shortness of Breath Azithromycin (Zithromax) 1,200 mg PO QWK DIANDRA PRN Reason: Protocol Enoxaparin Sodium (Lovenox) 40 mg SC HS DIANDRA PRN Reason: Protocol Last Admin: 10/25/17 22:47 Dose: Not Given Home Med (Elviteg/Luna/Emtric/Tenofo Dis [Stribild Tablet]) 1 tab PO DAILY [facility] Last Admin: 10/25/17 08:47 Dose: 1 tab Meropenem 500 mg/ Sodium (Chloride) 100 mls @ 100 mls/hr IVPB Q8 DIANDRA PRN Reason: Protocol Last Admin: 10/26/17 02:04 Dose: 100 mls/hr Trimethoprim/Sulfamethoxazole (400 mg/ Dextrose) 500 mls @ 333.333 mls/hr IVPB Q8 DIANDRA PRN Reason: Protocol Last Admin: 10/26/17 02:05 Dose: 333.333 mls/hr Vancomycin HCl 1 gm/ Sodium (Chloride) 250 mls @ 166.667 mls/hr IVPB DAILY DIANDRA PRN Reason: Protocol Last Admin: 10/25/17 08:49 Dose: 166.667 mls/hr Ketorolac Tromethamine (Toradol) 30 mg IVP Q6 PRN PRN Reason: Pain, severe (8-10) Last Admin: 10/26/17 02:02 Dose: 30 mg Methadone HCl (Methadone) 80 mg PO DAILY [facility] Last Admin: 10/25/17 08:51 Dose: 80 mg Multivitamins/Minerals (Therapeutic-M Tab) 1 tab PO DAILY [facility] Last Admin: 10/25/17 08:47 Dose: 1 tab Mupirocin (Bactroban Cream) 1 applic TOP BID [facility] Last Admin: 10/25/17 17:52 Dose: 1 appl Nystatin (Nystatin Oral Susp) 5 ml PO QID [facility] Last Admin: 10/25/17 22:48 Dose: 5 ml Prednisone (Prednisone Tab) 40 mg PO BID [facility] Last Admin: 10/25/17 22:48 Dose: 40 mg Fluticasone/Salmeterol (Advair Diskus 500/50) 1 puff IH Q12 [facility] Last Admin: 10/25/17 22:47 Dose: 1 puff - Labs Labs: 10/25/17 05:30 10/25/17 16:45 PT 15.8 Seconds (9.8-13.1) H 10/21/17 13:54 INR 1.4 (0.9-1.2) H 10/21/17 13:54 APTT 39.1 Seconds (25.6-37.1) H 10/21/17 13:54 - Constitutional Appears: Non-toxic, No Acute Distress, Cachectic, Chronically Ill - Eye Exam Eye Exam: Normal appearance. absent: Scleral icterus - ENT Exam ENT Exam: Mucous Membranes Moist - Neck Exam Neck Exam: Normal Inspection. absent: Lymphadenopathy - Respiratory Exam Respiratory Exam: absent: Wheezes, Respiratory Distress Additional comments: Mild rhonchi in B/L lower lung field - Cardiovascular Exam Cardiovascular Exam: REGULAR RHYTHM, RRR, +S1, +S2 - GI/Abdominal Exam GI & Abdominal Exam: Soft, Normal Bowel Sounds. absent: Tenderness, Rebound - Rectal Exam Additional comments: Mild erythematous lesion on right groin, improving. No swelling, discharge or oozing. - Extremities Exam Extremities Exam: Normal Inspection. absent: Calf Tenderness, Pedal Edema - Neurological Exam Neurological Exam: Alert, Awake, Oriented x3 - Psychiatric Exam Psychiatric exam: Normal Affect, Normal Mood Assessment and Plan - Assessment and Plan (Free Text) Assessment: 52 y/o male with a PMHx of HIV (CD4 is 120 on 10/01/17), HTN, rectal/penile cancer, colon cancer, and asthma admitted for streptococcus gallolyticus bacteremia and pseudomonas pneumonia with hypoxia. Plan: 1. Streptococcus gallolyticus Bacteremia: -ID on board -Continue Meropenem 500 mg IVP q8 (day 6) -Continue Vancomycin 1000 mg ivp daily (day 2) (pt recevied vancomycin 750 mg for 4 days) -Vanco level: <5 on 10/24/17 -Lactate 2.3 on VBG on 10/21/17 -ECHO: normal echo -Repeat blood cx on 10/23/17: no growth after 48 hrs -WBC trending down (wbc 6.7 today) 2. Pseudomonas Pneumonia WITH hypoxia -Continue Meropenem 500 mg IVP q8 (day 6); pseudomonas is sensitive to Meropenem. -Continue on Bactrim IV 400 mg Q8 (day 6) for possible PCP , s/p Bactrim DS 2 tabs in ED -Start prednisone 40 mg po bid (day 2) ( received methylprednisone 30 mg IVP BID for 3 days) for possible PCP. -CXR: Interval right basilar infiltrate affection the right lower lobe with none otherwise evident. Right plural effusion not excluded. None at the left -CHEST CT: IMPRESSION: New extensive infiltrate, multiple segments right lower lobe. Right middle lobe infiltrate. New large complex right pleural effusion suggesting debris. Tiny loculations air identified as well. -IR consult appreciated: "IR consulted for right thoracentesis. CT reviewed, no fluid seen; extensive right lower lobe consolidation. Due to ambiguous imaging appearance, patient brought to IR. Focused ultrasound of right hemithorax confirmed RLL consolidation without evidence of pleural fluid". -Duo-nebs PRN -3 L NC Oxygen, saturating >97% -Sputum cx: Pseudomonas aeruginosa -Pulmonary consult appreciated. 3. Hyperkalemia -K 5.5 this morning -On duoneb TID -Kayexalate 30 gm po once and albuterol neb 2.5 mg once -f/u BMP 4. Non-bloody diarrhea -Started last night several episodes -Lactose free diet -Check C diff toxins -Monitor 5. AIDS: -Last CD4 count in 10/01/17 is 120 -azithromycin 1200 mg po qweekly for MAC prophylaxis -Noncompliant with HAART -Resume home meds 6. Asthma, unspecified type -c/w DuoNeb TID -c/w DuoNeb q4h prn -c/w home medications 7. Heroin use disorder: -Pt takes 80 mg methadone daily -c/w current medication 8. Right groin lesion: -Apply mupirocin TOP BID -improving 9. DVT prophylaxis -platelet count: 107 -eGFR>60 -SCDs PRN -Lovenox 40mg SC QD 10. Diet -Heart Healthy diet 11. Code status -Full code <[email or web address] - Last Filed: 10/26/17 16:00> Objective - Vital Signs/Intake and Output Vital Signs (last 24 hours): Temp Pulse Resp BP Pulse Ox 97.9 F 80 20 130/79 98 10/26/17 12:21 10/26/17 12:21 10/26/17 12:21 10/26/17 12:21 10/26/17 12:21 - Medications Medications: Current Medications Albuterol/Ipratropium (Duoneb 3 Mg/0.5 Mg (3 Ml) Ud) 3 ml INH RTID [facility] Last Admin: 10/26/17 13:45 Dose: 3 ml Albuterol/Ipratropium (Duoneb 3 Mg/0.5 Mg (3 Ml) Ud) 3 ml INH RQ4 PRN PRN Reason: Shortness of Breath Azithromycin (Zithromax) 1,200 mg PO QWK DIANDRA PRN Reason: Protocol Enoxaparin Sodium (Lovenox) 40 mg SC HS DIANDRA PRN Reason: Protocol Last Admin: 10/25/17 22:47 Dose: Not Given Home Med (Elviteg/Luna/Emtric/Tenofo Dis [Stribild Tablet]) 1 tab PO DAILY [facility] Last Admin: 10/26/17 08:56 Dose: 1 tab Meropenem 500 mg/ Sodium (Chloride) 100 mls @ 100 mls/hr IVPB Q8 [facility] PRN Reason: Protocol Last Admin: 10/26/17 09:00 Dose: Not Given Trimethoprim/Sulfamethoxazole (400 mg/ Dextrose) 500 mls @ 333.333 mls/hr IVPB Q8 DIANDRA PRN Reason: Protocol Last Admin: 10/26/17 10:00 Dose: Not Given Vancomycin HCl 1 gm/ Sodium (Chloride) 250 mls @ 166.667 mls/hr IVPB DAILY [facility] PRN Reason: Protocol Last Admin: 10/26/17 09:00 Dose: Not Given Ketorolac Tromethamine (Toradol) 30 mg IVP Q6 PRN PRN Reason: Pain, severe (8-10) Last Admin: 10/26/17 02:02 Dose: 30 mg Methadone HCl (Methadone) 80 mg PO DAILY [facility] Last Admin: 10/26/17 10:03 Dose: 80 mg Multivitamins/Minerals (Therapeutic-M Tab) 1 tab PO DAILY [facility] Last Admin: 10/26/17 08:57 Dose: 1 tab Mupirocin (Bactroban Cream) 1 applic TOP BID [facility] Last Admin: 10/25/17 17:52 Dose: 1 appl Nystatin (Nystatin Oral Susp) 5 ml PO QID [facility] Last Admin: 10/26/17 08:56 Dose: 5 ml Prednisone (Prednisone Tab) 40 mg PO BID [facility] Stop: 10/26/17 23:59 Last Admin: 10/26/17 08:56 Dose: 40 mg Prednisone (Prednisone Tab) 40 mg PO DAILY [facility] Fluticasone/Salmeterol (Advair Diskus 500/50) 1 puff IH Q12 [facility] Last Admin: 10/26/17 08:57 Dose: 1 puff - Labs Labs: 10/26/17 08:08 10/26/17 05:57 PT 15.8 Seconds (9.8-13.1) H 10/21/17 13:54 INR 1.4 (0.9-1.2) H 10/21/17 13:54 APTT 39.1 Seconds (25.6-37.1) H 10/21/17 13:54 Assessment and Plan (1) Pneumonia Status: Acute (2) History of asthma Status: Chronic (3) AIDS (acquired immunodeficiency syndrome), CD4 <=200/<=14% Status: Chronic
[2017-10-26] MEDS ORDERED: Sod Polystyrene Sulf 15 gm/60 ml Susp PO ONE (07:02)
[2017-10-26] MEDS ORDERED: Albuterol 0.083% Inhal Sol (2.5 mg/3 mL) UD INH ONE (07:03)
[2017-10-26 07:12] LABS: BLOOD UREA NITROGEN 35 mg/dl (9-20); CALCIUM 8.6 mg/dL (8.4-10.2); GFR AFRICAN-AMERICAN > 60; GFR NON-AFRICAN AMERICAN > 60
[2017-10-26] MEDS: Albuterol-Ipratrop 3 mg / 0.5 (3 ml) UD INH SCH ×3 (07:43→20:06)
[2017-10-26] MEDS: Nystatin 100,000 Units/ml Oral Susp 5 ml UD PO SCH ×4 (08:56→23:13)
[2017-10-26] MEDS: Multivitamin With Minerals Tab PO SCH (08:57)
[2017-10-26] MEDS: Fluticasone-Salmeterol 500-50mcg Diskus IH SCH ×2 (08:57→23:14)
[2017-10-26] MEDS: Mupirocin 2% Cream TOP SCH ×2 (09:00→17:00)
[2017-10-26 09:08] LABS: HEMOGLOBIN 9.9 g/dL (12.0-18.0); MEAN CELL VOLUME 82.3 fl (80.0-94.0); MEAN CORPUSCULAR HEMOGLOBIN 25.7 pg (27.0-31.0); MEAN CORPUSCULAR HGB CONC 31.2 g/dL (33.0-37.0); RBC 3.87 Mil/uL (4.40-5.90); WHITE BLOOD COUNT 6.7 K/uL (4.8-10.8)
[2017-10-26] MEDS ORDERED: Albuterol-Ipratrop 3 mg / 0.5 (3 ml) UD INH ONE (11:59)
--- NOTE | 2017-10-26 14:49 | CP.PCM.PN ---
Subjective - Date & Time of Evaluation Date of Evaluation: 10/26/17 Time of Evaluation: 14:00 - Subjective Subjective: F/U PNA. No SOB on N/C 3Lm , cough improved , scanty amount of yellowish flegm Objective - Vital Signs/Intake and Output Vital Signs (last 24 hours): Temp Pulse Resp BP Pulse Ox 97.9 F 80 20 130/79 98 10/26/17 12:21 10/26/17 12:21 10/26/17 12:21 10/26/17 12:21 10/26/17 12:21 - Medications Medications: Current Medications Albuterol/Ipratropium (Duoneb 3 Mg/0.5 Mg (3 Ml) Ud) 3 ml INH RTID [facility] Last Admin: 10/26/17 13:45 Dose: 3 ml Albuterol/Ipratropium (Duoneb 3 Mg/0.5 Mg (3 Ml) Ud) 3 ml INH RQ4 PRN PRN Reason: Shortness of Breath Azithromycin (Zithromax) 1,200 mg PO QWK [facility]AN[facility] PRN Reason: Protocol Enoxaparin Sodium (Lovenox) 40 mg SC HS [facility] PRN Reason: Protocol Last Admin: 10/25/17 22:47 Dose: Not Given Home Med (Elviteg/Luna/Emtric/Tenofo Dis [Stribild Tablet]) 1 tab PO DAILY [facility] Last Admin: 10/26/17 08:56 Dose: 1 tab Meropenem 500 mg/ Sodium (Chloride) 100 mls @ 100 mls/hr IVPB Q8 [facility] PRN Reason: Protocol Last Admin: 10/26/17 08:56 Dose: 100 mls/hr Trimethoprim/Sulfamethoxazole (400 mg/ Dextrose) 500 mls @ 333.333 mls/hr IVPB Q8 [facility] PRN Reason: Protocol Last Admin: 10/26/17 10:00 Dose: Not Given Vancomycin HCl 1 gm/ Sodium (Chloride) 250 mls @ 166.667 mls/hr IVPB DAILY [facility] PRN Reason: Protocol Last Admin: 10/26/17 09:00 Dose: Not Given Ketorolac Tromethamine (Toradol) 30 mg IVP Q6 PRN PRN Reason: Pain, severe (8-10) Last Admin: 10/26/17 02:02 Dose: 30 mg Methadone HCl (Methadone) 80 mg PO DAILY [facility] Last Admin: 10/26/17 10:03 Dose: 80 mg Multivitamins/Minerals (Therapeutic-M Tab) 1 tab PO DAILY [facility] Last Admin: 10/26/17 08:57 Dose: 1 tab Mupirocin (Bactroban Cream) 1 applic TOP BID [facility] Last Admin: 10/25/17 17:52 Dose: 1 appl Nystatin (Nystatin Oral Susp) 5 ml PO QID [facility] Last Admin: 10/26/17 08:56 Dose: 5 ml Prednisone (Prednisone Tab) 40 mg PO BID [facility] Stop: 10/26/17 23:59 Last Admin: 10/26/17 08:56 Dose: 40 mg Prednisone (Prednisone Tab) 40 mg PO DAILY [facility] Fluticasone/Salmeterol (Advair Diskus 500/50) 1 puff IH Q12 [facility] Last Admin: 10/26/17 08:57 Dose: 1 puff - Labs Labs: 10/26/17 08:08 10/26/17 05:57 PT 15.8 Seconds (9.8-13.1) H 10/21/17 13:54 INR 1.4 (0.9-1.2) H 10/21/17 13:54 APTT 39.1 Seconds (25.6-37.1) H 10/21/17 13:54 - Constitutional Appears: No Acute Distress - Head Exam Head Exam: NORMAL INSPECTION - Eye Exam Eye Exam: PERRL - ENT Exam ENT Exam: Normal Exam - Neck Exam Neck Exam: Normal Inspection - Respiratory Exam Respiratory Exam: Decreased Breath Sounds (at bases), Rhonchi (scattred at bases) - Cardiovascular Exam Cardiovascular Exam: REGULAR RHYTHM - GI/Abdominal Exam GI & Abdominal Exam: Soft, Normal Bowel Sounds - Back Exam Back Exam: NORMAL INSPECTION - Neurological Exam Neurological Exam: Alert, CN II-XII Intact Additional comments: no focal motor/sensory deficit - Psychiatric Exam Psychiatric exam: Anxious - Skin Skin Exam: Warm Assessment and Plan (1) Pneumonia Status: Acute (2) History of asthma Status: Chronic (3) AIDS (acquired immunodeficiency syndrome), CD4 <=200/<=14% Status: Chronic - Assessment and Plan (Free Text) Plan: on Respiratury isolation, Gold Quantiferon (pos) , f/u sputum AFB, no IV access , discussed with resident attempt to get a line ,Partient on Merren , Vanco , Bactrim , Zithromax , DuoNeb
--- NOTE | 2017-10-26 18:06 | CP.PCM.PCO ---
Addendum Addendum: 10/26/17 18:02 Patient with difficulty with IV lines since this morning. after sign out at noon i am notified that IV lines is not possible to get by nurses after 3 attempts and patient refuses to continue to try to get one. Patient seen bedside. patient agree to have a periphery IV line guided by US. two attempts tried by ICU attending, but it did not work. IR contacted: Picc line only for emergency during weekends. I was told to contact surgery Patient refused to have central line by ICU attending. Surgery resident contacted an will try the central line
--- NOTE | 2017-10-26 20:14 | CP.PCM.PN ---
Subjective - Date & Time of Evaluation Date of Evaluation: 10/26/17 Time of Evaluation: 20:11 - Subjective Subjective: Surgery was requested to place IV access. Attempted external jugular vein. Unsuccessful. Pt refused further IV access at this time. Recommend PO ABX until PICC placement on Saturday or successful IV access. Objective - Vital Signs/Intake and Output Vital Signs (last 24 hours): Temp Pulse Resp BP Pulse Ox 97.2 F L 85 20 153/92 H 97 10/26/17 16:41 10/26/17 16:41 10/26/17 16:41 10/26/17 16:41 10/26/17 16:41 - Medications Medications: Current Medications Albuterol/Ipratropium (Duoneb 3 Mg/0.5 Mg (3 Ml) Ud) 3 ml INH RTID DIANDRA Last Admin: 10/26/17 20:06 Dose: 3 ml Albuterol/Ipratropium (Duoneb 3 Mg/0.5 Mg (3 Ml) Ud) 3 ml INH RQ4 PRN PRN Reason: Shortness of Breath Azithromycin (Zithromax) 1,200 mg PO QWK DIANDRA PRN Reason: Protocol Enoxaparin Sodium (Lovenox) 40 mg SC HS DIANDRA PRN Reason: Protocol Last Admin: 10/25/17 22:47 Dose: Not Given Home Med (Elviteg/Luna/Emtric/Tenofo Dis [Stribild Tablet]) 1 tab PO DAILY DIANDRA Last Admin: 10/26/17 08:56 Dose: 1 tab Meropenem 500 mg/ Sodium (Chloride) 100 mls @ 100 mls/hr IVPB Q8 DIAN[facility] PRN Reason: Protocol Last Admin: 10/26/17 17:42 Dose: Not Given Trimethoprim/Sulfamethoxazole (400 mg/ Dextrose) 500 mls @ 333.333 mls/hr IVPB Q8 DIANDRA PRN Reason: Protocol Last Admin: 10/26/17 17:42 Dose: Not Given Vancomycin HCl 1 gm/ Sodium (Chloride) 250 mls @ 166.667 mls/hr IVPB DAILY DIAN[facility]A PRN Reason: Protocol Last Admin: 10/26/17 09:00 Dose: Not Given Ketorolac Tromethamine (Toradol) 30 mg IVP Q6 PRN PRN Reason: Pain, severe (8-10) Last Admin: 10/26/17 02:02 Dose: 30 mg Methadone HCl (Methadone) 80 mg PO DAILY [facility] Last Admin: 10/26/17 10:03 Dose: 80 mg Multivitamins/Minerals (Therapeutic-M Tab) 1 tab PO DAILY [facility] Last Admin: 10/26/17 08:57 Dose: 1 tab Mupirocin (Bactroban Cream) 1 applic TOP BID [facility] Last Admin: 10/26/17 17:00 Dose: Not Given Nystatin (Nystatin Oral Susp) 5 ml PO QID [facility] Last Admin: 10/26/17 17:45 Dose: Not Given Prednisone (Prednisone Tab) 40 mg PO BID [facility] Stop: 10/26/17 23:59 Last Admin: 10/26/17 17:45 Dose: 40 mg Prednisone (Prednisone Tab) 40 mg PO DAILY [facility] Fluticasone/Salmeterol (Advair Diskus 500/50) 1 puff IH Q12 [facility] Last Admin: 10/26/17 08:57 Dose: 1 puff - Labs Labs: 10/26/17 08:08 10/26/17 05:57 PT 15.8 Seconds (9.8-13.1) H 10/21/17 13:54 INR 1.4 (0.9-1.2) H 10/21/17 13:54 APTT 39.1 Seconds (25.6-37.1) H 10/21/17 13:54
[2017-10-26] MEDS: Enoxaparin 40 mg Syringe SC SCH (23:13)
[2017-10-26] MEDS: Tmp-Smz 800 mg-160 mg DS Tab PO SCH (23:14)
[2017-10-27] MEDS: Albuterol-Ipratrop 3 mg / 0.5 (3 ml) UD INH SCH ×3 (08:00→19:43)
[2017-10-27 08:19] LABS: ALB/GLOB RATIO 0.8 (1.0-2.1); ALBUMIN 2.6 g/dL (3.5-5.0); ALT/SGPT 50 U/L (21-72); AST/SGOT 51 U/L (17-59); BLOOD UREA NITROGEN 33 mg/dl (9-20); CALCIUM 9.2 mg/dL (8.4-10.2); GFR AFRICAN-AMERICAN > 60; GFR NON-AFRICAN AMERICAN > 60
[2017-10-27 08:34] LABS: BASO % 0.3 % (0.0-2.0); EOS % 0.1 % (0.0-4.0); LYMPH # 0.4 K/uL (1.0-4.3); LYMPH % 6.1 % (20.0-40.0); MEAN CELL VOLUME 83.8 fl (80.0-94.0); MEAN CORPUSCULAR HEMOGLOBIN 27.3 pg (27.0-31.0); MEAN CORPUSCULAR HGB CONC 32.5 g/dL (33.0-37.0); MEAN PLATELET VOLUME 10.2 fl (7.2-11.7); MONO # 0.2 K/uL (0.0-0.8); NEUT # 5.6 K/uL (1.8-7.0); NEUT % 90.5 % (50.0-75.0); NRBC % 0.5 % (0.0-0.0); PLATELET COUNT 109 K/uL (130-400); RBC 3.67 Mil/uL (4.40-5.90); RED CELL DISTRIBUTION WIDTH 16.8 % (11.5-14.5); WHITE BLOOD COUNT 6.2 K/uL (4.8-10.8)
[2017-10-27] MEDS: Multivitamin With Minerals Tab PO SCH (09:32)
[2017-10-27] MEDS ORDERED: Sod Polystyrene Sulf 15 gm/60 ml Susp PO ONE (09:33)
[2017-10-27] MEDS: Nystatin 100,000 Units/ml Oral Susp 5 ml UD PO SCH ×4 (09:33→22:15)
[2017-10-27] MEDS: Fluticasone-Salmeterol 500-50mcg Diskus IH SCH ×2 (09:36→22:14)
[2017-10-27] MEDS: Mupirocin 2% Cream TOP SCH (09:36)
[2017-10-27] MEDS: Tmp-Smz 800 mg-160 mg DS Tab PO SCH ×2 (11:00→22:13)
[2017-10-27 11:48] LABS: LYMPHOCYTE 8 % (20-50); MONOCYTE 1 % (0-10); NEUTROPHIL 91 % (42-75); PLATELET ESTIMATE DECREASED (NORMAL); TOTAL CELLS COUNTED 100
[2017-10-27 11:49] LABS: ANISOCYTOSIS SLIGHT; HYPOCHROMIC SLIGHT
[2017-10-27 11:50] LABS: OVALOCYTES SLIGHT; SCHISTOCYTES SLIGHT; TEARDROP CELLS SLIGHT
--- NOTE | 2017-10-27 16:31 | CP.PCM.PN ---
Subjective - Date & Time of Evaluation Date of Evaluation: 10/27/17 Time of Evaluation: 10:27 - Subjective Subjective: Patient seen and examined at bedside. Overnight events reviewed. Difficulties obtaining IV access. Taking PO meds. Patient states feels much better with PO meds. Increased appetite. Cough improved though persists with deep breaths. Patient states requires O2 NC after walking to and from the bathroom. No dyspnea at rest. Denies fever, chills, abdominal pain, n/v/d/c. Objective - Vital Signs/Intake and Output Vital Signs (last 24 hours): Temp Pulse Resp BP Pulse Ox 97.1 F L 68 18 124/67 99 10/27/17 13:06 10/27/17 13:06 10/27/17 13:06 10/27/17 13:06 10/27/17 13:06 - Medications Medications: Current Medications Acetaminophen (Tylenol 325mg Tab) 650 mg PO Q6 PRN PRN Reason: Pain, Mild (1-3) Last Admin: 10/27/17 05:37 Dose: 650 mg Albuterol/Ipratropium (Duoneb 3 Mg/0.5 Mg (3 Ml) Ud) 3 ml INH RTID DIAN[facility] Last Admin: 10/27/17 13:55 Dose: 3 ml Albuterol/Ipratropium (Duoneb 3 Mg/0.5 Mg (3 Ml) Ud) 3 ml INH RQ4 PRN PRN Reason: Shortness of Breath Azithromycin (Zithromax) 1,200 mg PO QWK DIAN[facility] PRN Reason: Protocol Ciprofloxacin (Cipro) 500 mg PO Q12 [facility]AN[facility] PRN Reason: Protocol Last Admin: 10/27/17 09:33 Dose: 500 mg Clindamycin HCl (Cleocin) 600 mg PO Q8 [facility] PRN Reason: Protocol Last Admin: 10/27/17 16:24 Dose: 600 mg Enoxaparin Sodium (Lovenox) 40 mg SC HS DIAN[facility] PRN Reason: Protocol Last Admin: 10/26/17 23:13 Dose: Not Given Home Med (Elviteg/Luna/Emtric/Tenofo Dis [Stribild Tablet]) 1 tab PO DAILY [facility] Last Admin: 10/27/17 09:33 Dose: 1 tab Meropenem 500 mg/ Sodium (Chloride) 100 mls @ 100 mls/hr IVPB Q8 DIAN[facility] PRN Reason: Protocol Last Admin: 10/26/17 17:42 Dose: Not Given Trimethoprim/Sulfamethoxazole (400 mg/ Dextrose) 500 mls @ 333.333 mls/hr IVPB Q8 DIAN[facility] PRN Reason: Protocol Last Admin: 10/26/17 17:42 Dose: Not Given Vancomycin HCl 1 gm/ Sodium (Chloride) 250 mls @ 166.667 mls/hr IVPB DAILY [facility] PRN Reason: Protocol Last Admin: 10/26/17 09:00 Dose: Not Given Ketorolac Tromethamine (Toradol) 30 mg IVP Q6 PRN PRN Reason: Pain, severe (8-10) Last Admin: 10/26/17 02:02 Dose: 30 mg Methadone HCl (Methadone) 80 mg PO DAILY [facility] Last Admin: 10/27/17 09:32 Dose: 80 mg Multivitamins/Minerals (Therapeutic-M Tab) 1 tab PO DAILY [facility] Last Admin: 10/27/17 09:32 Dose: 1 tab Mupirocin (Bactroban Ointment) 1 applic TOP BID [facility] Last Admin: 10/27/17 10:35 Dose: 1 applic Nystatin (Nystatin Oral Susp) 5 ml PO QID [facility] Last Admin: 10/27/17 16:26 Dose: Not Given Prednisone (Prednisone Tab) 40 mg PO DAILY [facility] Last Admin: 10/27/17 09:32 Dose: 40 mg Fluticasone/Salmeterol (Advair Diskus 500/50) 1 puff IH Q12 [facility] Last Admin: 10/27/17 09:36 Dose: 1 puff Trimethoprim/Sulfamethoxazole (Bactrim Ds Tab) 1 tab PO Q12 DIAN[facility] PRN Reason: Protocol Last Admin: 10/27/17 11:00 Dose: 1 tab - Labs Labs: 10/27/17 06:57 10/27/17 06:57 PT 15.8 Seconds (9.8-13.1) H 10/21/17 13:54 INR 1.4 (0.9-1.2) H 10/21/17 13:54 APTT 39.1 Seconds (25.6-37.1) H 10/21/17 13:54 - Constitutional Appears: Well, Non-toxic, No Acute Distress - Head Exam Head Exam: NORMAL INSPECTION - Eye Exam Eye Exam: Normal appearance - Neck Exam Neck Exam: Normal Inspection - Respiratory Exam Respiratory Exam: Rhonchi, NORMAL BREATHING PATTERN - Cardiovascular Exam Cardiovascular Exam: REGULAR RHYTHM, +S1, +S2. absent: Murmur - GI/Abdominal Exam GI & Abdominal Exam: Soft, Normal Bowel Sounds. absent: Tenderness - Extremities Exam Extremities Exam: Normal Inspection. absent: Pedal Edema - Neurological Exam Neurological Exam: Alert, Awake, Oriented x3 - Psychiatric Exam Psychiatric exam: Normal Affect, Normal Mood - Skin Skin Exam: Dry, Intact, Normal Color, Warm Assessment and Plan - Assessment and Plan (Free Text) Assessment: 52 y/o male with a PMHx of HIV (CD4 is 120 on 10/01/17), HTN, rectal/penile cancer, colon cancer, and asthma admitted for streptococcus gallolyticus bacteremia and pseudomonas pneumonia with hypoxia. Plan: 1. Streptococcus gallolyticus Bacteremia: -ID on board -HELD FOLLOWING MEDICATIONS DUE TO NO IV ACCESS AND IN DISCUSSION WITH ID Meropenem 500 mg IVP q8 (day 6) Vancomycin 1000 mg ivp daily (day 2) (pt recevied vancomycin 750 mg for 4 days Vanco level: <5 on 10/24/17) -NOW ON FOLLOWING PO MEDS Cipro 500mg PO q12 Clindamycin 600mg PO q8h -Lactate 2.3 on VBG on 10/21/17 -ECHO: normal echo -Repeat blood cx on 10/23/17: no growth after 48 hrs -WBC normal 2. Pseudomonas Pneumonia WITH hypoxia -Continue on Bactrim DS (IV bactrim was stopped due to IV access) -Continue prednisone 40 mg po bid (day 2) ( received methylprednisone 30 mg IVP BID for 3 days) for possible PCP. -CXR: Interval right basilar infiltrate affection the right lower lobe with none otherwise evident. Right plural effusion not excluded. None at the left -CHEST CT: IMPRESSION: New extensive infiltrate, multiple segments right lower lobe. Right middle lobe infiltrate. New large complex right pleural effusion suggesting debris. Tiny loculations air identified as well. -IR consult appreciated: "IR consulted for right thoracentesis. CT reviewed, no fluid seen; extensive right lower lobe consolidation. Due to ambiguous imaging appearance, patient brought to IR. Focused ultrasound of right hemithorax confirmed RLL consolidation without evidence of pleural fluid". -Duo-nebs PRN -3 L NC Oxygen, saturating >97% -Sputum cx: Pseudomonas aeruginosa -Pulmonary consult appreciated. 3. Hyperkalemia -K 5.8 this morning -On duoneb TID -Kayexalate 30 gm po once -f/u repeat BMP -may need further workup to eval cause 4. Non-bloody diarrhea -As per patient resolved 5. AIDS: -Last CD4 count in 10/01/17 is 120 -azithromycin 1200 mg po qweekly for MAC prophylaxis -Noncompliant with HAART -Resume home meds 6. Asthma, unspecified type -c/w DuoNeb TID -c/w DuoNeb q4h prn -c/w home medications 7. Heroin use disorder: -Pt takes 80 mg methadone daily -c/w current medication 8. Right groin lesion: -Apply mupirocin TOP BID 9. DVT prophylaxis -platelet count: 109 -eGFR>60 -SCDs PRN -Lovenox 40mg SC QD 10. Diet -Heart Healthy diet 11. Code status -Full code
[2017-10-27] MEDS: Enoxaparin 40 mg Syringe SC SCH (22:14)
--- NOTE | 2017-10-28 06:52 | CP.PCM.PN ---
Subjective - Date & Time of Evaluation Date of Evaluation: 10/28/17 Time of Evaluation: 07:50 - Subjective Subjective: Patient seen and examined at bedside this morning. Pt is currently on PO meds due to difficulty obtaining IV lines. Will obtain PICC line today. Patient states feels much better with PO meds. Reports good appetite. States he has several episodes of diarrhea last night but its improving. States cough has improved. Patient states requires O2 NC after walking to and from the bathroom. No dyspnea at rest. Pt states he is having pain with urination x 2 days. Denies hematuria, frequency or urgency. Denies fever, chills, abdominal pain, n/v/d/c. Objective - Vital Signs/Intake and Output Vital Signs (last 24 hours): Temp Pulse Resp BP Pulse Ox 98.2 F 99 H 18 97/59 L 95 10/28/17 00:24 10/28/17 00:24 10/28/17 00:24 10/28/17 00:24 10/28/17 00:24 - Medications Medications: Current Medications Acetaminophen (Tylenol 325mg Tab) 650 mg PO Q6 PRN PRN Reason: Pain, Mild (1-3) Last Admin: 10/28/17 05:16 Dose: 650 mg Albuterol/Ipratropium (Duoneb 3 Mg/0.5 Mg (3 Ml) Ud) 3 ml INH RTID [facility] Last Admin: 10/27/17 19:43 Dose: 3 ml Albuterol/Ipratropium (Duoneb 3 Mg/0.5 Mg (3 Ml) Ud) 3 ml INH RQ4 PRN PRN Reason: Shortness of Breath Ciprofloxacin (Cipro) 500 mg PO Q12 [facility]AN[facility]A PRN Reason: Protocol Last Admin: 10/27/17 22:13 Dose: 500 mg Clindamycin HCl (Cleocin) 600 mg PO Q8 DIAN[facility] PRN Reason: Protocol Last Admin: 10/28/17 01:56 Dose: Not Given Enoxaparin Sodium (Lovenox) 40 mg SC HS [facility] PRN Reason: Protocol Last Admin: 10/27/17 22:14 Dose: Not Given Home Med (Elviteg/Luna/Emtric/Tenofo Dis [Stribild Tablet]) 1 tab PO DAILY [facility] Last Admin: 10/27/17 09:33 Dose: 1 tab Meropenem 500 mg/ Sodium (Chloride) 100 mls @ 100 mls/hr IVPB Q8 [facility]AN[facility] PRN Reason: Protocol Last Admin: 10/26/17 17:42 Dose: Not Given Trimethoprim/Sulfamethoxazole (400 mg/ Dextrose) 500 mls @ 333.333 mls/hr IVPB Q8 [facility] PRN Reason: Protocol Last Admin: 10/26/17 17:42 Dose: Not Given Vancomycin HCl 1 gm/ Sodium (Chloride) 250 mls @ 166.667 mls/hr IVPB DAILY [facility] PRN Reason: Protocol Last Admin: 10/26/17 09:00 Dose: Not Given Ketorolac Tromethamine (Toradol) 30 mg IVP Q6 PRN PRN Reason: Pain, severe (8-10) Last Admin: 10/26/17 02:02 Dose: 30 mg Methadone HCl (Methadone) 80 mg PO DAILY [facility] Last Admin: 10/27/17 09:32 Dose: 80 mg Multivitamins/Minerals (Therapeutic-M Tab) 1 tab PO DAILY [facility] Last Admin: 10/27/17 09:32 Dose: 1 tab Mupirocin (Bactroban Ointment) 1 applic TOP BID [facility] Last Admin: 10/27/17 22:14 Dose: 1 applic Nystatin (Nystatin Oral Susp) 5 ml PO QID [facility] Last Admin: 10/27/17 22:15 Dose: Not Given Prednisone (Prednisone Tab) 40 mg PO DAILY [facility] Last Admin: 10/27/17 09:32 Dose: 40 mg Fluticasone/Salmeterol (Advair Diskus 500/50) 1 puff IH Q12 [facility] Last Admin: 10/27/17 22:14 Dose: 1 puff Trimethoprim/Sulfamethoxazole (Bactrim Ds Tab) 1 tab PO Q12 [facility] PRN Reason: Protocol Last Admin: 10/27/17 22:13 Dose: 1 tab - Labs Labs: 10/27/17 06:57 10/27/17 18:30 PT 15.8 Seconds (9.8-13.1) H 10/21/17 13:54 INR 1.4 (0.9-1.2) H 10/21/17 13:54 APTT 39.1 Seconds (25.6-37.1) H 10/21/17 13:54 - Additional Findings Additional findings: - Constitutional Appears: Non-toxic, No Acute Distress, Cachectic, Chronically Ill - Eye Exam Eye Exam: Normal appearance. absent: Scleral icterus - ENT Exam ENT Exam: Mucous Membranes Moist - Neck Exam Neck Exam: Normal Inspection. - Respiratory Exam Respiratory Exam: absent: Wheezes, Respiratory Distress Additional comments: + rhonchi in B/L lower lung field - Cardiovascular Exam Cardiovascular Exam: REGULAR RHYTHM, RRR, +S1, +S2 - GI/Abdominal Exam GI & Abdominal Exam: Soft, Normal Bowel Sounds. absent: Tenderness, Rebound - Rectal Exam Additional comments: Erythematous lesion on right groin with oozing. No swelling - Extremities Exam Extremities Exam: Normal Inspection. absent: Calf Tenderness, Pedal Edema - Neurological Exam Neurological Exam: Alert, Awake, Oriented x3 - Psychiatric Exam Psychiatric exam: Normal Affect, Normal Mood Assessment and Plan - Assessment and Plan (Free Text) Assessment: 52 y/o male with a PMHx of HIV (CD4 is 120 on 10/01/17), HTN, rectal/penile cancer, colon cancer, and asthma admitted for streptococcus gallolyticus bacteremia and pseudomonas pneumonia with hypoxia. Plan: 1. Streptococcus gallolyticus Bacteremia: -ID on board -HELD FOLLOWING MEDICATIONS DUE TO NO IV ACCESS AND IN DISCUSSION WITH ID Meropenem 500 mg IVP q8 (day 6) Vancomycin 1000 mg ivp daily (day 2) (pt recevied vancomycin 750 mg for 4 days Vanco level: <5 on 10/24/17) -NOW ON FOLLOWING PO MEDS -Cipro 500mg PO q12 ( day 2) -Clindamycin 600mg PO q8h ( day 2) -Lactate 2.3 on VBG on 10/21/17 -ECHO: normal echo -Repeat blood cx on 10/23/17: no growth after 48 hrs -WBC normal 2. Pseudomonas Pneumonia WITH hypoxia -Continue on Bactrim DS (day 3) (IV bactrim was stopped due to IV access) -Continue prednisone 40 mg po daily (day 2) ( received methylprednisone 30 mg IVP BID for 3 days and 40 mg po bid for 2 days) for possible PCP. -CXR: Interval right basilar infiltrate affection the right lower lobe with none otherwise evident. Right plural effusion not excluded. None at the left -CHEST CT: IMPRESSION: New extensive infiltrate, multiple segments right lower lobe. Right middle lobe infiltrate. New large complex right pleural effusion suggesting debris. Tiny loculations air identified as well. -IR consult appreciated: "IR consulted for right thoracentesis. CT reviewed, no fluid seen; extensive right lower lobe consolidation. Due to ambiguous imaging appearance, patient brought to IR. Focused ultrasound of right hemithorax confirmed RLL consolidation without evidence of pleural fluid". -Duo-nebs PRN -5 L NC Oxygen, saturating >97% -Sputum cx: Pseudomonas aeruginosa -Pulmonary consult appreciated. -AFB X 3 neg 3. Hyperkalemia -resolved -K 4.5 this morning -f/u repeat BMP -may need further workup to eval cause 4. Non-bloody diarrhea -f/u c. diff toxins -Reports diarrhea is better. 5. AIDS: -Last CD4 count in 10/01/17 is 120 -azithromycin 1200 mg po qweekly for MAC prophylaxis -Noncompliant with HAART -Resume home meds 6. Asthma, unspecified type -c/w DuoNeb q4h prn -c/w home medications 7. Heroin use disorder: -Pt takes 80 mg methadone daily -c/w current medication 8. Right groin lesion: -Continue mupirocin TOP BID 9. DVT prophylaxis -platelet count: 114 -eGFR>60 -SCDs PRN -Lovenox 40mg SC QD (declining since 09/25/17) 10. Diet -Heart Healthy diet 11. Code status -Full code
[2017-10-28] MEDS: Albuterol-Ipratrop 3 mg / 0.5 (3 ml) UD INH SCH ×3 (07:20→19:25)
[2017-10-28 07:52] LABS: HEMOGLOBIN 10.1 g/dL (12.0-18.0); MEAN CORPUSCULAR HEMOGLOBIN 25.6 pg (27.0-31.0); MEAN CORPUSCULAR HGB CONC 31.6 g/dL (33.0-37.0); RBC 3.96 Mil/uL (4.40-5.90); RED CELL DISTRIBUTION WIDTH 17.2 % (11.5-14.5); WHITE BLOOD COUNT 9.2 K/uL (4.8-10.8)
[2017-10-28 08:22] LABS: ALB/GLOB RATIO 0.9 (1.0-2.1); ALBUMIN 2.7 g/dL (3.5-5.0); ALT/SGPT 45 U/L (21-72); AST/SGOT 38 U/L (17-59); BLOOD UREA NITROGEN 38 mg/dl (9-20); CALCIUM 8.9 mg/dL (8.4-10.2); GFR AFRICAN-AMERICAN > 60; GFR NON-AFRICAN AMERICAN > 60
[2017-10-28] MEDS: Fluticasone-Salmeterol 500-50mcg Diskus IH SCH ×2 (08:54→22:18)
[2017-10-28] MEDS: Tmp-Smz 800 mg-160 mg DS Tab PO SCH ×2 (08:54→22:18)
[2017-10-28] MEDS: Multivitamin With Minerals Tab PO SCH (08:55)
[2017-10-28] MEDS: Nystatin 100,000 Units/ml Oral Susp 5 ml UD PO SCH ×4 (08:59→22:19)
[2017-10-28] MEDS: Pantoprazole 40 mg EC Tab PO SCH (12:01)
[2017-10-28] MEDS ORDERED: Lidocaine 1% Inj (20ml) ONE (13:50)
--- NOTE | 2017-10-28 14:12 | CP.PCM.PN ---
Subjective - Date & Time of Evaluation Date of Evaluation: 10/28/17 Time of Evaluation: 10:00 - Subjective Subjective: F/U PNA Pt with no SOB, cough with scant amount of phlegms, having diarrhea. Objective - Vital Signs/Intake and Output Vital Signs (last 24 hours): Temp Pulse Resp BP Pulse Ox 98.2 F 92 H 18 107/69 100 10/28/17 13:57 10/28/17 13:57 10/28/17 13:57 10/28/17 13:57 10/28/17 13:57 - Medications Medications: Current Medications Acetaminophen (Tylenol 325mg Tab) 650 mg PO Q6 PRN PRN Reason: Pain, Mild (1-3) Last Admin: 10/28/17 05:16 Dose: 650 mg Albuterol/Ipratropium (Duoneb 3 Mg/0.5 Mg (3 Ml) Ud) 3 ml INH RTID [facility] Last Admin: 10/28/17 13:23 Dose: 3 ml Albuterol/Ipratropium (Duoneb 3 Mg/0.5 Mg (3 Ml) Ud) 3 ml INH RQ4 PRN PRN Reason: Shortness of Breath Ciprofloxacin (Cipro) 500 mg PO Q12 [facility] PRN Reason: Protocol Last Admin: 10/28/17 08:54 Dose: 500 mg Clindamycin HCl (Cleocin) 600 mg PO Q8 [facility] PRN Reason: Protocol Last Admin: 10/28/17 08:54 Dose: 600 mg Enoxaparin Sodium (Lovenox) 40 mg SC HS [facility] PRN Reason: Protocol Last Admin: 10/27/17 22:14 Dose: Not Given Home Med (Elviteg/Luna/Emtric/Tenofo Dis [Stribild Tablet]) 1 tab PO DAILY [facility] Last Admin: 10/28/17 08:55 Dose: 1 tab Meropenem 500 mg/ Sodium (Chloride) 100 mls @ 100 mls/hr IVPB Q8 [facility] PRN Reason: Protocol Last Admin: 10/26/17 17:42 Dose: Not Given Trimethoprim/Sulfamethoxazole (400 mg/ Dextrose) 500 mls @ 333.333 mls/hr IVPB Q8 [facility] PRN Reason: Protocol Last Admin: 10/26/17 17:42 Dose: Not Given Vancomycin HCl 1 gm/ Sodium (Chloride) 250 mls @ 166.667 mls/hr IVPB DAILY [facility] PRN Reason: Protocol Last Admin: 10/26/17 09:00 Dose: Not Given Ketorolac Tromethamine (Toradol) 30 mg IVP Q6 PRN PRN Reason: Pain, severe (8-10) Last Admin: 10/26/17 02:02 Dose: 30 mg Methadone HCl (Methadone) 80 mg PO DAILY [facility] Last Admin: 10/28/17 10:05 Dose: 80 mg Multivitamins/Minerals (Therapeutic-M Tab) 1 tab PO DAILY [facility] Last Admin: 10/28/17 08:55 Dose: 1 tab Mupirocin (Bactroban Ointment) 1 applic TOP BID [facility] Last Admin: 10/28/17 08:56 Dose: 1 applic Nystatin (Nystatin Oral Susp) 5 ml PO QID [facility] Last Admin: 10/28/17 08:59 Dose: Not Given Pantoprazole Sodium (Protonix Ec Tab) 40 mg PO DAILY [facility] Last Admin: 10/28/17 12:01 Dose: 40 mg Prednisone (Prednisone Tab) 40 mg PO DAILY [facility] Last Admin: 10/28/17 08:55 Dose: 40 mg Fluticasone/Salmeterol (Advair Diskus 500/50) 1 puff IH Q12 [facility] Last Admin: 10/28/17 08:54 Dose: 1 puff Trimethoprim/Sulfamethoxazole (Bactrim Ds Tab) 1 tab PO Q12 [facility] PRN Reason: Protocol Last Admin: 10/28/17 08:54 Dose: 1 tab - Labs Labs: 10/28/17 07:30 10/28/17 07:30 PT 15.8 Seconds (9.8-13.1) H 10/21/17 13:54 INR 1.4 (0.9-1.2) H 10/21/17 13:54 APTT 39.1 Seconds (25.6-37.1) H 10/21/17 13:54 - Constitutional Appears: No Acute Distress - Head Exam Head Exam: NORMAL INSPECTION - Eye Exam Eye Exam: PERRL - ENT Exam ENT Exam: Normal Exam - Neck Exam Neck Exam: Normal Inspection - Respiratory Exam Respiratory Exam: Decreased Breath Sounds (at bases), Rhonchi (b/l) - Cardiovascular Exam Cardiovascular Exam: REGULAR RHYTHM - GI/Abdominal Exam GI & Abdominal Exam: Soft, Normal Bowel Sounds - Back Exam Back Exam: NORMAL INSPECTION - Neurological Exam Neurological Exam: Alert, CN II-XII Intact Additional comments: No focal motor/sensory deficit. - Psychiatric Exam Psychiatric exam: Anxious - Skin Skin Exam: Warm Assessment and Plan (1) Pneumonia Status: Acute (2) History of asthma Status: Chronic (3) AIDS (acquired immunodeficiency syndrome), CD4 <=200/<=14% Status: Chronic - Assessment and Plan (Free Text) Plan: Pt off respiratory isolation, 3 sputum AFB negative, still on contact precaution for diarrhea, to have PICC line today for IV abx, continue Duoneb, O2 NC 5 L/M, continue abx Tx as per ID [facility] hcm consultant.
--- NOTE | 2017-10-28 14:16 | PCM.SURG1 ---
Surgeon's Initial Post Op Note - Surgeon's Notes Surgeon: Quan Jane MD Import Export Clerk: NONE Type of Anesthesia: Local Pre-Operative Diagnosis: Infection Operative Findings: Patent right basilic vein Post-Operative Diagnosis: Infection Operation Performed: Single lumen picc placement right basilic vein Specimen/Specimens Removed: NONE Estimated Blood Loss: EBL {In ML}: 2 Blood Products Given: N/A Drains Used: No Drains Post-Op Condition: Fair Date of Surgery/Procedure: 10/28/17 Time of Surgery/Procedure: 14:10
--- NOTE | 2017-10-28 15:15 | VASCULAR ---
PROCEDURE: Date of procedure: 10/28/2017 Procedure: 1. Placement of a right arm PICC with ultrasound and fluoroscopic guidance, CPT 50768 2. PICC tip confirmation with spot radiograph and is in the superior vena cava Medications: 1 percent lidocaine Total Fluoro time: 3.7 seconds Radiation: 0.85 MGy EBL: 2 cc HISTORY: Infection requiring long-term IV antibiotics TECHNIQUE: Following informed consent and procedure time-out, the patient was placed supine on the interventional table and the right arm prepped and draped in the usual sterile fashion. Ultrasound showed a patent and compressible right basilic vein. After the skin was anesthetized with lidocaine, the basilic vein was accessed with micro micropuncture technique using ultrasound guidance. A guidewire was then advanced under fluoroscopic guidance into the superior vena cava. An image documenting ultrasound guidance for vascular access was permanently saved. The length of the single-lumen 4 [place] PICC was trimmed to 37 centimeters and advanced through a peel-away sheath. The PICC was position with tip of PICC confirm a spot radiograph the superior vena cava. The PICC was secured to the patient's skin. The PICC was flushed. A biopatch and sterile dressing was applied. IMPRESSION: Placement of a single-lumen 4 [place] PICC trimmed to 37 centimeters via right basilic vein. The tip of the PICC is confirmed with spot radiograph and is in the superior vena cava.
[2017-10-28 17:27] LABS: SQUAMOUS EPITHIAL < 1 /hpf (0-5); URINE BILIRUBIN NEGATIVE (NEGATIVE); URINE BLOOD NEGATIVE (NEGATIVE); URINE CLARITY CLEAR (Clear); URINE COLOR YELLOW (YELLOW); URINE GLUCOSE (UA) NEG (Normal); URINE LEUKOCYTE ESTERASE NEG Leu/uL (Negative); URINE PROTEIN NEGATIVE (NEGATIVE); URINE UROBILINOGEN 0.2-1.0 mg/dL (0.2-1.0)
[2017-10-28] MEDS: Meropenem 500 MG in Sodium Chloride 0.9% 100 ML IVPB SCH (18:53)
[2017-10-28] MEDS: Enoxaparin 40 mg Syringe SC SCH (22:19)
[2017-10-29 00:15] VITALS: RESP 18
[2017-10-29 06:08] LABS: HEMOGLOBIN 9.1 g/dL (12.0-18.0); MEAN CELL VOLUME 82.6 fl (80.0-94.0); MEAN CORPUSCULAR HEMOGLOBIN 25.8 pg (27.0-31.0); MEAN CORPUSCULAR HGB CONC 31.2 g/dL (33.0-37.0); RBC 3.54 Mil/uL (4.40-5.90); RED CELL DISTRIBUTION WIDTH 17.2 % (11.5-14.5); WHITE BLOOD COUNT 9.7 K/uL (4.8-10.8)
[2017-10-29 06:18] LABS: BLOOD UREA NITROGEN 34 mg/dl (9-20); GFR AFRICAN-AMERICAN > 60; GFR NON-AFRICAN AMERICAN > 60
--- NOTE | 2017-10-29 07:03 | CP.PCM.PN ---
Subjective - Date & Time of Evaluation Date of Evaluation: 10/29/17 Time of Evaluation: 07:50 - Subjective Subjective: Patient seen and examined at bedside this morning. Pt had PICC line placed yesterday afternoon and switched to IV abx. No acute overnight events. Reports good appetite. States cough and dyspnea improved but still 3 L NC oxygen. No dyspnea at rest. Pt states he is still having pain with urination. Denies hematuria, frequency or urgency. Denies fever, chills, abdominal pain, n/v/d/c. Objective - Vital Signs/Intake and Output Vital Signs (last 24 hours): Temp Pulse Resp BP Pulse Ox 97.4 F L 80 18 105/62 97 10/29/17 05:10 10/29/17 05:10 10/29/17 05:10 10/29/17 05:10 10/29/17 05:10 - Medications Medications: Current Medications Acetaminophen (Tylenol 325mg Tab) 650 mg PO Q6 PRN PRN Reason: Pain, Mild (1-3) Last Admin: 10/28/17 05:16 Dose: 650 mg Albuterol/Ipratropium (Duoneb 3 Mg/0.5 Mg (3 Ml) Ud) 3 ml INH RTID DIANDRA Last Admin: 10/28/17 19:25 Dose: 3 ml Albuterol/Ipratropium (Duoneb 3 Mg/0.5 Mg (3 Ml) Ud) 3 ml INH RQ4 PRN PRN Reason: Shortness of Breath Enoxaparin Sodium (Lovenox) 40 mg SC HS DIANDRA PRN Reason: Protocol Last Admin: 10/28/17 22:19 Dose: Not Given Home Med (Elviteg/Luna/Emtric/Tenofo Dis [Stribild Tablet]) 1 tab PO DAILY [facility] Last Admin: 10/28/17 08:55 Dose: 1 tab Vancomycin HCl 1 gm/ Sodium (Chloride) 250 mls @ 166.667 mls/hr IVPB DAILY DIANDR[facility] PRN Reason: Protocol Last Admin: 10/26/17 09:00 Dose: Not Given Ketorolac Tromethamine (Toradol) 30 mg IVP Q6 PRN PRN Reason: Pain, severe (8-10) Last Admin: 10/29/17 01:42 Dose: 30 mg Methadone HCl (Methadone) 80 mg PO DAILY [facility] Last Admin: 10/28/17 10:05 Dose: 80 mg Multivitamins/Minerals (Therapeutic-M Tab) 1 tab PO DAILY [facility] Last Admin: 10/28/17 08:55 Dose: 1 tab Mupirocin (Bactroban Ointment) 1 applic TOP BID [facility] Last Admin: 10/28/17 16:37 Dose: 1 applic Nystatin (Nystatin Oral Susp) 5 ml PO QID [facility] Last Admin: 10/28/17 22:19 Dose: Not Given Pantoprazole Sodium (Protonix Ec Tab) 40 mg PO DAILY [facility] Last Admin: 10/28/17 12:01 Dose: 40 mg Prednisone (Prednisone Tab) 40 mg PO DAILY [facility] Last Admin: 10/28/17 08:55 Dose: 40 mg Fluticasone/Salmeterol (Advair Diskus 500/50) 1 puff IH Q12 [facility] Last Admin: 10/28/17 22:18 Dose: 1 puff Trimethoprim/Sulfamethoxazole (Bactrim Ds Tab) 1 tab PO Q12 [facility] PRN Reason: Protocol Last Admin: 10/28/17 22:18 Dose: 1 tab - Labs Labs: 10/29/17 05:30 10/29/17 05:30 PT 15.8 Seconds (9.8-13.1) H 10/21/17 13:54 INR 1.4 (0.9-1.2) H 10/21/17 13:54 APTT 39.1 Seconds (25.6-37.1) H 10/21/17 13:54 - Additional Findings Additional findings: - Constitutional Appears: Non-toxic, No Acute Distress, Cachectic, Chronically Ill - Eye Exam Eye Exam: Normal appearance. absent: Scleral icterus - ENT Exam ENT Exam: Mucous Membranes Moist - Neck Exam Neck Exam: Normal Inspection. - Respiratory Exam Respiratory Exam: absent: Wheezes, Respiratory Distress Additional comments: + rhonchi in B/L lower lung field (improving) - Cardiovascular Exam Cardiovascular Exam: REGULAR RHYTHM, RRR, +S1, +S2 - GI/Abdominal Exam GI & Abdominal Exam: Soft, Normal Bowel Sounds. absent: Tenderness, Rebound - Rectal Exam Additional comments: Erythematous lesion on right groin with oozing. No swelling - Extremities Exam Extremities Exam: Normal Inspection. absent: Calf Tenderness, Pedal Edema - Neurological Exam Neurological Exam: Alert, Awake, Oriented x3 - Psychiatric Exam Psychiatric exam: Normal Affect, Normal Mood Assessment and Plan - Assessment and Plan (Free Text) Assessment: 52 y/o male with a PMHx of HIV (CD4 is 120 on 10/01/17), HTN, rectal/penile cancer, colon cancer, and asthma admitted for sepsis with + streptococcus gallolyticus bacteremia and pseudomonas pneumonia with hypoxia. Plan: 1. Sepsis with streptococcus gallolyticus bacteremia: -ID on board -PICC line established on 10/28/17, IV abx resumed. -Continue Meropenem 500 mg IVP q8 (day 7) -Continue Vancomycin 1000 mg ivp daily (day 3) (pt recevied vancomycin 750 mg for 4 days Vanco level: <5 on 10/24/17) -Received FOLLOWING PO MEDS -D/C Cipro 500mg PO q12 ( total 4 doses) -D/C Clindamycin 600mg PO q8h ( 5 doses total) -ECHO: normal echo -Repeat blood cx on 10/23/17: no growth after 4 days. -WBC normal 2. Pseudomonas Pneumonia WITH hypoxia -Start on Bactrim DS x 2tabs PO Q8 (day 1) (received IV bactrim 400 mg q8 for 6 days and bactrim DS po bid 3 days) -Continue prednisone 40 mg po daily (day 3) ( received methylprednisone 30 mg IVP BID for 3 days and 40 mg po bid for 2 days) for possible PCP. -CXR: Interval right basilar infiltrate affection the right lower lobe with none otherwise evident. Right plural effusion not excluded. None at the left -CHEST CT: IMPRESSION: New extensive infiltrate, multiple segments right lower lobe. Right middle lobe infiltrate. New large complex right pleural effusion suggesting debris. Tiny loculations air identified as well. -IR consult appreciated: "IR consulted for right thoracentesis. CT reviewed, no fluid seen; extensive right lower lobe consolidation. Due to ambiguous imaging appearance, patient brought to IR. Focused ultrasound of right hemithorax confirmed RLL consolidation without evidence of pleural fluid". -Duo-nebs PRN -3 L NC Oxygen, saturating >97% -Sputum cx: Pseudomonas aeruginosa -Pulmonary consult appreciated. -AFB X 3 neg 3. Hyperkalemia -5.7 this morning -Kayexalate 30 gm ordered this morning -f/u K in the afternoon. -F/U repeat BMP 4. AIDS: -Last CD4 count in 10/01/17 is 120 -azithromycin 1200 mg po qweekly for MAC prophylaxis -Noncompliant with HAART -Resume home meds 5. Asthma, unspecified type -c/w DuoNeb q4h prn -c/w home medications 6. Heroin use disorder: -Pt takes 80 mg methadone daily -c/w current medication 7. Right groin lesion: -Continue mupirocin TOP BID 8. DVT prophylaxis -platelet count: 96 -eGFR>60 -SCDs PRN -Lovenox 40mg SC QD (declining since 09/25/17) 9. Diet -Heart Healthy diet 10. Code status -Full code
[2017-10-29] MEDS: Albuterol-Ipratrop 3 mg / 0.5 (3 ml) UD INH SCH ×2 (07:33→13:35)
[2017-10-29] MEDS: Fluticasone-Salmeterol 500-50mcg Diskus IH SCH (09:18)
[2017-10-29] MEDS: Tmp-Smz 800 mg-160 mg DS Tab PO SCH ×3 (09:18→17:38)
[2017-10-29] MEDS: Nystatin 100,000 Units/ml Oral Susp 5 ml UD PO SCH ×3 (09:18→17:39)
[2017-10-29] MEDS: Multivitamin With Minerals Tab PO SCH (09:20)
[2017-10-29] MEDS: Pantoprazole 40 mg EC Tab PO SCH (09:20)
[2017-10-29] MEDS ORDERED: Sod Polystyrene Sulf 15 gm/60 ml Susp PO ONE (09:35)
[2017-10-29] MEDS ORDERED: Meropenem 500 MG in Sodium Chloride 0.9% 100 ML IVPB SCH (10:15)
--- NOTE | 2017-10-29 13:24 | CP.PCM.PN ---
Subjective - Date & Time of Evaluation Date of Evaluation: 10/29/17 Time of Evaluation: 12:00 - Subjective Subjective: ID Note- Patient seen and examined today. patient is in good spirits and states he feels much better and denies any cough or any sob. Objective - Vital Signs/Intake and Output Vital Signs (last 24 hours): Temp Pulse Resp BP Pulse Ox 98.3 F 88 18 101/62 95 10/29/17 11:53 10/29/17 11:53 10/29/17 11:53 10/29/17 11:53 10/29/17 11:53 - Medications Medications: Current Medications Acetaminophen (Tylenol 325mg Tab) 650 mg PO Q6 PRN PRN Reason: Pain, Mild (1-3) Last Admin: 10/28/17 05:16 Dose: 650 mg Albuterol/Ipratropium (Duoneb 3 Mg/0.5 Mg (3 Ml) Ud) 3 ml INH RTID [facility] Last Admin: 10/29/17 07:33 Dose: 3 ml Albuterol/Ipratropium (Duoneb 3 Mg/0.5 Mg (3 Ml) Ud) 3 ml INH RQ4 PRN PRN Reason: Shortness of Breath Enoxaparin Sodium (Lovenox) 40 mg SC HS DIANDRA PRN Reason: Protocol Last Admin: 10/28/17 22:19 Dose: Not Given Home Med (Elviteg/Luna/Emtric/Tenofo Dis [Stribild Tablet]) 1 tab PO DAILY [facility] Last Admin: 10/29/17 09:19 Dose: 1 tab Vancomycin HCl 1 gm/ Sodium (Chloride) 250 mls @ 166.667 mls/hr IVPB DAILY [facility] PRN Reason: Protocol Last Admin: 10/26/17 09:00 Dose: Not Given Ketorolac Tromethamine (Toradol) 30 mg IVP Q6 PRN PRN Reason: Pain, severe (8-10) Last Admin: 10/29/17 01:42 Dose: 30 mg Methadone HCl (Methadone) 80 mg PO DAILY [facility] Last Admin: 10/29/17 09:12 Dose: 80 mg Multivitamins/Minerals (Therapeutic-M Tab) 1 tab PO DAILY [facility] Last Admin: 10/29/17 09:20 Dose: 1 tab Mupirocin (Bactroban Ointment) 1 applic TOP BID [facility] Last Admin: 10/29/17 09:19 Dose: 1 applic Nystatin (Nystatin Oral Susp) 5 ml PO QID [facility] Last Admin: 10/29/17 09:18 Dose: 5 ml Pantoprazole Sodium (Protonix Ec Tab) 40 mg PO DAILY [facility] Last Admin: 10/29/17 09:20 Dose: 40 mg Prednisone (Prednisone Tab) 40 mg PO DAILY [facility] Last Admin: 10/29/17 09:20 Dose: 40 mg Fluticasone/Salmeterol (Advair Diskus 500/50) 1 puff IH Q12 [facility] Last Admin: 10/29/17 09:18 Dose: 1 puff Trimethoprim/Sulfamethoxazole (Bactrim Ds Tab) 2 tab PO Q8 [facility] PRN Reason: Protocol Last Admin: 10/29/17 11:50 Dose: 2 tab - Labs Labs: - Additional Findings Additional findings: - Constitutional Appears: No Acute Distress - Head Exam Head Exam: ATRAUMATIC - Eye Exam Eye Exam: EOMI, PERRL - ENT Exam Additional comments: dry oropharynx - Neck Exam Neck exam: Positive for: Full Rom - Respiratory Exam Additional comments: no wheezing much better breath sounds b/l - Cardiovascular Exam Cardiovascular Exam: RRR, +S1, +S2 - GI/Abdominal Exam GI & Abdominal Exam: Normal Bowel Sounds, Soft Additional comments: NT, ND - Extremities Exam Extremities exam: Positive for: normal inspection - Neurological Exam Neurological exam: Alert, Oriented x 3 Laboratory Results - last 72 hr 10/27/17 10/27/17 10/27/17 06:57 06:57 18:30 WBC 6.2 RBC 3.67 L Hgb 10.0 L Hct 30.8 L MCV 83.8 MCH 27.3 MCHC 32.5 L RDW 16.8 H Plt Count 109 L MPV 10.2 Neut % (Auto) 90.5 H Lymph % (Auto) 6.1 L [place] % (Auto) 3.0 Eos % (Auto) 0.1 Baso % (Auto) 0.3 Neut # (Auto) 5.6 Lymph # (Auto) 0.4 L [place] # (Auto) 0.2 Eos # (Auto) 0.0 Baso # (Auto) 0.0 Neutrophils % (Manual) 91 H Lymphocytes % (Manual) 8 L Monocytes % (Manual) 1 Platelet Estimate Decreased L Hypochromasia (manual) Slight Anisocytosis (manual) Slight Tear Drop Cells Slight Ovalocytes Slight Schistocytes Slight Sodium 136 Potassium 5.8 H 5.2 H Chloride 97 L Carbon Dioxide 29 Anion Gap 16 BUN 33 H Creatinine 1.0 Est GFR ( Amer) > 60 Est GFR (Non-Af Amer) > 60 POC Glucose (mg/dL) Random Glucose 142 H Calcium 9.2 Total Bilirubin 0.3 AST 51 ALT 50 Alkaline Phosphatase 99 Total Protein 5.8 L Albumin 2.6 L Globulin 3.1 Albumin/Globulin Ratio 0.8 L Urine Color Urine Clarity Urine pH Ur Specific [place] Urine Protein Urine Glucose (UA) Urine Ketones Urine Blood Urine Nitrate Urine Bilirubin Urine Urobilinogen Ur Leukocyte Esterase Urine RBC (Auto) Urine Microscopic WBC Ur Squamous Epith Cells 10/28/17 10/28/17 10/28/17 07:30 07:30 17:05 WBC 9.2 RBC 3.96 L Hgb 10.1 L Hct 32.0 L MCV 81.0 D MCH 25.6 L MCHC 31.6 L RDW 17.2 H Plt Count 114 L MPV Neut % (Auto) Lymph % (Auto) [place] % (Auto) Eos % (Auto) Baso % (Auto) Neut # (Auto) Lymph # (Auto) [place] # (Auto) Eos # (Auto) Baso # (Auto) Neutrophils % (Manual) Lymphocytes % (Manual) Monocytes % (Manual) Platelet Estimate Hypochromasia (manual) Anisocytosis (manual) Tear Drop Cells Ovalocytes Schistocytes Sodium 140 Potassium 4.5 Chloride 100 Carbon Dioxide 28 Anion Gap 17 BUN 38 H Creatinine 1.1 Est GFR ( Amer) > 60 Est GFR (Non-Af Amer) > 60 POC Glucose (mg/dL) Random Glucose 73 L Calcium 8.9 Total Bilirubin 0.3 AST 38 ALT 45 Alkaline Phosphatase 95 Total Protein 5.7 L Albumin 2.7 L Globulin 3.0 Albumin/Globulin Ratio 0.9 L Urine Color Yellow Urine Clarity Clear Urine pH 6.0 Ur Specific [place] 1.018 Urine Protein Negative Urine Glucose (UA) Neg Urine Ketones Negative Urine Blood Negative Urine Nitrate Negative Urine Bilirubin Negative Urine Urobilinogen 0.2-1.0 Ur Leukocyte Esterase Neg Urine RBC (Auto) 3 Urine Microscopic WBC 1 Ur Squamous Epith Cells < 1 10/29/17 10/29/17 10/29/17 05:30 05:30 10:47 WBC 9.7 RBC 3.54 L Hgb 9.1 L Hct 29.2 L MCV 82.6 MCH 25.8 L MCHC 31.2 L RDW 17.2 H Plt Count 96 L MPV Neut % (Auto) Lymph % (Auto) [place] % (Auto) Eos % (Auto) Baso % (Auto) Neut # (Auto) Lymph # (Auto) [place] # (Auto) Eos # (Auto) Baso # (Auto) Neutrophils % (Manual) Lymphocytes % (Manual) Monocytes % (Manual) Platelet Estimate Hypochromasia (manual) Anisocytosis (manual) Tear Drop Cells Ovalocytes Schistocytes Sodium 138 Potassium 5.7 H Chloride 99 Carbon Dioxide 29 Anion Gap 16 BUN 34 H Creatinine 1.0 Est GFR ( Amer) > 60 Est GFR (Non-Af Amer) > 60 POC Glucose (mg/dL) 199 H Random Glucose 124 H Calcium 9.0 Total Bilirubin AST ALT Alkaline Phosphatase Total Protein Albumin Globulin Albumin/Globulin Ratio Urine Color Urine Clarity Urine pH Ur Specific [place] Urine Protein Urine Glucose (UA) Urine Ketones Urine Blood Urine Nitrate Urine Bilirubin Urine Urobilinogen Ur Leukocyte Esterase Urine RBC (Auto) Urine Microscopic WBC Ur Squamous Epith Cells Microbiology 10/25/17 11:30 Blood-Venous Blood Culture - Preliminary NO GROWTH AFTER 4 DAYS 10/23/17 12:40 Blood-Venous Blood Culture - Final NO GROWTH AFTER 5 DAYS 10/23/17 12:40 Blood-Venous Gram Stain - Final TEST NOT PERFORMED 10/26/17 10:55 Other: Please Indicate Mycobacterial Culture - Preliminary 10/23/17 06:00 Urine,Clean Catch Urine Culture - Final No Growth (<1,000 CFU/ML) 10/22/17 12:20 Other: Please Indicate Mycobacterial Culture - Preliminary 10/23/17 18:00 Other: Please Indicate Mycobacterial Culture - Preliminary 10/22/17 14:00 Sputum Gram Stain - Final 10/22/17 14:00 Sputum Sputum Culture - Final Yeast Species 10/21/17 11:23 Blood-Venous Blood Culture - Final Str.gallolyticus Ss Pasteurian 10/21/17 11:23 Blood-Venous Gram Stain - Final 10/21/17 11:30 Blood-Venous S.aureus & Coag-Neg Staph PNA FISH - Final 10/21/17 11:30 Blood-Venous Blood Culture - Final Str.gallolyticus Ss Pasteurian 10/21/17 11:30 Blood-Venous Gram Stain - Final 10/21/17 11:50 Sputum Gram Stain - Final 10/21/17 11:50 Sputum Sputum Culture - Final Pseudomonas Aeruginosa Assessment and Plan (1) Pneumonia Status: Acute (2) AIDS (acquired immunodeficiency syndrome), CD4 <=200/<=14% Status: Chronic - Assessment and Plan (Free Text) Assessment: A/P- 52 year old amle with AIDS 9 last Cd4 -40), penile . rectal ca s/p radiation admitted with cough, phlegm sob and found to have large right midlle and lower lobe pneumonia and right pleural effusion. hypoxic on ABG. has remained afebrile minimal leukocytosis resolved. blood cx- strep galollyticus sens to vanco sputum cx- pseudomonas sens to meropenem sputum AFB snear x 3- negative repeat blood cx from 10/23 and 10/25- negative TTE- no vegetations as per report. plan- d/c airborne isolation. can switch bactrim to DS BID for total of 21 days ( already had 1 week of Iv bactrim hence needs another 2 weeks of the oral bactrim). after can be switched to bactrim prophylaxis dose as per hsi PMD as outpatient. continue with IV vancomycin day #9 keep trough <20. needs total of 14 days of IV vanco for strep bacteremia. check 2 blood cx as outpatient by his PMD after completion of the antibiotics. has completed 9 days of IV meroepenm for pseudomonas in sputum cx. d/c meropenm . zithormax 1200 mg once a week for MAC prophylaxis since CD4 was 40. HAART meds as per his PMD at [facility]. all above d/w patietn adn he verbalzies full understanding of all above and agrees with above plan of care. all above also d/w DR.Pierre Pantoja and the family practice team.
--- NOTE | 2017-10-29 14:34 | CP.PCM.DIS ---
Provider - Provider Date of Admission: 10/21/17 11:59 Attending physician: Christine Bettencourt MD Consults: ID Pulmonary Time Spent in preparation of Discharge (in minutes): 40 Diagnosis - Discharge Diagnosis (1) Pneumonia Status: Acute Priority: High (2) Sepsis Status: Acute (3) AIDS (acquired immunodeficiency syndrome), CD4 <=200/<=14% Status: Chronic Priority: High (4) History of asthma Status: Chronic Priority: High Hospital Course - Lab Results Lab Results: Micro Results 10/25/17 11:30 Blood-Venous Blood Culture - Preliminary NO GROWTH AFTER 4 DAYS 10/23/17 12:40 Blood-Venous Blood Culture - Final NO GROWTH AFTER 5 DAYS 10/23/17 12:40 Blood-Venous Gram Stain - Final TEST NOT PERFORMED 10/26/17 10:55 Other: Please Indicate Mycobacterial Culture - Preliminary 10/23/17 06:00 Urine,Clean Catch Urine Culture - Final No Growth (<1,000 CFU/ML) 10/22/17 12:20 Other: Please Indicate Mycobacterial Culture - Preliminary 10/23/17 18:00 Other: Please Indicate Mycobacterial Culture - Preliminary 10/22/17 14:00 Sputum Gram Stain - Final 10/22/17 14:00 Sputum Sputum Culture - Final Yeast Species 10/21/17 11:23 Blood-Venous Blood Culture - Final Str.gallolyticus Ss Pasteurian 10/21/17 11:23 Blood-Venous Gram Stain - Final 10/21/17 11:30 Blood-Venous S.aureus & Coag-Neg Staph PNA FISH - Final 10/21/17 11:30 Blood-Venous Blood Culture - Final Str.gallolyticus Pasteurian 10/21/17 11:30 Blood-Venous Gram Stain - Final 10/21/17 11:50 Sputum Gram Stain - Final 10/21/17 11:50 Sputum Sputum Culture - Final Pseudomonas Aeruginosa Most Recent Lab Values WBC 9.7 K/uL (4.8-10.8) 10/29/17 05:30 RBC 3.54 Mil/uL (4.40-5.90) L 10/29/17 05:30 Hgb 9.1 g/dL (12.0-18.0) L 10/29/17 05:30 Hct 29.2 % (35.0-51.0) L 10/29/17 05:30 MCV 82.6 fl (80.0-94.0) 10/29/17 05:30 MCH 25.8 pg (27.0-31.0) L 10/29/17 05:30 MCHC 31.2 g/dL (33.0-37.0) L 10/29/17 05:30 RDW 17.2 % (11.5-14.5) H 10/29/17 05:30 Plt Count 96 K/uL (130-400) L 10/29/17 05:30 MPV 10.2 fl (7.2-11.7) 10/27/17 06:57 Neut % (Auto) 90.5 % (50.0-75.0) H 10/27/17 06:57 Lymph % (Auto) 6.1 % (20.0-40.0) L 10/27/17 06:57 [place] % (Auto) 3.0 % (0.0-10.0) 10/27/17 06:57 Eos % (Auto) 0.1 % (0.0-4.0) 10/27/17 06:57 Baso % (Auto) 0.3 % (0.0-2.0) 10/27/17 06:57 Neut # (Auto) 5.6 K/uL (1.8-7.0) 10/27/17 06:57 Lymph # (Auto) 0.4 K/uL (1.0-4.3) L 10/27/17 06:57 [place] # (Auto) 0.2 K/uL (0.0-0.8) 10/27/17 06:57 Eos # (Auto) 0.0 K/uL (0.0-0.7) 10/27/17 06:57 Baso # (Auto) 0.0 K/uL (0.0-0.2) 10/27/17 06:57 Neutrophils % (Manual) 91 % (42-75) H 10/27/17 06:57 Band Neutrophils % 2 % (0-2) 10/21/17 10:37 Lymphocytes % (Manual) 8 % (20-50) L 10/27/17 06:57 Monocytes % (Manual) 1 % (0-10) 10/27/17 06:57 Platelet Estimate Decreased (NORMAL) L 10/27/17 06:57 Large Platelets Present 10/21/17 10:37 Hypochromasia (manual) Slight 10/27/17 06:57 Anisocytosis (manual) Slight 10/27/17 06:57 Tear Drop Cells Slight 10/27/17 06:57 Ovalocytes Slight 10/27/17 06:57 Schistocytes Slight 10/27/17 06:57 PT 15.8 Seconds (9.8-13.1) H 10/21/17 13:54 INR 1.4 (0.9-1.2) H 10/21/17 13:54 APTT 39.1 Seconds (25.6-37.1) H 10/21/17 13:54 pCO2 45 mm/Hg (35-45) 10/24/17 18:34 pO2 54 mm/Hg (80-100) L 10/24/17 18:34 HCO3 25.1 mmol/L (21-28) 10/24/17 18:34 ABG pH 7.37 (7.35-7.45) 10/24/17 18:34 ABG Total CO2 27.4 mmol/L (22-28) 10/24/17 18:34 ABG O2 Saturation 88.5 % (95-98) L 10/24/17 18:34 ABG O2 Content 11.1 ML/dL (15-23) L 10/24/17 18:34 ABG Base Excess 0.5 mmol/L (-2.0-3.0) 10/24/17 18:34 ABG Hemoglobin 9.1 g/dL (11.7-17.4) L 10/24/17 18:34 ABG Carboxyhemoglobin 1.2 % (0.5-1.5) 10/24/17 18:34 POC ABG HHb (Measured) 11.2 % (0.0-5.0) H 10/24/17 18:34 ABG Methemoglobin 1.2 % (0.0-3.0) 10/24/17 18:34 ABG O2 Capacity 12.5 mL/dL (16-24) L 10/24/17 18:34 [place] Test Yes 10/24/17 18:34 VBG pH 7.36 (7.32-7.43) 10/21/17 14:35 VBG pCO2 50 mmHg (40-60) 10/21/17 14:35 VBG HCO3 25.9 mmol/L 10/21/17 14:35 VBG Total CO2 29.7 mmol/L (22-28) H 10/21/17 14:35 VBG O2 Sat (Calc) 75.9 % (40-65) H 10/21/17 14:35 VBG Base Excess 1.9 mmol/L (0.0-2.0) 10/21/17 14:35 VBG Potassium 4.1 mmol/L (3.6-5.2) 10/21/17 14:35 A-a O2 Difference 318.0 mm/Hg 10/24/17 18:34 Hgb O2 Saturation 86.4 % (95.0-98.0) L 10/24/17 18:34 Sodium 134.0 mmol/L (132-148) 10/21/17 14:35 Chloride 100.0 mmol/L (98-107) 10/21/17 14:35 Glucose 180 mg/dL (75-110) H 10/21/17 14:35 Lactate 2.3 mmol/L (0.7-2.1) H 10/21/17 14:35 Liter Flow 15 10/24/17 18:34 Vent Mode High flow lpm 10/24/17 18:34 FiO2 60.0 % 10/24/17 18:34 Blood Gas Comments Lac=2.3 10/21/17 14:35 Crit Value Called To mayi Toth 10/21/17 14:35 Crit Value Called By 22 10/21/17 14:35 Crit Value Read Back Y 10/21/17 14:35 Blood Gas Notified Time 1441 10/21/17 14:35 Sodium 138 mmol/l (132-148) 10/29/17 05:30 Potassium 5.7 MMOL/L (3.6-5.0) H 10/29/17 05:30 Chloride 99 mmol/L (98-107) 10/29/17 05:30 Carbon Dioxide 29 mmol/L (22-30) 10/29/17 05:30 Anion Gap 16 (10-20) 10/29/17 05:30 BUN 34 mg/dl (9-20) H 10/29/17 05:30 Creatinine 1.0 mg/dl (0.8-1.5) 10/29/17 05:30 Est GFR ( Amer) > 60 10/29/17 05:30 Est GFR (Non-Af Amer) > 60 10/29/17 05:30 POC Glucose (mg/dL) 199 mg/dL (65-110) H 10/29/17 10:47 Random Glucose 124 mg/dL (75-110) H 10/29/17 05:30 Calcium 9.0 mg/dL (8.4-10.2) 10/29/17 05:30 Total Bilirubin 0.3 mg/dl (0.2-1.3) 10/28/17 07:30 AST 38 U/L (17-59) 10/28/17 07:30 ALT 45 U/L (21-72) 10/28/17 07:30 Alkaline Phosphatase 95 U/L (38-126) 10/28/17 07:30 Troponin I < 0.0120 ng/mL (0.00-0.120) 10/21/17 10:37 NT-Pro-B Natriuret Pep 492 pg/ml (0-900) 10/21/17 10:37 Total Protein 5.7 G/DL (6.3-8.2) L 10/28/17 07:30 Albumin 2.7 g/dL (3.5-5.0) L 10/28/17 07:30 Globulin 3.0 gm/dL (2.2-3.9) 10/28/17 07:30 Albumin/Globulin Ratio 0.9 (1.0-2.1) L 10/28/17 07:30 Venous Blood Potassium 4.1 mmol/L (3.6-5.2) 10/21/17 14:35 Urine Color Yellow (YELLOW) 10/28/17 17:05 Urine Clarity Clear (Clear) 10/28/17 17:05 Urine pH 6.0 (5.0-8.0) 10/28/17 17:05 Ur Specific [place] 1.018 (1.003-1.030) 10/28/17 17:05 Urine Protein Negative mg/dL (NEGATIVE) 10/28/17 17:05 Urine Glucose (UA) Neg mg/dL (Normal) 10/28/17 17:05 Urine Ketones Negative mg/dL (NEGATIVE) 10/28/17 17:05 Urine Blood Negative (NEGATIVE) 10/28/17 17:05 Urine Nitrate Negative (NEGATIVE) 10/28/17 17:05 Urine Bilirubin Negative (NEGATIVE) 10/28/17 17:05 Urine Urobilinogen 0.2-1.0 mg/dL (0.2-1.0) 10/28/17 17:05 Ur Leukocyte Esterase Neg [place]/uL (Negative) 10/28/17 17:05 Urine RBC (Auto) 3 /hpf (0-3) 10/28/17 17:05 Urine Microscopic WBC 1 /hpf (0-5) 10/28/17 17:05 Ur Squamous Epith Cells < 1 /hpf (0-5) 10/28/17 17:05 Hyaline Casts 3-5 /hpf (0-2) H 10/23/17 23:02 Vancomycin Trough < 5.0 ug/mL (5.0-10.0) L 10/26/17 08:08 Absolute Lymphs (Flow) TN 10/21/17 13:54 % CD4 Cells TN 10/21/17 13:54 Absolute CD4 Count TN 10/21/17 13:54 T-Help/Suppress Ratio TNP 10/21/17 13:54 % CD8 Cells TN 10/21/17 13:54 Absolute CD8 Count TN 10/21/17 13:54 T-Lymph Analys Comment TN 10/21/17 13:54 HIV-1 RNA Qnt (RT-PCR) 4.59 (Not Detected) H 10/21/17 13:54 - Hospital Course Hospital Course: 52 y/o male with a PMHx of HIV (CD4 is 120 on 10/01/17), HTN, rectal/penile cancer, colon cancer, and asthma admitted on 10/21/17 for suspected pneumonia and sepsis. Chest CT on 10/21/17 shows IMPRESSION: New extensive infiltrate, multiple segments right lower lobe. Right middle lobe infiltrate. New large complex right pleural effusion suggesting debris. Tiny loculations air identified as well. IR attempted to drain the effusion but no fluid was seen. Pt 's blood cx showed streptococcus gallolyticus on 10/21/17 and sputum cx shows pseudomonas aeruginosa. Pt received 9 days of IV meropenem for pseudomas and received 9 days of IV vancomycin for streptococcus gallolyticus bacteremia. Pt also received IV bactrim tx for pcp pnumonia for 1 week and currently on bactrim po ds bid. Pt was on prednisone for PCP pna. Pt will be transferred to TCU for total of 14 days of IV vancomycin and PT/OT improve motor function. Discharge Exam - Head Exam Head Exam: NORMAL INSPECTION - Eye Exam Eye Exam: EOMI, Normal appearance. absent: Scleral icterus - ENT Exam ENT Exam: Mucous Membranes Moist - Respiratory Exam Respiratory Exam: NORMAL BREATHING PATTERN. absent: Wheezes, Respiratory Distress Additional comments: + rhonchi in B/L lower lung field - Cardiovascular Exam Cardiovascular Exam: REGULAR RHYTHM, RRR, +S1, +S2 - GI/Abdominal Exam GI & Abdominal Exam: Normal Bowel Sounds, Soft. absent: Tenderness - Extremities Exam Extremities exam: normal inspection - Neurological Exam Neurological exam: Alert, Oriented x3 - Psychiatric Exam Psychiatric exam: Normal Affect, Normal Mood - Skin Skin Exam: Normal Color, Warm Discharge Plan - Follow Up Plan Condition: FAIR Disposition: TRANSF TO SNF Additional Instructions: Pt is transferred to TCU for additional days of IV abx Referrals: Dong Tiwari MD [Staff Provider] -
[2017-10-29 16:00] VITALS: BP 94/58; PULSE 90; TEMP 97.6; O2SAT 93
== END 2017-10-29 18:45 | DRG 706 ==
LOC: H.ER 09:43 → H.ERHOLD 11:59 → H.TEL 15:44
PROVIDERS: ADMIT Family Medicine Geriatric Medicine; ATTEND Family Medicine Geriatric Medicine
PROC: 02HV33Z Insertion of Infusion Device into Superior Vena Cava, Percutaneous Approach (ICD-10-PCS; principal; 2017-10-28)
DX: B20 Human immunodeficiency virus [HIV] disease (principal); B59 Pneumocystosis; J15.1 Pneumonia due to Pseudomonas; N17.9 Acute kidney failure, unspecified; A40.8 Other streptococcal sepsis; E87.5 Hyperkalemia; R09.02 Hypoxemia; J90 Pleural effusion, not elsewhere classified; J44.9 Chronic obstructive pulmonary disease, unspecified; F11.90 Opioid use, unspecified, uncomplicated; Z88.0 Allergy status to penicillin; F32.9 Major depressive disorder, single episode, unspecified; I10 Essential (primary) hypertension; Z87.891 Personal history of nicotine dependence; Z91.14 Patient's other noncompliance with medication regimen; D72.829 Elevated white blood cell count, unspecified; T38.0X5A Adverse effect of glucocorticoids and synthetic analogues, initial encounter; R19.7 Diarrhea, unspecified; L98.8 Other specified disorders of the skin and subcutaneous tissue; Z85.048 Personal history of other malignant neoplasm of rectum, rectosigmoid junction, and anus; Z92.3 Personal history of irradiation

== ENCOUNTER 2017-10-29 14:57 | Inpatient (IN) | payer MEDICAID ==
[2017-10-29 18:59] VITALS: BMI 21.2
[2017-10-29] MEDS: Albuterol-Ipratrop 3 mg / 0.5 (3 ml) UD INH SCH (19:42)
[2017-10-29] MEDS: Enoxaparin 40 mg Syringe SC SCH (21:40)
[2017-10-29] MEDS: Nystatin 100,000 Units/ml Oral Susp 5 ml UD PO SCH (21:40)
[2017-10-29] MEDS: Fluticasone-Salmeterol 500-50mcg Diskus IH SCH (21:41)
[2017-10-30] MEDS ORDERED: Tmp-Smz 800 mg-160 mg DS Tab PO SCH (01:00)
--- NOTE | 2017-10-30 06:46 | CP.PCM.HP ---
History of Present Illness - History of Present Illness History of Present Illness: 52 y/o male with a PMHx of HIV (CD4 is 120 on 10/01/17), HTN, rectal/penile cancer, colon cancer, and asthma admitted to TCU for IV abx for bacteremia sepsis. Pt reports his cough and dyspnea has improved and breathing well in RA. Afebrile with stable vitals. Denies chest pain, dyspnea, fever, chills, nausea, vomiting, abdominal pain, diarrhea, constipation or dysuria. ROS: as per HPI PMD: Dr. Galeano, last visit 10/07/17 PMHx: HIV, essential HTN, penile/rectal cancer, colon cancer, unspecified severity of asthma Meds: as per eCW/med rec, NONCOMPLIANT with many medications ALL: penicillins (angioedema) PsurgHx: colectomy/colostomy reversal in FamilyHx: father decreased 2/2 lung cancer, mother decreased 2/2 CHF. Multiple siblings, alive, one has sickle cell anemia SocialHx: former tobacco abuser. Social ETOH. Heroin abuser, recent usage mid April 2017 -next of kin: daughter Mimi [phone] -FULL CODE Present on Admission - Present on Admission Any Indicators Present on Admission: Yes Review of Systems - Constitutional Constitutional: absent: Chills, Fever - EENT Eyes: absent: Blurred Vision Nose/Mouth/Throat: absent: Dysphagia, Sore Throat - Cardiovascular Cardiovascular: absent: Chest Pain, Chest Pain at Rest, Dyspnea - Respiratory Respiratory: Cough. absent: Dyspnea - Gastrointestinal Gastrointestinal: absent: Abdominal Pain, Constipation, Diarrhea, Nausea, Vomiting - Genitourinary Genitourinary: absent: Dysuria, Hematuria - Neurological Neurological: absent: Dizziness, Headaches - Hematologic/Lymphatic Hematologic: absent: Easy Bleeding, Easy Bruising Past Patient History - Past Medical History & Family History Past Medical History?: Yes - Past Social History Smoking Status: Former Smoker - CARDIAC Hx Cardiac Disorders: Yes Hx Hypertension: Yes - PULMONARY Hx Respiratory Disorders: Yes Hx Asthma: Yes Hx Bronchitis: Yes Hx Pneumonia: Yes (PCP) - NEUROLOGICAL Hx Neurological Disorder: No - HEENT Hx HEENT Problems: No - RENAL Hx Chronic Kidney Disease: No - ENDOCRINE/METABOLIC Hx Endocrine Disorders: No - HEMATOLOGICAL/ONCOLOGICAL Hx Blood Disorders: Yes (HIV) Hx AIDS: Yes Hx Cancer: Yes (penile/colon) Hx Human Immunodeficiency Virus (HIV): Yes - INTEGUMENTARY Hx Dermatological Problems: Yes - MUSCULOSKELETAL/RHEUMATOLOGICAL Hx Falls: No - GASTROINTESTINAL Hx Gastrointestinal Disorders: Yes Hx Colostomy: Yes (reversal) - GENITOURINARY/GYNECOLOGICAL Hx Genitourinary Disorders: Yes Other/Comment: Penile CA - PSYCHIATRIC Hx Substance Use: No - SURGICAL HISTORY Hx Surgeries: Yes Other/Comment: colostomy- reversed - ANESTHESIA Hx Anesthesia: Yes Hx Anesthesia Reactions: No Meds Allergies/Adverse Reactions: Allergies Allergy/AdvReac Type Severity Reaction Status Date / Time Penicillins Allergy Intermediate ANGIOEDEMA Verified 10/29/17 15:22 Physical Exam - Constitutional Appears: Non-toxic, No Acute Distress, Cachectic, Chronically Ill - Head Exam Head Exam: NORMAL INSPECTION - Eye Exam Eye Exam: Normal appearance. absent: Scleral icterus - ENT Exam ENT Exam: Mucous Membranes Moist, Normal Oropharynx - Neck Exam Neck exam: Positive for: Normal Inspection. Negative for: Lymphadenopathy - Respiratory Exam Respiratory Exam: Rhonchi (B/L lower lung field), NORMAL BREATHING PATTERN. absent: Wheezes, Respiratory Distress - Cardiovascular Exam Cardiovascular Exam: REGULAR RHYTHM, RRR, +S1, +S2 - GI/Abdominal Exam GI & Abdominal Exam: Normal Bowel Sounds, Soft. absent: Rebound, Rigid, Tenderness - Exam Additional comments: Erythematous lesion on right groin with oozing improving). No swelling - Extremities Exam Extremities exam: Positive for: normal inspection. Negative for: calf tenderness, pedal edema - Back Exam Back exam: absent: CVA tenderness (L), CVA tenderness (R) - Neurological Exam Neurological exam: Alert, Oriented x3 - Psychiatric Exam Psychiatric exam: Normal Affect, Normal Mood Results - Vital Signs Recent Vital Signs: Last Vital Signs Temp 97.9 F 10/29/17 20:03 Pulse 86 10/29/17 20:03 Resp 20 10/29/17 20:03 BP 106/65 10/29/17 20:03 Pulse Ox 96 10/29/17 20:03 Assessment & Plan - Assessment and Plan (Free Text) Assessment: 52 y/o male with a PMHx of HIV (CD4 is 120 on 10/01/17), HTN, rectal/penile cancer, colon cancer, and asthma admitted for sepsis with + streptococcus gallolyticus bacteremia Plan: 1. Sepsis with streptococcus gallolyticus bacteremia: -ID on board -Continue Vancomycin 1000 mg ivp daily (day#10), needs total of 14 days -Completed Meropenem 500 mg IVP q8 for 9 days. -ECHO: normal echo -Repeat blood cx on 10/23/17: no growth after 5 days. -WBC normal -f/u vanco trough 2. Hyperkalemia -5.3 yesterday -F/U repeat BMP 3. AIDS: -Last CD4 count in 10/01/17 is 120 -Continue azithromycin 1200 mg po qweekly for MAC prophylaxis -Continue bactrim DS po bid for 2 more weeks -Continue prednisone 40 mg po daily( day 4), completed 40 mg bid for 5 days -Noncompliant with HAART -Resume home meds 4. Asthma, unspecified type -c/w DuoNeb q4h prn -c/w home medications 5. Heroin use disorder: -Pt takes 80 mg methadone daily -c/w current medication 6. Right groin lesion: -Continue mupirocin TOP BID 7. DVT prophylaxis -eGFR>60 -SCDs PRN -Lovenox 40mg SC QD 8. Diet -Heart Healthy diet 10. Code status -Full code
[2017-10-30] MEDS: Albuterol-Ipratrop 3 mg / 0.5 (3 ml) UD INH SCH ×3 (07:18→19:22)
[2017-10-30] MEDS: Tmp-Smz 800 mg-160 mg DS Tab PO SCH ×2 (08:16→21:45)
[2017-10-30] MEDS: Multivitamin With Minerals Tab PO SCH (08:17)
[2017-10-30] MEDS: Pantoprazole 40 mg EC Tab PO SCH (08:17)
[2017-10-30] MEDS: Nystatin 100,000 Units/ml Oral Susp 5 ml UD PO SCH ×4 (08:50→21:46)
[2017-10-30] MEDS: Fluticasone-Salmeterol 500-50mcg Diskus IH SCH ×2 (08:50→21:45)
--- NOTE | 2017-10-30 14:40 | CP.PCM.CON ---
History of Present Illness - History of Present Illness History of Present Illness: Continue Pulmonary for a 52 y/o M, previously admitted to [facility] on 10/21 with severe respiratory distress, Dx with PNA. Patient was intubated with Respiratory Failure , eventualy improved , extubated , On 10/29/17, Pt's medical condition improved and was transferred to TCU unit to continue abx IV coverage. Hx of AIDS No fever, chills, n/v/d, abdominal pain, CP, palpitations, dizziness, hemoptysis , headache. CT Chest on 10/21/17 showed: Extensive infiltrate, Right Mid and lower lobe infiltrate. Review of Systems - Constitutional Constitutional: absent: Chills, Fever - EENT Eyes: Other (negative) Ears: Other (negative) Nose/Mouth/Throat: Other (negative) - Cardiovascular Cardiovascular: Other (negative) - Respiratory Respiratory: Dyspnea - Gastrointestinal Gastrointestinal: Other (negative) - Genitourinary Genitourinary: Urinary Incontinence - Musculoskeletal Musculoskeletal: Other (negative) - Integumentary Integumentary: Other (negative) - Neurological Neurological: Other (negative) - Psychiatric Psychiatric: Other (negative) - Endocrine Endocrine: Other (negative) Past Patient History - Past Medical History & Family History Past Medical History?: Yes Pertinent Family History: Unknown - Past Social History Smoking Status: Former Smoker (Tabacco abuser) Alcohol: Social Drugs: Other (Heroin abuser. last time on Apr 2017.) Home Situation {Lives}: Alone - CARDIAC Hx Cardiac Disorders: Yes Hx Hypertension: Yes - PULMONARY Hx Respiratory Disorders: Yes Hx Asthma: Yes Hx Bronchitis: Yes Hx Pneumonia: Yes (PCP) - NEUROLOGICAL Hx Neurological Disorder: No - HEENT Hx HEENT Problems: No - RENAL Hx Chronic Kidney Disease: No - ENDOCRINE/METABOLIC Hx Endocrine Disorders: No - HEMATOLOGICAL/ONCOLOGICAL Hx Blood Disorders: Yes (HIV) Hx AIDS: Yes Hx Cancer: Yes (penile/colon) Hx Human Immunodeficiency Virus (HIV): Yes - INTEGUMENTARY Hx Dermatological Problems: Yes - MUSCULOSKELETAL/RHEUMATOLOGICAL Hx Falls: No - GASTROINTESTINAL Hx Gastrointestinal Disorders: Yes Hx Colostomy: Yes (reversal) - GENITOURINARY/GYNECOLOGICAL Hx Genitourinary Disorders: Yes Other/Comment: Penile CA - PSYCHIATRIC Hx Substance Use: No - SURGICAL HISTORY Hx Surgeries: Yes Other/Comment: colostomy- reversed - ANESTHESIA Hx Anesthesia: Yes Hx Anesthesia Reactions: No Meds Allergies/Adverse Reactions: Allergies Allergy/AdvReac Type Severity Reaction Status Date / Time Penicillins Allergy Intermediate ANGIOEDEMA Verified 10/29/17 15:22 - Medications Medications: Current Medications Acetaminophen (Tylenol 325mg Tab) 650 mg PO Q6 PRN PRN Reason: Pain, Mild (1-3) Albuterol/Ipratropium (Duoneb 3 Mg/0.5 Mg (3 Ml) Ud) 3 ml INH RTID [facility] Last Admin: 10/30/17 14:10 Dose: 3 ml Azithromycin (Zithromax) 1,200 mg PO QWK [facility] PRN Reason: Protocol Enoxaparin Sodium (Lovenox) 40 mg SC HS [facility] PRN Reason: Protocol Last Admin: 10/29/17 21:40 Dose: 40 mg Home Med (Elviteg/Luna/Emtric/Tenofo Dis [Stribild Tablet]) 1 tab PO DAILY [facility] Last Admin: 10/30/17 08:16 Dose: 1 tab Vancomycin HCl 1 gm/ Sodium (Chloride) 250 mls @ 166.667 mls/hr IVPB DAILY@ 1700 [facility] PRN Reason: Protocol Ketorolac Tromethamine (Toradol) 30 mg IVP Q6 PRN PRN Reason: Pain, severe (8-10) Methadone HCl (Methadone) 80 mg PO DAILY [facility] Last Admin: 10/30/17 08:52 Dose: 80 mg Multivitamins/Minerals (Therapeutic-M Tab) 1 tab PO DAILY [facility] Last Admin: 10/30/17 08:17 Dose: 1 tab Mupirocin (Bactroban Ointment) 1 applic TOP BID [facility] Nystatin (Nystatin Oral Susp) 5 ml PO QID [facility] Last Admin: 10/29/17 21:40 Dose: 5 ml Pantoprazole Sodium (Protonix Ec Tab) 40 mg PO DAILY [facility] Last Admin: 10/30/17 08:17 Dose: 40 mg Prednisone (Prednisone Tab) 40 mg PO DAILY [facility] Last Admin: 10/30/17 08:18 Dose: 40 mg Fluticasone/Salmeterol (Advair Diskus 500/50) 1 puff IH Q12 [facility] Last Admin: 10/29/17 21:41 Dose: 1 puff Trimethoprim/Sulfamethoxazole (Bactrim Ds Tab) 1 tab PO Q12 [facility] PRN Reason: Protocol Last Admin: 10/30/17 08:16 Dose: 1 tab Physical Exam - Constitutional Appears: No Acute Distress - Head Exam Head Exam: NORMAL INSPECTION - Eye Exam Eye Exam: PERRL - ENT Exam ENT Exam: Normal Exam - Neck Exam Neck exam: Positive for: Normal Inspection - Respiratory Exam Respiratory Exam: Decreased Breath Sounds (at bases), Rhonchi (scattered) - Cardiovascular Exam Cardiovascular Exam: REGULAR RHYTHM - GI/Abdominal Exam GI & Abdominal Exam: Normal Bowel Sounds, Soft - Extremities Exam Extremities exam: Positive for: normal inspection - Neurological Exam Neurological exam: Alert, CN II-XII Intact, Oriented x3 Additional comments: No focal motor/sensory deficit. - Psychiatric Exam Psychiatric exam: Normal Affect, Normal Mood - Skin Skin Exam: Warm Results - Vital Signs Recent Vital Signs: Last Vital Signs Temp 97.9 F 10/30/17 08:00 Pulse 88 10/30/17 08:00 Resp 20 10/30/17 08:00 BP 137/87 10/30/17 08:00 Pulse Ox 100 10/30/17 08:00 reviewed J.P. - Labs Labs: reviewed J.P. Assessment & Plan (1) Pneumonia Status: Acute Priority: High (2) History of asthma Status: Chronic Priority: Medium (3) AIDS Status: Chronic Priority: High - Assessment and Plan (Free Text) Plan: Continue Duoneb, , Bactrim, Zithromax, Vanco , Prednisone - Date & Time Date: 10/30/17 Time: 10:40
[2017-10-30 21:08] LABS: URINE BILIRUBIN NEGATIVE (NEGATIVE); URINE BLOOD NEGATIVE (NEGATIVE); URINE CLARITY CLEAR (Clear); URINE COLOR YELLOW (YELLOW); URINE GLUCOSE (UA) 50 mg/dL (Normal); URINE LEUKOCYTE ESTERASE NEG Leu/uL (Negative); URINE PROTEIN NEGATIVE (NEGATIVE); URINE UROBILINOGEN 0.2-1.0 mg/dL (0.2-1.0)
[2017-10-30] MEDS: Enoxaparin 40 mg Syringe SC SCH (21:46)
[2017-10-31] MEDS: Albuterol-Ipratrop 3 mg / 0.5 (3 ml) UD INH SCH ×3 (07:12→19:23)
[2017-10-31 07:34] LABS: HEMOGLOBIN 9.1 g/dL (12.0-18.0); MEAN CELL VOLUME 85.2 fl (80.0-94.0); MEAN CORPUSCULAR HEMOGLOBIN 28.1 pg (27.0-31.0); RBC 3.24 Mil/uL (4.40-5.90); RED CELL DISTRIBUTION WIDTH 17.2 % (11.5-14.5); WHITE BLOOD COUNT 9.4 K/uL (4.8-10.8)
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
[2017-10-31] MEDS: Pantoprazole 40 mg EC Tab PO SCH (08:11)
[2017-10-31] MEDS: Fluticasone-Salmeterol 500-50mcg Diskus IH SCH ×2 (08:11→21:31)
[2017-10-31 08:12] LABS: BLOOD UREA NITROGEN 31 mg/dl (9-20); CALCIUM 8.8 mg/dL (8.4-10.2); GFR AFRICAN-AMERICAN > 60; GFR NON-AFRICAN AMERICAN > 60
[2017-10-31] MEDS: Tmp-Smz 800 mg-160 mg DS Tab PO SCH ×2 (08:12→21:32)
[2017-10-31] MEDS: Multivitamin With Minerals Tab PO SCH (08:12)
[2017-10-31] MEDS: Nystatin 100,000 Units/ml Oral Susp 5 ml UD PO SCH ×4 (08:12→21:32)
[2017-10-31] MEDS: Enoxaparin 40 mg Syringe SC SCH (21:31)
[2017-10-31] MEDS: POLYETHYLENE GLYCOL 3350 17 GM/Dose PACKET PO SCH (21:32)
[2017-11-01 02:14] LABS: HEMOGLOBIN 9.3 g/dL (12.0-18.0); MEAN CELL VOLUME 81.8 fl (80.0-94.0); MEAN CORPUSCULAR HEMOGLOBIN 25.7 pg (27.0-31.0); MEAN CORPUSCULAR HGB CONC 31.4 g/dL (33.0-37.0); RBC 3.64 Mil/uL (4.40-5.90); RED CELL DISTRIBUTION WIDTH 16.9 % (11.5-14.5); WHITE BLOOD COUNT 8.6 K/uL (4.8-10.8)
[2017-11-01 02:23] LABS: BLOOD UREA NITROGEN 29 mg/dl (9-20); CALCIUM 8.9 mg/dL (8.4-10.2); GFR AFRICAN-AMERICAN > 60; GFR NON-AFRICAN AMERICAN > 60
[2017-11-01] MEDS ORDERED: Sod Polystyrene Sulf 15 gm/60 ml Susp PO ONE ×2 (06:24→06:26)
--- NOTE | 2017-11-01 06:59 | CP.PCM.PN ---
Subjective - Date & Time of Evaluation Date of Evaluation: 11/01/17 Time of Evaluation: 07:49 - Subjective Subjective: Patient seen and examined at bedside this morning. Patient reports he is feeling better. States cough and dyspnea almost resolved. No acute overnight events. Reports decreased urination for last 2 days and has suprapubic pressure. Denies dysuria, penile discharge. Denies fever, chills, nausea, vomiting, chest pain, headache, dizziness or blurry vision. Tolerating po intake. Has regular BM. Objective - Vital Signs/Intake and Output Vital Signs (last 24 hours): Temp Pulse Resp BP Pulse Ox 97.9 F 77 20 130/78 98 10/31/17 19:59 10/31/17 19:59 10/31/17 19:59 10/31/17 19:59 10/31/17 19:59 - Medications Medications: Current Medications Acetaminophen (Tylenol 325mg Tab) 650 mg PO Q6 PRN PRN Reason: Pain, Mild (1-3) Last Admin: 10/31/17 00:09 Dose: 650 mg Albuterol/Ipratropium (Duoneb 3 Mg/0.5 Mg (3 Ml) Ud) 3 ml INH RTID [facility] Last Admin: 10/31/17 19:23 Dose: 3 ml Azithromycin (Zithromax) 1,200 mg PO QWK [facility] PRN Reason: Protocol Bisacodyl (Dulcolax) 10 mg PO ONCE ONE Stop: 11/03/17 12:01 Bisacodyl (Dulcolax) 10 mg PO ONCE ONE Stop: 11/04/17 12:01 Enoxaparin Sodium (Lovenox) 40 mg SC HS [facility] PRN Reason: Protocol Last Admin: 10/31/17 21:31 Dose: 40 mg Home Med (Elviteg/Luna/Emtric/Tenofo Dis [Stribild Tablet]) 1 tab PO DAILY [facility] Last Admin: 10/31/17 08:11 Dose: 1 tab Vancomycin HCl 1 gm/ Sodium (Chloride) 250 mls @ 166.667 mls/hr IVPB Q8 [facility] PRN Reason: Protocol Last Admin: 11/01/17 01:38 Dose: 166.667 mls/hr Ketorolac Tromethamine (Toradol) 30 mg IVP Q6 PRN PRN Reason: Pain, severe (8-10) Magnesium Citrate (Citrate Of Mag) 300 ml PO ONCE ONE Stop: 11/03/17 14:01 Methadone HCl (Methadone) 80 mg PO DAILY [facility] Last Admin: 10/31/17 09:06 Dose: 80 mg Multivitamins/Minerals (Therapeutic-M Tab) 1 tab PO DAILY [facility] Last Admin: 10/31/17 08:12 Dose: 1 tab Mupirocin (Bactroban Ointment) 1 applic TOP BID [facility] Last Admin: 10/31/17 16:21 Dose: 1 applic Nystatin (Nystatin Oral Susp) 5 ml PO QID [facility] Last Admin: 10/31/17 21:32 Dose: 5 ml Pantoprazole Sodium (Protonix Ec Tab) 40 mg PO DAILY [facility] Last Admin: 10/31/17 08:11 Dose: 40 mg Polyethylene Glycol (Miralax) 17 gm PO HS [facility] Last Admin: 10/31/17 21:32 Dose: 17 gm Polyethylene Glycol/Electrolytes (Golytely) 4,000 ml PO ONCE ONE Stop: 11/04/17 14:01 Prednisone (Prednisone Tab) 40 mg PO DAILY [facility] Last Admin: 10/31/17 08:12 Dose: 40 mg Fluticasone/Salmeterol (Advair Diskus 500/50) 1 puff IH Q12 [facility] Last Admin: 10/31/17 21:31 Dose: 1 puff Trimethoprim/Sulfamethoxazole (Bactrim Ds Tab) 1 tab PO Q12 [facility] PRN Reason: Protocol Last Admin: 10/31/17 21:32 Dose: 1 tab - Labs Labs: 11/01/17 02:08 11/01/17 02:08 - Additional Findings Additional findings: - Constitutional Appears: Non-toxic, No Acute Distress, Cachectic, Chronically Ill - Head Exam Head Exam: NORMAL INSPECTION - Eye Exam Eye Exam: Normal appearance. absent: Scleral icterus - ENT Exam ENT Exam: Mucous Membranes Moist, Normal Oropharynx - Neck Exam Neck exam: Positive for: Normal Inspection. Negative for: Lymphadenopathy - Respiratory Exam Respiratory Exam: Mild Rhonchi in B/L lower lung field, NORMAL BREATHING PATTERN. absent: Wheezes, Respiratory Distress - Cardiovascular Exam Cardiovascular Exam: REGULAR RHYTHM, RRR, +S1, +S2 - GI/Abdominal Exam GI & Abdominal Exam: Normal Bowel Sounds, Soft. absent: Rebound, Rigid, Tenderness Mild suprapubic distension - Exam Additional comments: Mild erythematous lesion on right groin. No oozing or swelling - Extremities Exam Extremities exam: Positive for: normal inspection. Negative for: calf tenderness, pedal edema - Back Exam Back exam: absent: CVA tenderness (L), CVA tenderness (R) - Neurological Exam Neurological exam: Alert, Oriented x3 - Psychiatric Exam Psychiatric exam: Normal Affect, Normal Mood Assessment and Plan - Assessment and Plan (Free Text) Assessment: 52 y/o male with a PMHx of HIV (CD4 is 120 on 10/01/17), HTN, rectal/penile cancer, colon cancer, and asthma admitted for sepsis with + streptococcus gallolyticus bacteremia, now receiving IV abx. Plan: 1. Sepsis with streptococcus gallolyticus bacteremia: -ID on board -Continue Vancomycin 1000 mg ivp daily (day#12), needs total of 14 days -Completed Meropenem 500 mg IVP q8 for 9 days. -ECHO: normal echo -Repeat blood cx on 10/23/17: no growth after 5 days. -WBC normal -f/u vanco trough -GI consult: pt will have EGD/colonoscopy early next week. 2. Hyperkalemia -5.7 this morning -Kayexalate 30 gm once this morning -F/U repeat BMP 3. Urinary retention -hx penile CA -Bladder scan shows 700 cc this morning -s/p straight cath 650 cc this morning -f/u urology consult 4. AIDS: -Last CD4 count in 10/01/17 is 120 -Continue azithromycin 1200 mg po qweekly for MAC prophylaxis -Continue bactrim DS po bid -Continue prednisone 20 mg po daily(day 1) ( completed 40 mg bid for 5 days and 40 mg qd x 5 days) -Noncompliant with HAART -Resume home meds 5. Asthma, unspecified type -c/w DuoNeb q4h prn -c/w home medications 6. Heroin use disorder: -Pt takes 80 mg methadone daily -c/w current medication 7. Right groin lesion: -Continue mupirocin TOP BID 8. DVT prophylaxis -eGFR>60 -SCDs PRN -Lovenox 40mg SC QD 9. Diet -Heart Healthy diet 10. Code status -Full code
[2017-11-01] MEDS: Albuterol-Ipratrop 3 mg / 0.5 (3 ml) UD INH SCH ×3 (08:03→19:12)
[2017-11-01] MEDS: Fluticasone-Salmeterol 500-50mcg Diskus IH SCH ×2 (09:26→22:06)
[2017-11-01] MEDS: Tmp-Smz 800 mg-160 mg DS Tab PO SCH ×2 (09:27→22:06)
[2017-11-01] MEDS: Multivitamin With Minerals Tab PO SCH (09:27)
[2017-11-01] MEDS: Nystatin 100,000 Units/ml Oral Susp 5 ml UD PO SCH ×5 (09:27→22:05)
[2017-11-01] MEDS: Pantoprazole 40 mg EC Tab PO SCH (09:28)
--- NOTE | 2017-11-01 14:27 | CP.PCM.PN ---
Subjective - Date & Time of Evaluation Date of Evaluation: 11/01/17 Time of Evaluation: 14:21 - Subjective Subjective: 52 year old male sp Partial penectomy many years ago had difficulty voiding cathetrized 700cc pvr cath removed. pt hd voiding difficulties prior to admit. A urinary retention suggest Start FLOMAX observe if pt voids discharge with referal for outpatient eval. If unable to void insert magdaleno and refer for outpatient eval urine c&s should be done and checked. Segun Objective - Vital Signs/Intake and Output Vital Signs (last 24 hours): Temp Pulse Resp BP Pulse Ox 98.1 F 69 20 134/80 100 11/01/17 08:00 11/01/17 08:00 11/01/17 08:00 11/01/17 08:00 11/01/17 08:00 Intake and Output: 11/01/17 11/01/17 06:59 18:59 Output Total 650 Balance -650 - Medications Medications: Current Medications Acetaminophen (Tylenol 325mg Tab) 650 mg PO Q6 PRN PRN Reason: Pain, Mild (1-3) Last Admin: 10/31/17 00:09 Dose: 650 mg Albuterol/Ipratropium (Duoneb 3 Mg/0.5 Mg (3 Ml) Ud) 3 ml INH RTID [facility] Last Admin: 11/01/17 13:38 Dose: 3 ml Azithromycin (Zithromax) 1,200 mg PO QWK [facility] PRN Reason: Protocol Last Admin: 11/01/17 09:28 Dose: 1,200 mg Bisacodyl (Dulcolax) 10 mg PO ONCE ONE Stop: 11/03/17 12:01 Bisacodyl (Dulcolax) 10 mg PO ONCE ONE Stop: 11/04/17 12:01 Enoxaparin Sodium (Lovenox) 40 mg SC HS [facility] PRN Reason: Protocol Last Admin: 10/31/17 21:31 Dose: 40 mg Home Med (Elviteg/Luna/Emtric/Tenofo Dis [Stribild Tablet]) 1 tab PO DAILY [facility] Last Admin: 11/01/17 09:27 Dose: 1 tab Vancomycin HCl 1 gm/ Sodium (Chloride) 250 mls @ 166.667 mls/hr IVPB Q8 [facility] PRN Reason: Protocol Last Admin: 11/01/17 09:26 Dose: 166.667 mls/hr Ketorolac Tromethamine (Toradol) 30 mg IVP Q6 PRN PRN Reason: Pain, severe (8-10) Last Admin: 11/01/17 10:38 Dose: 30 mg Magnesium Citrate (Citrate Of Mag) 300 ml PO ONCE ONE Stop: 11/03/17 14:01 Methadone HCl (Methadone) 80 mg PO DAILY [facility] Last Admin: 11/01/17 09:39 Dose: 80 mg Multivitamins/Minerals (Therapeutic-M Tab) 1 tab PO DAILY [facility] Last Admin: 11/01/17 09:27 Dose: 1 tab Mupirocin (Bactroban Ointment) 1 applic TOP BID [facility] Last Admin: 11/01/17 09:31 Dose: 1 applic Nystatin (Nystatin Oral Susp) 5 ml PO QID [facility] Last Admin: 11/01/17 13:18 Dose: 5 ml Pantoprazole Sodium (Protonix Ec Tab) 40 mg PO DAILY [facility] Last Admin: 11/01/17 09:28 Dose: 40 mg Polyethylene Glycol (Miralax) 17 gm PO HS [facility] Last Admin: 10/31/17 21:32 Dose: 17 gm Polyethylene Glycol/Electrolytes (Golytely) 4,000 ml PO ONCE ONE Stop: 11/04/17 14:01 Prednisone (Prednisone Tab) 20 mg PO DAILY [facility] Last Admin: 11/01/17 09:27 Dose: 20 mg Fluticasone/Salmeterol (Advair Diskus 500/50) 1 puff IH Q12 [facility] Last Admin: 11/01/17 09:26 Dose: 1 puff Tamsulosin HCl (Flomax) 0.4 mg PO DAILY [facility] Trimethoprim/Sulfamethoxazole (Bactrim Ds Tab) 1 tab PO Q12 [facility] PRN Reason: Protocol Last Admin: 11/01/17 09:27 Dose: 1 tab - Labs Labs: 11/01/17 02:08 11/01/17 02:08
[2017-11-01] MEDS: POLYETHYLENE GLYCOL 3350 17 GM/Dose PACKET PO SCH (22:05)
[2017-11-01] MEDS: Enoxaparin 40 mg Syringe SC SCH (22:07)
[2017-11-02] MEDS: Albuterol-Ipratrop 3 mg / 0.5 (3 ml) UD INH SCH ×2 (07:12→13:08)
[2017-11-02 08:24] LABS: BLOOD UREA NITROGEN 37 mg/dl (9-20); CALCIUM 8.3 mg/dL (8.4-10.2); GFR AFRICAN-AMERICAN > 60; GFR NON-AFRICAN AMERICAN > 60
[2017-11-02] MEDS: Fluticasone-Salmeterol 500-50mcg Diskus IH SCH ×2 (09:36→21:25)
[2017-11-02] MEDS: Tmp-Smz 800 mg-160 mg DS Tab PO SCH ×2 (09:37→21:25)
[2017-11-02] MEDS: Multivitamin With Minerals Tab PO SCH (09:38)
[2017-11-02] MEDS: Nystatin 100,000 Units/ml Oral Susp 5 ml UD PO SCH ×6 (09:39→21:28)
[2017-11-02] MEDS: Pantoprazole 40 mg EC Tab PO SCH (09:45)
--- NOTE | 2017-11-02 09:53 | CP.PCM.CON ---
History of Present Illness - History of Present Illness History of Present Illness: 52 year old male with AIDS ( last Cd4 -40), penile . rectal ca s/p radiation admitted originally to medical floor with pneumonia was ruled out for Mycobaterium with 3 negative sputum AFb and tretaed for presumed pcp pneumonia since cd4 <200 and was hypoxic and also treated for pseudomonas pneumonia based on his sputum cx with 9 days of IV meropenem. being treated with IV vanco for strep gallolyticus bacteremia and transfererd to TCU to complete his IV vanco and get PT. 10/22/2017 echo: normal no evidence of Vegetations on any of the valves no thrombi Past Patient History - Past Medical History & Family History Past Medical History?: Yes - Past Social History Smoking Status: Former Smoker (Tabacco abuser) Alcohol: Social Drugs: Other (Heroin abuser. last time on Apr 2017.) Home Situation {Lives}: Alone - CARDIAC Hx Cardiac Disorders: Yes Hx Hypertension: Yes - PULMONARY Hx Respiratory Disorders: Yes Hx Asthma: Yes Hx Bronchitis: Yes Hx Pneumonia: Yes (PCP) - NEUROLOGICAL Hx Neurological Disorder: No - HEENT Hx HEENT Problems: No - RENAL Hx Chronic Kidney Disease: No - ENDOCRINE/METABOLIC Hx Endocrine Disorders: No - HEMATOLOGICAL/ONCOLOGICAL Hx Blood Disorders: Yes (HIV) Hx AIDS: Yes Hx Cancer: Yes (penile/colon) Hx Human Immunodeficiency Virus (HIV): Yes - INTEGUMENTARY Hx Dermatological Problems: Yes - MUSCULOSKELETAL/RHEUMATOLOGICAL Hx Falls: No - GASTROINTESTINAL Hx Gastrointestinal Disorders: Yes Hx Colostomy: Yes (reversal) - GENITOURINARY/GYNECOLOGICAL Hx Genitourinary Disorders: Yes Other/Comment: Penile CA - PSYCHIATRIC Hx Substance Use: No - SURGICAL HISTORY Hx Surgeries: Yes Other/Comment: colostomy- reversed - ANESTHESIA Hx Anesthesia: Yes Hx Anesthesia Reactions: No Meds Allergies/Adverse Reactions: Allergies Allergy/AdvReac Type Severity Reaction Status Date / Time Penicillins Allergy Intermediate ANGIOEDEMA Verified 10/29/17 15:22 - Medications Medications: Current Medications Acetaminophen (Tylenol 325mg Tab) 650 mg PO Q6 PRN PRN Reason: Pain, Mild (1-3) Last Admin: 10/31/17 00:09 Dose: 650 mg Albuterol/Ipratropium (Duoneb 3 Mg/0.5 Mg (3 Ml) Ud) 3 ml INH RTID [facility] Last Admin: 11/02/17 07:12 Dose: 3 ml Azithromycin (Zithromax) 1,200 mg PO QWK [facility] PRN Reason: Protocol Last Admin: 11/01/17 09:28 Dose: 1,200 mg Bisacodyl (Dulcolax) 10 mg PO ONCE ONE Stop: 11/03/17 12:01 Bisacodyl (Dulcolax) 10 mg PO ONCE ONE Stop: 11/04/17 12:01 Enoxaparin Sodium (Lovenox) 40 mg SC HS [facility] PRN Reason: Protocol Last Admin: 11/01/17 22:07 Dose: 40 mg Home Med (Elviteg/Luna/Emtric/Tenofo Dis [Stribild Tablet]) 1 tab PO DAILY [facility] Last Admin: 11/02/17 09:38 Dose: 1 tab Vancomycin HCl 1 gm/ Sodium (Chloride) 250 mls @ 166.667 mls/hr IVPB Q8 [facility] PRN Reason: Protocol Last Admin: 11/02/17 09:39 Dose: 166.667 mls/hr Ketorolac Tromethamine (Toradol) 30 mg IVP Q6 PRN PRN Reason: Pain, severe (8-10) Last Admin: 11/01/17 18:38 Dose: 30 mg Magnesium Citrate (Citrate Of Mag) 300 ml PO ONCE ONE Stop: 11/03/17 14:01 Methadone HCl (Methadone) 80 mg PO DAILY [facility] Last Admin: 11/02/17 09:35 Dose: 80 mg Multivitamins/Minerals (Therapeutic-M Tab) 1 tab PO DAILY [facility] Last Admin: 11/02/17 09:38 Dose: 1 tab Mupirocin (Bactroban Ointment) 1 applic TOP BID [facility] Last Admin: 11/02/17 09:37 Dose: 1 applic Nystatin (Nystatin Oral Susp) 5 ml PO QID [facility] Last Admin: 11/02/17 09:39 Dose: 5 ml Pantoprazole Sodium (Protonix Ec Tab) 40 mg PO DAILY [facility] Last Admin: 11/02/17 09:45 Dose: 40 mg Polyethylene Glycol (Miralax) 17 gm PO HS [facility] Last Admin: 11/01/17 22:05 Dose: 17 gm Polyethylene Glycol/Electrolytes (Golytely) 4,000 ml PO ONCE ONE Stop: 11/04/17 14:01 Prednisone (Prednisone Tab) 20 mg PO DAILY [facility] Last Admin: 11/02/17 09:39 Dose: 20 mg Fluticasone/Salmeterol (Advair Diskus 500/50) 1 puff IH Q12 [facility] Last Admin: 11/02/17 09:36 Dose: 1 puff Tamsulosin HCl (Flomax) 0.4 mg PO DAILY [facility] Last Admin: 11/02/17 09:38 Dose: 0.4 mg Trimethoprim/Sulfamethoxazole (Bactrim Ds Tab) 1 tab PO Q12 [facility] PRN Reason: Protocol Last Admin: 11/02/17 09:37 Dose: 1 tab Results - Vital Signs Recent Vital Signs: Last Vital Signs Temp 98.1 F 11/02/17 09:01 Pulse 90 11/02/17 09:01 Resp 20 11/02/17 09:01 BP 109/65 11/02/17 09:01 Pulse Ox 97 11/02/17 09:01 - Labs Result Diagrams: 11/01/17 02:08 11/02/17 06:30 Labs: Laboratory Results - last 24 hr 11/02/17 06:30 Sodium 135 Potassium 5.7 H Chloride 97 L Carbon Dioxide 30 Anion Gap 14 BUN 37 H Creatinine 1.0 Est GFR ( Amer) > 60 Est GFR (Non-Af Amer) > 60 Random Glucose 121 H Calcium 8.3 L Assessment & Plan (1) AIDS Status: Chronic Priority: High (2) Pneumonia Status: Acute Priority: High (3) Sepsis Assessment and Plan: I do not feel that DAMARIS is necessary on this patient Status: Acute - Date & Time Date: 11/02/17 Time: 09:53
[2017-11-02] MEDS ORDERED: Albuterol-Ipratrop 3 mg / 0.5 (3 ml) UD INH ONE (09:59)
[2017-11-02] MEDS ORDERED: Sod Polystyrene Sulf 15 gm/60 ml Susp PO ONE ×2 (10:30→12:30)
[2017-11-02] MEDS ORDERED: Oxycodone/Acetaminophen 5/325 mg Tab PO PRN (12:50)
[2017-11-02] MEDS ORDERED: Famotidine 20mg/50ml 20 MG/50 ML BAG IVPB ONE (17:30)
--- NOTE | 2017-11-02 18:29 | CP.PCM.PN ---
Subjective - Date & Time of Evaluation Date of Evaluation: 11/02/17 Time of Evaluation: 16:30 - Subjective Subjective: F/U PNA No cough, no SOB, no RICHEY., abdominal pain Objective - Vital Signs/Intake and Output Vital Signs (last 24 hours): Temp Pulse Resp BP Pulse Ox 97.7 F 85 20 109/62 96 11/02/17 17:16 11/02/17 17:16 11/02/17 17:16 11/02/17 17:16 11/02/17 17:16 Intake and Output: 11/02/17 11/02/17 06:59 18:59 Intake Total 750 Output Total 1500 Balance -750 - Medications Medications: Current Medications Acetaminophen (Tylenol 325mg Tab) 650 mg PO Q6 PRN PRN Reason: Pain, Mild (1-3) Last Admin: 10/31/17 00:09 Dose: 650 mg Albuterol/Ipratropium (Duoneb 3 Mg/0.5 Mg (3 Ml) Ud) 3 ml INH RTID [facility] Last Admin: 11/02/17 13:08 Dose: 3 ml Azithromycin (Zithromax) 1,200 mg PO QWK [facility] PRN Reason: Protocol Last Admin: 11/01/17 09:28 Dose: 1,200 mg Bisacodyl (Dulcolax) 10 mg PO ONCE ONE Stop: 11/03/17 12:01 Bisacodyl (Dulcolax) 10 mg PO ONCE ONE Stop: 11/04/17 12:01 Enoxaparin Sodium (Lovenox) 40 mg SC HS [facility] PRN Reason: Protocol Last Admin: 11/01/17 22:07 Dose: 40 mg Home Med (Elviteg/Luna/Emtric/Tenofo Dis [Stribild Tablet]) 1 tab PO DAILY [facility] Last Admin: 11/02/17 09:38 Dose: 1 tab Vancomycin HCl 1 gm/ Sodium (Chloride) 250 mls @ 166.667 mls/hr IVPB Q8 [facility] PRN Reason: Protocol Last Admin: 11/02/17 16:22 Dose: 166.667 mls/hr Magnesium Citrate (Citrate Of Mag) 300 ml PO ONCE ONE Stop: 11/03/17 14:01 Methadone HCl (Methadone) 80 mg PO DAILY [facility] Last Admin: 11/02/17 09:35 Dose: 80 mg Multivitamins/Minerals (Therapeutic-M Tab) 1 tab PO DAILY [facility] Last Admin: 11/02/17 09:38 Dose: 1 tab Mupirocin (Bactroban Ointment) 1 applic TOP BID [facility] Last Admin: 11/02/17 16:21 Dose: 1 applic Nystatin (Nystatin Oral Susp) 5 ml PO QID [facility] Last Admin: 11/02/17 17:00 Dose: Not Given Ondansetron HCl (Zofran Inj) 4 mg IVP Q6 PRN PRN Reason: Nausea/Vomiting Ondansetron HCl (Zofran Odt) 4 mg PO Q6H PRN PRN Reason: Nausea/Vomiting Oxycodone/Acetaminophen (Percocet 5/325 Mg Tab) 1 tab PO Q4 PRN PRN Reason: Pain, moderate (4-7) Stop: 11/05/17 12:51 Pantoprazole Sodium (Protonix Ec Tab) 40 mg PO DAILY [facility] Last Admin: 11/02/17 09:45 Dose: 40 mg Polyethylene Glycol (Miralax) 17 gm PO HS [facility] Last Admin: 11/01/17 22:05 Dose: 17 gm Polyethylene Glycol/Electrolytes (Golytely) 4,000 ml PO ONCE ONE Stop: 11/04/17 14:01 Prednisone (Prednisone Tab) 20 mg PO DAILY [facility] Last Admin: 11/02/17 09:39 Dose: 20 mg Fluticasone/Salmeterol (Advair Diskus 500/50) 1 puff IH Q12 [facility] Last Admin: 11/02/17 09:36 Dose: 1 puff Tamsulosin HCl (Flomax) 0.4 mg PO DAILY [facility] Last Admin: 11/02/17 09:38 Dose: 0.4 mg Trimethoprim/Sulfamethoxazole (Bactrim Ds Tab) 1 tab PO Q12 [facility] PRN Reason: Protocol Last Admin: 11/02/17 09:37 Dose: 1 tab - Labs Labs: 11/01/17 02:08 11/02/17 06:30 - Constitutional Appears: No Acute Distress - Head Exam Head Exam: NORMAL INSPECTION - Eye Exam Eye Exam: PERRL - ENT Exam ENT Exam: Normal Exam - Neck Exam Neck Exam: Normal Inspection - Respiratory Exam Respiratory Exam: Decreased Breath Sounds (few at bases), Rhonchi (scattered) - Cardiovascular Exam Cardiovascular Exam: REGULAR RHYTHM - GI/Abdominal Exam GI & Abdominal Exam: Tenderness (epigastric), Normal Bowel Sounds - Extremities Exam Extremities Exam: Normal Inspection - Neurological Exam Neurological Exam: Alert, CN II-XII Intact, Oriented x3 Additional comments: No focal motor/sensory deficit. - Psychiatric Exam Psychiatric exam: Normal Affect, Normal Mood - Skin Skin Exam: Warm Assessment and Plan (1) Pneumonia Status: Acute (2) History of asthma Status: Chronic (3) AIDS Status: Chronic - Assessment and Plan (Free Text) Plan: Had Kayexalate due to high Potassium, no BM yesterday, constipation , flate plate was ordered ,continue Vanco, Zithromax, Duoneb and rest of Tx.
--- NOTE | 2017-11-02 18:47 | CP.PCM.PCO ---
Addendum Addendum: 11/02/17 18:40 Im called by nurse who notified that patient has sudden abdominal pain, 1 nonbloddy nonbillious large vomiting and patient has been given kayexalate 30 gm BID so far. Patient seen and examined bedside who reports last BM 2 days ago and unable to have BM yesterday. reports right side abdominal pain, RUQ and LLQ, constant 10/ 10. PE CV: +S1, S2, No M/R/G resp: No distress.scattered rhonchi Abd: not distended. old surgical scar mid abd and LUQ. BS normal. TD to palpation RUQ and LLQ, guarding, no rebound. Assessment Abdominal pain -secondary to constipation and kayexalate side effect -patient on methadone -received kayexalate yesterday and today -to r/o perforative bowel vs intestinal obstruction Plan -NPO -Zofran, Pepcid -Toradol 30 mg IV -Avoid morhine due to constipation -Obstructive series XR and flat abd -evaluate 11/02/17 19:47 Patient reports abs pain subsided. no nausea, no vomiting Xr series abd reviewed by me: no signs of obstruction, no pneumoperitoneum Constipation seen will give dulcolax rectal 10 mg -if dulcolax does not work will offer fleet enema
[2017-11-02] MEDS: Enoxaparin 40 mg Syringe SC SCH (21:27)
[2017-11-02] MEDS: POLYETHYLENE GLYCOL 3350 17 GM/Dose PACKET PO SCH ×2 (21:27→21:43)
[2017-11-03] MEDS: Albuterol-Ipratrop 3 mg / 0.5 (3 ml) UD INH SCH ×3 (07:11→19:06)
[2017-11-03 08:02] LABS: BLOOD UREA NITROGEN 28 mg/dl (9-20); CALCIUM 8.7 mg/dL (8.4-10.2); GFR AFRICAN-AMERICAN > 60; GFR NON-AFRICAN AMERICAN > 60
[2017-11-03] MEDS ORDERED: Chlorhexidine Gluconate 1 APPL/PKT TP ONE (08:22)
[2017-11-03] MEDS: Nystatin 100,000 Units/ml Oral Susp 5 ml UD PO SCH ×5 (08:35→22:19)
[2017-11-03] MEDS: Multivitamin With Minerals Tab PO SCH ×2 (08:35→10:23)
[2017-11-03] MEDS: Tmp-Smz 800 mg-160 mg DS Tab PO SCH ×3 (08:35→22:20)
[2017-11-03] MEDS: Fluticasone-Salmeterol 500-50mcg Diskus IH SCH ×3 (08:36→21:30)
[2017-11-03] MEDS: Pantoprazole 40 mg EC Tab PO SCH ×2 (08:37→10:23)
[2017-11-03] MEDS ORDERED: Bisacodyl 5mg EC Tab PO ONE (12:00)
--- NOTE | 2017-11-03 13:59 | RAD ---
HISTORY: Abdominal pain. Bowel perforation vs obst COMPARISON: No prior. FINDINGS: BOWEL: No evidence of bowel obstruction. Extensive retained feces. No masses or abnormal calcifications. No hepatic or splenic enlargement. BONES: Normal. OTHER FINDINGS: None. IMPRESSION: Retained feces. No bowel obstruction.
[2017-11-03] MEDS ORDERED: Magnesium Citrate Oral SOL (300 ml) PO ONE ×2 (14:00→17:43)
[2017-11-03] MEDS ORDERED: Sodium Chloride 0.9% 1,000 ML IV SCH (14:00)
--- NOTE | 2017-11-03 15:43 | RAD ---
PROCEDURE: Radiographs of the chest and abdomen (obstructive series) HISTORY: Abd pain. Intestinal Obst vs perforation COMPARISON: No prior. TECHNIQUE: AP radiograph of the chest, with upright and supine radiographs of the abdomen. FINDINGS: CHEST: Lungs: Clear. Cardiovascular: Normal size heart. Right PICC catheter noted. Pleura: Small right pleural effusion. No left pleural effusion. No pneumothorax. Other findings: None. ABDOMEN AND PELVIS: Bowel: No evidence of bowel obstruction. Retained stool noted. Free air: None. Bones: Unremarkable. Other findings: None. IMPRESSION: Small right pleural effusion. Retained feces. No bowel obstruction no free intraperitoneal air appreciated.
[2017-11-03] MEDS: Sodium Chloride 0.9% 1,000 ML IV SCH (16:10)
--- NOTE | 2017-11-03 20:32 | CP.PCM.PN ---
Subjective - Date & Time of Evaluation Date of Evaluation: 11/03/17 Time of Evaluation: 11:30 - Subjective Subjective: F/U PNA No SOB, no cough, no RICHEY, not using O2. Pt c/o of epigastric pain. Objective - Vital Signs/Intake and Output Vital Signs (last 24 hours): Temp Pulse Resp BP Pulse Ox 97.2 F L 105 H 20 141/65 94 L 11/03/17 16:50 11/03/17 16:50 11/03/17 16:50 11/03/17 16:50 11/03/17 16:50 - Medications Medications: Current Medications Acetaminophen (Tylenol 325mg Tab) 650 mg PO Q6 PRN PRN Reason: Pain, moderate (4-7) Albuterol/Ipratropium (Duoneb 3 Mg/0.5 Mg (3 Ml) Ud) 3 ml INH RTID [facility] Last Admin: 11/03/17 19:06 Dose: 3 ml Bisacodyl (Dulcolax) 10 mg PO ONCE ONE Stop: 11/04/17 12:01 Enoxaparin Sodium (Lovenox) 40 mg SC [facility] PRN Reason: Protocol Last Admin: 11/02/17 21:27 Dose: Not Given Home Med (Elviteg/Luna/Emtric/Tenofo Dis [Stribild Tablet]) 1 tab PO DAILY [facility] Last Admin: 11/03/17 10:23 Dose: Not Given Vancomycin HCl 1 gm/ Sodium (Chloride) 250 mls @ 166.667 mls/hr IVPB Q8 [facility] PRN Reason: Protocol Last Admin: 11/03/17 17:48 Dose: 166.667 mls/hr Sodium Chloride (Sodium Chloride 0.9%) 1,000 mls @ 125 mls/hr IV .Q8H [facility] Stop: 11/04/17 14:02 Last Admin: 11/03/17 16:10 Dose: 125 mls/hr Methadone HCl (Methadone) 80 mg PO DAILY [facility] Last Admin: 11/03/17 10:21 Dose: 80 mg Multivitamins/Minerals (Therapeutic-M Tab) 1 tab PO DAILY [facility] Last Admin: 11/03/17 10:23 Dose: Not Given Mupirocin (Bactroban Ointment) 1 applic TOP BID [facility] Last Admin: 11/03/17 17:59 Dose: 1 applic Nystatin (Nystatin Oral Susp) 5 ml PO QID [facility] Last Admin: 11/03/17 18:00 Dose: Not Given Ondansetron HCl (Zofran Inj) 4 mg IVP Q6 PRN PRN Reason: Nausea/Vomiting Ondansetron HCl (Zofran Odt) 4 mg PO Q6H PRN PRN Reason: Nausea/Vomiting Pantoprazole Sodium (Protonix Ec Tab) 40 mg PO DAILY [facility] Last Admin: 11/03/17 10:23 Dose: Not Given Polyethylene Glycol (Miralax) 17 gm PO HS [facility] Last Admin: 11/02/17 21:43 Dose: 17 gm Polyethylene Glycol/Electrolytes (Golytely) 4,000 ml PO ONCE ONE Stop: 11/04/17 14:01 Prednisone (Prednisone Tab) 20 mg PO DAILY [facility] Last Admin: 11/03/17 10:23 Dose: Not Given Fluticasone/Salmeterol (Advair Diskus 500/50) 1 puff IH Q12 [facility] Last Admin: 11/03/17 10:22 Dose: Not Given Senna/Docusate Sodium (Senokot S 50 Mg-8.6 Mg) 2 tab PO [facility] Tamsulosin HCl (Flomax) 0.4 mg PO DAILY [facility] Last Admin: 11/03/17 10:23 Dose: Not Given Trimethoprim/Sulfamethoxazole (Bactrim Ds Tab) 1 tab PO Q12 [facility] PRN Reason: Protocol Last Admin: 11/03/17 10:22 Dose: Not Given - Labs Labs: 11/01/17 02:08 11/03/17 07:28 - Constitutional Appears: No Acute Distress - Head Exam Head Exam: NORMAL INSPECTION - Eye Exam Eye Exam: PERRL - ENT Exam ENT Exam: Normal Exam - Neck Exam Neck Exam: Normal Inspection - Respiratory Exam Respiratory Exam: Decreased Breath Sounds (at bases) Additional comments: Few crackles at bases - Cardiovascular Exam Cardiovascular Exam: REGULAR RHYTHM - GI/Abdominal Exam GI & Abdominal Exam: Soft, Tenderness (epigastric ), Normal Bowel Sounds - Extremities Exam Extremities Exam: Normal Inspection - Neurological Exam Neurological Exam: Alert, CN II-XII Intact, Oriented x3 Additional comments: No focal motor/sensory deficit. - Psychiatric Exam Psychiatric exam: Normal Affect, Normal Mood - Skin Skin Exam: Warm Assessment and Plan (1) Pneumonia Status: Acute (2) History of asthma Status: Chronic (3) AIDS Status: Chronic - Assessment and Plan (Free Text) Plan: Pt with constipation, no BM. Continue Vanco, Duoneb and rest of Tx.
[2017-11-03] MEDS: Docusate-Senna 50 mg-8.6 mg Tab PO SCH (22:20)
[2017-11-03] MEDS: POLYETHYLENE GLYCOL 3350 17 GM/Dose PACKET PO SCH (22:20)
[2017-11-03] MEDS: Enoxaparin 40 mg Syringe SC SCH (22:20)
[2017-11-04] MEDS: Sodium Chloride 0.9% 1,000 ML IV SCH ×2 (01:38→09:02)
--- NOTE | 2017-11-04 04:23 | CON ---
DATE: 11/01/2017 REASON FOR CONSULTATION: Urinary retention. HISTORY OF PRESENT ILLNESS: The patient is a 52-year-old male with HIV positive who was admitted to the hospital with multiple medical problems. He has a history of partial penectomy for penile cancer more than 10 years ago at another facility. The patient had difficulty voiding, he was straight cath, and found to have 700 mL of PVR. The patient states he has no voiding difficulty prior to admission. Further history is noncontributory. REVIEW OF SYSTEMS: RESPIRATORY: The patient has some minimal respiratory complaints of wheezing and occasional cough. CARDIAC: The patient has no history of chest pain or cardiac disease. GASTROINTESTINAL: The patient is not complaining of any bowel problems or any constipation, diarrhea or change in bowel habits. GENITOURINARY: The patient has a history of penectomy in another institution many years ago for penile cancer. He is HIV positive. He gives no history of prior urinary problems until being admitted to the [facility]. SOCIAL AND FAMILY HISTORY: Noncontributory. NEUROLOGICAL HISTORY: Noncontributory. PHYSICAL EXAMINATION: VITAL SIGNS: Within normal limits. The patient's temperature is 98.6. HEAD, EARS, EYES, NOSE AND THROAT: Within normal limits. while he is on oxygen cannula. NECK: Supple. There are no bruits, nodes, or masses. CHEST: Clear bilaterally. There are no rales or rhonchi. HEART: Normal sinus rhythm. ABDOMEN: Soft and nontender. There is no palpable bladder distention. EXTREMITIES: Normal. RECTAL: Shows +3 prostate. GENITOURINARY: Scrotum is normal. Testicles, epididymis and cord are normal.. 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 IMPRESSION AND PLAN: My impression is acute urinary retention. I reviewed the lab work. I was just starting the patient on Flomax 0.4 mg daily and observing if he fails to void, insert the Dillon catheter discharge when medical conditions are improved, further workup may be necessary. Discussed this case with Dr. Christine Bettencourt. José Cast MD
[2017-11-04] MEDS: Albuterol-Ipratrop 3 mg / 0.5 (3 ml) UD INH SCH ×3 (07:16→19:19)
[2017-11-04 08:10] VITALS: RESP 20
--- NOTE | 2017-11-04 09:13 | CP.PCM.PN ---
Subjective - Date & Time of Evaluation Date of Evaluation: 11/04/17 Time of Evaluation: 07:15 - Subjective Subjective: Patient seen and examined at bedside this morning. Pt reports diffuse abdominal pain and no BM for last 3 days. Reports not passing gas and felt nauseous last night. Denies dysuria, penile discharge. Denies fever, chills, vomiting, chest pain, headache, dizziness or blurry vision. States decreased po intake due abdominal bloating. Pt has Dillon in place with clear urine. Objective - Vital Signs/Intake and Output Vital Signs (last 24 hours): Temp Pulse Resp BP Pulse Ox 97.9 F 82 20 129/78 100 11/04/17 08:09 11/04/17 08:09 11/04/17 08:09 11/04/17 08:09 11/04/17 08:09 Intake and Output: 11/04/17 11/04/17 06:59 18:59 Intake Total 1575 Output Total 2000 Balance -425 - Medications Medications: Current Medications Acetaminophen (Tylenol 325mg Tab) 650 mg PO Q6 PRN PRN Reason: Pain, moderate (4-7) Albuterol/Ipratropium (Duoneb 3 Mg/0.5 Mg (3 Ml) Ud) 3 ml INH RTID [facility] Last Admin: 11/04/17 07:16 Dose: Not Given Bisacodyl (Dulcolax) 10 mg PO ONCE ONE Stop: 11/04/17 12:01 Home Med (Elviteg/Luna/Emtric/Tenofo Dis [Stribild Tablet]) 1 tab PO DAILY [facility] Last Admin: 11/03/17 10:23 Dose: Not Given Vancomycin HCl 1 gm/ Sodium (Chloride) 250 mls @ 166.667 mls/hr IVPB Q8 [facility] PRN Reason: Protocol Last Admin: 11/04/17 09:07 Dose: 166.667 mls/hr Sodium Chloride (Sodium Chloride 0.9%) 1,000 mls @ 125 mls/hr IV .Q8H [facility] Stop: 11/04/17 14:02 Last Admin: 11/04/17 09:02 Dose: 125 mls/hr Methadone HCl (Methadone) 80 mg PO DAILY [facility] Last Admin: 11/03/17 10:21 Dose: 80 mg Multivitamins/Minerals (Therapeutic-M Tab) 1 tab PO DAILY [facility] Last Admin: 11/03/17 10:23 Dose: Not Given Mupirocin (Bactroban Ointment) 1 applic TOP BID [facility] Last Admin: 11/03/17 17:59 Dose: 1 applic Nystatin (Nystatin Oral Susp) 5 ml PO QID [facility] Last Admin: 11/03/17 22:19 Dose: 5 ml Ondansetron HCl (Zofran Inj) 4 mg IVP Q6 PRN PRN Reason: Nausea/Vomiting Ondansetron HCl (Zofran Odt) 4 mg PO Q6H PRN PRN Reason: Nausea/Vomiting Pantoprazole Sodium (Protonix Ec Tab) 40 mg PO DAILY [facility] Last Admin: 11/03/17 10:23 Dose: Not Given Polyethylene Glycol (Miralax) 17 gm PO HS [facility] Last Admin: 11/03/17 22:20 Dose: 17 gm Polyethylene Glycol/Electrolytes (Golytely) 4,000 ml PO ONCE ONE Stop: 11/04/17 14:01 Prednisone (Prednisone Tab) 20 mg PO DAILY [facility] Last Admin: 11/03/17 10:23 Dose: Not Given Fluticasone/Salmeterol (Advair Diskus 500/50) 1 puff IH Q12 [facility] Last Admin: 11/03/17 21:30 Dose: 1 puff Senna/Docusate Sodium (Senokot S 50 Mg-8.6 Mg) 2 tab PO HS [facility] Last Admin: 11/03/17 22:20 Dose: 2 tab Tamsulosin HCl (Flomax) 0.4 mg PO DAILY [facility] Last Admin: 11/03/17 10:23 Dose: Not Given Trimethoprim/Sulfamethoxazole (Bactrim Ds Tab) 1 tab PO Q12 [facility] PRN Reason: Protocol Last Admin: 11/03/17 22:20 Dose: 1 tab - Labs Labs: 11/01/17 02:08 11/03/17 07:28 - Additional Findings Additional findings: - Constitutional Appears: Non-toxic, No Acute Distress, Cachectic, Chronically Ill - Head Exam Head Exam: NORMAL INSPECTION - Eye Exam Eye Exam: Normal appearance. absent: Scleral icterus - ENT Exam ENT Exam: Mucous Membranes Moist, Normal Oropharynx - Neck Exam Neck exam: Positive for: Normal Inspection. Negative for: Lymphadenopathy - Respiratory Exam Respiratory Exam: + Rhonchi in B/L lower lung field, NORMAL BREATHING PATTERN. absent: Wheezes, Respiratory Distress - Cardiovascular Exam Cardiovascular Exam: REGULAR RHYTHM, RRR, +S1, +S2 - GI/Abdominal Exam GI & Abdominal Exam: Normal Bowel Sounds, Soft. absent: Rebound, Rigid Diffuse abdominal tenderness - Exam Additional comments: Mild erythematous lesion on right groin. No oozing or swelling - Extremities Exam Extremities exam: Positive for: normal inspection. Negative for: calf tenderness, pedal edema - Back Exam Back exam: absent: CVA tenderness (L), CVA tenderness (R) - Neurological Exam Neurological exam: Alert, Oriented x3 - Psychiatric Exam Psychiatric exam: Normal Affect, Normal Mood Assessment and Plan - Assessment and Plan (Free Text) Assessment: 52 y/o male with a PMHx of HIV (CD4 is 120 on 10/01/17), HTN, rectal/penile cancer, colon cancer, and asthma admitted for sepsis with + streptococcus gallolyticus bacteremia, receiving IV abx and now has abdominal pain with constipation Plan: 1. Sepsis with streptococcus gallolyticus bacteremia: -ID on board -Continue Vancomycin 1000 mg ivp Q8 (day#15) -Completed Meropenem 500 mg IVP q8 for 9 days. -ECHO: normal echo -Repeat blood cx on 10/23/17: no growth after 5 days. -WBC normal -f/u vanco trough -GI consult: pt will have EGD/colonoscopy tomorrow. 2. Hyperkalemia -5.5 yesterday -EKG on 11/02/17: no acute changes. -F/U BMP 3. Abdominal pain with constipation -Abdominal x-ray series on 11/02/17: Small right pleural effusion. Retained feces. NO bowel obstruction. No free intraperitoneal air appreciated. -on miralax daily -on senna/docusate -s/p glycerin supp yesterday -Abdominal x-ray today shows constipation w/o fecal impaction or obstruction. -Pt will get Golytely this afternoon for possible colonoscopy tomorrow 4. Urinary retention -hx penile CA -c/w flomax 0.4 mg daily -On Dillon cath -f/u urology consult 5. AIDS: -Last CD4 count in 10/01/17 is 120 -Continue azithromycin 1200 mg po qweekly for MAC prophylaxis -Continue bactrim DS po bid -Continue prednisone 20 mg po daily(day 4) ( completed 40 mg bid for 5 days and 40 mg qd x 5 days) -Noncompliant with HAART -Resume home meds 6. Asthma, unspecified type -c/w DuoNeb q4h prn -c/w home medications 7. Heroin use disorder: -Pt takes 80 mg methadone daily -c/w current medication 8. Right groin lesion: -Continue mupirocin TOP BID 9. DVT prophylaxis -eGFR>60 -SCDs PRN -Lovenox 40mg SC QD 10. Diet -Heart Healthy diet 11. Code status -Full code
[2017-11-04] MEDS: Fluticasone-Salmeterol 500-50mcg Diskus IH SCH ×2 (10:15→22:08)
[2017-11-04] MEDS: Tmp-Smz 800 mg-160 mg DS Tab PO SCH ×2 (10:15→22:09)
[2017-11-04] MEDS: Multivitamin With Minerals Tab PO SCH (10:17)
[2017-11-04] MEDS: Pantoprazole 40 mg EC Tab PO SCH (10:17)
[2017-11-04] MEDS: Nystatin 100,000 Units/ml Oral Susp 5 ml UD PO SCH ×4 (10:17→22:09)
--- NOTE | 2017-11-04 11:05 | RAD ---
HISTORY: Constipation and abdominal pain, r/o obstruction COMPARISON: 11/02/2017 FINDINGS: BOWEL: Constipation without fecal impaction or obstruction. BONES: Normal. OTHER FINDINGS: None. IMPRESSION: No significant interval change compared to the prior examination(s). GoNo active disease.
[2017-11-04] MEDS ORDERED: Bisacodyl 5mg EC Tab PO ONE (12:00)
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
[2017-11-04] MEDS ORDERED: Peg-Electrolyte Oral Soln 4L (Golytely) PO ONE ×2 (14:00→23:01)
[2017-11-04] MEDS ORDERED: Iohexol 240 (50 ml) PO ONE (16:34)
[2017-11-04] MEDS ORDERED: Oxycodone/Acetaminophen 5/325 mg Tab PO PRN (17:21)
[2017-11-04 17:22] VITALS: BP 113/73; PULSE 94; TEMP 98.2; O2SAT 98
[2017-11-04] MEDS ORDERED: Sodium Chloride 0.9% 1,000 ML IV SCH (19:15)
[2017-11-04] MEDS: POLYETHYLENE GLYCOL 3350 17 GM/Dose PACKET PO SCH (22:09)
[2017-11-04] MEDS: Docusate-Senna 50 mg-8.6 mg Tab PO SCH (22:09)
--- NOTE | 2017-11-05 00:36 | CP.PCM.DIS ---
Provider - Provider Date of Admission: 10/29/17 18:59 Attending physician: Christine Bettencourt MD Consults: 10/29/17 19:36 Nursing Referral for Wound Care Routine Comment: Physician Instructions: Reason For Exam: multiple wound assessment Time Spent in preparation of Discharge (in minutes): 30 Diagnosis - Discharge Diagnosis (1) Small bowel obstruction Status: Acute Hospital Course - Lab Results Lab Results: Micro Results 10/30/17 16:53 Blood-Venous Blood Culture - Final NO GROWTH AFTER 5 DAYS 10/30/17 16:53 Blood-Venous Gram Stain - Final TEST NOT PERFORMED 10/30/17 16:41 Blood-Venous Blood Culture - Final NO GROWTH AFTER 5 DAYS 10/30/17 16:41 Blood-Venous Gram Stain - Final TEST NOT PERFORMED 10/30/17 20:46 Urine,Catheterized Urine Culture - Final No Growth (<1,000 CFU/ML) Most Recent Lab Values WBC 8.6 K/uL (4.8-10.8) 11/01/17 02:08 RBC 3.64 Mil/uL (4.40-5.90) L 11/01/17 02:08 Hgb 9.3 g/dL (12.0-18.0) L 11/01/17 02:08 Hct 29.8 % (35.0-51.0) L 11/01/17 02:08 MCV 81.8 fl (80.0-94.0) D 11/01/17 02:08 MCH 25.7 pg (27.0-31.0) L 11/01/17 02:08 MCHC 31.4 g/dL (33.0-37.0) L 11/01/17 02:08 RDW 16.9 % (11.5-14.5) H 11/01/17 02:08 Plt Count 95 K/uL (130-400) L 11/01/17 02:08 Sodium 134 mmol/l (132-148) 11/03/17 07:28 Potassium 5.5 MMOL/L (3.6-5.0) H 11/03/17 07:28 Chloride 97 mmol/L (98-107) L 11/03/17 07:28 Carbon Dioxide 28 mmol/L (22-30) 11/03/17 07:28 Anion Gap 15 (10-20) 11/03/17 07:28 BUN 28 mg/dl (9-20) H 11/03/17 07:28 Creatinine 0.9 mg/dl (0.8-1.5) 11/03/17 07:28 Est GFR ( Amer) > 60 11/03/17 07:28 Est GFR (Non-Af Amer) > 60 11/03/17 07:28 Random Glucose 87 mg/dL (75-110) 11/03/17 07:28 Calcium 8.7 mg/dL (8.4-10.2) 11/03/17 07:28 Urine Color Yellow (YELLOW) 10/30/17 20:46 Urine Clarity Clear (Clear) 10/30/17 20:46 Urine pH 6.0 (5.0-8.0) 10/30/17 20:46 Ur Specific [place] 1.016 (1.003-1.030) 10/30/17 20:46 Urine Protein Negative mg/dL (NEGATIVE) 10/30/17 20:46 Urine Glucose (UA) 50 mg/dL (Normal) 10/30/17 20:46 Urine Ketones Negative mg/dL (NEGATIVE) 10/30/17 20:46 Urine Blood Negative (NEGATIVE) 10/30/17 20:46 Urine Nitrate Negative (NEGATIVE) 10/30/17 20:46 Urine Bilirubin Negative (NEGATIVE) 10/30/17 20:46 Urine Urobilinogen 0.2-1.0 mg/dL (0.2-1.0) 10/30/17 20:46 Ur Leukocyte Esterase Neg Nevaeh/uL (Negative) 10/30/17 20:46 Urine RBC (Auto) < 1 /hpf (0-3) 10/30/17 20:46 Urine Microscopic WBC < 1 /hpf (0-5) 10/30/17 20:46 Vancomycin Trough 13.4 ug/mL (5.0-10.0) H 11/01/17 02:08 - Hospital Course Hospital Course: 52 y/o male with a PMHx of HIV (CD4 is 120 on 10/01/17), HTN, rectal/penile cancer, colon cancer, and asthma who was admitted to TCU for IV abx for bacteremia sepsis. Patient was seen to have bacteremia with Strep Gallolyticus. Since patient had Strep Gallolyticus further workup was ordered. Echo was WNL. Repeated blood cultures did not show any growth. Over the last couple of days he has been complaining of worsening abdominal pain and has not been having normal bowl movements. Abdominal flat plate on 11/02 showed retained feces but no bowel obstruction. Today patient had worsening abdominal pain and CT scan with PO and IV contrast was done which showed Small bowl obstruction with diffuse small bowl dilatation. After patients CT scan he had an episode of bilious vomits. Case was discussed with surgery and patient was transferred from the ER and is being readmitted with small bowl obstruction Discharge Exam - Head Exam Head Exam: NORMAL INSPECTION - Eye Exam Eye Exam: Normal appearance - Respiratory Exam Respiratory Exam: NORMAL BREATHING PATTERN. absent: Wheezes - Cardiovascular Exam Cardiovascular Exam: REGULAR RHYTHM, +S1, +S2 - GI/Abdominal Exam GI & Abdominal Exam: Soft, Tenderness (diffuse tenderness) - Neurological Exam Neurological exam: Alert, CN II-XII Intact, Oriented x3 - Skin Skin Exam: Normal Color, Warm Discharge Plan - Follow Up Plan Condition: GUARDED Disposition: OTHER INSTITUTION Instructions: Small Bowel Obstruction Additional Instructions: Transfer to ER and readmit, will consult surgery for NG tube placement and treatment for SBO
[2017-11-05] MEDS ORDERED: Lidocaine 5% Patch TD SCH (09:00)
--- NOTE | 2017-11-05 11:14 | CARD ---
APPROVED REPORT EKG Measurement Heart [id number] <Conclusion> Normal sinus rhythm Normal ECG
== END 2017-11-05 00:35 | disposition short-term general hospital (02) | DRG 706 ==
LOC: H.TCU 18:59
PROVIDERS: ADMIT Family Medicine Geriatric Medicine; ATTEND Family Medicine Geriatric Medicine
PROC: 3E0F7GC Introduction of Other Therapeutic Substance into Respiratory Tract, Via Natural or Artificial Opening (ICD-10-PCS; principal; 2017-10-29)
PROC: 3E03329 Introduction of Other Anti-infective into Peripheral Vein, Percutaneous Approach (ICD-10-PCS; 2017-10-29)
DX: A40.9 Streptococcal sepsis, unspecified (principal); B20 Human immunodeficiency virus [HIV] disease; J15.1 Pneumonia due to Pseudomonas; F11.10 Opioid abuse, uncomplicated; K56.609 Unspecified intestinal obstruction, unspecified as to partial versus complete obstruction; Z85.048 Personal history of other malignant neoplasm of rectum, rectosigmoid junction, and anus; Z85.49 Personal history of malignant neoplasm of other male genital organs; I10 Essential (primary) hypertension; J45.909 Unspecified asthma, uncomplicated; Z79.891 Long term (current) use of opiate analgesic; Z80.1 Family history of malignant neoplasm of trachea, bronchus and lung; Z82.49 Family history of ischemic heart disease and other diseases of the circulatory system; Z85.72 Personal history of non-Hodgkin lymphomas; Z87.01 Personal history of pneumonia (recurrent); Z87.11 Personal history of peptic ulcer disease; Z87.891 Personal history of nicotine dependence; Z92.21 Personal history of antineoplastic chemotherapy; Z92.3 Personal history of irradiation; Z93.3 Colostomy status; R33.9 Retention of urine, unspecified

== ENCOUNTER 2017-11-05 01:05 | Inpatient (IN) | payer MEDICAID ==
[2017-11-05 01:05] VITALS: BMI 21.2
--- NOTE | 2017-11-05 01:51 | ED PDOC ---
HPI: Abdomen Time Seen by Provider: 11/05/17 01:08 Chief Complaint (Nursing): Abdominal Pain History Per: Patient History/Exam Limitations: no limitations Onset/Duration Of Symptoms: Hrs Outside of [place] travel?: No Location Of Pain/Discomfort: Diffuse Additional Complaint(s): Hx of HIV, admitted to TCU for IV ABx for PNA, sent to ED for confirmed diagnosis of SBO by family practice service. Patient has been having decreased BM's and worsening abdominal pain, CT confirmed patient had an SBO. No fevers, chills, chest pain, shortness of breath. Past Medical History Reviewed: Historical Data, Nursing Documentation, Vital Signs Vital Signs: Last Vital Signs Temp 97.9 F 11/05/17 05:05 Pulse 87 11/05/17 05:05 Resp 19 11/05/17 05:05 BP 119/74 11/05/17 05:05 Pulse Ox 96 11/05/17 04:40 - Medical History PMH: Asthma, Bronchitis, Depression, HIV, HTN, Pneumonia (PCP) Denies: Chronic Kidney Disease - Family History Family History: States: Unknown Family Hx - Immunization History Hx Tetanus Toxoid Vaccination: No Hx Influenza Vaccination: No Hx Pneumococcal Vaccination: No - Home Medications Home Medications: Ambulatory Orders Medication Instructions Recorded Albuterol Sulfate [Ventolin Hfa] 2 puff IH Q4 PRN 10/21/17 Elviteg/Luna/Emtric/Tenofo Dis 1 tab PO DAILY 10/21/17 [Stribild Tablet] Methadone 80 mg PO DAILY 10/21/17 Mv,Min10/Folic Acid/D3/Ala/Lut 1 tab PO DAILY 10/21/17 [Strovite One Caplet] Acetaminophen [Tylenol 325mg tab] 650 mg PO Q6 PRN tab 10/29/17 Albuterol/Ipratropium [Duoneb 3 3 ml INH RTID neb 10/29/17 mg/0.5 mg (3 ml) UD] Fluticasone/Salmeterol 500/50 1 puff IH Q12 puff 10/29/17 [Advair Diskus 500/50] Multimineral/Multivitamin 1 tab PO DAILY tab 10/29/17 [Therapeutic-M Tab] Mupirocin 2% Ointment [Bactroban 1 applic TOP BID tube 10/29/17 Ointment] Nystatin [Nystatin Oral Susp] 5 ml PO QID udc 10/29/17 Sulfamethoxazole/Trimethoprim 2 tab PO Q8 tab 10/29/17 [Bactrim DS Tab] predniSONE [predniSONE Tab] 40 mg PO DAILY tab 10/29/17 Docusate Sodium/Sennosides A 2 tab PO HS tab 11/05/17 [Senokot S 50 MG-8.6 MG] Lidocaine 5% [Lidoderm] 2 ea TD DAILY patch 11/05/17 Ondansetron ODT [Zofran ODT] 4 mg PO Q6H PRN odt 11/05/17 Ondansetron [Zofran Inj] 4 mg IVP Q6 PRN vial 11/05/17 Pantoprazole [Protonix EC Tab] 40 mg PO DAILY ect 11/05/17 Polyethylene Glycol 3350 [Miralax] 17 gm PO HS packet 11/05/17 Tamsulosin [Flomax] 0.4 mg PO DAILY cap 11/05/17 - Allergies Allergies/Adverse Reactions: Allergies Allergy/AdvReac Type Severity Reaction Status Date / Time Penicillins Allergy Intermediate ANGIOEDEMA Verified 11/05/17 01:09 Review of Systems ROS Statement: Except As Marked, All Systems Reviewed And Found Negative Gastrointestinal: Positive for: Abdominal Pain, Constipation Physical Exam - Reviewed Nursing Documentation Reviewed: Yes Vital Signs Reviewed: Yes - Physical Exam Appears: Positive for: Well, Non-toxic, No Acute Distress Head Exam: Positive for: ATRAUMATIC, NORMAL INSPECTION, NORMOCEPHALIC Skin: Positive for: Normal Color, Warm, DRY Eye Exam: Positive for: EOMI, Normal appearance, PERRL ENT: Positive for: Normal ENT Inspection Neck: Positive for: Normal, Painless ROM Cardiovascular/Chest: Positive for: Regular Rate, Rhythm Respiratory: Positive for: CNT, Normal Breath Sounds Gastrointestinal/Abdominal: Positive for: Normal Exam, Bowel Sounds, Soft, Tenderness (Diffuse tenderness to minimal palpation ), Guarding (Voluntary) Back: Positive for: Normal Inspection Extremity: Positive for: Normal ROM Neurologic/Psych: Positive for: Alert, Oriented - Laboratory Results Result Diagrams: 11/05/17 01:40 11/05/17 01:40 - ECG O2 Sat by Pulse Oximetry: 97 Pulse Ox Interpretation: Normal Medical Decision Making Medical Decision MakinAM Patient sent to ED for eval for SBO. resident care technician aware. Patient to receive NGT and be admitted for treatment. Patient with normal vitals, stable at this time. Disposition - Clinical Impression Clinical Impression: Small bowel obstruction - Patient ED Disposition Is Patient to be Admitted: Yes - Disposition Disposition Time: 01:00 Condition: FAIR
[2017-11-05 01:55] LABS: BASO # 0.1 K/uL (0.0-0.2); BASO % 1.6 % (0.0-2.0); EOS % 0.1 % (0.0-4.0); HEMOGLOBIN 9.2 g/dL (12.0-18.0); LYMPH # 0.4 K/uL (1.0-4.3); LYMPH % 9.1 % (20.0-40.0); MEAN CELL VOLUME 81.9 fl (80.0-94.0); MEAN CORPUSCULAR HEMOGLOBIN 25.8 pg (27.0-31.0); MEAN CORPUSCULAR HGB CONC 31.5 g/dL (33.0-37.0); MEAN PLATELET VOLUME 10.1 fl (7.2-11.7); MONO # 0.1 K/uL (0.0-0.8); MONO % 2.8 % (0.0-10.0); NEUT # 4.1 K/uL (1.8-7.0); NEUT % 86.4 % (50.0-75.0); PLATELET COUNT 95 K/uL (130-400); RBC 3.55 Mil/uL (4.40-5.90); WHITE BLOOD COUNT 4.8 K/uL (4.8-10.8)
--- NOTE | 2017-11-05 01:56 | CP.PCM.HP ---
History of Present Illness - History of Present Illness History of Present Illness: 52 y/o male with a PMHx of HIV (CD4 is 120 on 10/01/17), HTN, rectal/penile cancer, colon cancer, and asthma who was admitted to TCU for IV abx for bacteremia sepsis. Patient was seen to have bacteremia with Strep Gallolyticus. Since patient had Strep Gallolyticus further workup was ordered. Echo was WNL. Repeated blood cultures did not show any growth. Over the last couple of days he has been complaining of worsening abdominal pain and has not been having normal bowl movements. Abdominal flat plate on 11/02 showed retained feces but no bowel obstruction. Patien passed small stool on 11/03, since then patient has not had any bowl movement and denies passing gas. Today patient had worsening abdominal pain and CT scan with PO and IV contrast was done which showed Small bowl obstruction with diffuse small bowl dilatation. After patients CT scan he had an episode of non bloody bilious vomits. Case was discussed with surgery and patient was transferred from the ER and is being readmitted with small bowl obstruction. ROS: as per HPI PMD: Dr. Galeano, last visit 10/07/17 PMHx: HIV, essential HTN, penile/rectal cancer, colon cancer, unspecified severity of asthma Meds: as per eCW/med rec, NONCOMPLIANT with many medications ALL: penicillins (angioedema) PsurgHx: colectomy/colostomy reversal in FamilyHx: father decreased 2/2 lung cancer, mother decreased 2/2 CHF. Multiple siblings, alive, one has sickle cell anemia SocialHx: former tobacco abuser. Social ETOH. Heroin abuser, recent usage mid April 2017 -next of kin: daughter Mimi [phone] -FULL CODE Present on Admission - Present on Admission Any Indicators Present on Admission: No Review of Systems - Review of Systems All systems: reviewed and no additional remarkable complaints except Past Patient History - Past Medical History & Family History Past Medical History?: Yes - Past Social History Smoking Status: Former Smoker - CARDIAC Hx Cardiac Disorders: Yes Hx Hypertension: Yes - PULMONARY Hx Respiratory Disorders: Yes Hx Asthma: Yes Hx Bronchitis: Yes Hx Pneumonia: Yes (PCP) - NEUROLOGICAL Hx Neurological Disorder: No - HEENT Hx HEENT Problems: No - RENAL Hx Chronic Kidney Disease: No - ENDOCRINE/METABOLIC Hx Endocrine Disorders: No - HEMATOLOGICAL/ONCOLOGICAL Hx Blood Disorders: Yes (HIV) Hx AIDS: Yes Hx Cancer: Yes (penile/colon) Hx Human Immunodeficiency Virus (HIV): Yes - INTEGUMENTARY Hx Dermatological Problems: Yes - MUSCULOSKELETAL/RHEUMATOLOGICAL Hx Falls: No - GASTROINTESTINAL Hx Gastrointestinal Disorders: Yes Hx Colostomy: Yes (reversal) - GENITOURINARY/GYNECOLOGICAL Hx Genitourinary Disorders: Yes Other/Comment: Penile CA - PSYCHIATRIC Hx Psychophysiologic Disorder: Yes Hx Depression: Yes Hx Substance Use: No - SURGICAL HISTORY Hx Surgeries: Yes Other/Comment: colostomy- reversed - ANESTHESIA Hx Anesthesia: Yes Hx Anesthesia Reactions: No Meds Allergies/Adverse Reactions: Allergies Allergy/AdvReac Type Severity Reaction Status Date / Time Penicillins Allergy Intermediate ANGIOEDEMA Verified 11/05/17 01:09 Physical Exam - Constitutional Appears: Chronically Ill - Head Exam Head Exam: NORMAL INSPECTION - Eye Exam Eye Exam: Normal appearance - ENT Exam ENT Exam: Mucous Membranes Moist, Normal Exam - Neck Exam Neck exam: Positive for: Normal Inspection - Respiratory Exam Respiratory Exam: Rhonchi (at right lower lung noted), NORMAL BREATHING PATTERN. absent: Wheezes - Cardiovascular Exam Cardiovascular Exam: REGULAR RHYTHM, +S1, +S2 - GI/Abdominal Exam GI & Abdominal Exam: Guarding (voluntary guarding), Tenderness (diffuse abdominal tenderness) - Exam Additional comments: Mild erythematous lesion on right groin. No oozing or swelling Results - Vital Signs Recent Vital Signs: Last Vital Signs Temp 98.4 F 11/05/17 01:09 Pulse 82 11/05/17 01:09 Resp 18 11/05/17 01:09 BP 123/79 11/05/17 01:09 Pulse Ox 97 11/05/17 01:09 - Labs Result Diagrams: 11/05/17 01:40 11/05/17 01:40 Assessment & Plan - Assessment and Plan (Free Text) Assessment: 52 y/o male with a PMHx of HIV (CD4 is 120 on 10/01/17), HTN, rectal/penile cancer, colon cancer, and asthma who was being treated in TCU for bacteremia with streptococcus gallolyticus and pneumonia was transfered to the ER to be readmitted because of Small bowl obstruction. Plan: 1. Small Bowl Obstruction - NPO - Possible NG tube - Surgery and GI consulted 2. H/O streptococcus gallolyticus bacteremia: -ID on board -Continue Vancomycin 1000 mg ivp Q8 (day#16) Vanco completed, will check Vanco troph in am -Completed Meropenem 500 mg IVP q8 for 9 days. -ECHO: normal echo -Repeat blood cx on 10/23/17: no growth after 5 days. -WBC normal -f/u vanco trough in AM -GI consult 3) Hospital Acquired Pneumonia? - Patient already completed 9 days of Meropenem, currently on day 16 of Vancomycin - Will check Vanco trough in AM, - Abdominal CT : Shows multifocal areas of consolidation in the right lung base , greatest in posterior basilar segments of the right lower lobe. - ID on board, will speak to ID regarding IV antibiotics - WBC normal - f/u vanco trough in AM 4. Urinary retention -hx penile CA -On Dillon cath -Currently hold flomax because of patients NPO status for SBO 5. AIDS: -Last CD4 count in 10/01/17 is 120 -HOLD MAC prophylaxis until SBO resolves: azithromycin 1200 mg po qweekly - HOLD PCP prophylaxis untill SBO resolves: bactrim DS po bid -Continue Solumedrol 20 mg po daily(day 5) ( completed 40 mg bid for 5 days and 40 mg qd x 5 days) -Noncompliant with HAART. Currently will HOLD home med (NPO for SBO) 6. Asthma, unspecified type -c/w DuoNeb q4h prn -c/w home medications 7. Heroin use disorder: -Pt takes 80 mg methadone daily (HOLD) For now NPO/SBO 8. Right groin lesion: -Continue mupirocin TOP BID 9. DVT prophylaxis -SCDs PRN - Heparin 5000 Q12: Platelets : 95 10. Code status -Full code
[2017-11-05 02:02] LABS: ALB/GLOB RATIO 0.9 (1.0-2.1); ALBUMIN 2.8 g/dL (3.5-5.0); ALT/SGPT 41 U/L (21-72); AST/SGOT 37 U/L (17-59); BLOOD UREA NITROGEN 27 mg/dl (9-20); CALCIUM 8.6 mg/dL (8.4-10.2); GFR AFRICAN-AMERICAN > 60; GFR NON-AFRICAN AMERICAN > 60; LIPASE 36 U/L (23-300)
[2017-11-05 02:16] LABS: INR 1.1 (0.9-1.2); PARTIAL THROMBOPLASTIN TIME 36.5 Seconds (25.6-37.1); PROTHROMBIN TIME 12.3 Seconds (9.8-13.1)
[2017-11-05] MEDS ORDERED: Albuterol HFA 90 mcg/actuation (8 g) IH PRN (02:31)
--- NOTE | 2017-11-05 02:39 | CP.PCM.CON ---
Addendum entered and electronically signed by David Gutierrez DO 11/05/17 10:59: No Narcotics Fleet Enema Q6H Terry Lactulose Q8H Original Note: <Marlon Lara - Last Filed: 11/05/17 02:18> History of Present Illness - History of Present Illness History of Present Illness: General Surgery Consult Re: SBO HPI: 52M recently admitted to TCU for IV abx for bacteremia sepsis and pneumonia. Blood cx x2 with Strep Gallolyticus on 10/21/17. Over the last couple of days he has been complaining of worsening abdominal pain and constipation, although, he reports BM have not been normal for 4 years and he is currently on methadone. Abdominal flat plate on 11/02 and 11/04 showed retained feces. Yesterday evening and into this AM, he had worsening abdominal pain and a CT scan with IV and limited PO contrast showed SBO with no clear transition point. After patients CT scan he had one episode of nonbloody, bilious emesis. Patient was transferred to the ER and is being readmitted with small bowl obstruction. Echo was WNL. GI has been following and was planning EGD/ colonoscopy if pt complied with prep. Currently, abdominal pain is less and mostly R quadrants and he has not vomited further. Last BM 11/03 x 2 (small). Denies F/C, headache, nausea, diarrhea, hematuria, melena, hematochezia. PMH: HIV (CD4 is 120 on 10/01/17), HTN, Hx penile cancer with indwelling magdaleno, colon cancer, Hx asthma PSH: colectomy/colostomy reversal in FH: non-contributory SH: former tobacco abuser. Social ETOH. Heroin abuse Meds: See MAR, NONCOMPLIANT with many medications All: penicillins (hives, angioedema) PMD: Dr. Galeano Review of Systems - Review of Systems All systems: reviewed and no additional remarkable complaints except (as per HPI ) Past Patient History - Past Medical History & Family History Past Medical History?: Yes - Past Social History Smoking Status: Former Smoker - CARDIAC Hx Cardiac Disorders: Yes Hx Hypertension: Yes - PULMONARY Hx Respiratory Disorders: Yes Hx Asthma: Yes Hx Bronchitis: Yes Hx Pneumonia: Yes (PCP) - NEUROLOGICAL Hx Neurological Disorder: No - HEENT Hx HEENT Problems: No - RENAL Hx Chronic Kidney Disease: No - ENDOCRINE/METABOLIC Hx Endocrine Disorders: No - HEMATOLOGICAL/ONCOLOGICAL Hx Blood Disorders: Yes (HIV) Hx AIDS: Yes Hx Cancer: Yes (penile/colon) Hx Human Immunodeficiency Virus (HIV): Yes - INTEGUMENTARY Hx Dermatological Problems: Yes - MUSCULOSKELETAL/RHEUMATOLOGICAL Hx Falls: No - GASTROINTESTINAL Hx Gastrointestinal Disorders: Yes Hx Colostomy: Yes (reversal) - GENITOURINARY/GYNECOLOGICAL Hx Genitourinary Disorders: Yes Other/Comment: Penile CA - PSYCHIATRIC Hx Psychophysiologic Disorder: Yes Hx Depression: Yes Hx Substance Use: No - SURGICAL HISTORY Hx Surgeries: Yes Other/Comment: colostomy- reversed - ANESTHESIA Hx Anesthesia: Yes Hx Anesthesia Reactions: No Meds Allergies/Adverse Reactions: Allergies Allergy/AdvReac Type Severity Reaction Status Date / Time Penicillins Allergy Intermediate ANGIOEDEMA Verified 11/05/17 01:09 - Medications Medications: Current Medications Vancomycin HCl 1 gm/ Sodium (Chloride) 250 mls @ 166.667 mls/hr IVPB Q8 TERRY PRN Reason: Protocol Physical Exam - Constitutional Appears: Non-toxic, No Acute Distress, Cachectic - Head Exam Head Exam: ATRAUMATIC, NORMOCEPHALIC - Eye Exam Eye Exam: EOMI. absent: Scleral icterus - ENT Exam ENT Exam: Mucous Membranes Moist Additional comments: trachea midline - Neck Exam Neck exam: Positive for: Full Rom - Respiratory Exam Respiratory Exam: NORMAL BREATHING PATTERN. absent: Accessory Muscle Use, Respiratory Distress - Cardiovascular Exam Cardiovascular Exam: RRR, +S1, +S2 - GI/Abdominal Exam GI & Abdominal Exam: Guarding, Soft, Tenderness (diffuse but more in R quadrants ). absent: Distended, Firm, Rebound, Rigid Additional comments: old well healed scars from prior surgery - Rectal Exam Additional comments: good tone, no stool in rectal vault - Exam Additional comments: magdaleno indwelling - Extremities Exam Extremities exam: Negative for: calf tenderness, pedal edema - Back Exam Back exam: absent: CVA tenderness (L), CVA tenderness (R) - Neurological Exam Neurological exam: Alert, Oriented x3 - Psychiatric Exam Psychiatric exam: Normal Affect, Normal Mood - Skin Skin Exam: Dry, Warm Results - Vital Signs Recent Vital Signs: Last Vital Signs Temp 98.4 F 11/05/17 01:09 Pulse 82 11/05/17 01:09 Resp 18 11/05/17 01:09 BP 123/79 11/05/17 01:09 Pulse Ox 97 11/05/17 01:52 - Labs Result Diagrams: 11/05/17 01:40 11/05/17 01:40 Labs: Laboratory Results - last 24 hr 11/05/17 11/05/17 11/05/17 01:40 01:40 01:40 WBC 4.8 RBC 3.55 L Hgb 9.2 L Hct 29.1 L MCV 81.9 MCH 25.8 L MCHC 31.5 L RDW 17.0 H Plt Count 95 L MPV 10.1 Neut % (Auto) 86.4 H Lymph % (Auto) 9.1 L [place] % (Auto) 2.8 Eos % (Auto) 0.1 Baso % (Auto) 1.6 Neut # (Auto) 4.1 Lymph # (Auto) 0.4 L [place] # (Auto) 0.1 Eos # (Auto) 0.0 Baso # (Auto) 0.1 PT 12.3 INR 1.1 APTT 36.5 Sodium 132 Potassium 4.6 Chloride 95 L Carbon Dioxide 29 Anion Gap 13 BUN 27 H Creatinine 0.9 Est GFR ( Amer) > 60 Est GFR (Non-Af Amer) > 60 Random Glucose 101 Calcium 8.6 Total Bilirubin 0.7 AST 37 ALT 41 Alkaline Phosphatase 99 Total Protein 6.1 L Albumin 2.8 L Globulin 3.3 Albumin/Globulin Ratio 0.9 L Lipase 36 - Imaging and Cardiology CT scan - abdomen Status: Image reviewed by me, Report reviewed by me Abdominal x-ray Status: Image reviewed by me, Report reviewed by me Assessment & Plan - Assessment and Plan (Free Text) Assessment: 52M with SBO, likely 2/2 methadone therapy and non compliance with other meds Plan: IVF NPO NGT if further emesis occurs Continue Abx Follow up labs Serial abd exams Suppositories Will D/W Dr. Girish Lara PGY4 <Erick Stout - Last Filed: 11/05/17 20:09> Meds - Medications Medications: Current Medications Albuterol (Ventolin Hfa 90 Mcg/Actuation (8 G)) 2 puff IH Q4 PRN PRN Reason: shortness of breath Albuterol/Ipratropium (Duoneb 3 Mg/0.5 Mg (3 Ml) Ud) 3 ml INH RTID [facility] Last Admin: 11/05/17 19:14 Dose: 3 ml Bisacodyl (Dulcolax) 10 mg AK DAILY [facility] Last Admin: 11/05/17 10:06 Dose: Not Given Heparin Sodium (Porcine) (Heparin) 5,000 units SC Q12 TERRY PRN Reason: Protocol Last Admin: 11/05/17 10:03 Dose: 5,000 units Sodium Chloride (Sodium Chloride 0.9%) 1,000 mls @ 100 mls/hr IV .Q10H [facility] Stop: 11/06/17 03:27 Last Admin: 11/05/17 13:30 Dose: 100 mls/hr Lactulose (Enulose) 10 gm PO Q8H [facility] Last Admin: 11/05/17 16:30 Dose: Not Given Lidocaine (Lidoderm) 2 ea TD DAILY [facility] Last Admin: 11/05/17 10:00 Dose: 2 ea Methylprednisolone (Solu-Medrol) 20 mg IVP DAILY [facility] Last Admin: 11/05/17 10:11 Dose: 20 mg Morphine Sulfate (Morphine) 2 mg IVP Q4 PRN PRN Reason: Pain, severe (8-10) Mupirocin (Bactroban Ointment) 1 applic TOP BID [facility] Last Admin: 11/05/17 17:01 Dose: Not Given Ondansetron HCl (Zofran Odt) 4 mg PO Q6H PRN PRN Reason: Nausea/Vomiting Last Admin: 11/05/17 13:25 Dose: 4 mg Fluticasone/Salmeterol (Advair Diskus 500/50) 1 puff IH Q12 [facility] Last Admin: 11/05/17 09:00 Dose: Not Given Sodium Phosphate (Fleet Enema) 135 ml [place] Q6H [facility] Last Admin: 11/05/17 16:26 Dose: 135 ml Results - Vital Signs Recent Vital Signs: Last Vital Signs Temp 97.9 F 11/05/17 16:03 Pulse 108 H 11/05/17 16:03 Resp 18 11/05/17 16:03 BP 142/84 11/05/17 16:03 Pulse Ox 96 11/05/17 07:34 - Labs Result Diagrams: 11/05/17 01:40 11/05/17 01:40 Labs: Laboratory Results - last 24 hr 11/05/17 11/05/17 11/05/17 01:40 01:40 01:40 WBC 4.8 RBC 3.55 L Hgb 9.2 L Hct 29.1 L MCV 81.9 MCH 25.8 L MCHC 31.5 L RDW 17.0 H Plt Count 95 L MPV 10.1 Neut % (Auto) 86.4 H Lymph % (Auto) 9.1 L [place] % (Auto) 2.8 Eos % (Auto) 0.1 Baso % (Auto) 1.6 Neut # (Auto) 4.1 Lymph # (Auto) 0.4 L [place] # (Auto) 0.1 Eos # (Auto) 0.0 Baso # (Auto) 0.1 Neutrophils % (Manual) 85 H Lymphocytes % (Manual) 10 L Reactive Lymphs % 1 H Monocytes % (Manual) 4 Platelet Estimate Markedly decreased L Hypochromasia (manual) Slight Anisocytosis (manual) Slight Acanthocytes (Spur) Slight PT 12.3 INR 1.1 APTT 36.5 Sodium 132 Potassium 4.6 Chloride 95 L Carbon Dioxide 29 Anion Gap 13 BUN 27 H Creatinine 0.9 Est GFR ( Amer) > 60 Est GFR (Non-Af Amer) > 60 Random Glucose 101 Calcium 8.6 Total Bilirubin 0.7 AST 37 ALT 41 Alkaline Phosphatase 99 Total Protein 6.1 L Albumin 2.8 L Globulin 3.3 Albumin/Globulin Ratio 0.9 L Lipase 36 Vancomycin Trough Blood Type Blood Type Confirm Antibody Screen BBK History Checked 11/05/17 11/05/17 11/05/17 01:40 09:00 09:00 WBC RBC Hgb Hct MCV MCH MCHC RDW Plt Count MPV Neut % (Auto) Lymph % (Auto) [place] % (Auto) Eos % (Auto) Baso % (Auto) Neut # (Auto) Lymph # (Auto) [place] # (Auto) Eos # (Auto) Baso # (Auto) Neutrophils % (Manual) Lymphocytes % (Manual) Reactive Lymphs % Monocytes % (Manual) Platelet Estimate Hypochromasia (manual) Anisocytosis (manual) Acanthocytes (Spur) PT INR APTT Sodium Potassium Chloride Carbon Dioxide Anion Gap BUN Creatinine Est GFR ( Amer) Est GFR (Non-Af Amer) Random Glucose Calcium Total Bilirubin AST ALT Alkaline Phosphatase Total Protein Albumin Globulin Albumin/Globulin Ratio Lipase Vancomycin Trough 22.5 H Blood Type A POSITIVE Blood Type Confirm A POSITIVE Antibody Screen Negative BBK History Checked No verified bt Attending/Attestation - Attestation I have personally seen and examined this patient.: Yes I have fully participated in the care of the patient.: Yes I have reviewed all pertinent clinical information: Yes Notes (Text): Pt was seen and examined at bedside Agree with above note and assessment Pt with LLQ pain and tenderness Labs and radiology reviewed Ass: Severe constipation due to narcotics Plan : Fleet enema Po Lactulose Avoid narcotics OOB to walk Plan d.w pt in detail Risk and benefit explained in detail.
[2017-11-05 04:14] LABS: ANISOCYTOSIS SLIGHT; HYPOCHROMIC SLIGHT; LYMPHOCYTE 10 % (20-50); MONOCYTE 4 % (0-10); NEUTROPHIL 85 % (42-75); PLATELET ESTIMATE MARKEDLY DECREASED (NORMAL); REACTIVE LYMPHOCYTES 1 % (0-0); TOTAL CELLS COUNTED 100
[2017-11-05 04:16] LABS: ACANTHOCYTES SLIGHT
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
--- NOTE | 2017-11-05 07:05 | CP.PCM.PN ---
Subjective - Date & Time of Evaluation Date of Evaluation: 11/05/17 Time of Evaluation: 07:45 - Subjective Subjective: Patient seen and examined at bedside this morning. Pt reports his abdominal pain is better (now 6/10) than last night. Last vomit was last night at 10 pm and no nausea or vomiting since then. No BM for 3 days. Reports started to have some cough this morning but denies any dyspnea, chest pain, or chest pain w / deep breathing. Denies fever, chills, headache, dizziness or blurry vision. States decreased po intake due abdominal bloating. Pt has Dillon in place with clear urine. Objective - Vital Signs/Intake and Output Vital Signs (last 24 hours): Temp Pulse Resp BP Pulse Ox 97.9 F 87 19 119/74 97 11/05/17 05:05 11/05/17 05:05 11/05/17 05:05 11/05/17 05:05 11/05/17 06:52 - Medications Medications: Current Medications Albuterol (Ventolin Hfa 90 Mcg/Actuation (8 G)) 2 puff IH Q4 PRN PRN Reason: shortness of breath Albuterol/Ipratropium (Duoneb 3 Mg/0.5 Mg (3 Ml) Ud) 3 ml INH RTID [facility] Bisacodyl (Dulcolax) 10 mg [place] DAILY [facility] Heparin Sodium (Porcine) (Heparin) 5,000 units SC Q12 [facility] PRN Reason: Protocol Vancomycin HCl 1 gm/ Sodium (Chloride) 250 mls @ 166.667 mls/hr IVPB Q8 [facility] PRN Reason: Protocol Last Admin: 11/05/17 02:17 Dose: 166.667 mls/hr Sodium Chloride (Sodium Chloride 0.9%) 1,000 mls @ 100 mls/hr IV .Q10H [facility] Stop: 11/06/17 03:27 Lidocaine (Lidoderm) 2 ea TD DAILY [facility] Methylprednisolone (Solu-Medrol) 20 mg IVP DAILY [facility] Morphine Sulfate (Morphine) 2 mg IVP Q4 PRN PRN Reason: Pain, severe (8-10) Mupirocin (Bactroban Ointment) 1 applic TOP BID [facility] Ondansetron HCl (Zofran Odt) 4 mg PO Q6H PRN PRN Reason: Nausea/Vomiting Fluticasone/Salmeterol (Advair Diskus 500/50) 1 puff IH Q12 [facility] - Labs Labs: 11/05/17 01:40 11/05/17 01:40 PT 12.3 Seconds (9.8-13.1) 11/05/17 01:40 INR 1.1 (0.9-1.2) 11/05/17 01:40 APTT 36.5 Seconds (25.6-37.1) 11/05/17 01:40 - Constitutional Appears: Non-toxic, No Acute Distress, Chronically Ill (and thin appearing) - Head Exam Head Exam: NORMAL INSPECTION - Eye Exam Eye Exam: Normal appearance. absent: Scleral icterus - ENT Exam ENT Exam: Mucous Membranes Moist, Normal Oropharynx - Respiratory Exam Respiratory Exam: NORMAL BREATHING PATTERN. absent: Accessory Muscle Use, Wheezes, Respiratory Distress Additional comments: + Rhonchi in B/L lower lung field (R>L) - Cardiovascular Exam Cardiovascular Exam: REGULAR RHYTHM, RRR, +S1, +S2 - GI/Abdominal Exam GI & Abdominal Exam: Distended (mild), Soft, Hyperactive Bowel Sounds. absent: Rebound Additional comments: Moderate diffuse abdominal tenderness, more prominent on RLQ. Voluntary guarding on RLQ. - Exam Additional comments: Mild erythematous lesion on right groin. No oozing or swelling - Extremities Exam Extremities Exam: Normal Inspection. absent: Pedal Edema - Neurological Exam Neurological Exam: Alert, Awake, Oriented x3 - Psychiatric Exam Psychiatric exam: Normal Affect, Normal Mood Assessment and Plan - Assessment and Plan (Free Text) Assessment: 52 y/o male with a PMHx of HIV (CD4 is 120 on 10/01/17), HTN, rectal/penile cancer, colon cancer, and asthma who was being treated in TCU for bacteremia with streptococcus gallolyticus and pneumonia was transfered to the ER to be readmitted because of Small bowl obstruction. Plan: 1. Small Bowl Obstruction -No nausea/vomiting this morning -NPO -Possible NG tube if pt has any episode of vomiting. -Surgery and GI consulted 2. H/O streptococcus gallolyticus bacteremia: -ID on board -Continue Vancomycin 1000 mg ivp Q8 (day#16) Vanco completed, will check Vanco troph in am -Completed Meropenem 500 mg IVP q8 for 9 days. -ECHO: normal echo -Repeat blood cx x 3: no growth -WBC normal -Vanco trough 22.5 this AM -ID on board 3. Pseudomonas Aeruginosa Pneumonia - Patient already completed 9 days of Meropenem, currently on day 16 of Vancomycin - Will check Vanco trough in AM, - Abdominal CT : Shows multifocal areas of consolidation in the right lung base , greatest in posterior basilar segments of the right lower lobe. - ID on board, will speak to ID regarding IV antibiotics - WBC normal - Vanco trough 22.5 this AM - f/u sputum cx -ID on board 4. Opiate induced constipation -GI recommendation appreciated -will start Relistor/Movantik once SBO resolves. 5. Urinary retention -hx penile CA -On Dillon cath -Currently hold flomax because of patients NPO status for SBO 6. AIDS: -Last CD4 count in 10/01/17 is 120 -HOLD PCP treatment untill SBO resolves: bactrim DS po bid -Continue Solumedrol 20 mg IVP daily(day 5) ( completed 40 mg bid for 5 days and 40 mg qd x 5 days) -Noncompliant with HAART. Currently will HOLD home med (NPO for SBO) 7. Asthma, unspecified type -c/w DuoNeb q4h prn -c/w home medications 8. Heroin use disorder: -Pt takes 80 mg methadone daily (HOLD) For now NPO/SBO -Start morphine 2 mg IVP Q4 prn 9. Right groin lesion: -Continue mupirocin TOP BID 10. DVT prophylaxis -SCDs PRN -Heparin 5000 Q12: Platelets : 95 11. Code status -Full code
[2017-11-05] MEDS: Albuterol-Ipratrop 3 mg / 0.5 (3 ml) UD INH SCH ×3 (07:59→19:14)
[2017-11-05] MEDS ORDERED: Sodium Chloride 3% for Inhalation 4 ML VIAL.NEB IH PRN (08:02)
[2017-11-05] MEDS ORDERED: methylPREDNISolone 20 MG in Sodium Chloride 0.9% 50 ML IVPB SCH (09:00)
[2017-11-05] MEDS ORDERED: Enoxaparin 40 mg Syringe SC SCH (09:00)
[2017-11-05] MEDS: Fluticasone-Salmeterol 500-50mcg Diskus IH SCH ×2 (09:00→22:00)
[2017-11-05] MEDS: Lidocaine 5% Patch TD SCH (10:00)
[2017-11-05] MEDS: MethylPREDNISolone 40 mg Vial IVP SCH (10:11)
--- NOTE | 2017-11-05 11:12 | CP.PCM.CON ---
History of Present Illness - History of Present Illness History of Present Illness: Infectious Disease Consultation- HPI- Patient known to me from his previous admission. patient known to me from his previous admission on medical floor. Patient is a 52 year old male with HIV ( f/u at [facility]) last CD4-40 from [facility] , HTN, rectal/penile cancer s/p radiation who was initially admitted for hypoxemia and resp distress and was treated fro presumed PCP bacteremia with first IV bactrim later switched to oral bactrim and was also found to have strep gallolyticus bacteremia and is on IV vancomycin for that currently and had pseudomonas in sputumn cx and was treated for that with 9 days of IV meropenem and is clinically much improved and was transferred to TCU to complete his vanco IV therapy for the bacteremia and to get PT. He was also supposed to get colonoscopy to rule out colon cancer since he had strep gallolyticus bacteremia , however, apparently pt. started to have abd. pain and nausea and vomiting last night and was transferred to ED for further evaluation and was found to have small bowel obstruction and hence his colonoscopy was cancelled for now. kamilan states he has not had any BM for 5 days . He is on methadone chronically. he is now in [address] [place] [address] and being given enemas and he states had scant stool post enema . he denies any further nausea or vomiting but still ahs some minor abd. pain. denies any fever or chills, denies any cough, denies any sob, denies any chest pain. PMD: Dr. Galeano, last visit 10/07/17 PMHx: HIV, essential HTN, penile/rectal cancer, colon cancer, unspecified severity of asthma Meds: as per eCW/med rec, NONCOMPLIANT with many medications ALL: penicillins (angioedema) PsurgHx: colectomy/colostomy reversal in FamilyHx: father decreased 2/2 lung cancer, mother decreased 2/2 CHF. Multiple siblings, alive, one has sickle cell anemia SocialHx: former tobacco abuser. Social ETOH. Heroin abuser, recent usage mid April 2017 -next of kin: daughter Mimi [phone] -FULL CODE Review of Systems - Review of Systems Review of Systems: ROS- as stated in HPI Past Patient History - Past Medical History & Family History Past Medical History?: Yes - Past Social History Smoking Status: Former Smoker - CARDIAC Hx Cardiac Disorders: Yes Hx Hypertension: Yes - PULMONARY Hx Respiratory Disorders: Yes Hx Asthma: Yes Hx Bronchitis: Yes Hx Pneumonia: Yes (PCP) - NEUROLOGICAL Hx Neurological Disorder: No - HEENT Hx HEENT Problems: No - RENAL Hx Chronic Kidney Disease: No - ENDOCRINE/METABOLIC Hx Endocrine Disorders: No - HEMATOLOGICAL/ONCOLOGICAL Hx Blood Disorders: Yes (HIV) Hx AIDS: Yes Hx Cancer: Yes (penile/colon) Hx Human Immunodeficiency Virus (HIV): Yes - INTEGUMENTARY Hx Dermatological Problems: Yes - MUSCULOSKELETAL/RHEUMATOLOGICAL Hx Falls: No - GASTROINTESTINAL Hx Gastrointestinal Disorders: Yes Hx Colostomy: Yes (reversal) - GENITOURINARY/GYNECOLOGICAL Hx Genitourinary Disorders: Yes Other/Comment: Penile CA - PSYCHIATRIC Hx Psychophysiologic Disorder: Yes Hx Depression: Yes Hx Substance Use: No - SURGICAL HISTORY Hx Surgeries: Yes Other/Comment: colostomy- reversed - ANESTHESIA Hx Anesthesia: Yes Hx Anesthesia Reactions: No Meds Allergies/Adverse Reactions: Allergies Allergy/AdvReac Type Severity Reaction Status Date / Time Penicillins Allergy Intermediate ANGIOEDEMA Verified 11/05/17 01:09 - Medications Medications: Current Medications Albuterol (Ventolin Hfa 90 Mcg/Actuation (8 G)) 2 puff IH Q4 PRN PRN Reason: shortness of breath Albuterol/Ipratropium (Duoneb 3 Mg/0.5 Mg (3 Ml) Ud) 3 ml INH RTID [facility] Last Admin: 11/05/17 07:59 Dose: 3 ml Bisacodyl (Dulcolax) 10 mg [place] DAILY [facility] Last Admin: 11/05/17 10:06 Dose: Not Given Heparin Sodium (Porcine) (Heparin) 5,000 units SC Q12 DIANDRA PRN Reason: Protocol Last Admin: 11/05/17 10:03 Dose: 5,000 units Vancomycin HCl 1 gm/ Sodium (Chloride) 250 mls @ 166.667 mls/hr IVPB Q8 DIANDRA PRN Reason: Protocol Last Admin: 11/05/17 02:17 Dose: 166.667 mls/hr Sodium Chloride (Sodium Chloride 0.9%) 1,000 mls @ 100 mls/hr IV .Q10H [facility] Stop: 11/06/17 03:27 Lactulose (Enulose) 10 gm PO Q8H [facility] Lidocaine (Lidoderm) 2 ea TD DAILY [facility] Last Admin: 11/05/17 10:00 Dose: 2 ea Methylprednisolone (Solu-Medrol) 20 mg IVP DAILY [facility] Last Admin: 11/05/17 10:11 Dose: 20 mg Morphine Sulfate (Morphine) 2 mg IVP Q4 PRN PRN Reason: Pain, severe (8-10) Mupirocin (Bactroban Ointment) 1 applic TOP BID [facility] Last Admin: 11/05/17 10:07 Dose: 1 applic Ondansetron HCl (Zofran Odt) 4 mg PO Q6H PRN PRN Reason: Nausea/Vomiting Fluticasone/Salmeterol (Advair Diskus 500/50) 1 puff IH Q12 [facility] Sodium Phosphate (Fleet Enema) 135 ml UT Q6H [facility] Last Admin: 11/05/17 10:11 Dose: 135 ml Physical Exam - Constitutional Appears: No Acute Distress, Chronically Ill - Head Exam Head Exam: ATRAUMATIC - Eye Exam Eye Exam: EOMI, PERRL - ENT Exam ENT Exam: Normal Oropharynx - Neck Exam Neck exam: Positive for: Full Rom - Respiratory Exam Respiratory Exam: Clear to Auscultation Bilateral, NORMAL BREATHING PATTERN - Cardiovascular Exam Cardiovascular Exam: RRR, +S1, +S2 - GI/Abdominal Exam GI & Abdominal Exam: Soft Additional comments: mild tenderness with palpation in midepigastric region Mild guarding, No rebound No distention soft has bowel sounds - Extremities Exam Extremities exam: Positive for: normal inspection - Neurological Exam Neurological exam: Alert, Oriented x3 Results - Vital Signs Recent Vital Signs: Last Vital Signs Temp 97.9 F 11/05/17 07:34 Pulse 69 11/05/17 08:01 Resp 20 11/05/17 07:34 BP 117/75 11/05/17 07:34 Pulse Ox 96 11/05/17 07:34 - Labs Result Diagrams: 11/05/17 01:40 11/05/17 01:40 Labs: Laboratory Results - last 24 hr 11/05/17 11/05/17 11/05/17 01:40 01:40 01:40 WBC 4.8 RBC 3.55 L Hgb 9.2 L Hct 29.1 L MCV 81.9 MCH 25.8 L MCHC 31.5 L RDW 17.0 H Plt Count 95 L MPV 10.1 Neut % (Auto) 86.4 H Lymph % (Auto) 9.1 L [place] % (Auto) 2.8 Eos % (Auto) 0.1 Baso % (Auto) 1.6 Neut # (Auto) 4.1 Lymph # (Auto) 0.4 L [place] # (Auto) 0.1 Eos # (Auto) 0.0 Baso # (Auto) 0.1 Neutrophils % (Manual) 85 H Lymphocytes % (Manual) 10 L Reactive Lymphs % 1 H Monocytes % (Manual) 4 Platelet Estimate Markedly decreased L Hypochromasia (manual) Slight Anisocytosis (manual) Slight Acanthocytes (Spur) Slight PT 12.3 INR 1.1 APTT 36.5 Sodium 132 Potassium 4.6 Chloride 95 L Carbon Dioxide 29 Anion Gap 13 BUN 27 H Creatinine 0.9 Est GFR ( Amer) > 60 Est GFR (Non-Af Amer) > 60 Random Glucose 101 Calcium 8.6 Total Bilirubin 0.7 AST 37 ALT 41 Alkaline Phosphatase 99 Total Protein 6.1 L Albumin 2.8 L Globulin 3.3 Albumin/Globulin Ratio 0.9 L Lipase 36 Vancomycin Trough Blood Type Blood Type Confirm Antibody Screen BBK History Checked 11/05/17 11/05/17 11/05/17 01:40 09:00 09:00 WBC RBC Hgb Hct MCV MCH MCHC RDW Plt Count MPV Neut % (Auto) Lymph % (Auto) [place] % (Auto) Eos % (Auto) Baso % (Auto) Neut # (Auto) Lymph # (Auto) [place] # (Auto) Eos # (Auto) Baso # (Auto) Neutrophils % (Manual) Lymphocytes % (Manual) Reactive Lymphs % Monocytes % (Manual) Platelet Estimate Hypochromasia (manual) Anisocytosis (manual) Acanthocytes (Spur) PT INR APTT Sodium Potassium Chloride Carbon Dioxide Anion Gap BUN Creatinine Est GFR ( Amer) Est GFR (Non-Af Amer) Random Glucose Calcium Total Bilirubin AST ALT Alkaline Phosphatase Total Protein Albumin Globulin Albumin/Globulin Ratio Lipase Vancomycin Trough 22.5 H Blood Type A POSITIVE Blood Type Confirm A POSITIVE Antibody Screen Negative BBK History Checked No verified bt Laboratory Results - last 72 hr 11/05/17 11/05/17 11/05/17 01:40 01:40 01:40 WBC 4.8 RBC 3.55 L Hgb 9.2 L Hct 29.1 L MCV 81.9 MCH 25.8 L MCHC 31.5 L RDW 17.0 H Plt Count 95 L MPV 10.1 Neut % (Auto) 86.4 H Lymph % (Auto) 9.1 L [place] % (Auto) 2.8 Eos % (Auto) 0.1 Baso % (Auto) 1.6 Neut # (Auto) 4.1 Lymph # (Auto) 0.4 L [place] # (Auto) 0.1 Eos # (Auto) 0.0 Baso # (Auto) 0.1 Neutrophils % (Manual) 85 H Lymphocytes % (Manual) 10 L Reactive Lymphs % 1 H Monocytes % (Manual) 4 Platelet Estimate Markedly decreased L Hypochromasia (manual) Slight Anisocytosis (manual) Slight Acanthocytes (Spur) Slight PT 12.3 INR 1.1 APTT 36.5 Sodium 132 Potassium 4.6 Chloride 95 L Carbon Dioxide 29 Anion Gap 13 BUN 27 H Creatinine 0.9 Est GFR ( Amer) > 60 Est GFR (Non-Af Amer) > 60 Random Glucose 101 Calcium 8.6 Total Bilirubin 0.7 AST 37 ALT 41 Alkaline Phosphatase 99 Total Protein 6.1 L Albumin 2.8 L Globulin 3.3 Albumin/Globulin Ratio 0.9 L Lipase 36 Vancomycin Trough Blood Type Blood Type Confirm Antibody Screen BBK History Checked 11/05/17 11/05/17 11/05/17 01:40 09:00 09:00 WBC RBC Hgb Hct MCV MCH MCHC RDW Plt Count MPV Neut % (Auto) Lymph % (Auto) [place] % (Auto) Eos % (Auto) Baso % (Auto) Neut # (Auto) Lymph # (Auto) [place] # (Auto) Eos # (Auto) Baso # (Auto) Neutrophils % (Manual) Lymphocytes % (Manual) Reactive Lymphs % Monocytes % (Manual) Platelet Estimate Hypochromasia (manual) Anisocytosis (manual) Acanthocytes (Spur) PT INR APTT Sodium Potassium Chloride Carbon Dioxide Anion Gap BUN Creatinine Est GFR ( Amer) Est GFR (Non-Af Amer) Random Glucose Calcium Total Bilirubin AST ALT Alkaline Phosphatase Total Protein Albumin Globulin Albumin/Globulin Ratio Lipase Vancomycin Trough 22.5 H Blood Type A POSITIVE Blood Type Confirm A POSITIVE Antibody Screen Negative BBK History Checked No verified bt Microbiology 10/30/17 20:46 Urine,Catheterized Urine Culture - Final No Growth (<1,000 CFU/ML) 10/30/17 16:53 Blood-Venous Blood Culture - Final 10/30/17 16:53 Blood-Venous Gram Stain - Final NO GROWTH AFTER 5 DAYS TEST NOT PERFORMED 10/30/17 16:41 Blood-Venous Blood Culture - Final 10/30/17 16:41 Blood-Venous Gram Stain - Final NO GROWTH AFTER 5 DAYS TEST NOT PERFORMED 10/25/17 11:30 Blood-Venous Blood Culture - Final 10/25/17 11:30 Blood-Venous Gram Stain - Final NO GROWTH AFTER 5 DAYS TEST NOT PERFORMED 10/23/17 12:40 Blood-Venous Blood Culture - Final 10/23/17 12:40 Blood-Venous Gram Stain - Final NO GROWTH AFTER 5 DAYS TEST NOT PERFORMED 10/23/17 06:00 Urine,Clean Catch Urine Culture - Final No Growth (<1,000 CFU/ML) 10/22/17 14:00 Sputum Gram Stain - Final 10/22/17 14:00 Sputum Sputum Culture - Final Yeast Species 10/21/17 11:50 Sputum Gram Stain - Final 10/21/17 11:50 Sputum Sputum Culture - Final Pseudomonas Aeruginosa 10/21/17 11:30 Blood-Venous S.aureus & Coag-Neg Staph PNA FISH - Final 10/21/17 11:30 Blood-Venous Gram Stain - Final Str.gallolyticus Pasteurian 10/21/17 11:23 Blood-Venous Blood Culture - Final 10/21/17 11:23 Blood-Venous Gram Stain - Final Str.gallolyticus [facility] 10/26/17 10:55 Other: Please Indicate Mycobacterial Culture - Preliminary 10/23/17 18:00 Other: Please Indicate Mycobacterial Culture - Preliminary 10/22/17 12:20 Other: Please Indicate Mycobacterial Culture - Preliminary Accession No. : [id number] Patient Name / ID : JEANNA Beauchmap / [id number] Exam Date : 11/04/2017 10:33:00 ( Approved ) Study Comment : Sex / Age : M / 52Y Creator : Edgar Gregorio MD Dictator : Edgar Gregorio MD Dial Mounter : Candy Dipper : Edgar Gregorio MD Approver2 : Report Date : 11/04/2017 10:58:44 My Comment : HISTORY: Constipation and abdominal pain, r/o obstruction COMPARISON: 11/02/2017 FINDINGS: BOWEL: Constipation without fecal impaction or obstruction. BONES: Normal. OTHER FINDINGS: None. IMPRESSION: No significant interval change compared to the prior examination(s). GoNo active disease. Assessment & Plan (1) Small bowel obstruction Status: Acute (2) AIDS Status: Chronic Priority: High - Assessment and Plan (Free Text) Assessment: A/P- 52 year old male with AIDS ( last Cd4 -40), penile . rectal ca s/p radiation admitted originalluy to medical floor with pneumonia was rtuled out for Mycobaterium with 3 negative sputum AFb and tretaed for preseumed pcp pneumonia since cd4 <200 and was hypoxic and also treated for pseudomonas pneumonia based on his sputum cx with 9 days of IV meropenem. being treated with IV vanco for strep gallolyticus bacteremia and transfererd to TCU to complete his IV vanco and get PT. transfererd to ED for abd pain and nausea and vomiting found to have SBO and constipation transferred to med-surg for management of SBO. has remained afebrile normal wbc blood cx- strep galollyticus sens to vanco sputum cx- pseudomonas sens to meropenem sputum AFB snear x 3- negative repeat blood cx- negative x 4 TTE- no vegetations as per report. plan- continue with IV vancomycin day #16 keep trough <20. hold today's dose since trough is 22. recheck trough in am and if <20 can redose. needs total of 21 days of IV vanco for strep bacteremia. has completed 9 days of IV meroepenm for pseudomonas in sputum cx. zithormax 1200 mg once a week for MAC prophylaxis since CD4 was 40 on 04/2017 from [place] records, if there is a more recent CD4 from [facility] and if it's >50 can d/c once a week zithromax. HAART meds as per his PMD at [facility]. SBO management as per GI and Primary team. colonoscopy after SBO is resolved to r/o colon cancer since had strep gallolyticus bacteremia. all above d/w patient and he verbalizes full understanding of all above and agrees with above plan of care. all above d/w Primary team as well.
[2017-11-05] MEDS: Sodium Chloride 0.9% 1,000 ML IV SCH (13:30)
[2017-11-05] MEDS: Lactulose 10 gm/15 ml Syrup PO SCH ×2 (16:08→16:30)
[2017-11-06] MEDS: Sodium Chloride 0.9% 1,000 ML IV SCH (00:05)
[2017-11-06] MEDS: Lactulose 10 gm/15 ml Syrup PO SCH ×4 (01:47→19:03)
[2017-11-06 04:43] LABS: URINE BILIRUBIN NEGATIVE (NEGATIVE); URINE BLOOD MODERATE (NEGATIVE); URINE CLARITY SLIGHTY-CLOUDY (Clear); URINE COLOR YELLOW (YELLOW); URINE GLUCOSE (UA) NEG (Normal); URINE LEUKOCYTE ESTERASE NEG Leu/uL (Negative); URINE PROTEIN NEGATIVE (NEGATIVE); URINE UROBILINOGEN 0.2-1.0 mg/dL (0.2-1.0)
--- NOTE | 2017-11-06 07:12 | CP.PCM.PN ---
Subjective - Date & Time of Evaluation Date of Evaluation: 11/06/17 Time of Evaluation: 07:50 - Subjective Subjective: Patient seen and examined at bedside this morning. Pt reports he had three BM last night with enema and abdominal pain is better this morning (5/10). Denies any blood in stool, nausea or vomiting. Denies any cough, dyspnea, chest pain , or chest pain w/ deep breathing. Denies fever, chills, headache, dizziness or blurry vision. Pt has Dillon in place with clear urine. Has been on NPO. Objective - Vital Signs/Intake and Output Vital Signs (last 24 hours): Temp Pulse Resp BP Pulse Ox 98.5 F 73 18 120/72 95 11/06/17 01:00 11/06/17 01:00 11/06/17 01:00 11/06/17 01:00 11/06/17 01:00 - Medications Medications: Current Medications Albuterol (Ventolin Hfa 90 Mcg/Actuation (8 G)) 2 puff IH Q4 PRN PRN Reason: shortness of breath Albuterol/Ipratropium (Duoneb 3 Mg/0.5 Mg (3 Ml) Ud) 3 ml INH RTID [facility] Last Admin: 11/05/17 19:14 Dose: 3 ml Bisacodyl (Dulcolax) 10 mg [place] DAILY [facility] Last Admin: 11/05/17 10:06 Dose: Not Given Heparin Sodium (Porcine) (Heparin) 5,000 units SC Q12 DIANDRA PRN Reason: Protocol Last Admin: 11/05/17 20:44 Dose: 5,000 units Lactulose (Enulose) 10 gm PO Q8H [facility] Last Admin: 11/06/17 01:47 Dose: Not Given Lidocaine (Lidoderm) 2 ea TD DAILY [facility] Last Admin: 11/05/17 10:00 Dose: 2 ea Methylprednisolone (Solu-Medrol) 20 mg IVP DAILY [facility] Last Admin: 11/05/17 10:11 Dose: 20 mg Morphine Sulfate (Morphine) 2 mg IVP Q4 PRN PRN Reason: Pain, severe (8-10) Mupirocin (Bactroban Ointment) 1 applic TOP BID [facility] Last Admin: 11/05/17 17:01 Dose: Not Given Ondansetron HCl (Zofran Odt) 4 mg PO Q6H PRN PRN Reason: Nausea/Vomiting Last Admin: 11/05/17 13:25 Dose: 4 mg Fluticasone/Salmeterol (Advair Diskus 500/50) 1 puff IH Q12 [facility] Last Admin: 11/05/17 22:00 Dose: 1 puff Sodium Phosphate (Fleet Enema) 135 ml [place] Q6H DIANDRA Last Admin: 11/06/17 02:21 Dose: 135 ml - Labs Labs: 11/05/17 01:40 11/05/17 01:40 PT 12.3 Seconds (9.8-13.1) 11/05/17 01:40 INR 1.1 (0.9-1.2) 11/05/17 01:40 APTT 36.5 Seconds (25.6-37.1) 11/05/17 01:40 - Additional Findings Additional findings: - Constitutional Appears: Non-toxic, No Acute Distress, Chronically Ill and thin appearing - Head Exam Head Exam: NORMAL INSPECTION - Eye Exam Eye Exam: Normal appearance. absent: Scleral icterus - ENT Exam ENT Exam: Mucous Membranes Moist, Normal Oropharynx - Respiratory Exam Respiratory Exam: NORMAL BREATHING PATTERN. absent: Accessory Muscle Use, Wheezes, Respiratory Distress Additional comments: + Rhonchi in B/L lower lung field (R>L) - Cardiovascular Exam Cardiovascular Exam: REGULAR RHYTHM, RRR, +S1, +S2 - GI/Abdominal Exam GI & Abdominal Exam: non-distended, Soft, Hyperactive Bowel Sounds. absent: Rebound Additional comments: Mild abdominal tenderness, more prominent on RLQ. No guarding or rigidity. - Exam Additional comments: Mild erythematous lesion on right groin. No oozing or swelling - Extremities Exam Extremities Exam: Normal Inspection. absent: Pedal Edema - Neurological Exam Neurological Exam: Alert, Awake, Oriented x3 - Psychiatric Exam Psychiatric exam: Normal Affect, Normal Mood Assessment and Plan - Assessment and Plan (Free Text) Assessment: 52 y/o male with a PMHx of HIV (CD4 is 120 on 10/01/17), HTN, rectal/penile cancer, colon cancer, and asthma who was being treated in TCU for bacteremia with streptococcus gallolyticus and pneumonia; now has small bowl obstruction. Plan: 1. Small Bowl Obstruction -Abdominal pain improving -No nausea/vomiting last 2 days -Had three BM last night with enema -Clear Liquid diet -Surgery and GI on board 2. H/O streptococcus gallolyticus bacteremia: -ID on board -Continue Vancomycin 1000 mg ivp Q8 (day#16), vanco was hold yesterday due to elevated vanco trough. -Completed Meropenem 500 mg IVP q8 for 9 days. -ECHO: normal echo -Repeat blood cx x 3: no growth -WBC normal -Vanco trough this morning 7.9 -ID on board 3. Pseudomonas Aeruginosa Pneumonia - Patient already completed 9 days of Meropenem, currently on day 16 of Vancomycin - Will check Vanco trough in AM, - Abdominal CT : Shows multifocal areas of consolidation in the right lung base , greatest in posterior basilar segments of the right lower lobe. - ID on board, will speak to ID regarding IV antibiotics - WBC normal - Vanco trough 22.5 this AM - f/u sputum cx - f/u repeat CT Chest - ID on board 4. Opiate induced constipation -GI recommendation appreciated -will start Relistor/Movantik once SBO resolves. 5. Urinary retention -hx penile CA -On Dillon cath -resume flomax 6. AIDS: -Last CD4 count in 10/01/17 is 120 -resume PCP treatment: bactrim DS po bid -resume prednisone 20 mg po daily (day 6) ( completed 40 mg bid for 5 days and 40 mg qd x 5 days) -Noncompliant with HAART. resume home meds. 7. Asthma, unspecified type -c/w DuoNeb q4h prn -c/w home medications 8. Heroin use disorder: -resume 80 mg methadone daily 9. Right groin lesion: -Continue mupirocin TOP BID 10. DVT prophylaxis -SCDs PRN -Heparin 5000 Q12: Platelets : 95 11. Code status -Full code
[2017-11-06] MEDS: Albuterol-Ipratrop 3 mg / 0.5 (3 ml) UD INH SCH ×3 (07:47→19:49)
[2017-11-06 07:56] LABS: HEMOGLOBIN 7.7 g/dL (12.0-18.0); MEAN CELL VOLUME 83.5 fl (80.0-94.0); MEAN CORPUSCULAR HEMOGLOBIN 25.9 pg (27.0-31.0); RBC 2.97 Mil/uL (4.40-5.90); WHITE BLOOD COUNT 2.6 K/uL (4.8-10.8)
[2017-11-06 08:34] LABS: ALB/GLOB RATIO 0.8 (1.0-2.1); ALBUMIN 2.4 g/dL (3.5-5.0); ALT/SGPT 32 U/L (21-72); AST/SGOT 34 U/L (17-59); BLOOD UREA NITROGEN 26 mg/dl (9-20); GFR AFRICAN-AMERICAN > 60; GFR NON-AFRICAN AMERICAN > 60
[2017-11-06 10:03] LABS: HEMOGLOBIN 8.2 g/dL (12.0-18.0); MEAN CORPUSCULAR HGB CONC 31.3 g/dL (33.0-37.0); RBC 3.14 Mil/uL (4.40-5.90); RED CELL DISTRIBUTION WIDTH 18.3 % (11.5-14.5); WHITE BLOOD COUNT 2.3 K/uL (4.8-10.8)
[2017-11-06] MEDS ORDERED: Chlorhexidine Gluconate 1 APPL/PKT TP ONE (10:29)
[2017-11-06] MEDS: Fluticasone-Salmeterol 500-50mcg Diskus IH SCH ×2 (10:32→21:31)
[2017-11-06] MEDS: MethylPREDNISolone 40 mg Vial IVP SCH (10:33)
[2017-11-06] MEDS: Lidocaine 5% Patch TD SCH (10:33)
--- NOTE | 2017-11-06 11:15 | CP.PCM.PN ---
Addendum entered and electronically signed by Hans Kaur DO 11/07/17 08:08: Pt having BM. advance diet as tolerated. We will sign off. Original Note: <Marlon Lara - Last Filed: 11/06/17 11:10> Subjective - Date & Time of Evaluation Date of Evaluation: 11/06/17 Time of Evaluation: 09:50 - Subjective Subjective: General Surgery Pt S&E, no acute events overnight. Has had multiple loose BMs. No N/V. Now with complaints of "hunger" pains. Objective - Vital Signs/Intake and Output Vital Signs (last 24 hours): Temp Pulse Resp BP Pulse Ox 97.9 F 69 20 125/75 96 11/06/17 07:49 11/06/17 07:49 11/06/17 07:49 11/06/17 07:49 11/06/17 07:49 - Medications Medications: Current Medications Albuterol (Ventolin Hfa 90 Mcg/Actuation (8 G)) 2 puff IH Q4 PRN PRN Reason: shortness of breath Albuterol/Ipratropium (Duoneb 3 Mg/0.5 Mg (3 Ml) Ud) 3 ml INH RTID [facility] Last Admin: 11/06/17 07:47 Dose: 3 ml Bisacodyl (Dulcolax) 10 mg [place] DAILY [facility] Last Admin: 11/06/17 10:32 Dose: 10 mg Heparin Sodium (Porcine) (Heparin) 5,000 units SC Q12 DIANDRA PRN Reason: Protocol Last Admin: 11/06/17 10:33 Dose: Not Given Lactulose (Enulose) 10 gm PO Q8H [facility] Last Admin: 11/06/17 10:32 Dose: 10 gm Lidocaine (Lidoderm) 2 ea TD DAILY [facility] Last Admin: 11/06/17 10:33 Dose: 2 ea Methylprednisolone (Solu-Medrol) 20 mg IVP DAILY [facility] Last Admin: 11/06/17 10:33 Dose: 20 mg Morphine Sulfate (Morphine) 2 mg IVP Q4 PRN PRN Reason: Pain, severe (8-10) Mupirocin (Bactroban Ointment) 1 applic TOP BID [facility] Last Admin: 11/06/17 10:32 Dose: 1 applic Ondansetron HCl (Zofran Odt) 4 mg PO Q6H PRN PRN Reason: Nausea/Vomiting Last Admin: 11/05/17 13:25 Dose: 4 mg Fluticasone/Salmeterol (Advair Diskus 500/50) 1 puff IH Q12 DIAN[facility] Last Admin: 11/06/17 10:32 Dose: 1 puff Sodium Phosphate (Fleet Enema) 135 ml [place] Q6H DIAN[facility] Last Admin: 11/06/17 02:21 Dose: 135 ml - Labs Labs: 11/06/17 09:58 11/06/17 07:51 PT 12.3 Seconds (9.8-13.1) 11/05/17 01:40 INR 1.1 (0.9-1.2) 11/05/17 01:40 APTT 36.5 Seconds (25.6-37.1) 11/05/17 01:40 - Constitutional Appears: Non-toxic, No Acute Distress - Head Exam Head Exam: ATRAUMATIC, NORMOCEPHALIC - Eye Exam Eye Exam: EOMI. absent: Scleral icterus - Respiratory Exam Respiratory Exam: NORMAL BREATHING PATTERN. absent: Respiratory Distress - GI/Abdominal Exam GI & Abdominal Exam: Soft. absent: Distended, Firm, Guarding, Rigid, Tenderness - Neurological Exam Neurological Exam: Alert, Awake, Oriented x3 - Skin Skin Exam: Dry, Warm Assessment and Plan - Assessment and Plan (Free Text) Assessment: 52M with resolving SBO/Ileus Plan: Advanced to CLD Continue Lactulose, stop enemas PGY4 <Erick Stout - Last Filed: 11/10/17 15:07> Objective - Vital Signs/Intake and Output Vital Signs (last 24 hours): Temp Pulse Resp BP Pulse Ox 97.9 F 74 19 108/66 98 11/08/17 07:59 11/08/17 07:59 11/08/17 07:59 11/08/17 07:59 11/08/17 07:59 - Labs Labs: 11/08/17 05:25 11/08/17 11:34 PT 12.3 Seconds (9.8-13.1) 11/05/17 01:40 INR 1.1 (0.9-1.2) 11/05/17 01:40 APTT 36.5 Seconds (25.6-37.1) 11/05/17 01:40 Attending/Attestation - Attestation I have personally seen and examined this patient.: Yes I have fully participated in the care of the patient.: Yes I have reviewed all pertinent clinical information, including history, physical exam and plan: Yes Notes (Text): Pt is improving clinically Multiple BMs No acute surgical intervention required C/w current mx f/u as out pt Plan d.w pt in detail
[2017-11-06] MEDS: Nystatin 100,000 Units/ml Oral Susp 5 ml UD PO SCH ×3 (14:22→21:31)
[2017-11-06] MEDS: Tmp-Smz 800 mg-160 mg DS Tab PO SCH ×2 (14:23→21:31)
[2017-11-06] MEDS: Pantoprazole 40 mg EC Tab PO SCH (14:23)
[2017-11-06] MEDS: Multivitamin With Minerals Tab PO SCH (14:23)
--- NOTE | 2017-11-06 15:45 | CP.PCM.CON ---
History of Present Illness - History of Present Illness History of Present Illness: Pulmonary continue consult for a 52 y/o M, Hx AIDS, previously admitted to [facility] on 10/21/17 and intubated for with severe respiratory distress, PNA. On 10/29/17, Pt condition improved and was transferred to TCU for continue abx IV coverage for PNA, Bacteremia sepsis. On 11/03/17, Pt was c/o of abdominal pain/not normal BM, while in the TCU, Pt had CT Abd/Pelvis on 11/04/17 showing highly suspicious for SBO, there after Pt was sent to ER for evaluation and was read[facility] for further Tx. Pt denied: Fever, chills, nausea/diarrhea, CP, palpitations, dizziness, syncope , SOB, cough, RICHEY, chest congestion. Abd/Pelvis CT on 11/04/17 shows: Small R pleural effusion, PNA RLL. Review of Systems - Constitutional Constitutional: absent: Chills, Fever - EENT Eyes: Other (negative) Ears: Other (negative) Nose/Mouth/Throat: Other (negative) - Cardiovascular Cardiovascular: Other (negative) - Respiratory Respiratory: Other (negative) - Gastrointestinal Gastrointestinal: Abdominal Pain, Vomiting (x1) - Genitourinary Genitourinary: Urinary Incontinence - Musculoskeletal Musculoskeletal: Other (negative) - Integumentary Integumentary: Other (negative) - Neurological Neurological: Other (negative) - Psychiatric Psychiatric: Other (negative) - Endocrine Endocrine: Other (negative) - Hematologic/Lymphatic Hematologic: Other (negative) Past Patient History - Past Medical History & Family History Past Medical History?: Yes Pertinent Family History: Unknown - Past Social History Smoking Status: Former Smoker (Tabacco abuser) Alcohol: Social Drugs: Other (Heroin abuser. Last time on ) Home Situation {Lives}: Alone - CARDIAC Hx Cardiac Disorders: Yes Hx Hypertension: Yes - PULMONARY Hx Respiratory Disorders: Yes Hx Asthma: Yes Hx Bronchitis: Yes Hx Pneumonia: Yes (PCP) - NEUROLOGICAL Hx Neurological Disorder: No - HEENT Hx HEENT Problems: No - RENAL Hx Chronic Kidney Disease: No - ENDOCRINE/METABOLIC Hx Endocrine Disorders: No - HEMATOLOGICAL/ONCOLOGICAL Hx Blood Disorders: Yes (HIV) Hx AIDS: Yes Hx Cancer: Yes (penile/colon) Hx Human Immunodeficiency Virus (HIV): Yes - INTEGUMENTARY Hx Dermatological Problems: Yes - MUSCULOSKELETAL/RHEUMATOLOGICAL Hx Falls: No - GASTROINTESTINAL Hx Gastrointestinal Disorders: Yes Hx Colostomy: Yes (reversal) - GENITOURINARY/GYNECOLOGICAL Hx Genitourinary Disorders: Yes Other/Comment: Penile CA - PSYCHIATRIC Hx Psychophysiologic Disorder: Yes Hx Depression: Yes Hx Substance Use: No - SURGICAL HISTORY Hx Surgeries: Yes Other/Comment: colostomy- reversed - ANESTHESIA Hx Anesthesia: Yes Hx Anesthesia Reactions: No Meds Allergies/Adverse Reactions: Allergies Allergy/AdvReac Type Severity Reaction Status Date / Time Penicillins Allergy Intermediate ANGIOEDEMA Verified 11/05/17 01:09 - Medications Medications: Current Medications Acetaminophen (Tylenol 325mg Tab) 650 mg PO Q6 PRN PRN Reason: Pain, moderate (4-7) Albuterol (Ventolin Hfa 90 Mcg/Actuation (8 G)) 2 puff IH Q4 PRN PRN Reason: shortness of breath Albuterol/Ipratropium (Duoneb 3 Mg/0.5 Mg (3 Ml) Ud) 3 ml INH RTID [facility] Last Admin: 11/06/17 13:47 Dose: 3 ml Heparin Sodium (Porcine) (Heparin) 5,000 units SC Q12 [facility] PRN Reason: Protocol Last Admin: 11/06/17 10:33 Dose: Not Given Home Med (Elviteg/Luna/Emtric/Tenofo Dis [Stribild Tablet]) 1 tab PO DAILY [facility] Last Admin: 11/06/17 14:24 Dose: 1 tab Lactulose (Enulose) 10 gm PO Q8H [facility] Last Admin: 11/06/17 10:30 Dose: Not Given Lidocaine (Lidoderm) 2 ea TD DAILY [facility] Last Admin: 11/06/17 10:33 Dose: 2 ea Methadone HCl (Methadone) 80 mg PO DAILY [facility] Last Admin: 11/06/17 14:20 Dose: 80 mg Morphine Sulfate (Morphine) 2 mg IVP Q4 PRN PRN Reason: Pain, severe (8-10) Multivitamins/Minerals (Therapeutic-M Tab) 1 tab PO DAILY [facility] Last Admin: 11/06/17 14:23 Dose: 1 tab Mupirocin (Bactroban Ointment) 1 applic TOP BID [facility] Last Admin: 11/06/17 10:32 Dose: 1 applic Nystatin (Nystatin Oral Susp) 5 ml PO QID [facility] Last Admin: 11/06/17 14:22 Dose: 5 ml Ondansetron HCl (Zofran Odt) 4 mg PO Q6H PRN PRN Reason: Nausea/Vomiting Last Admin: 11/05/17 13:25 Dose: 4 mg Pantoprazole Sodium (Protonix Ec Tab) 40 mg PO DAILY [facility] Last Admin: 11/06/17 14:23 Dose: 40 mg Prednisone (Prednisone Tab) 20 mg PO DAILY [facility] Last Admin: 11/06/17 14:23 Dose: 20 mg Fluticasone/Salmeterol (Advair Diskus 500/50) 1 puff IH Q12 [facility] Last Admin: 11/06/17 10:32 Dose: 1 puff Tamsulosin HCl (Flomax) 0.4 mg PO DAILY [facility] Trimethoprim/Sulfamethoxazole (Bactrim Ds Tab) 1 tab PO Q12 [facility] PRN Reason: Protocol Last Admin: 11/06/17 14:23 Dose: 1 tab Physical Exam - Constitutional Appears: No Acute Distress - Head Exam Head Exam: NORMAL INSPECTION - Eye Exam Eye Exam: PERRL - ENT Exam ENT Exam: Normal Exam - Neck Exam Neck exam: Positive for: Normal Inspection - Respiratory Exam Respiratory Exam: Rhonchi (scattered) - Cardiovascular Exam Cardiovascular Exam: REGULAR RHYTHM - GI/Abdominal Exam GI & Abdominal Exam: Normal Bowel Sounds, Soft, Tenderness (mild epigastric) - Extremities Exam Extremities exam: Positive for: normal inspection - Back Exam Back exam: NORMAL INSPECTION - Neurological Exam Neurological exam: Alert, Oriented x3 Additional comments: No focal motor/sensory deficit. - Psychiatric Exam Psychiatric exam: Normal Affect, Normal Mood - Skin Skin Exam: Warm Results - Vital Signs Recent Vital Signs: Last Vital Signs Temp 97.9 F 11/06/17 07:49 Pulse 69 11/06/17 07:49 Resp 20 11/06/17 07:49 BP 125/75 11/06/17 07:49 Pulse Ox 96 11/06/17 07:49 reviewed Divya - Labs Result Diagrams: 11/07/17 05:55 11/07/17 06:00 Labs: Laboratory Results - last 24 hr 11/06/17 11/06/17 11/06/17 04:37 07:51 07:51 WBC 2.6 L RBC 2.97 L Hgb 7.7 L Hct 24.8 L MCV 83.5 MCH 25.9 L MCHC 31.0 L RDW 18.0 H Plt Count 79 L Sodium Potassium Chloride Carbon Dioxide Anion Gap BUN Creatinine Est GFR ( Amer) Est GFR (Non-Af Amer) Random Glucose Calcium Total Bilirubin AST ALT Alkaline Phosphatase Total Protein Albumin Globulin Albumin/Globulin Ratio Urine Color Yellow Urine Clarity Slighty-cloudy Urine pH 5.0 Ur Specific [place] 1.021 Urine Protein Negative Urine Glucose (UA) Neg Urine Ketones Negative Urine Blood Moderate Urine Nitrate Negative Urine Bilirubin Negative Urine Urobilinogen 0.2-1.0 Ur Leukocyte Esterase Neg Urine RBC (Auto) 7 H Urine Microscopic WBC 3 Vancomycin Trough 7.9 11/06/17 11/06/17 07:51 09:58 WBC 2.3 L RBC 3.14 L Hgb 8.2 L Hct 26.1 L MCV 83.0 MCH 26.0 L MCHC 31.3 L RDW 18.3 H Plt Count 71 L Sodium 137 Potassium 4.3 Chloride 103 Carbon Dioxide 27 Anion Gap 11 BUN 26 H Creatinine 0.8 Est GFR ( Amer) > 60 Est GFR (Non-Af Amer) > 60 Random Glucose 85 Calcium 8.0 L Total Bilirubin 0.3 AST 34 ALT 32 Alkaline Phosphatase 82 Total Protein 5.4 L Albumin 2.4 L Globulin 2.9 Albumin/Globulin Ratio 0.8 L Urine Color Urine Clarity Urine pH Ur Specific [place] Urine Protein Urine Glucose (UA) Urine Ketones Urine Blood Urine Nitrate Urine Bilirubin Urine Urobilinogen Ur Leukocyte Esterase Urine RBC (Auto) Urine Microscopic WBC Vancomycin Trough reviewed J.PSummer Assessment & Plan (1) AIDS Status: Chronic Priority: High (2) History of asthma Status: Chronic Priority: Medium - Assessment and Plan (Free Text) Plan: Patient with AIDS previously treated for Pseudomona PNA , completed treatment with Merren in TCU, f/u CT Chest , treated with Vanco for Bacteriemia Strep Gallolyticus , Resolving SBM had large BM , on liquid diet - Date & Time Date: 11/06/17 Time: 10:00
--- NOTE | 2017-11-06 17:57 | CT ---
PROCEDURE: CT Chest without contrast HISTORY: pneumonia COMPARISON: None. TECHNIQUE: Contiguous axial images were obtained through the chest without intravenous contrast enhancement. Sagittal and coronal reconstructions were performed. Radiation dose (DLP): 193.99 mGy-cm. This CT exam was performed using one or more of the following dose reduction techniques: Automated exposure control, adjustment of the mA and/or kV according to patient size, and/or use of iterative reconstruction technique. FINDINGS: LUNGS: Moderate improvement in right lower lobe consolidation. There is some residual consolidation. There is residual small airways disease throughout the remainder of the right lower lobe. There is no remaining right upper lobe infiltrate and very little residual small airways disease as compared to examination of 10/21/2017. No left-sided infiltrate or small airways disease. . MEDIASTINUM: Unremarkable thoracic aorta. No aneurysm. Normal sized heart. Main pulmonary artery unremarkable. No vascular congestion. No lymphadenopathy. Right PICC catheter. PLEURA: No pleural fluid. No pneumothorax. BONES: No fracture. No destructive lesion. UPPER ABDOMEN: Cholelithiasis. No evidence of cholecystitis. OTHER FINDINGS: None. IMPRESSION: Improving right lower lobe infiltrate. Residual right lower lobe small airways disease. Almost complete resolves right upper lobe small airways disease and no residual right upper lobe infiltrate. Right PICC catheter. Cholelithiasis.
[2017-11-07] MEDS: Lactulose 10 gm/15 ml Syrup PO SCH ×2 (00:42→09:09)
[2017-11-07 06:24] LABS: HEMOGLOBIN 7.9 g/dL (12.0-18.0); MEAN CELL VOLUME 83.1 fl (80.0-94.0); MEAN CORPUSCULAR HEMOGLOBIN 26.5 pg (27.0-31.0); MEAN CORPUSCULAR HGB CONC 31.9 g/dL (33.0-37.0); RBC 2.97 Mil/uL (4.40-5.90); RED CELL DISTRIBUTION WIDTH 17.7 % (11.5-14.5); WHITE BLOOD COUNT 2.9 K/uL (4.8-10.8)
[2017-11-07 06:26] LABS: BLOOD UREA NITROGEN 21 mg/dl (9-20); CALCIUM 8.6 mg/dL (8.4-10.2); GFR AFRICAN-AMERICAN > 60; GFR NON-AFRICAN AMERICAN > 60
--- NOTE | 2017-11-07 06:50 | CP.PCM.PN ---
Subjective - Date & Time of Evaluation Date of Evaluation: 11/07/17 Time of Evaluation: 07:15 - Subjective Subjective: Patient seen and examined at bedside this morning. Pt had 2 BM last night with lactulose. Denies any blood in the stool. Denies abdominal pain, nausea, vomiting. Pt tolerated PO liquid last night. Denies any cough, dyspnea, chest pain, or chest pain w/ deep breathing. Denies fever, chills, headache, dizziness or blurry vision. Pt has Dillon in place with clear urine. Objective - Vital Signs/Intake and Output Vital Signs (last 24 hours): Temp Pulse Resp BP Pulse Ox 97.8 F 73 19 118/76 97 11/06/17 23:59 11/06/17 23:59 11/06/17 23:59 11/06/17 23:59 11/06/17 23:59 - Medications Medications: Current Medications Acetaminophen (Tylenol 325mg Tab) 650 mg PO Q6 PRN PRN Reason: Pain, moderate (4-7) Albuterol (Ventolin Hfa 90 Mcg/Actuation (8 G)) 2 puff IH Q4 PRN PRN Reason: shortness of breath Albuterol/Ipratropium (Duoneb 3 Mg/0.5 Mg (3 Ml) Ud) 3 ml INH RTID [facility] Last Admin: 11/06/17 19:49 Dose: 3 ml Heparin Sodium (Porcine) (Heparin) 5,000 units SC Q12 [facility] PRN Reason: Protocol Last Admin: 11/06/17 10:33 Dose: Not Given Home Med (Elviteg/Luna/Emtric/Tenofo Dis [Stribild Tablet]) 1 tab PO DAILY [facility] Last Admin: 11/06/17 14:24 Dose: 1 tab Vancomycin HCl 1 gm/ Sodium (Chloride) 250 mls @ 166.667 mls/hr IVPB Q12 [facility] PRN Reason: Protocol Last Admin: 11/06/17 21:31 Dose: 166.667 mls/hr Lactulose (Enulose) 10 gm PO Q8H [facility] Last Admin: 11/07/17 00:42 Dose: 10 gm Lidocaine (Lidoderm) 2 ea TD DAILY [facility] Last Admin: 11/06/17 10:33 Dose: 2 ea Methadone HCl (Methadone) 80 mg PO DAILY [facility] Last Admin: 11/06/17 14:20 Dose: 80 mg Morphine Sulfate (Morphine) 2 mg IVP Q4 PRN PRN Reason: Pain, severe (8-10) Multivitamins/Minerals (Therapeutic-M Tab) 1 tab PO DAILY [facility] Last Admin: 11/06/17 14:23 Dose: 1 tab Mupirocin (Bactroban Ointment) 1 applic TOP BID [facility] Last Admin: 11/06/17 19:03 Dose: 1 applic Nystatin (Nystatin Oral Susp) 5 ml PO QID [facility] Last Admin: 11/06/17 21:31 Dose: 5 ml Ondansetron HCl (Zofran Odt) 4 mg PO Q6H PRN PRN Reason: Nausea/Vomiting Last Admin: 11/05/17 13:25 Dose: 4 mg Pantoprazole Sodium (Protonix Ec Tab) 40 mg PO DAILY [facility] Last Admin: 11/06/17 14:23 Dose: 40 mg Prednisone (Prednisone Tab) 20 mg PO DAILY [facility] Last Admin: 11/06/17 14:23 Dose: 20 mg Fluticasone/Salmeterol (Advair Diskus 500/50) 1 puff IH Q12 [facility] Last Admin: 11/06/17 21:31 Dose: 1 puff Tamsulosin HCl (Flomax) 0.4 mg PO DAILY [facility] Trimethoprim/Sulfamethoxazole (Bactrim Ds Tab) 1 tab PO Q12 [facility] PRN Reason: Protocol Last Admin: 11/06/17 21:31 Dose: 1 tab - Labs Labs: 11/07/17 05:55 11/07/17 06:00 PT 12.3 Seconds (9.8-13.1) 11/05/17 01:40 INR 1.1 (0.9-1.2) 11/05/17 01:40 APTT 36.5 Seconds (25.6-37.1) 11/05/17 01:40 - Additional Findings Additional findings: - Constitutional Appears: Non-toxic, No Acute Distress, Chronically Ill and thin appearing - Head Exam Head Exam: NORMAL INSPECTION - Eye Exam Eye Exam: Normal appearance. absent: Scleral icterus - ENT Exam ENT Exam: Mucous Membranes Moist, Normal Oropharynx - Respiratory Exam Respiratory Exam: NORMAL BREATHING PATTERN. absent: Accessory Muscle Use, Wheezes, Respiratory Distress Additional comments: +Rhonchi in right lower lung filed. - Cardiovascular Exam Cardiovascular Exam: REGULAR RHYTHM, RRR, +S1, +S2 - GI/Abdominal Exam GI & Abdominal Exam: +BS, soft, non-distended, non-tender, no guarding or rigidity. - Extremities Exam Extremities Exam: Normal Inspection. absent: Pedal Edema - Neurological Exam Neurological Exam: Alert, Awake, Oriented x3 - Psychiatric Exam Psychiatric exam: Normal Affect, Normal Mood Assessment and Plan - Assessment and Plan (Free Text) Assessment: 52 y/o male with a PMHx of HIV (CD4 is 120 on 10/01/17), HTN, rectal/penile cancer, colon cancer, and asthma who was being treated in TCU for bacteremia with streptococcus gallolyticus and pneumonia; developed SBO, now resolving. Plan: 1. H/O streptococcus gallolyticus bacteremia: -ID on board -Continue Vancomycin 1000 mg ivp Q8 (day#17), need total of 21 days. -Completed Meropenem 500 mg IVP q8 for 9 days. -ECHO: normal echo -Repeat blood cx x 3: no growth -WBC normal -Vanco trough on 11/06/17: 7.9 -ID on board 2. Small Bowl Obstruction (resolved) -No nausea/vomiting last 3 days -Had three BM last night with enema -Tolerating regular diet this morning -Surgery and GI on board 3. Hx Pseudomonas Aeruginosa Pneumonia - Patient already completed 9 days of Meropenem. - Repeat chest CT on 11/06/17 : IMPRESSION: Improving right lower lobe infiltrate. Residual right lower lobe small airways disease. Almost complete resolves right upper lobe small airways disease and no residual right upper lobe infiltrate. - ID and pulmonary on board - WBC normal - f/u sputum cx - ID on board 4. Opiate induced constipation -on stool softeners -GI recommendation appreciated -will start Relistor/Movantik once SBO resolves. 5. Urinary retention -hx penile CA -On Dillon cath -resume flomax 6. AIDS: -Last CD4 count in 10/01/17 is 120 -Continue PCP treatment: bactrim DS po bid -Continue prednisone 20 mg po daily (day 7) ( completed 40 mg bid for 5 days and 40 mg qd x 5 days) -Noncompliant with HAART. resume home meds. 7. Asthma, unspecified type -c/w DuoNeb q4h prn -c/w home medications 8. Heroin use disorder: -Continue 80 mg methadone daily 9. Right groin lesion: -Continue mupirocin TOP BID 10. DVT prophylaxis -SCDs PRN -Heparin 5000 Q12: Platelets : 95 11. Code status -Full code
[2017-11-07] MEDS: Albuterol-Ipratrop 3 mg / 0.5 (3 ml) UD INH SCH ×2 (07:10→13:16)
[2017-11-07] MEDS: Nystatin 100,000 Units/ml Oral Susp 5 ml UD PO SCH ×4 (09:06→23:24)
[2017-11-07] MEDS: Tmp-Smz 800 mg-160 mg DS Tab PO SCH ×2 (09:06→20:50)
[2017-11-07] MEDS: Multivitamin With Minerals Tab PO SCH (09:06)
[2017-11-07] MEDS: Lidocaine 5% Patch TD SCH (09:09)
[2017-11-07] MEDS: Pantoprazole 40 mg EC Tab PO SCH (09:10)
--- NOTE | 2017-11-07 11:02 | PQF GENQUE ---
Dr. Bettencourt, 1. Please specify if Pneumonia is currently being treated on this admission : or hx. only 2. If currently treating pneumonia: type? and please specify the organism causing the pneumonia if known after the work up is completed : i.e. Bacterial (specify organism) Bronchopneumonia (specify organism) Interstitual pneumonia Organizing pneumonia/BOOP Other pneumonia (specify organism or type) Clinically unable to determine Unknown Note: Probable and suspected conditions can be coded as if they exist if still documented at the time of discharge. 11/05 Attending progress note: Pseudomonas Aeruginosa Pneumonia - Patient already completed 9 days of Meropenem, currently on day 16 of Vancomycin - Will check Vanco trough in AM, - Abdominal CT : Shows multifocal areas of consolidation in the right lung base, greatest in posteriorbasilarsegments of the right lower lobe. - ID on board, will speak to ID regarding IV antibiotics - WBC normal - Vanco trough 22.5 this AM - f/u sputum cx 11/05 ID note: with AIDS , penile . rectal ca s/p radiation admitted originally to medical floor with pneumonia was ruled out for Mycobaterium with 3 negative sputum AFb and treated for preseumed pcp pneumonia since cd4 <200 and was hypoxic and also treated for pseudomonas pneumonia based on his sputum cx with 9 days of IV meropenem. being treated with IV vanco for strep gallolyticus bacteremia and transfererd to TCU to complete his IV vanco --transfererd to ED found to have SBO and constipation transferred to med-surg for management of SBO ;has remained afebrile normal wbc blood cx- strep galollyticus sens to vanco sputum cx- pseudomonas sens to meropenem sputum AFB snear x 3- negative repeat blood cx- negative x 4: see full report in the EMR 11/06 Pulmonary consult: HPI: Abd/Pelvis CT on 11/04/17 shows: Small R pleural effusion, PNA RLL. Plan: 1) AIDS (2) History of asthma: Chronic Assessment: Patient with AIDS previously treated for Pseudomona PNA , completed treatment with Merren in TCU , f/u CT Chest , treated with Vanco for Bacteriemia Strep Gallolyticus , 11/05 Sputum culture:uncollected This form is a permanent part of the medical record Clarification of your documentation is requested to better reflect the severity of illness and intensity of treatment of your patient. Indicators present [] Specify: [] [] Specify: [] [] Specify: [] [] Specify: [] Location in the medical record that reflects the above clinical findings: [] Treatment Provided: [] PHYSICIAN'S RESPONSE HX of pneumonia pt is not being tx this admisison Based on your medical judgment of the clinical indicators outlined above please clarify the following: [] Practitioner response [] If unable to determine, please check the box, sign and date. Present On Admission (POA) Indicator: [] Present at the time of admission [] Not present at the time of admission [] Clinically Undetermined In responding to this query, please exercise your independent professional judgment. The fact that a question is asked does not imply that any particular answer is desired or expected. Thank you for your clarification on this documentation. If you have any questions please call. * Thank you, Jane Downs RN ext. #[phone] MTDD
--- NOTE | 2017-11-07 11:37 | CP.PCM.PN ---
Subjective - Date & Time of Evaluation Date of Evaluation: 11/07/17 Time of Evaluation: 11:37 - Subjective Subjective: ID Note- Patient has moved his bowels today and his abdominal discomfort is much less. denies any other complaints. Objective - Vital Signs/Intake and Output Vital Signs (last 24 hours): Temp Pulse Resp BP Pulse Ox 98.0 F 82 20 122/74 95 11/07/17 07:38 11/07/17 07:38 11/07/17 07:38 11/07/17 07:38 11/07/17 07:38 - Medications Medications: Current Medications Acetaminophen (Tylenol 325mg Tab) 650 mg PO Q6 PRN PRN Reason: Pain, moderate (4-7) Albuterol (Ventolin Hfa 90 Mcg/Actuation (8 G)) 2 puff IH Q4 PRN PRN Reason: shortness of breath Albuterol/Ipratropium (Duoneb 3 Mg/0.5 Mg (3 Ml) Ud) 3 ml INH RTID [facility] Last Admin: 11/07/17 07:10 Dose: 3 ml Heparin Sodium (Porcine) (Heparin) 5,000 units SC Q12 DIANDRA PRN Reason: Protocol Last Admin: 11/06/17 10:33 Dose: Not Given Home Med (Elviteg/Luna/Emtric/Tenofo Dis [Stribild Tablet]) 1 tab PO DAILY [facility] Last Admin: 11/07/17 09:05 Dose: 1 tab Vancomycin HCl 1 gm/ Sodium (Chloride) 250 mls @ 166.667 mls/hr IVPB Q12 DIANDRA PRN Reason: Protocol Last Admin: 11/07/17 09:10 Dose: 166.667 mls/hr Lactulose (Enulose) 10 gm PO Q8H [facility] Last Admin: 11/07/17 09:09 Dose: 10 gm Lidocaine (Lidoderm) 2 ea TD DAILY [facility] Last Admin: 11/07/17 09:09 Dose: 2 ea Methadone HCl (Methadone) 80 mg PO DAILY [facility] Last Admin: 11/07/17 09:12 Dose: 80 mg Morphine Sulfate (Morphine) 2 mg IVP Q4 PRN PRN Reason: Pain, severe (8-10) Multivitamins/Minerals (Therapeutic-M Tab) 1 tab PO DAILY [facility] Last Admin: 11/07/17 09:06 Dose: 1 tab Mupirocin (Bactroban Ointment) 1 applic TOP BID [facility] Last Admin: 11/07/17 11:05 Dose: 1 applic Nystatin (Nystatin Oral Susp) 5 ml PO QID [facility] Last Admin: 11/07/17 09:06 Dose: 5 ml Ondansetron HCl (Zofran Odt) 4 mg PO Q6H PRN PRN Reason: Nausea/Vomiting Last Admin: 11/05/17 13:25 Dose: 4 mg Pantoprazole Sodium (Protonix Ec Tab) 40 mg PO DAILY [facility] Last Admin: 11/07/17 09:10 Dose: 40 mg Prednisone (Prednisone Tab) 20 mg PO DAILY [facility] Last Admin: 11/07/17 09:06 Dose: 20 mg Fluticasone/Salmeterol (Advair Diskus 500/50) 1 puff IH Q12 [facility] Last Admin: 11/06/17 21:31 Dose: 1 puff Tamsulosin HCl (Flomax) 0.4 mg PO DAILY [facility] Last Admin: 11/07/17 09:06 Dose: 0.4 mg Trimethoprim/Sulfamethoxazole (Bactrim Ds Tab) 1 tab PO Q12 [facility] PRN Reason: Protocol Last Admin: 11/07/17 09:06 Dose: 1 tab - Labs Labs: - Additional Findings Additional findings: Constitutional Appears: No Acute Distress, Chronically Ill - Head Exam Head Exam: ATRAUMATIC - Eye Exam Eye Exam: EOMI, PERRL - ENT Exam ENT Exam: Normal Oropharynx - Neck Exam Neck exam: Positive for: Full Rom - Respiratory Exam Respiratory Exam: Clear to Auscultation Bilateral, NORMAL BREATHING PATTERN - Cardiovascular Exam Cardiovascular Exam: RRR, +S1, +S2 - GI/Abdominal Exam GI & Abdominal Exam: Soft Additional comments: no tenderness Mild guarding, No rebound No distention soft has bowel sounds - Extremities Exam Extremities exam: Positive for: normal inspection - Neurological Exam Neurological exam: Alert, Oriented x 3 Laboratory Results - last 72 hr 11/05/17 11/05/17 11/05/17 01:40 01:40 01:40 WBC 4.8 RBC 3.55 L Hgb 9.2 L Hct 29.1 L MCV 81.9 MCH 25.8 L MCHC 31.5 L RDW 17.0 H Plt Count 95 L MPV 10.1 Neut % (Auto) 86.4 H Lymph % (Auto) 9.1 L [place] % (Auto) 2.8 Eos % (Auto) 0.1 Baso % (Auto) 1.6 Neut # (Auto) 4.1 Lymph # (Auto) 0.4 L [place] # (Auto) 0.1 Eos # (Auto) 0.0 Baso # (Auto) 0.1 Neutrophils % (Manual) 85 H Lymphocytes % (Manual) 10 L Reactive Lymphs % 1 H Monocytes % (Manual) 4 Platelet Estimate Markedly decreased L Hypochromasia (manual) Slight Anisocytosis (manual) Slight Acanthocytes (Spur) Slight PT 12.3 INR 1.1 APTT 36.5 Sodium 132 Potassium 4.6 Chloride 95 L Carbon Dioxide 29 Anion Gap 13 BUN 27 H Creatinine 0.9 Est GFR ( Amer) > 60 Est GFR (Non-Af Amer) > 60 Random Glucose 101 Calcium 8.6 Total Bilirubin 0.7 AST 37 ALT 41 Alkaline Phosphatase 99 Total Protein 6.1 L Albumin 2.8 L Globulin 3.3 Albumin/Globulin Ratio 0.9 L Lipase 36 Urine Color Urine Clarity Urine pH Ur Specific [place] Urine Protein Urine Glucose (UA) Urine Ketones Urine Blood Urine Nitrate Urine Bilirubin Urine Urobilinogen Ur Leukocyte Esterase Urine RBC (Auto) Urine Microscopic WBC Vancomycin Trough Blood Type Blood Type Confirm Antibody Screen BBK History Checked 11/05/17 11/05/17 11/05/17 01:40 09:00 09:00 WBC RBC Hgb Hct MCV MCH MCHC RDW Plt Count MPV Neut % (Auto) Lymph % (Auto) [place] % (Auto) Eos % (Auto) Baso % (Auto) Neut # (Auto) Lymph # (Auto) [place] # (Auto) Eos # (Auto) Baso # (Auto) Neutrophils % (Manual) Lymphocytes % (Manual) Reactive Lymphs % Monocytes % (Manual) Platelet Estimate Hypochromasia (manual) Anisocytosis (manual) Acanthocytes (Spur) PT INR APTT Sodium Potassium Chloride Carbon Dioxide Anion Gap BUN Creatinine Est GFR ( Amer) Est GFR (Non-Af Amer) Random Glucose Calcium Total Bilirubin AST ALT Alkaline Phosphatase Total Protein Albumin Globulin Albumin/Globulin Ratio Lipase Urine Color Urine Clarity Urine pH Ur Specific [place] Urine Protein Urine Glucose (UA) Urine Ketones Urine Blood Urine Nitrate Urine Bilirubin Urine Urobilinogen Ur Leukocyte Esterase Urine RBC (Auto) Urine Microscopic WBC Vancomycin Trough 22.5 H Blood Type A POSITIVE Blood Type Confirm A POSITIVE Antibody Screen Negative BBK History Checked No verified bt 11/06/17 11/06/17 11/06/17 04:37 07:51 07:51 WBC 2.6 L RBC 2.97 L Hgb 7.7 L Hct 24.8 L MCV 83.5 MCH 25.9 L MCHC 31.0 L RDW 18.0 H Plt Count 79 L MPV Neut % (Auto) Lymph % (Auto) [place] % (Auto) Eos % (Auto) Baso % (Auto) Neut # (Auto) Lymph # (Auto) [place] # (Auto) Eos # (Auto) Baso # (Auto) Neutrophils % (Manual) Lymphocytes % (Manual) Reactive Lymphs % Monocytes % (Manual) Platelet Estimate Hypochromasia (manual) Anisocytosis (manual) Acanthocytes (Spur) PT INR APTT Sodium Potassium Chloride Carbon Dioxide Anion Gap BUN Creatinine Est GFR ( Amer) Est GFR (Non-Af Amer) Random Glucose Calcium Total Bilirubin AST ALT Alkaline Phosphatase Total Protein Albumin Globulin Albumin/Globulin Ratio Lipase Urine Color Yellow Urine Clarity Slighty-cloudy Urine pH 5.0 Ur Specific [place] 1.021 Urine Protein Negative Urine Glucose (UA) Neg Urine Ketones Negative Urine Blood Moderate Urine Nitrate Negative Urine Bilirubin Negative Urine Urobilinogen 0.2-1.0 Ur Leukocyte Esterase Neg Urine RBC (Auto) 7 H Urine Microscopic WBC 3 Vancomycin Trough 7.9 Blood Type Blood Type Confirm Antibody Screen BBK History Checked 11/06/17 11/06/17 11/07/17 07:51 09:58 05:55 WBC 2.3 L 2.9 L RBC 3.14 L 2.97 L Hgb 8.2 L 7.9 L Hct 26.1 L 24.7 L MCV 83.0 83.1 MCH 26.0 L 26.5 L MCHC 31.3 L 31.9 L RDW 18.3 H 17.7 H Plt Count 71 L 72 L MPV Neut % (Auto) Lymph % (Auto) [place] % (Auto) Eos % (Auto) Baso % (Auto) Neut # (Auto) Lymph # (Auto) [place] # (Auto) Eos # (Auto) Baso # (Auto) Neutrophils % (Manual) Lymphocytes % (Manual) Reactive Lymphs % Monocytes % (Manual) Platelet Estimate Hypochromasia (manual) Anisocytosis (manual) Acanthocytes (Spur) PT INR APTT Sodium 137 Potassium 4.3 Chloride 103 Carbon Dioxide 27 Anion Gap 11 BUN 26 H Creatinine 0.8 Est GFR ( Amer) > 60 Est GFR (Non-Af Amer) > 60 Random Glucose 85 Calcium 8.0 L Total Bilirubin 0.3 AST 34 ALT 32 Alkaline Phosphatase 82 Total Protein 5.4 L Albumin 2.4 L Globulin 2.9 Albumin/Globulin Ratio 0.8 L Lipase Urine Color Urine Clarity Urine pH Ur Specific [place] Urine Protein Urine Glucose (UA) Urine Ketones Urine Blood Urine Nitrate Urine Bilirubin Urine Urobilinogen Ur Leukocyte Esterase Urine RBC (Auto) Urine Microscopic WBC Vancomycin Trough Blood Type Blood Type Confirm Antibody Screen BBK History Checked 11/07/17 11/07/17 06:00 14:09 WBC RBC Hgb 8.2 L Hct 25.9 L MCV MCH MCHC RDW Plt Count MPV Neut % (Auto) Lymph % (Auto) [place] % (Auto) Eos % (Auto) Baso % (Auto) Neut # (Auto) Lymph # (Auto) [place] # (Auto) Eos # (Auto) Baso # (Auto) Neutrophils % (Manual) Lymphocytes % (Manual) Reactive Lymphs % Monocytes % (Manual) Platelet Estimate Hypochromasia (manual) Anisocytosis (manual) Acanthocytes (Spur) PT INR APTT Sodium 136 Potassium 5.0 Chloride 100 Carbon Dioxide 26 Anion Gap 15 BUN 21 H Creatinine 0.8 Est GFR ( Amer) > 60 Est GFR (Non-Af Amer) > 60 Random Glucose 128 H Calcium 8.6 Total Bilirubin AST ALT Alkaline Phosphatase Total Protein Albumin Globulin Albumin/Globulin Ratio Lipase Urine Color Urine Clarity Urine pH Ur Specific [place] Urine Protein Urine Glucose (UA) Urine Ketones Urine Blood Urine Nitrate Urine Bilirubin Urine Urobilinogen Ur Leukocyte Esterase Urine RBC (Auto) Urine Microscopic WBC Vancomycin Trough Blood Type Blood Type Confirm Antibody Screen BBK History Checked Microbiology 11/05/17 09:00 Blood Blood Culture - Preliminary NO GROWTH AFTER 48 HOURS Creator : Nayan Morocho MD Dictator : Nayan Morocho MD Member Certification Manager : Manager Fleet : Nayan Morocho MD Approver2 : Report Date : 11/06/2017 17:51:02 My Comment : PROCEDURE: CT Chest without contrast HISTORY: pneumonia COMPARISON: None. TECHNIQUE: Contiguous axial images were obtained through the chest without intravenous contrast enhancement. Sagittal and coronal reconstructions were performed. Radiation dose (DLP): 193.99 mGy-cm. This CT exam was performed using one or more of the following dose reduction techniques: Automated exposure control, adjustment of the mA and/or kV according to patient size, and/or use of iterative reconstruction technique. FINDINGS: LUNGS: Moderate improvement in right lower lobe consolidation. There is some residual consolidation. There is residual small airways disease throughout the remainder of the right lower lobe. There is no remaining right upper lobe infiltrate and very little residual small airways disease as compared to examination of 10/21/2017. No left-sided infiltrate or small airways disease. . MEDIASTINUM: Unremarkable thoracic aorta. No aneurysm. Normal sized heart. Main pulmonary artery unremarkable. No vascular congestion. No lymphadenopathy. Right PICC catheter. PLEURA: No pleural fluid. No pneumothorax. BONES: No fracture. No destructive lesion. UPPER ABDOMEN: Cholelithiasis. No evidence of cholecystitis. OTHER FINDINGS: None. IMPRESSION: Improving right lower lobe infiltrate. Residual right lower lobe small airways disease. Almost complete resolves right upper lobe small airways disease and no residual right upper lobe infiltrate. Right PICC catheter. Cholelithiasis. Assessment and Plan (1) Small bowel obstruction Status: Acute (2) AIDS Status: Chronic - Assessment and Plan (Free Text) Assessment: A/P- 52 year old male with AIDS ( last Cd4 -40), penile . rectal ca s/p radiation admitted originalluy to medical floor with pneumonia was rtuled out for Mycobaterium with 3 negative sputum AFb and tretaed for preseumed pcp pneumonia since cd4 <200 and was hypoxic and also treated for pseudomonas pneumonia based on his sputum cx with 9 days of IV meropenem. being treated with IV vanco for strep gallolyticus bacteremia and transfererd to TCU to complete his IV vanco and get PT. transfererd to ED for abd pain and nausea and vomiting found to have SBO and constipation transferred to [facility]-surg for management of SBO. SBO improving has had BM has remained afebrile normal wbc blood cx- strep galollyticus sens to vanco sputum cx- pseudomonas sens to meropenem sputum AFB snear x 3- negative repeat blood cx- negative x 4 TTE- no vegetations as per report. [facility] as per report pneumonia much improved, almost complete resolution. plan- completed 16 days of IV vancomycin for strep gallolyticus ( strep Bovis) . can d/c vanco at this time specially since pt. has thrombocytopenia. has completed 9 days of IV meroepenm for pseudomonas in sputum cx. zithormax 1200 mg once a week for MAC prophylaxis since CD4 was 40 on 04/2017 from [facility] records, if there is a more recent CD4 from [facility] and if it's >50 can d/c once a week zithromax. HAART meds as per his PMD at [facility]. SBO management as per GI and Primary team. colonoscopy after SBO is resolved to r/o colon cancer since had strep gallolyticus bacteremia. all above d/w patient and he verbalizes full understanding of all above and agrees with above plan of care. All above also d/w Dr.Pierre Pantoja at [email or web address] will be covering for me from until saturday. If there are any questions please call .
[2017-11-07] MEDS: Fluticasone-Salmeterol 500-50mcg Diskus IH SCH ×2 (12:42→20:49)
--- NOTE | 2017-11-07 13:44 | CP.PCM.PN ---
Subjective - Date & Time of Evaluation Date of Evaluation: 11/07/17 Time of Evaluation: 12:00 - Subjective Subjective: no AD , smiling , no SOB , no cough , eating well , no abdominal pain Objective - Vital Signs/Intake and Output Vital Signs (last 24 hours): Temp Pulse Resp BP Pulse Ox 98.0 F 82 20 122/74 95 11/07/17 07:38 11/07/17 07:38 11/07/17 07:38 11/07/17 07:38 11/07/17 07:38 - Medications Medications: Current Medications Acetaminophen (Tylenol 325mg Tab) 650 mg PO Q6 PRN PRN Reason: Pain, moderate (4-7) Albuterol (Ventolin Hfa 90 Mcg/Actuation (8 G)) 2 puff IH Q4 PRN PRN Reason: shortness of breath Albuterol/Ipratropium (Duoneb 3 Mg/0.5 Mg (3 Ml) Ud) 3 ml INH RTID [facility] Last Admin: 11/07/17 13:16 Dose: Not Given Heparin Sodium (Porcine) (Heparin) 5,000 units SC Q12 DIANDRA PRN Reason: Protocol Last Admin: 11/06/17 10:33 Dose: Not Given Home Med (Elviteg/Luna/Emtric/Tenofo Dis [Stribild Tablet]) 1 tab PO DAILY [facility] Last Admin: 11/07/17 09:05 Dose: 1 tab Vancomycin HCl 1 gm/ Sodium (Chloride) 250 mls @ 166.667 mls/hr IVPB Q12 DIANDRA PRN Reason: Protocol Last Admin: 11/07/17 09:10 Dose: 166.667 mls/hr Lactulose (Enulose) 10 gm PO Q8H [facility] Last Admin: 11/07/17 09:09 Dose: 10 gm Lidocaine (Lidoderm) 2 ea TD DAILY [facility] Last Admin: 11/07/17 09:09 Dose: 2 ea Methadone HCl (Methadone) 80 mg PO DAILY [facility] Last Admin: 11/07/17 09:12 Dose: 80 mg Morphine Sulfate (Morphine) 2 mg IVP Q4 PRN PRN Reason: Pain, severe (8-10) Multivitamins/Minerals (Therapeutic-M Tab) 1 tab PO DAILY [facility] Last Admin: 11/07/17 09:06 Dose: 1 tab Mupirocin (Bactroban Ointment) 1 applic TOP BID [facility] Last Admin: 11/07/17 11:05 Dose: 1 applic Nystatin (Nystatin Oral Susp) 5 ml PO QID [facility] Last Admin: 11/07/17 12:42 Dose: 5 ml Ondansetron HCl (Zofran Odt) 4 mg PO Q6H PRN PRN Reason: Nausea/Vomiting Last Admin: 11/05/17 13:25 Dose: 4 mg Pantoprazole Sodium (Protonix Ec Tab) 40 mg PO DAILY [facility] Last Admin: 11/07/17 09:10 Dose: 40 mg Prednisone (Prednisone Tab) 20 mg PO DAILY [facility] Last Admin: 11/07/17 09:06 Dose: 20 mg Fluticasone/Salmeterol (Advair Diskus 500/50) 1 puff IH Q12 [facility] Last Admin: 11/07/17 12:42 Dose: 1 puff Tamsulosin HCl (Flomax) 0.4 mg PO DAILY [facility] Last Admin: 11/07/17 09:06 Dose: 0.4 mg Trimethoprim/Sulfamethoxazole (Bactrim Ds Tab) 1 tab PO Q12 [facility] PRN Reason: Protocol Last Admin: 11/07/17 09:06 Dose: 1 tab - Labs Labs: 11/07/17 05:55 11/07/17 06:00 PT 12.3 Seconds (9.8-13.1) 11/05/17 01:40 INR 1.1 (0.9-1.2) 11/05/17 01:40 APTT 36.5 Seconds (25.6-37.1) 11/05/17 01:40 - Constitutional Appears: Chronically Ill - Head Exam Head Exam: NORMAL INSPECTION - Eye Exam Eye Exam: PERRL - ENT Exam ENT Exam: Normal Exam - Neck Exam Neck Exam: Normal Inspection - Respiratory Exam Respiratory Exam: Clear to Ausculation Bilateral - Cardiovascular Exam Cardiovascular Exam: REGULAR RHYTHM - GI/Abdominal Exam GI & Abdominal Exam: Soft, Normal Bowel Sounds. absent: Guarding, Rebound Additional comments: minimal epigastric discomort - Extremities Exam Extremities Exam: Normal Inspection - Back Exam Back Exam: NORMAL INSPECTION - Neurological Exam Neurological Exam: Alert, Oriented x3 Additional comments: No focal motor sensory deficit. - Psychiatric Exam Psychiatric exam: Normal Affect, Normal Mood - Skin Skin Exam: Warm Assessment and Plan (1) AIDS Status: Chronic (2) History of asthma Status: Chronic (3) Pneumonia Status: Resolved - Assessment and Plan (Free Text) Plan: CT Chest infiltrates improved , Patient on Bactrim , Pulmonary cleared for discharge
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
[2017-11-07 15:50] LABS: HEMOGLOBIN 8.2 g/dL (12.0-18.0)
[2017-11-07] MEDS ORDERED: POLYETHYLENE GLYCOL 3350 17 GM/Dose PACKET PO SCH (17:15)
[2017-11-08 06:11] LABS: HEMOGLOBIN 8.3 g/dL (12.0-18.0); MEAN CORPUSCULAR HEMOGLOBIN 26.7 pg (27.0-31.0); MEAN CORPUSCULAR HGB CONC 31.7 g/dL (33.0-37.0); RBC 3.1 Mil/uL (4.40-5.90)
[2017-11-08 06:16] LABS: BLOOD UREA NITROGEN 26 mg/dl (9-20); CALCIUM 8.6 mg/dL (8.4-10.2); GFR AFRICAN-AMERICAN > 60; GFR NON-AFRICAN AMERICAN > 60
[2017-11-08] MEDS ORDERED: Sod Polystyrene Sulf 15 gm/60 ml Susp PO STA (06:16)
--- NOTE | 2017-11-08 07:30 | CP.PCM.PN ---
Subjective - Date & Time of Evaluation Date of Evaluation: 11/08/17 Time of Evaluation: 08:10 - Subjective Subjective: Patient seen and examined this morning. Pt is tolerating regular diet. Had 2 BM last night. Denies abdominal pain, nausea, vomiting. Denies any cough, dyspnea, chest pain, or chest pain w/ deep breathing. Denies fever, chills, or headache. Pt's Dillon is discontinued this morning. Objective - Vital Signs/Intake and Output Vital Signs (last 24 hours): Temp Pulse Resp BP Pulse Ox 98.1 F 83 20 136/79 96 11/08/17 01:00 11/08/17 01:00 11/08/17 01:00 11/08/17 01:00 11/08/17 01:00 Intake and Output: 11/08/17 11/08/17 06:59 18:59 Output Total 200 Balance -200 - Medications Medications: Current Medications Acetaminophen (Tylenol 325mg Tab) 650 mg PO Q6 PRN PRN Reason: Pain, moderate (4-7) Albuterol (Ventolin Hfa 90 Mcg/Actuation (8 G)) 2 puff IH Q4 PRN PRN Reason: shortness of breath Heparin Sodium (Porcine) (Heparin) 5,000 units SC Q12 [facility] PRN Reason: Protocol Last Admin: 11/06/17 10:33 Dose: Not Given Home Med (Elviteg/Luna/Emtric/Tenofo Dis [Stribild Tablet]) 1 tab PO DAILY [facility] Last Admin: 11/07/17 09:05 Dose: 1 tab Vancomycin HCl 1 gm/ Sodium (Chloride) 250 mls @ 166.667 mls/hr IVPB Q12 [facility] PRN Reason: Protocol Last Admin: 11/07/17 20:48 Dose: 166.667 mls/hr Lidocaine (Lidoderm) 2 ea TD DAILY [facility] Last Admin: 11/07/17 09:09 Dose: 2 ea Methadone HCl (Methadone) 80 mg PO DAILY [facility] Last Admin: 11/07/17 09:12 Dose: 80 mg Multivitamins/Minerals (Therapeutic-M Tab) 1 tab PO DAILY [facility] Last Admin: 11/07/17 09:06 Dose: 1 tab Mupirocin (Bactroban Ointment) 1 applic TOP BID [facility] Last Admin: 11/07/17 17:39 Dose: 1 applic Nystatin (Nystatin Oral Susp) 5 ml PO QID [facility] Last Admin: 11/07/17 23:24 Dose: 5 ml Ondansetron HCl (Zofran Odt) 4 mg PO Q6H PRN PRN Reason: Nausea/Vomiting Last Admin: 11/05/17 13:25 Dose: 4 mg Pantoprazole Sodium (Protonix Ec Tab) 40 mg PO DAILY [facility] Last Admin: 11/07/17 09:10 Dose: 40 mg Polyethylene Glycol (Miralax) 17 gm PO BID [facility] Prednisone (Prednisone Tab) 20 mg PO DAILY [facility] Last Admin: 11/07/17 09:06 Dose: 20 mg Fluticasone/Salmeterol (Advair Diskus 500/50) 1 puff IH Q12 [facility] Last Admin: 11/07/17 20:49 Dose: 1 puff Tamsulosin HCl (Flomax) 0.4 mg PO DAILY [facility] Last Admin: 11/07/17 09:06 Dose: 0.4 mg Trimethoprim/Sulfamethoxazole (Bactrim Ds Tab) 1 tab PO Q12 [facility] PRN Reason: Protocol Last Admin: 11/07/17 20:50 Dose: 1 tab - Labs Labs: 11/08/17 05:25 11/08/17 05:25 PT 12.3 Seconds (9.8-13.1) 11/05/17 01:40 INR 1.1 (0.9-1.2) 11/05/17 01:40 APTT 36.5 Seconds (25.6-37.1) 11/05/17 01:40 - Additional Findings Additional findings: - Constitutional Appears: Non-toxic, No Acute Distress, Chronically Ill and thin appearing - Head Exam Head Exam: NORMAL INSPECTION - Eye Exam Eye Exam: Normal appearance. absent: Scleral icterus - ENT Exam ENT Exam: Mucous Membranes Moist, Normal Oropharynx - Respiratory Exam Respiratory Exam: NORMAL BREATHING PATTERN. absent: Accessory Muscle Use, Wheezes, Respiratory Distress Additional comments: +Mild hhonchi in right lower lung filed. - Cardiovascular Exam Cardiovascular Exam: REGULAR RHYTHM, RRR, +S1, +S2 - GI/Abdominal Exam GI & Abdominal Exam: +BS, soft, non-distended, non-tender, no guarding or rigidity. - Extremities Exam Extremities Exam: Normal Inspection. absent: Pedal Edema - Neurological Exam Neurological Exam: Alert, Awake, Oriented x3 - Psychiatric Exam Psychiatric exam: Normal Affect, Normal Mood Assessment and Plan - Assessment and Plan (Free Text) Assessment: 52 y/o male with a PMHx of HIV (CD4 is 120 on 10/01/17), HTN, rectal/penile cancer, colon cancer, and asthma who was being treated in TCU for bacteremia with streptococcus gallolyticus and pneumonia, admitted to [facility] on 11/05/17 for SOB (resolved). Patient with multiple comorbid conditions including HIV, hx penile cancer, rectal/colon cancer, asthma, recent streptococcus gallolyticus bacteremia, pneumonia has generalized weakness and deconditioning. Pt will benefit from home health aide and physical therapy. Plan: 1. H/O streptococcus gallolyticus bacteremia: -ID on board -D/C Vancomycin 1000 mg IVP. Received total of 17 days. -Completed Meropenem 500 mg IVP q8 for 9 days. -ECHO: normal echo -Repeat blood cx x 3: no growth 2. Small Bowl Obstruction (resolved) -No nausea/vomiting last 3 days -Had three BM last night with enema -Tolerating regular diet this morning -Surgery and GI on board 3. Hx Pseudomonas Aeruginosa Pneumonia - Patient already completed 9 days of Meropenem. - Repeat chest CT on 11/06/17 : IMPRESSION: Improving right lower lobe infiltrate. Residual right lower lobe small airways disease. Almost complete resolves right upper lobe small airways disease and no residual right upper lobe infiltrate. - ID and pulmonary on board 4. Opiate induced constipation -on stool softeners -GI recommendation appreciated 5. Urinary retention -hx penile CA -Dillon cath d/c this morning -Continue Flomax 0.4 mg daily 6. AIDS: -Last CD4 count in 10/01/17 is 120 -Continue PCP treatment: bactrim DS po bid -Continue prednisone 20 mg po daily (day 8) ( completed 40 mg bid for 5 days and 40 mg qd x 5 days) -Noncompliant with HAART. resume home meds. 7. Asthma, unspecified type -c/w DuoNeb q4h prn -c/w home medications 8. Heroin use disorder: -Continue 80 mg methadone daily 9. Right groin lesion: -Continue mupirocin TOP BID 10. DVT prophylaxis -SCDs PRN -Heparin 5000 Q12: Platelets : 95 11. Code status -Full code
[2017-11-08 08:00] VITALS: BP 108/66; PULSE 74; RESP 19; TEMP 97.9; O2SAT 98
--- NOTE | 2017-11-08 08:56 | CARD ---
APPROVED REPORT EKG Measurement Heart [id number] <Conclusion> Normal sinus rhythm Normal ECG
[2017-11-08] MEDS ORDERED: POLYETHYLENE GLYCOL 3350 17 GM/Dose PACKET PO SCH (09:00)
[2017-11-08] MEDS: Fluticasone-Salmeterol 500-50mcg Diskus IH SCH (09:07)
[2017-11-08] MEDS: Multivitamin With Minerals Tab PO SCH (09:10)
[2017-11-08] MEDS: Tmp-Smz 800 mg-160 mg DS Tab PO SCH (09:10)
[2017-11-08] MEDS: Nystatin 100,000 Units/ml Oral Susp 5 ml UD PO SCH (09:11)
[2017-11-08] MEDS: Lidocaine 5% Patch TD SCH (09:12)
[2017-11-08] MEDS: Pantoprazole 40 mg EC Tab PO SCH (09:13)
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
--- NOTE | 2017-11-08 14:15 | CP.PCM.DIS ---
Provider - Provider Date of Admission: 11/05/17 01:45 Attending physician: Christine Bettencourt MD Primary care physician: Dong Tiwari MD Time Spent in preparation of Discharge (in minutes): 40 Diagnosis - Discharge Diagnosis (1) Community acquired bacterial pneumonia Status: Resolved (2) Sepsis Status: Resolved (3) Small bowel obstruction Status: Resolved (4) AIDS Status: Chronic Priority: High (5) History of asthma Status: Chronic Priority: Medium Hospital Course - Lab Results Lab Results: Micro Results 11/05/17 09:00 Blood Blood Culture - Preliminary NO GROWTH AFTER 3 DAYS Most Recent Lab Values WBC 4.0 K/uL (4.8-10.8) L 11/08/17 05:25 RBC 3.10 Mil/uL (4.40-5.90) L 11/08/17 05:25 Hgb 8.3 g/dL (12.0-18.0) L 11/08/17 05:25 Hct 26.1 % (35.0-51.0) L 11/08/17 05:25 MCV 84.0 fl (80.0-94.0) 11/08/17 05:25 MCH 26.7 pg (27.0-31.0) L 11/08/17 05:25 MCHC 31.7 g/dL (33.0-37.0) L 11/08/17 05:25 RDW 19.0 % (11.5-14.5) H 11/08/17 05:25 Plt Count 73 K/uL (130-400) L 11/08/17 05:25 MPV 10.1 fl (7.2-11.7) 11/05/17 01:40 Neut % (Auto) 86.4 % (50.0-75.0) H 11/05/17 01:40 Lymph % (Auto) 9.1 % (20.0-40.0) L 11/05/17 01:40 [place] % (Auto) 2.8 % (0.0-10.0) 11/05/17 01:40 Eos % (Auto) 0.1 % (0.0-4.0) 11/05/17 01:40 Baso % (Auto) 1.6 % (0.0-2.0) 11/05/17 01:40 Neut # (Auto) 4.1 K/uL (1.8-7.0) 11/05/17 01:40 Lymph # (Auto) 0.4 K/uL (1.0-4.3) L 11/05/17 01:40 [place] # (Auto) 0.1 K/uL (0.0-0.8) 11/05/17 01:40 Eos # (Auto) 0.0 K/uL (0.0-0.7) 11/05/17 01:40 Baso # (Auto) 0.1 K/uL (0.0-0.2) 11/05/17 01:40 Neutrophils % (Manual) 85 % (42-75) H 11/05/17 01:40 Lymphocytes % (Manual) 10 % (20-50) L 11/05/17 01:40 Reactive Lymphs % 1 % (0-0) H 11/05/17 01:40 Monocytes % (Manual) 4 % (0-10) 11/05/17 01:40 Platelet Estimate Markedly decreased (NORMAL) L 11/05/17 01:40 Hypochromasia (manual) Slight 11/05/17 01:40 Anisocytosis (manual) Slight 11/05/17 01:40 Acanthocytes (Spur) Slight 11/05/17 01:40 PT 12.3 Seconds (9.8-13.1) 11/05/17 01:40 INR 1.1 (0.9-1.2) 11/05/17 01:40 APTT 36.5 Seconds (25.6-37.1) 11/05/17 01:40 Sodium 135 mmol/l (132-148) 11/08/17 05:25 Potassium 4.4 MMOL/L (3.6-5.0) 11/08/17 11:34 Chloride 99 mmol/L (98-107) 11/08/17 05:25 Carbon Dioxide 27 mmol/L (22-30) 11/08/17 05:25 Anion Gap 15 (10-20) 11/08/17 05:25 BUN 26 mg/dl (9-20) H 11/08/17 05:25 Creatinine 1.1 mg/dl (0.8-1.5) 11/08/17 05:25 Est GFR ( Amer) > 60 11/08/17 05:25 Est GFR (Non-Af Amer) > 60 11/08/17 05:25 Random Glucose 100 mg/dL (75-110) 11/08/17 05:25 Calcium 8.6 mg/dL (8.4-10.2) 11/08/17 05:25 Total Bilirubin 0.3 mg/dl (0.2-1.3) 11/06/17 07:51 AST 34 U/L (17-59) 11/06/17 07:51 ALT 32 U/L (21-72) 11/06/17 07:51 Alkaline Phosphatase 82 U/L (38-126) 11/06/17 07:51 Total Protein 5.4 G/DL (6.3-8.2) L 11/06/17 07:51 Albumin 2.4 g/dL (3.5-5.0) L 11/06/17 07:51 Globulin 2.9 gm/dL (2.2-3.9) 11/06/17 07:51 Albumin/Globulin Ratio 0.8 (1.0-2.1) L 11/06/17 07:51 Lipase 36 U/L (23-300) 11/05/17 01:40 Urine Color Yellow (YELLOW) 11/06/17 04:37 Urine Clarity Slighty-cloudy (Clear) 11/06/17 04:37 Urine pH 5.0 (5.0-8.0) 11/06/17 04:37 Ur Specific [place] 1.021 (1.003-1.030) 11/06/17 04:37 Urine Protein Negative mg/dL (NEGATIVE) 11/06/17 04:37 Urine Glucose (UA) Neg mg/dL (Normal) 11/06/17 04:37 Urine Ketones Negative mg/dL (NEGATIVE) 11/06/17 04:37 Urine Blood Moderate (NEGATIVE) 11/06/17 04:37 Urine Nitrate Negative (NEGATIVE) 11/06/17 04:37 Urine Bilirubin Negative (NEGATIVE) 11/06/17 04:37 Urine Urobilinogen 0.2-1.0 mg/dL (0.2-1.0) 11/06/17 04:37 Ur Leukocyte Esterase Neg Nevaeh/uL (Negative) 11/06/17 04:37 Urine RBC (Auto) 7 /hpf (0-3) H 11/06/17 04:37 Urine Microscopic WBC 3 /hpf (0-5) 11/06/17 04:37 Vancomycin Trough 7.9 ug/mL (5.0-10.0) 11/06/17 07:51 Blood Type A POSITIVE 11/05/17 01:40 Blood Type Confirm A POSITIVE 11/05/17 09:00 Antibody Screen Negative 11/05/17 01:40 BBK History Checked No verified bt 11/05/17 01:40 - Hospital Course Hospital Course: 52 y/o male with a PMHx of HIV (CD4 is 120 on 10/01/17), HTN, rectal/penile cancer, colon cancer, and asthma admitted on 10/21/17 for suspected pneumonia and sepsis. Chest CT on 10/21/17 shows IMPRESSION: New extensive infiltrate, multiple segments right lower lobe. Right middle lobe infiltrate. New large complex right pleural effusion suggesting debris. IR attempted to drain the effusion but no fluid was seen. Pt's blood cx showed streptococcus gallolyticus on 10/21/17 and sputum cx shows pseudomonas aeruginosa. Repeat chest CT on showed resolving small infiltrate. Infectious Disease: Pt received 9 days of IV meropenem for pseudomas and received 17 days of IV vancomycin for streptococcus gallolyticus bacteremia. Pt also received tx for PCP pneumonia. GI/Surgery: Pt developed small bowel obstruction on 11/05/17 but symptoms resolved 2 days prior to discharge. Colonoscopy and endoscopy were cancelled due to SBO. Pt is advised to have outpatient colonoscopy/EGD with Dr. Trinidad. Urology: Pt developed urinary retention and started on flomax 0.4 mg po daily. Pt has had indwelling Dillon catheter for few days due to urinary retention. Dillon was discontinued on the day of discharge and voided afterward. Pt was advised to f/u with Dr. Frank. Pt's serum potassium was 4.4 after administration of 30 gm Kayexalate. Pt is tolerating regular diet. Has normal BM and voiding w/ difficulty. Pt is medically stable to discharge home with f/u with PMD in 2-3 days. Medications on discharge: Polyethylene Glycol 3350 [Miralax] 17 gm PO BID for 1 week, then po qhs #30 packet predniSONE [predniSONE Tab] 20 mg PO DAILY #3 tab Sulfamethoxazole/Trimethoprim [Bactrim DS Tab] 1 tab PO BID #10 tab Tamsulosin [Flomax] 0.4 mg PO DAILY #30 cap Albuterol (Ventolin Hfa 90 Mcg/Actuation (8 G)) 2 puff IH Q4 PRN (Elviteg/Luna/Emtric/Tenofo Dis [Stribild Tablet]) 1 tab PO DAILY Methadone HCl (Methadone) 80 mg PO DAILY DIANDRA Multivitamins/Minerals (Therapeutic-M Tab) 1 tab PO DAILY DIANDRA Fluticasone/Salmeterol (Advair Diskus 500/50) 1 puff IH Q12 DIANDRA Discharge Exam - Head Exam Head Exam: NORMAL INSPECTION - Eye Exam Eye Exam: EOMI, Normal appearance - ENT Exam ENT Exam: Mucous Membranes Moist - Respiratory Exam Respiratory Exam: Clear to PA & Lateral, NORMAL BREATHING PATTERN Additional comments: +minimal rhonchi in right lower lung base. - Cardiovascular Exam Cardiovascular Exam: REGULAR RHYTHM, RRR, +S1, +S2 - GI/Abdominal Exam GI & Abdominal Exam: Normal Bowel Sounds, Soft. absent: Distended, Rebound, Rigid, Tenderness - Extremities Exam Extremities exam: normal inspection - Neurological Exam Neurological exam: Alert, Oriented x3 - Psychiatric Exam Psychiatric exam: Normal Affect, Normal Mood Discharge Plan - Discharge Medications Prescriptions: Polyethylene Glycol 3350 [Miralax] 17 gm PO BID #30 packet predniSONE [predniSONE Tab] 40 mg PO DAILY #3 tab Sulfamethoxazole/Trimethoprim [Bactrim DS Tab] 1 tab PO BID #10 tab Tamsulosin [Flomax] 0.4 mg PO DAILY #30 cap - Follow Up Plan Condition: FAIR Disposition: HOME/ ROUTINE Instructions: Sepsis in Adults, Small Bowel Obstruction (DC), Community- Acquired Pneumonia, Adult (DC) Additional Instructions: Please follow up with your PMD next week. Your PMD will decide if you need to take bactrim for PCP prophylaxis. Follow up with [facility] Dr. Trinidad in 1 week Address: [address] [place] [address] Follow up with Urologist Dr. Cast in 1 week Address: [address] [place] [id number] Referrals: Neo Trinidad MD [Medical Doctor] - José Cast Jr., MD [Staff Provider] - Dong Tiwari MD [Primary Care Provider] - Erick Stout MD [Staff Provider] -
== END 2017-11-08 15:28 | disposition home or self-care (01) | DRG 552 ==
LOC: H.ER 01:05 → H.ERHOLD 01:45 → H.MEDSURG1 04:17
PROVIDERS: ADMIT Family Medicine Geriatric Medicine; ATTEND Family Medicine Geriatric Medicine
DX: K56.699 Other intestinal obstruction unspecified as to partial versus complete obstruction (principal); B20 Human immunodeficiency virus [HIV] disease; R78.81 Bacteremia; F11.10 Opioid abuse, uncomplicated; D69.6 Thrombocytopenia, unspecified; L98.9 Disorder of the skin and subcutaneous tissue, unspecified; Z88.0 Allergy status to penicillin; I10 Essential (primary) hypertension; Z91.14 Patient's other noncompliance with medication regimen; F32.9 Major depressive disorder, single episode, unspecified; J45.909 Unspecified asthma, uncomplicated; Z87.891 Personal history of nicotine dependence; R33.9 Retention of urine, unspecified; T40.3X5A Adverse effect of methadone, initial encounter; K59.03 Drug induced constipation; Z85.72 Personal history of non-Hodgkin lymphomas; Z92.21 Personal history of antineoplastic chemotherapy; Z85.048 Personal history of other malignant neoplasm of rectum, rectosigmoid junction, and anus; T40.2X5A Adverse effect of other opioids, initial encounter; K80.20 Calculus of gallbladder without cholecystitis without obstruction; B95.4 Other streptococcus as the cause of diseases classified elsewhere

== ENCOUNTER 2018-03-03 14:57 | Inpatient (IN) | payer MEDICAID ==
[2018-03-03 14:57] VITALS: BMI 21.2
[2018-03-03] MEDS ORDERED: Sodium Chloride 0.9% 1,000 ML IV STA (15:35)
[2018-03-03] MEDS ORDERED: Albuterol-Ipratrop 3 mg / 0.5 (3 ml) UD INH STA (15:36)
[2018-03-03] MEDS ORDERED: levoFLOXacin 750 mg in D5W 150 ML BAG IVPB STA (15:40)
[2018-03-03] MEDS ORDERED: TRIMETHOPRIM IVPB STA (15:43)
[2018-03-03] MEDS ORDERED: WATER IVPB STA (15:43)
[2018-03-03] MEDS ORDERED: DEXTROSE 5% IVPB STA (15:43)
[2018-03-03] MEDS ORDERED: SULFAMETHOXAZOLE IVPB STA (15:43)
[2018-03-03] MEDS ORDERED: levoFLOXacin 750 mg in D5W 750 MG/150 ML BAG IVPB ONE ×2 (16:00→17:01)
--- NOTE | 2018-03-03 16:03 | ED PDOC ---
HPI: SOB/CHF/COPD Time Seen by Provider: 03/03/18 15:28 Chief Complaint (Nursing): Respiratory Distress Chief Complaint (Provider): shortness of breath History Per: Patient History/Exam Limitations: no limitations Onset/Duration Of Symptoms: Days (x6 weeks), Worse Since (onset) Current Symptoms Are (Timing): Still Present Associated Symptoms: denies: Fever, Chills Additional Complaint(s): Andrey Hampton is a 53 year old male, with a past medical history HIV, asthma, HTN, heroin abuse, colorectal cancer and depression, who presents to the emergency department for shortness of breath onset for about x6 weeks. Patient states symptoms have gotten progressively worst and associated with weakness and tightness of chest and occasional abdominal pain. Patient also reports weight loss, decreased appetite, diarrhea and generalized malaise. Patient's last CD4 count was 120 and viral load of 33,000 in September. Patient was seen by [facility] today and was sent for further evaluation of possible PNA with AIDS. He reports using albuterol at home with minimal relief and taking antibiotics recently with no relief. He denies any fever, chills but admits to smoking. No further medical complaints. PMD: [facility] Past Medical History Reviewed: Historical Data, Nursing Documentation, Vital Signs Vital Signs: Last Vital Signs Temp 98 F 03/03/18 14:59 Pulse 88 03/03/18 14:59 Resp 18 03/03/18 14:59 BP 133/92 H 03/03/18 14:59 Pulse Ox 81 L 03/03/18 16:56 - Medical History PMH: Asthma, Bronchitis, Depression, HIV, HTN, Pneumonia (PCP) Denies: Chronic Kidney Disease Other PMH: colorectal cancer - Surgical History Surgical History: No Surg Hx - Family History Family History: States: Unknown Family Hx - Social History Current smoker - smoking cessation education provided: Yes - Immunization History Hx Tetanus Toxoid Vaccination: No Hx Influenza Vaccination: No Hx Pneumococcal Vaccination: No - Home Medications Home Medications: Ambulatory Orders Medication Instructions Recorded Albuterol Sulfate [Ventolin Hfa] 2 puff IH Q4 PRN 03/03/18 Elviteg/Luna/Emtric/Tenofo Dis 1 tab PO DAILY 03/03/18 [Stribild Tablet] Fluconazole [Diflucan] 100 mg PO DAILY 03/03/18 Fluticasone/Salmeterol [Airduo 1 puff IH Q12 03/03/18 Respiclick 232-14 Mcg] Methadone 50 mg PO DAILY 03/03/18 Mirtazapine 15 mg SL HS 03/03/18 Multivitamin [Multi-Vitamin Daily] 1 tab PO DAILY 03/03/18 Sulfamethoxazole/Trimethoprim 1 tab PO DAILY 03/03/18 [Bactrim DS Tab] Tamsulosin [Flomax] 0.4 mg PO DAILY 03/03/18 - Allergies Allergies/Adverse Reactions: Allergies Allergy/AdvReac Type Severity Reaction Status Date / Time Penicillins Allergy Intermediate ANGIOEDEMA Verified 11/05/17 01:09 Review of Systems ROS Statement: Except As Marked, All Systems Reviewed And Found Negative Constitutional: Positive for: Malaise, Weight loss. Negative for: Fever, Chills Cardiovascular: Positive for: Chest Pain (tightness) Respiratory: Positive for: Shortness of Breath Gastrointestinal: Positive for: Abdominal Pain, Diarrhea, Other (decreased appetite) Physical Exam - Reviewed Nursing Documentation Reviewed: Yes Vital Signs Reviewed: Yes - Physical Exam Appears: Negative for: Well (appears cachectic) Head Exam: Positive for: ATRAUMATIC, NORMOCEPHALIC Skin: Positive for: Normal Color, Warm, Dry Eye Exam: Positive for: Normal appearance, EOMI, PERRL ENT: Positive for: Pharynx Is (clear). Negative for: Pharyngeal Erythema, Tonsillar Exudate Neck: Positive for: Painless ROM, Supple Cardiovascular/Chest: Positive for: Regular Rate, Rhythm. Negative for: Murmur Respiratory: Positive for: Decreased Breath Sounds (mildly decreased on the right side), Rhonchi (right greater than left), Wheezing (diffused bilaterally) , Respiratory Distress (acute) Gastrointestinal/Abdominal: Positive for: Soft. Negative for: Tenderness Extremity: Positive for: Normal ROM (upper and lower extremities). Negative for : Deformity Lymphatic: Negative for: Adenopathy Neurologic/Psych: Positive for: Alert, Oriented. Negative for: Motor/Sensory Deficits - Laboratory Results Result Diagrams: 03/03/18 15:30 03/03/18 15:30 - ECG ECG Rhythm: Positive for: Normal QRS, Normal ST Segment, Sinus Rhythm O2 Sat by Pulse Oximetry: 81 (RA) Pulse Ox Interpretation: Abnormal Medical Decision Making Medical Decision Making: Time: 15:28 Initial Impression: Respiratory distress. Differential includes but not limited to asthma exacerbation, PNA, PCP PNA, sepsis, CHF, dehydration, AIDS Initial Plan: --VBG --EKG --B-Type Natriuretic Peptide --CMP --LDH --Magnesium --Phosphorus --Troponin I --CBC w/ differential --PTT --PT --Chest portable [RAD] --Bactrim Inj 325mg Dextrose 5% in water 500 ml IVPB --Duoneb 9 ml INH --Levaquin 750mg IVPB in 150 ml IVPB --Sodium Chloride 1,000 ml IV 1,000 mls/hr --SOLU-medrol 125 mg IVP --Blood culture --Urine culture --Procalcitonin serum --Urinalysis --Reevaluation 1644 CXR FINDINGS: LUNGS: Resolution of previously identified right lower lobe infiltrate. PLEURA: No significant pleural effusion identified, no pneumothorax apparent. CARDIOVASCULAR: Normal. OSSEOUS STRUCTURES: No significant abnormalities. VISUALIZED UPPER ABDOMEN: Normal. OTHER FINDINGS: None. IMPRESSION: No active disease. Labs c/w COPD exacerbation, respiratory acidosis (possible chronic). Given AIDS status, will still rx with antibiotics for acute bronchitis with COPD exacerbation and possible PCP pneumonia. ----- Scribe Attestation: Documented by Hung Buenrostro, acting as a scribe for Yadi Zamora MD. Provider Scribe Attestation: All medical record entries made by the Scribe were at my direction and personally dictated by me. I have reviewed the chart and agree that the record accurately reflects my personal performance of the history, physical exam, medical decision making, and the department course for this patient. I have also personally directed, reviewed, and agree with the discharge instructions and disposition. Disposition - Clinical Impression Clinical Impression: Acute bronchitis with chronic obstructive pulmonary disease (COPD), HIV (human immunodeficiency virus infection), AIDS (acquired immunodeficiency syndrome), CD4 <=200/<=14% - Disposition Disposition Time: 17:00 Condition: GUARDED Forms: [facility] ([place]) - Pt Status Changed To: Hospital Disposition Of: Inpatient - Admit Certification Admit to Inpatient:: After my assessment, the patient will require hospitalization for at least two midnights. This is because of the severity of symptoms shown, intensity of services needed, and/or the medical risk in this patient being treated as an outpatient. - POA Present On Arrival: None
[2018-03-03 16:18] LABS: VENOUS BLOOD GAS BASE EXCESS 11.8 mmol/L (0.0-2.0); VENOUS BLOOD GAS PCO2 105 mmHg (40-60); VENOUS BLOOD GAS PO2 22 mm/Hg (30-55); VENOUS BLOOD PH 7.23 (7.32-7.43)
[2018-03-03 16:24] LABS: BASO % 0.4 % (0.0-2.0); EOS % 0.8 % (0.0-4.0); HEMOGLOBIN 9.9 g/dL (12.0-18.0); LYMPH % 26.9 % (20.0-40.0); MEAN CELL VOLUME 85.7 fl (80.0-94.0); MEAN CORPUSCULAR HEMOGLOBIN 25.8 pg (27.0-31.0); MEAN CORPUSCULAR HGB CONC 30.1 g/dL (33.0-37.0); MEAN PLATELET VOLUME 9.6 fl (7.2-11.7); MONO # 0.4 K/uL (0.0-0.8); MONO % 9.8 % (0.0-10.0); NEUT # 2.3 K/uL (1.8-7.0); NEUT % 62.1 % (50.0-75.0); NRBC % 0.1 % (0.0-0.0); RBC 3.85 Mil/uL (4.40-5.90); RED CELL DISTRIBUTION WIDTH 19.4 % (11.5-14.5); WHITE BLOOD COUNT 3.7 K/uL (4.8-10.8)
[2018-03-03 16:31] LABS: INR 1.1
[2018-03-03 16:32] LABS: ABG ALLEN TEST YES; ARTERIAL BLOOD GAS HCO3 34.4 mmol/L (21-28); ARTERIAL BLOOD GAS HEMOGLOBIN 10.6 g/dL (11.7-17.4); ARTERIAL BLOOD GAS O2 CAPACITY 15.1 mL/dL (16-24); ARTERIAL BLOOD GAS O2 CONTENT 14.7 ML/dL (15-23); ARTERIAL BLOOD GAS O2 SAT 97.5 % (95-98); ARTERIAL BLOOD GAS PCO2 77 mm/Hg (35-45); ARTERIAL BLOOD GAS PH 7.33 (7.35-7.45); ARTERIAL BLOOD GAS PO2 188 mm/Hg (80-100)
[2018-03-03 16:34] LABS: PARTIAL THROMBOPLASTIN TIME 47.4 Seconds (25.6-37.1)
--- NOTE | 2018-03-03 16:47 | RAD ---
Date of service: 03/03/2018 HISTORY: Sepsis Patient COMPARISON: 10/21/2017. FINDINGS: LUNGS: Resolution of previously identified right lower lobe infiltrate. PLEURA: No significant pleural effusion identified, no pneumothorax apparent. CARDIOVASCULAR: Normal. OSSEOUS STRUCTURES: No significant abnormalities. VISUALIZED UPPER ABDOMEN: Normal. OTHER FINDINGS: None. IMPRESSION: No active disease.
[2018-03-03 16:59] LABS: B-TYPE NATRIURETIC PEPTIDE 135 pg/ml (0-900)
[2018-03-03] MEDS ORDERED: Albuterol-Ipratrop 3 mg / 0.5 (3 ml) UD ONE (17:03)
[2018-03-03 17:08] LABS: ALB/GLOB RATIO 1.1 (1.0-2.1); ALBUMIN 3.5 g/dL (3.5-5.0); ALT/SGPT 25 U/L (21-72); AST/SGOT 27 U/L (17-59); CALCIUM 8.6 mg/dL (8.4-10.2); GFR NON-AFRICAN AMERICAN > 60
[2018-03-03 17:09] LABS: BLOOD UREA NITROGEN 18 mg/dl (9-20)
--- NOTE | 2018-03-03 19:51 | CP.PCM.HP ---
History of Present Illness - History of Present Illness History of Present Illness: CC: Dyspnea HPI: 53 y/o man w/ pmh of AIDS, colon Ca, rectal Ca, penile Ca, asthma (mild to moderate persistent), on home O2, heroin/cocaine abuse presents w/ dyspnea. Patient sent from PMD for O2 saturation of 80% in office. Patient reports chronic dyspnea especially after snorting heroin and/or cocaine. Patient non- adherent w/ all medications for AIDS and asthma. Patient on home O2 at 2-5L. Patient reports chronic diarrhea but denies chest pain, cough, nausea, vomiting , and fever. ED course: vitals: 98.3F, 78 beats/min, 133/79 mm Hg, resp 18, O2 100% non-rebreather CBC: 3.7>9.9/32.9<95 CMP: 140/4.0, 97/42, 18/1.0, glucose 79, AST 27, ALT 25, alk phos 76 troponin: <0.0120 lactate dehydrogenase: 614 ABG: pCO2 77, pO2 188, HCO3 34.4, pH 7.33, lactate 0.7 CXR: resolution or RLL infiltrate, no active disease duonebs x3 levaquin 750 mg IV once solu-medrol 125 mg IV once IVF NS 1L bolus Bactrim 325 mg IV once PMD: Dr. Galeano PMH: AIDS, colon Ca, rectal Ca, penile Ca, asthma (mild to moderate persistent) , on home O2, heroin/cocaine abuse meds: ventolin, stribild, diflucan, airduo, methadone, mirtazapine, bactrim DS, and flomax PSH: colectomy w/ ostomy, reversal of ostomy, penile resection Fam: denies SOC: denies smoking and alcohol, reports regularly snorting 2 bags of heroin daily, cocaine intermittently, started methadone 08/2017 ROS: 12 points assessed and negative unless otherwise reported in HPI Present on Admission - Present on Admission Any Indicators Present on Admission: No History of DVT/PE: No History of Uncontrolled Diabetes: No Urinary Catheter: No Decubitus Ulcer Present: No Review of Systems - Review of Systems All systems: reviewed and no additional remarkable complaints except - Constitutional Constitutional: absent: Chills, Fever, Headache - EENT Eyes: absent: Change in Vision - Cardiovascular Cardiovascular: absent: Chest Pain - Respiratory Respiratory: As Per HPI, Dyspnea. absent: Cough - Gastrointestinal Gastrointestinal: Diarrhea. absent: Abdominal Pain, Nausea, Vomiting - Genitourinary Genitourinary: absent: Dysuria - Integumentary Integumentary: absent: Rash Past Patient History - Past Medical History & Family History Past Medical History?: Yes - Past Social History Smoking Status: Former Smoker - CARDIAC Hx Hypertension: Yes - PULMONARY Hx Asthma: Yes Hx Bronchitis: Yes Hx Pneumonia: Yes (PCP) - NEUROLOGICAL Hx Neurological Disorder: No - HEENT Hx HEENT Problems: No - RENAL Hx Chronic Kidney Disease: No - ENDOCRINE/METABOLIC Hx Endocrine Disorders: No - HEMATOLOGICAL/ONCOLOGICAL Hx Human Immunodeficiency Virus (HIV): Yes - INTEGUMENTARY Hx Dermatological Problems: Yes - MUSCULOSKELETAL/RHEUMATOLOGICAL Hx Falls: No - GASTROINTESTINAL Hx Gastrointestinal Disorders: Yes Hx Colostomy: Yes (reversal) - GENITOURINARY/GYNECOLOGICAL Hx Genitourinary Disorders: Yes Other/Comment: Penile CA - PSYCHIATRIC Hx Depression: Yes - SURGICAL HISTORY Hx Surgeries: Yes Other/Comment: colostomy- reversed - ANESTHESIA Hx Anesthesia: Yes Hx Anesthesia Reactions: No Meds Allergies/Adverse Reactions: Allergies Allergy/AdvReac Type Severity Reaction Status Date / Time Penicillins Allergy Intermediate ANGIOEDEMA Verified 11/05/17 01:09 Physical Exam - Constitutional Appears: Non-toxic, No Acute Distress - Head Exam Head Exam: ATRAUMATIC, NORMAL INSPECTION, NORMOCEPHALIC - Eye Exam Eye Exam: Normal appearance - ENT Exam ENT Exam: Mucous Membranes Moist - Neck Exam Neck exam: Positive for: Full Rom. Negative for: Tenderness - Respiratory Exam Respiratory Exam: Decreased Breath Sounds, Wheezes (bilateral scattered). absent: Respiratory Distress Additional comments: speaking in full sentences uninterrupted, no respiratory distress - Cardiovascular Exam Cardiovascular Exam: REGULAR RHYTHM, RRR. absent: Tachycardia - GI/Abdominal Exam GI & Abdominal Exam: Normal Bowel Sounds, Soft. absent: Distended, Tenderness Additional comments: healed midline incision of previous abdominal surgeries - Exam Exam: absent: Scrotal Swelling, Testicular Tenderness - Extremities Exam Extremities exam: Positive for: normal inspection. Negative for: calf tenderness, pedal edema, tenderness - Neurological Exam Neurological exam: Alert, Oriented x3 - Skin Skin Exam: Dry, Intact, Normal Color, Warm Results - Vital Signs Recent Vital Signs: Last Vital Signs Temp 98.3 F 03/03/18 18:40 Pulse 78 03/03/18 18:40 Resp 19 03/03/18 19:06 BP 133/79 03/03/18 18:40 Pulse Ox 100 03/03/18 19:06 - Labs Result Diagrams: 03/03/18 15:30 03/03/18 15:30 Labs: Laboratory Results - last 24 hr 03/03/18 03/03/18 03/03/18 15:30 15:30 15:30 WBC 3.7 L RBC 3.85 L Hgb 9.9 L Hct 32.9 L MCV 85.7 MCH 25.8 L MCHC 30.1 L RDW 19.4 H Plt Count 95 L D MPV 9.6 Neut % (Auto) 62.1 Lymph % (Auto) 26.9 [place] % (Auto) 9.8 Eos % (Auto) 0.8 Baso % (Auto) 0.4 Neut # (Auto) 2.3 Lymph # (Auto) 1.0 [place] # (Auto) 0.4 Eos # (Auto) 0.0 Baso # (Auto) 0.0 PT 12.0 INR 1.1 APTT 47.4 H pCO2 pO2 HCO3 ABG pH ABG Total CO2 ABG O2 Saturation ABG O2 Content ABG Base Excess ABG Hemoglobin ABG Carboxyhemoglobin POC ABG HHb (Measured) ABG Methemoglobin ABG O2 Capacity Dale Test VBG pH VBG pCO2 VBG HCO3 VBG Total CO2 VBG O2 Sat (Calc) VBG Base Excess VBG Potassium A-a O2 Difference Hgb O2 Saturation Glucose Lactate Vent Mode FiO2 Crit Value Called To Crit Value Called By Crit Value Read Back Blood Gas Notified Time Sodium 140 Potassium 4.0 Chloride 97 L Carbon Dioxide 42 H* D Anion Gap 5 L BUN 18 Creatinine 1.0 Est GFR ( Amer) > 60 Est GFR (Non-Af Amer) > 60 Random Glucose 79 Calcium 8.6 Phosphorus 3.3 Magnesium 1.8 Total Bilirubin 0.2 AST 27 ALT 25 Alkaline Phosphatase 76 Lactate Dehydrogenase 614 Troponin I < 0.0120 NT-Pro-B Natriuret Pep 135 Total Protein 6.6 Albumin 3.5 D Globulin 3.2 Albumin/Globulin Ratio 1.1 Venous Blood Potassium 03/03/18 03/03/18 16:14 16:29 WBC RBC Hgb Hct MCV MCH MCHC RDW Plt Count MPV Neut % (Auto) Lymph % (Auto) [place] % (Auto) Eos % (Auto) Baso % (Auto) Neut # (Auto) Lymph # (Auto) [place] # (Auto) Eos # (Auto) Baso # (Auto) PT INR APTT pCO2 77 H* pO2 22 L 188 H HCO3 34.4 H ABG pH 7.33 L ABG Total CO2 43.0 H ABG O2 Saturation 97.5 ABG O2 Content 14.7 L ABG Base Excess 12.1 H ABG Hemoglobin 10.6 L ABG Carboxyhemoglobin 0.4 L POC ABG HHb (Measured) 2.5 ABG Methemoglobin 1.1 ABG O2 Capacity 15.1 L Dale Test Yes VBG pH 7.23 L VBG pCO2 105 H* VBG HCO3 32.2 VBG Total CO2 47.2 H VBG O2 Sat (Calc) 26.8 L VBG Base Excess 11.8 H VBG Potassium 3.8 A-a O2 Difference 429.0 Hgb O2 Saturation 96.0 Glucose 78 Lactate 0.7 Vent Mode Nrm FiO2 21.0 100.0 Crit Value Called To Yadi pavon Crit Value Called By [id number] Crit Value Read Back Y Y Blood Gas Notified Time 1618 1632 Sodium 138.0 Potassium Chloride 100.0 Carbon Dioxide Anion Gap BUN Creatinine Est GFR ( Amer) Est GFR (Non-Af Amer) Random Glucose Calcium Phosphorus Magnesium Total Bilirubin AST ALT Alkaline Phosphatase Lactate Dehydrogenase Troponin I NT-Pro-B Natriuret Pep Total Protein Albumin Globulin Albumin/Globulin Ratio Venous Blood Potassium 3.8 Assessment & Plan (1) Dyspnea Status: Acute (2) Asthma Status: Chronic (3) AIDS Status: Chronic Priority: High - Assessment and Plan (Free Text) Assessment: 53 y/o man w/ pmh of AIDS, colon Ca, rectal Ca, penile Ca, asthma (mild to moderate persistent), on home O2, heroin/cocaine abuse presents w/ dyspnea Plan: Dyspnea - most likely COPD/asthma exacerbation, less likely pneumonia (CAP, PCP) - vital signs stable - CBC: 3.7>9.9/32.9<95 - CMP: 140/4.0, 97/42, 18/1.0, glucose 79, AST 27, ALT 25, alk phos 76 - troponin: <0.0120 - lactate dehydrogenase: 614 - ABG: pCO2 77, pO2 188, HCO3 34.4, pH 7.33, lactate 0.7 - CXR: resolution or RLL infiltrate, no active disease - duonebs Q6h alexis - albuterol Q4h prn - solumedrol 40 mg IV Q6h - advair 1 puff Q12h - admit to Tele Asthma - chronic - non-adherent to medication AIDS - chronic - non-adherent to medication - last CD4 192 (12/12/2017) - last viral load 1150 (12/12/2017) - c/w stribild, diflucan, and bactrim prophylactic measures - DVT: lovenox 40 mg SC daily
[2018-03-03] MEDS ORDERED: Albuterol 0.083% Inhal Sol (2.5 mg/3 mL) UD INH SCH (20:00)
[2018-03-03] MEDS: Albuterol-Ipratrop 3 mg / 0.5 (3 ml) UD INH SCH (20:42)
[2018-03-03] MEDS: Fluticasone-Salmeterol 100-50mcg Diskus IH SCH (21:59)
[2018-03-03] MEDS ORDERED: methylPREDNISolone 40 MG in Sodium Chloride 0.9% 50 ML IVPB SCH (22:00)
[2018-03-03] MEDS ORDERED: MethylPREDNISolone 40 mg Vial IVP SCH (22:00)
[2018-03-04] MEDS: Albuterol-Ipratrop 3 mg / 0.5 (3 ml) UD INH SCH ×4 (01:06→19:14)
[2018-03-04 06:36] LABS: BASO % 0.4 % (0.0-2.0); EOS % 0.1 % (0.0-4.0); HEMOGLOBIN 9.1 g/dL (12.0-18.0); LYMPH # 0.9 K/uL (1.0-4.3); LYMPH % 30.8 % (20.0-40.0); MEAN CELL VOLUME 85.6 fl (80.0-94.0); MEAN CORPUSCULAR HEMOGLOBIN 26.2 pg (27.0-31.0); MEAN CORPUSCULAR HGB CONC 30.6 g/dL (33.0-37.0); MEAN PLATELET VOLUME 9.9 fl (7.2-11.7); MONO # 0.1 K/uL (0.0-0.8); MONO % 3.5 % (0.0-10.0); NEUT # 1.9 K/uL (1.8-7.0); NEUT % 65.2 % (50.0-75.0); NRBC % 0.2 % (0.0-0.0); RBC 3.46 Mil/uL (4.40-5.90); RED CELL DISTRIBUTION WIDTH 19.2 % (11.5-14.5)
--- NOTE | 2018-03-04 07:02 | CP.PCM.PN ---
Subjective - Date & Time of Evaluation Date of Evaluation: 03/04/18 Time of Evaluation: 09:00 Objective - Vital Signs/Intake and Output Vital Signs (last 24 hours): Temp Pulse Resp BP Pulse Ox 98.1 F 71 20 136/79 96 03/04/18 05:00 03/04/18 05:00 03/04/18 05:00 03/04/18 05:00 03/04/18 05:00 - Medications Medications: Current Medications Albuterol/Ipratropium (Duoneb 3 Mg/0.5 Mg (3 Ml) Ud) 3 ml INH RQ6 [facility] Last Admin: 03/04/18 01:06 Dose: 3 ml Enoxaparin Sodium (Lovenox) 40 mg SC DAILY [facility] PRN Reason: Protocol Famotidine (Pepcid) 20 mg PO DAILY [facility] Last Admin: 03/03/18 22:47 Dose: 20 mg Fluconazole (Diflucan) 100 mg PO DAILY [facility] PRN Reason: Protocol Home Med (Elviteg/Luna/Emtric/Tenofo Dis [Stribild Tablet]) 1 tab PO DAILY [facility] Home Med (Fluticasone/Salmeterol [Airduo Respiclick 232-14 Mcg]) 1 puff IH Q12 [facility] Methylprednisolone (Solu-Medrol) 40 mg IVP Q12 [facility] Mirtazapine (Remeron 15mg Odt) 15 mg PO HS [facility] Last Admin: 03/03/18 22:00 Dose: 15 mg Fluticasone/Salmeterol (Advair Diskus 100/50) 1 puff IH Q12 [facility] Last Admin: 03/03/18 21:59 Dose: 1 puff Tamsulosin HCl (Flomax) 0.4 mg PO DAILY [facility] Trimethoprim/Sulfamethoxazole (Bactrim Ds Tab) 1 tab PO DAILY [facility] PRN Reason: Protocol - Labs Labs: 03/04/18 06:00 03/03/18 15:30 PT 12.0 Seconds (9.8-13.1) 03/03/18 15:30 INR 1.1 03/03/18 15:30 APTT 47.4 Seconds (25.6-37.1) H 03/03/18 15:30
[2018-03-04 07:31] LABS: ALBUMIN 2.8 g/dL (3.5-5.0); ALT/SGPT 25 U/L (21-72); AST/SGOT 31 U/L (17-59); BLOOD UREA NITROGEN 18 mg/dl (9-20); CALCIUM 8.6 mg/dL (8.4-10.2); GFR NON-AFRICAN AMERICAN > 60
[2018-03-04] MEDS ORDERED: methylPREDNISolone 40 MG in Sodium Chloride 0.9% 50 ML IVPB SCH (09:00)
[2018-03-04] MEDS ORDERED: MethylPREDNISolone 40 mg Vial IVP SCH (09:00)
[2018-03-04] MEDS ORDERED: Enoxaparin 40 mg Syringe SC SCH (09:00)
[2018-03-04] MEDS ORDERED: Tmp-Smz 800 mg-160 mg DS Tab PO SCH (09:00)
[2018-03-04] MEDS ORDERED: FLUTICASONE IH SCH (09:00)
[2018-03-04] MEDS ORDERED: SALMETEROL IH SCH (09:00)
[2018-03-04] MEDS: Fluticasone-Salmeterol 100-50mcg Diskus IH SCH (09:09)
--- NOTE | 2018-03-04 09:17 | CARD ---
APPROVED REPORT Date of service: 03/03/2018 <Conclusion> Normal sinus rhythm Normal ECG
--- NOTE | 2018-03-04 12:16 | CP.PCM.DIS ---
Provider - Provider Date of Admission: 03/03/18 17:28 Attending physician: Shoshana Naik MD Primary care physician: Dong Tiwari MD Time Spent in preparation of Discharge (in minutes): 20 Hospital Course - Lab Results Lab Results: Most Recent Lab Values WBC 3.0 K/uL (4.8-10.8) L 03/04/18 06:00 RBC 3.46 Mil/uL (4.40-5.90) L 03/04/18 06:00 Hgb 9.1 g/dL (12.0-18.0) L 03/04/18 06:00 Hct 29.6 % (35.0-51.0) L 03/04/18 06:00 MCV 85.6 fl (80.0-94.0) 03/04/18 06:00 MCH 26.2 pg (27.0-31.0) L 03/04/18 06:00 MCHC 30.6 g/dL (33.0-37.0) L 03/04/18 06:00 RDW 19.2 % (11.5-14.5) H 03/04/18 06:00 Plt Count 88 K/uL (130-400) L 03/04/18 06:00 MPV 9.9 fl (7.2-11.7) 03/04/18 06:00 Neut % (Auto) 65.2 % (50.0-75.0) 03/04/18 06:00 Lymph % (Auto) 30.8 % (20.0-40.0) 03/04/18 06:00 [place] % (Auto) 3.5 % (0.0-10.0) 03/04/18 06:00 Eos % (Auto) 0.1 % (0.0-4.0) 03/04/18 06:00 Baso % (Auto) 0.4 % (0.0-2.0) 03/04/18 06:00 Neut # (Auto) 1.9 K/uL (1.8-7.0) 03/04/18 06:00 Lymph # (Auto) 0.9 K/uL (1.0-4.3) L 03/04/18 06:00 [place] # (Auto) 0.1 K/uL (0.0-0.8) 03/04/18 06:00 Eos # (Auto) 0.0 K/uL (0.0-0.7) 03/04/18 06:00 Baso # (Auto) 0.0 K/uL (0.0-0.2) 03/04/18 06:00 PT 12.0 Seconds (9.8-13.1) 03/03/18 15:30 INR 1.1 03/03/18 15:30 APTT 47.4 Seconds (25.6-37.1) H 03/03/18 15:30 pCO2 77 mm/Hg (35-45) H* 03/03/18 16:29 pO2 188 mm/Hg (80-100) H 03/03/18 16:29 HCO3 34.4 mmol/L (21-28) H 03/03/18 16:29 ABG pH 7.33 (7.35-7.45) L 03/03/18 16:29 ABG Total CO2 43.0 mmol/L (22-28) H 03/03/18 16:29 ABG O2 Saturation 97.5 % (95-98) 03/03/18 16:29 ABG O2 Content 14.7 ML/dL (15-23) L 03/03/18 16:29 ABG Base Excess 12.1 mmol/L (-2.0-3.0) H 03/03/18 16:29 ABG Hemoglobin 10.6 g/dL (11.7-17.4) L 03/03/18 16:29 ABG Carboxyhemoglobin 0.4 % (0.5-1.5) L 03/03/18 16:29 POC ABG HHb (Measured) 2.5 % (0.0-5.0) 03/03/18 16:29 ABG Methemoglobin 1.1 % (0.0-3.0) 03/03/18 16:29 ABG O2 Capacity 15.1 mL/dL (16-24) L 03/03/18 16:29 Dale Test Yes 03/03/18 16:29 VBG pH 7.23 (7.32-7.43) L 03/03/18 16:14 VBG pCO2 105 mmHg (40-60) H* 03/03/18 16:14 VBG HCO3 32.2 mmol/L 03/03/18 16:14 VBG Total CO2 47.2 mmol/L (22-28) H 03/03/18 16:14 VBG O2 Sat (Calc) 26.8 % (40-65) L 03/03/18 16:14 VBG Base Excess 11.8 mmol/L (0.0-2.0) H 03/03/18 16:14 VBG Potassium 3.8 mmol/L (3.6-5.2) 03/03/18 16:14 A-a O2 Difference 429.0 mm/Hg 03/03/18 16:29 Hgb O2 Saturation 96.0 % (95.0-98.0) 03/03/18 16:29 Sodium 138.0 mmol/L (132-148) 03/03/18 16:14 Chloride 100.0 mmol/L (98-107) 03/03/18 16:14 Glucose 78 mg/dL (75-110) 03/03/18 16:14 Lactate 0.7 mmol/L (0.7-2.1) 03/03/18 16:14 Vent Mode Nrm 03/03/18 16:29 FiO2 100.0 % 03/03/18 16:29 Crit Value Called To Dr dara pavon 03/03/18 16:29 Crit Value Called By [id number] 03/03/18 16:29 Crit Value Read Back Y 03/03/18 16:29 Blood Gas Notified Time 1632 03/03/18 16:29 Sodium 141 mmol/l (132-148) 03/04/18 06:00 Potassium 4.5 MMOL/L (3.6-5.0) 03/04/18 06:00 Chloride 100 mmol/L (98-107) 03/04/18 06:00 Carbon Dioxide 41 mmol/L (22-30) H* 03/04/18 06:00 Anion Gap 5 (10-20) L 03/04/18 06:00 BUN 18 mg/dl (9-20) 03/04/18 06:00 Creatinine 0.9 mg/dl (0.8-1.5) 03/04/18 06:00 Est GFR ( Amer) > 60 03/04/18 06:00 Est GFR (Non-Af Amer) > 60 03/04/18 06:00 Random Glucose 95 mg/dL (75-110) 03/04/18 06:00 Calcium 8.6 mg/dL (8.4-10.2) 03/04/18 06:00 Phosphorus 3.3 mg/dl (2.5-4.5) 03/03/18 15:30 Magnesium 1.8 MG/DL (1.6-2.3) 03/03/18 15:30 Total Bilirubin < 0.1 mg/dl (0.2-1.3) L 03/04/18 06:00 AST 31 U/L (17-59) 03/04/18 06:00 ALT 25 U/L (21-72) 03/04/18 06:00 Alkaline Phosphatase 61 U/L (38-126) 03/04/18 06:00 Lactate Dehydrogenase 614 U/L (313-618) 03/03/18 15:30 Troponin I < 0.0120 ng/mL (0.00-0.120) 03/03/18 15:30 NT-Pro-B Natriuret Pep 135 pg/ml (0-900) 03/03/18 15:30 Total Protein 5.4 G/DL (6.3-8.2) L 03/04/18 06:00 Albumin 2.8 g/dL (3.5-5.0) L 03/04/18 06:00 Globulin 2.7 gm/dL (2.2-3.9) 03/04/18 06:00 Albumin/Globulin Ratio 1.0 (1.0-2.1) 03/04/18 06:00 Procalcitonin < 0.05 NG/ML (0.19-0.49) L 03/03/18 15:30 Venous Blood Potassium 3.8 mmol/L (3.6-5.2) 03/03/18 16:14 - Hospital Course Hospital Course: Pt is a 53 yo male with PMH of AIDS, COPD/Asthma on home oxygen, chronic cocaine , heroin, on methadone, presented to ED due to dyspnea and SOB. Pt was admitted to [facility] due to COPD exacerbation. Pt presented with Wheezing, SOB, Ox sat of 81% . Pt recieved Duoneb , Solu-medrol, Rameron, Advair, Bactrim. Pt today feel better, he lying on bed comfortable with no acute distress, no wheezing noted on lung examination. Pt Still have low ox sat without supplemental oxygen, due to his condition, this is his normal baseline, and pt is already use oxygen supplement at home. Pt should follow up with [facility] doctor 1-2 wk Pt should continue taking his asthma medication Use home oxygen PRN Duoneb was sent to pharmacy for pt to pick IF symptoms exacerbate, feel of SOB, chest pain, dizziness, fatigue, or any other symptoms of concern go to closest ER unit Discharge Exam - Head Exam Head Exam: ATRAUMATIC, NORMAL INSPECTION, NORMOCEPHALIC - Eye Exam Eye Exam: EOMI, Normal appearance, PERRL Pupil Exam: NORMAL ACCOMODATION, PERRL - ENT Exam ENT Exam: Normal Exam - Respiratory Exam Respiratory Exam: Clear to PA & Lateral, NORMAL BREATHING PATTERN, UNREMARKABLE. absent: Wheezes - Cardiovascular Exam Cardiovascular Exam: REGULAR RHYTHM, +S1, +S2 - GI/Abdominal Exam GI & Abdominal Exam: Normal Bowel Sounds, Unremarkable - Extremities Exam Extremities exam: full ROM - Back Exam Back exam: NORMAL INSPECTION. absent: CVA tenderness (L), CVA tenderness (R) - Neurological Exam Neurological exam: Alert, Oriented x3 - Psychiatric Exam Psychiatric exam: Normal Affect, Normal Mood - Skin Skin Exam: Dry, Intact, Normal Color, Warm Discharge Plan - Discharge Medications Prescriptions: Albuterol/Ipratropium [Duoneb 3 MG/3 Ml-0.5 MG/3 Ml 3 Ml] 3 ml IH Q6 PRN #30 neb PRN Reason: Shortness Of Breath - Follow Up Plan Condition: IMPROVED Disposition: HOME/ ROUTINE Patient education suggested?: Yes Instructions: Chronic Obstructive Pulmonary Disease (COPD), Including Emphysema Additional Instructions: Pt should keep using his oxygen in home Pt should stop using heroin which may exacerbate his symptoms Douneb was sent to pharmacy for pt to pick Pt was instructed to go to His PCP for follow up in 1-2 week If pt have worsening symptoms, as SOB, Chest pain, fever, chills, or any other symptoms of concern to go closest ER. Referrals: Dong Tiwari MD [Primary Care Provider] -
[2018-03-04 14:14] LABS: ABG ALLEN TEST YES; ARTERIAL BLOOD GAS HCO3 31.9 mmol/L (21-28); ARTERIAL BLOOD GAS HEMOGLOBIN 10.6 g/dL (11.7-17.4); ARTERIAL BLOOD GAS O2 CAPACITY 14.8 mL/dL (16-24); ARTERIAL BLOOD GAS O2 CONTENT 12.3 ML/dL (15-23); ARTERIAL BLOOD GAS O2 SAT 83.2 % (95-98); ARTERIAL BLOOD GAS PCO2 56 mm/Hg (35-45); ARTERIAL BLOOD GAS PH 7.41 (7.35-7.45); ARTERIAL BLOOD GAS PO2 49 mm/Hg (80-100); ARTERIAL BLOOD GAS TCO2 37.2 mmol/L (22-28)
[2018-03-04 15:48] VITALS: BP 131/74; PULSE 88; RESP 16; TEMP 98.3; O2SAT 98
== END 2018-03-04 21:00 | disposition home or self-care (01) | DRG 541 ==
LOC: H.ER 14:57 → H.ERHOLD 17:28 → H.TEL 19:00
PROVIDERS: ADMIT Hospitalist; ATTEND Hospitalist
PROC: 3E0F73Z Introduction of Anti-inflammatory into Respiratory Tract, Via Natural or Artificial Opening (ICD-10-PCS; principal; 2018-03-03)
DX: J44.1 Chronic obstructive pulmonary disease with (acute) exacerbation (principal); B20 Human immunodeficiency virus [HIV] disease; E87.2 Acidosis; J45.41 Moderate persistent asthma with (acute) exacerbation; F11.20 Opioid dependence, uncomplicated; F14.20 Cocaine dependence, uncomplicated; R09.02 Hypoxemia; J44.0 Chronic obstructive pulmonary disease with (acute) lower respiratory infection; J20.9 Acute bronchitis, unspecified; Z99.81 Dependence on supplemental oxygen; Z91.14 Patient's other noncompliance with medication regimen; I10 Essential (primary) hypertension; F17.210 Nicotine dependence, cigarettes, uncomplicated; F32.9 Major depressive disorder, single episode, unspecified; Z85.048 Personal history of other malignant neoplasm of rectum, rectosigmoid junction, and anus; Z85.49 Personal history of malignant neoplasm of other male genital organs; Z87.01 Personal history of pneumonia (recurrent); Z88.0 Allergy status to penicillin